=== PATIENT | male | born 1970 | race Caucasian/White ===

== ENCOUNTER 2023-02-17 09:53 | Outpatient (RCR) | payer MEDICAID, SELFPAY | END 2023-04-07 16:34 | disposition home or self-care (01) | LOC: OT 09:53 | DX: R29.898 Other symptoms and signs involving the musculoskeletal system (principal) | CPT/HCPCS: 97014; 97140; 97530; 97535; G0283 ==

== ENCOUNTER 2023-02-22 14:02 | Outpatient (RCR) | payer MEDICAID, SELFPAY | END 2023-09-18 08:00 | disposition home or self-care (01) | LOC: PT 14:02 | DX: G81.94 Hemiplegia, unspecified affecting left nondominant side (principal); M25.512 Pain in left shoulder | CPT/HCPCS: 97110; 97112; 97113; 97116; 97140; 97162; 97530 ==

== ENCOUNTER 2023-03-29 21:40 | Outpatient (REF) | payer MEDICAID, SELFPAY | END 2023-03-29 21:41 | disposition home or self-care (01) | LOC: LAB 21:40 | PROVIDERS: Visit Provider Physician Assistant | DX: R82.90 Unspecified abnormal findings in urine (principal) | CPT/HCPCS: 87086 ==

== ENCOUNTER 2023-04-18 15:19 | Emergency (ER) | payer MEDICAID, SELFPAY ==
[2023-04-18 15:28] VITALS: BP 117/88; PULSE 72; RESP 20; TEMP 36.6; O2SAT 98; BMI 24.9
--- NOTE | 2023-04-18 15:40 | ECG_ITS ---
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
--- NOTE | 2023-04-18 15:41 | ED_ITS ---
Documented by User: SVETLANA Marsh 04/18/23 17:44 HPI - Seizure General Chief Complaint: Seizure Stated Complaint: SEIZURE Time Seen by Provider: 04/18/23 15:40 Source: patient Mode of arrival: ambulance Limitations: physical limitation History of Present Illness HPI Narrative: patient is a 52-year-old male with a history of stroke, seizure disorder who presents to the Emergency Room by ambulance after having a seizure at home. He states he stays awake for his seizures and was cognizant of the event. He reports shaking on his left side which is typical of his previous seizures. He had no falls or injuries. He reports a mild headache and nausea at this time. He takes Lamicctal, he was previously on Keppra but was switched to Lamictal. He has not had a level checked in over a month. He has had no other recent illness. Seizure History: Yes Place: outdoors Related Data Home Medications Medication Instructions Recorded Confirmed aspirin 81 mg tablet,delayed 81 mg PO DAILY 04/18/23 04/18/23 release atorvastatin 40 mg tablet 40 mg PO DAILY 04/18/23 04/18/23 baclofen 20 mg tablet 20 mg PO Q12H 04/18/23 04/18/23 duloxetine 60 mg capsule,delayed 60 mg PO DAILY 04/18/23 04/18/23 release ergocalciferol (vitamin D2) 1,250 50,000 unit PO DAILY 04/18/23 04/18/23 mcg (50,000 unit) capsule (Vitamin D2) gabapentin 400 mg capsule 400 mg PO TID 04/18/23 04/18/23 lamotrigine 100 mg tablet 100 mg PO Q12H 04/18/23 04/18/23 melatonin 5 mg tablet,immediate 5 mg PO BEDTIME 04/18/23 04/18/23 and extended release omeprazole 20 mg capsule,delayed 20 mg PO DAILY 04/18/23 04/18/23 release trazodone 150 mg tablet 150 mg PO DAILY 04/18/23 04/18/23 Allergies Allergy/AdvReac Type Severity Reaction Status Date / Time cortisone AdvReac Severe Nausea Verified 04/18/23 15:23 Review of Systems ROS Constitutional Denies: fever or chills Ears, nose, mouth, and throat Denies: throat pain Cardiovascular Denies: chest pain Respiratory Denies: shortness of breath Gastrointestinal Reports: nausea; Denies: vomiting Musculoskeletal Denies: back pain Integumentary/Breast Denies: rash Neurological Reports: headache [facility] Medical History (Updated 04/18/23 @ 17:43 by SVETLANA Marsh) Exam Narrative Exam Narrative: Gen.: Awake, alert, in no distress Head: Normocephalic, atraumatic ENT: Moist mucous membranes, no evidence of injury to the mouth or laceration of the tongue Respiratory: No respiratory distress, lungs clear bilaterally Cardio: Regular rate and rhythm Extremities: left-sided weakness from previous CVA, at baseline Psych: Normal mood and affect Neuro: No focal neuro deficit Skin: Warm, dry, intact Constitutional Vital Signs, click to edit/add: Last Vital Signs Temp 98 F 04/18/23 15:28 Pulse 72 04/18/23 15:28 Resp 20 04/18/23 15:28 BP 117/88 04/18/23 15:28 Pulse Ox 98 04/18/23 15:28 O2 Del Method Room Air 04/18/23 15:28 Course Vital Signs Vital signs: Vital Signs Temperature 98 F 04/18/23 15:28 Pulse Rate 72 04/18/23 15:28 Respiratory Rate 20 04/18/23 15:28 Blood Pressure 117/88 04/18/23 15:28 Pulse Oximetry 98 04/18/23 15:28 Oxygen Delivery Method Room Air 04/18/23 15:28 Temperature 98 F 04/18/23 15:28 Pulse Rate 72 04/18/23 15:28 Respiratory Rate 20 04/18/23 15:28 Blood Pressure 117/88 04/18/23 15:28 Pulse Oximetry 98 04/18/23 15:28 Oxygen Delivery Method Room Air 04/18/23 15:28 MDM - Seizure MDM Narrative Medical decision making narrative: EKG interpretation. Normal sinus rhythm at 72 beats a minute. Normal axis deviation. Artifact noted. No acute ST elevation, no acute ectopy. QTC of 396. lab studies within normal limits, patient with no persistent postictal period or seizure activity in the Emergency Room. Electrolytes within normal limits. Limit the level was ordered but is a send out lab for this patient, we will contact with abnormalities. Follow-up with advanced neurology and return to the Emergency Room if symptoms change or worsen. Patient was given Toradol and Zofran for headache. Stable at time of discharge, at mental baseline. Medical Records Attestation: I reviewed the patient's medical records. Lab Data Attestation: I reviewed the patient's lab results. Labs: Lab Results 04/18/23 Range/Units 15:50 WBC 7.3 (4.0-11.0) 10^3/uL RBC 4.91 (4.70-6.10) 10^6/uL Hgb 13.4 L (14.0-18.0) g/dL Hct 41.4 L (42.0-54.0) % MCV 84.3 (80.0-94.0) fL MCH 27.3 (25.9-34.0) pg MCHC 32.4 (29.9-35.2) g/dL RDW 14.3 (11.0-15.0) % Plt Count 267 (150-450) 10^3/uL MPV 10.3 (9.5-13.5) fL Neut % (Auto) 71.8 (43.0-75.0) % Lymph % (Auto) 18.9 L (20.5-60.0) % [place] % (Auto) 7.2 (1.7-12.0) % Eos % (Auto) 1.1 (0.9-7.0) % Baso % (Auto) 0.7 (0.2-2.0) % Neut # (Auto) 5.2 (1.4-6.5) 10^3/uL Lymph # (Auto) 1.4 (1.2-3.8) 10^3/uL [place] # (Auto) 0.5 (0.3-0.8) 10^3/uL Eos # (Auto) 0.1 (0.0-0.7) 10^3/uL Baso # (Auto) 0.1 (0.0-0.1) 10^3/uL Abs Immat Gran (auto) 0.02 (0.00-0.03) 10^3/uL Imm/Tot Granulo (auto) 0.3 (0.0-0.5) % Sodium 137 (136-145) mmol/L Potassium 3.9 (3.5-5.1) mmol/L Chloride 103 (98-107) mmol/L Carbon Dioxide 29.7 (21.0-32.0) mmol/L Anion Gap 8.2 BUN 13.0 (7.0-18.0) mg/dL Creatinine 1.15 (0.70-1.30) mg/dL Est GFR ( Amer) >60 (>=60) Est GFR (Non-Af Amer) >60 (>=60) BUN/Creatinine Ratio 11.3 Glucose 118 H (74-106) mg/dL Calcium 9.3 (8.5-10.1) mg/dL Total Bilirubin 0.6 (0.2-1.0) mg/dL AST 18 (15-37) U/L ALT 28 (16-63) U/L Alkaline Phosphatase 81 (46-116) U/L Total Protein 7.9 (6.4-8.2) g/dL Albumin 3.8 (3.4-5.0) g/dL Globulin 4.1 g/dL Albumin/Globulin Ratio 0.9 ECG Data Attestation: ?I have reviewed the pertinent ECG results. Discharge Plan Discharge Chief Complaint: Seizure Clinical Impression: Focal seizure Patient Disposition: Home, Self-Care Time of Disposition Decision: 17:42 Condition: Good Prescriptions / Home Meds: No Action aspirin 81 mg tablet,delayed release (DR/EC) 81 mg PO DAILY atorvastatin 40 mg tablet 40 mg PO DAILY baclofen 20 mg tablet 20 mg PO Q12H duloxetine 60 mg capsule,delayed release(DR/EC) 60 mg PO DAILY ergocalciferol (vitamin D2) [Vitamin D2] 1,250 mcg (50,000 unit) capsule 50,000 unit PO DAILY gabapentin 400 mg capsule 400 mg PO TID lamotrigine 100 mg tablet 100 mg PO Q12H omeprazole 20 mg capsule,delayed release(DR/EC) 20 mg PO DAILY trazodone 150 mg tablet 150 mg PO DAILY melatonin 5 mg tablet, IR and ER, biphasic 5 mg PO BEDTIME Instructions: Recurrent Seizures in Adults (ED) Additional Instructions: Lamictal level will take a few days to result. Follow up with your neurologist and continue your medications as prescribed. Stand Alone Forms: Portal Instructions Referrals: Physician,Non-Staff, MD [Primary Care Provider] - 1 week Discharge Date/Time: 04/18/23 17:54 Documented by User: Carlton Bass MD 04/18/23 21:09 HPI - Seizure General Chief Complaint: Seizure Stated Complaint: SEIZURE Time Seen by Provider: 04/18/23 15:40 Related Data Home Medications Medication Instructions Recorded Confirmed aspirin 81 mg tablet,delayed 81 mg PO DAILY 04/18/23 04/18/23 release atorvastatin 40 mg tablet 40 mg PO DAILY 04/18/23 04/18/23 baclofen 20 mg tablet 20 mg PO Q12H 04/18/23 04/18/23 duloxetine 60 mg capsule,delayed 60 mg PO DAILY 04/18/23 04/18/23 release ergocalciferol (vitamin D2) 1,250 50,000 unit PO DAILY 04/18/23 04/18/23 mcg (50,000 unit) capsule (Vitamin D2) gabapentin 400 mg capsule 400 mg PO TID 04/18/23 04/18/23 lamotrigine 100 mg tablet 100 mg PO Q12H 04/18/23 04/18/23 melatonin 5 mg tablet,immediate 5 mg PO BEDTIME 04/18/23 04/18/23 and extended release omeprazole 20 mg capsule,delayed 20 mg PO DAILY 04/18/23 04/18/23 release trazodone 150 mg tablet 150 mg PO DAILY 04/18/23 04/18/23 Allergies Allergy/AdvReac Type Severity Reaction Status Date / Time cortisone AdvReac Severe Nausea Verified 04/18/23 15:23 [facility] Medical History (Updated 04/18/23 @ 17:43 by SVETLANA Marsh) Exam Constitutional Vital Signs, click to edit/add: Last Vital Signs Temp 98 F 04/18/23 15:28 Pulse 72 04/18/23 15:28 Resp 20 04/18/23 15:28 BP 117/88 04/18/23 15:28 Pulse Ox 98 04/18/23 15:28 O2 Del Method Room Air 04/18/23 15:28 Course Vital Signs Vital signs: Vital Signs Temperature 98 F 04/18/23 15:28 Pulse Rate 72 04/18/23 15:28 Respiratory Rate 20 04/18/23 15:28 Blood Pressure 117/88 04/18/23 15:28 Pulse Oximetry 98 04/18/23 15:28 Oxygen Delivery Method Room Air 04/18/23 15:28 Temperature 98 F 04/18/23 15:28 Pulse Rate 72 04/18/23 15:28 Respiratory Rate 20 04/18/23 15:28 Blood Pressure 117/88 04/18/23 15:28 Pulse Oximetry 98 04/18/23 15:28 Oxygen Delivery Method Room Air 04/18/23 15:28 MDM - Seizure MDM Narrative Medical decision making narrative: EKG interpretation. Normal sinus rhythm at 72 beats a minute. Normal axis deviation. Artifact noted. No acute ST elevation, no acute ectopy. QTC of 396. lab studies within normal limits, patient with no persistent postictal period or seizure activity in the Emergency Room. Electrolytes within normal limits. Limit the level was ordered but is a send out lab for this patient, we will contact with abnormalities. Follow-up with advanced neurology and return to the Emergency Room if symptoms change or worsen. Patient was given Toradol and Zofran for headache. Stable at time of discharge, at mental baseline. I, Dr Bass, have reviewed the above progress note and course of action in the ER; agree with the above. I have personally seen and evaluated this patient, gone over history and physical, and discussed disposition and treatment plan with the patient. Lab Data Labs: Lab Results 04/18/23 Range/Units 15:50 WBC 7.3 (4.0-11.0) 10^3/uL RBC 4.91 (4.70-6.10) 10^6/uL Hgb 13.4 L (14.0-18.0) g/dL Hct 41.4 L (42.0-54.0) % MCV 84.3 (80.0-94.0) fL MCH 27.3 (25.9-34.0) pg MCHC 32.4 (29.9-35.2) g/dL RDW 14.3 (11.0-15.0) % Plt Count 267 (150-450) 10^3/uL MPV 10.3 (9.5-13.5) fL Neut % (Auto) 71.8 (43.0-75.0) % Lymph % (Auto) 18.9 L (20.5-60.0) % [place] % (Auto) 7.2 (1.7-12.0) % Eos % (Auto) 1.1 (0.9-7.0) % Baso % (Auto) 0.7 (0.2-2.0) % Neut # (Auto) 5.2 (1.4-6.5) 10^3/uL Lymph # (Auto) 1.4 (1.2-3.8) 10^3/uL [place] # (Auto) 0.5 (0.3-0.8) 10^3/uL Eos # (Auto) 0.1 (0.0-0.7) 10^3/uL Baso # (Auto) 0.1 (0.0-0.1) 10^3/uL Abs Immat Gran (auto) 0.02 (0.00-0.03) 10^3/uL Imm/Tot Granulo (auto) 0.3 (0.0-0.5) % Sodium 137 (136-145) mmol/L Potassium 3.9 (3.5-5.1) mmol/L Chloride 103 (98-107) mmol/L Carbon Dioxide 29.7 (21.0-32.0) mmol/L Anion Gap 8.2 BUN 13.0 (7.0-18.0) mg/dL Creatinine 1.15 (0.70-1.30) mg/dL Est GFR ( Amer) >60 (>=60) Est GFR (Non-Af Amer) >60 (>=60) BUN/Creatinine Ratio 11.3 Glucose 118 H (74-106) mg/dL Calcium 9.3 (8.5-10.1) mg/dL Total Bilirubin 0.6 (0.2-1.0) mg/dL AST 18 (15-37) U/L ALT 28 (16-63) U/L Alkaline Phosphatase 81 (46-116) U/L Total Protein 7.9 (6.4-8.2) g/dL Albumin 3.8 (3.4-5.0) g/dL Globulin 4.1 g/dL Albumin/Globulin Ratio 0.9 Discharge Plan Discharge Chief Complaint: Seizure Clinical Impression: Focal seizure Patient Disposition: Home, Self-Care Time of Disposition Decision: 17:42 Condition: Good Prescriptions / Home Meds: No Action aspirin 81 mg tablet,delayed release (DR/EC) 81 mg PO DAILY atorvastatin 40 mg tablet 40 mg PO DAILY baclofen 20 mg tablet 20 mg PO Q12H duloxetine 60 mg capsule,delayed release(DR/EC) 60 mg PO DAILY ergocalciferol (vitamin D2) [Vitamin D2] 1,250 mcg (50,000 unit) capsule 50,000 unit PO DAILY gabapentin 400 mg capsule 400 mg PO TID lamotrigine 100 mg tablet 100 mg PO Q12H omeprazole 20 mg capsule,delayed release(DR/EC) 20 mg PO DAILY trazodone 150 mg tablet 150 mg PO DAILY melatonin 5 mg tablet, IR and ER, biphasic 5 mg PO BEDTIME Instructions: Recurrent Seizures in Adults (ED) Additional Instructions: Lamictal level will take a few days to result. Follow up with your neurologist and continue your medications as prescribed. Stand Alone Forms: Portal Instructions Referrals: Physician,Non-Staff, MD [Primary Care Provider] - 1 week Discharge Date/Time: 04/18/23 17:54
[2023-04-18] MEDS: 0.9 % SODIUM CHLORIDE 1,000 ML 1000 ML IV (16:06)
[2023-04-18] MEDS: ONDANSETRON PF 4 MG/2 ML VIAL IV (16:06)
[2023-04-18 16:07] LABS: Basophils Absolute Auto 0.1 10^3/uL (0.0-0.1); Basophils Percent Auto 0.7 % (0.2-2.0); Eosinophils Absolute Auto 0.1 10^3/uL (0.0-0.7); Eosinophils Percent Auto 1.1 % (0.9-7.0); Hematocrit 41.4 % (42.0-54.0); Hemoglobin 13.4 g/dL (14.0-18.0); Immature Granulocytes Abs Auto 0.02 10^3/uL (0.00-0.03); Immature Granulocytes Pct Auto 0.3 % (0.0-0.5); Lymphocytes Absolute Auto 1.4 10^3/uL (1.2-3.8); Lymphocytes Percent Auto 18.9 % (20.5-60.0); Mean Corpuscular HGB Conc 32.4 g/dL (29.9-35.2); Mean Corpuscular Hemoglobin 27.3 pg (25.9-34.0); Mean Corpuscular Volume 84.3 fL (80.0-94.0); Mean Platelet Volume 10.3 fL (9.5-13.5); Monocytes Absolute Auto 0.5 10^3/uL (0.3-0.8); Monocytes Percent Auto 7.2 % (1.7-12.0); Neutrophils Absolute Auto 5.2 10^3/uL (1.4-6.5); Neutrophils Percent Auto 71.8 % (43.0-75.0); Platelet Count 267 10^3/uL (150-450); Red Blood Count 4.91 10^6/uL (4.70-6.10); Red Cell Distribution Width 14.3 % (11.0-15.0); White Blood Count 7.3 10^3/uL (4.0-11.0)
[2023-04-18] MEDS: KETOROLAC TROMETHAMINE 30 MG/ML VIAL IVP (16:07)
[2023-04-18 16:18] LABS: Alanine Aminotransferase 28 U/L (16-63); Albumin Globulin Ratio 0.9; Albumin Level 3.8 g/dL (3.4-5.0); Alkaline Phosphatase 81 U/L (46-116); Anion Gap 8.2; Aspartate Amino Transferase 18 U/L (15-37); BUN Creatinine Ratio 11.3; Bilirubin Total 0.6 mg/dL (0.2-1.0); Calcium 9.3 mg/dL (8.5-10.1); Carbon Dioxide 29.7 mmol/L (21.0-32.0); Chloride 103 mmol/L (98-107); Estimated GFR (African America >60 (>=60); Estimated GFR (Non-African Ame >60 (>=60); Globulin 4.1 g/dL; Glucose 118 mg/dL (74-106); Potassium 3.9 mmol/L (3.5-5.1); Sodium 137 mmol/L (136-145); Total Protein 7.9 g/dL (6.4-8.2)
[2023-04-20 14:11] LABS: Lamotrigine (Lamictal), Serum 5.7 ug/mL (2.0-20.0)
== END 2023-04-18 17:54 | disposition home or self-care (01) ==
PROVIDERS: Physician Assistant; Emergency Provider Emergency Medicine
DX: G40.909 Epilepsy, unspecified, not intractable, without status epilepticus (principal); Z79.899 Other long term (current) drug therapy; Z79.82 Long term (current) use of aspirin
CPT/HCPCS: 36415; 80053; 80175; 85025; 93005; 96374; 96375; 99285

== ENCOUNTER 2023-05-03 13:55 | Emergency (ER) | payer MEDICAID, SELFPAY ==
[2023-05-03] VITALS (12 sets, daily range): BP systolic 95–116; BP diastolic 72–75; PULSE 55–76; RESP 18–27; TEMP 36.6; O2SAT 95; BMI 26.3
--- NOTE | 2023-05-03 14:15 | ECG_ITS ---
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
--- NOTE | 2023-05-03 14:15 | XR_ITS ---
The [address] [address] Patient Name: JONI GRIFFIN MRN: [id number] date: 1970 Sex: M Assigned Patient Location: ER Current Patient Location: ED.MAIN Accession/Order Number: [id number] Exam Date: 05/03/2023 14:25 Report Date: 05/03/2023 14:43 At the request of: DANISH KHAN Procedure: XR chest 1V PROCEDURE: XR chest 1V DATE: 05/03/2023 1:25 PM CDT COMPARISONS: 09/29/2019 CLINICAL INDICATION: 52 years Male chest pain FINDINGS: The cardiomediastinal silhouette and pulmonary vasculature are within normal limits. The lungs are clear. There is no evidence of pleural effusion or pneumothorax. XR/XR chest 1V IMPRESSION: Chest radiograph is within normal limits. Electronically authenticated by: DELFINO HAMM Date: 05/03/2023 14:43
--- NOTE | 2023-05-03 14:31 | ED.CHESTPAI1 ---
HPI - Chest Pain General Chief Complaint: Chest Pain Stated Complaint: CHEST PAIN Time Seen by Provider: 05/03/23 14:02 Source: patient Mode of arrival: ambulance History of Present Illness HPI narrative: 52-year-old male to the emergency department with chief complaint chest pain. Patient has been on since this morning. He reports it is a pain near his xiphoid process that radiates up into his neck. He reports he has had pain like this in past. He is otherwise at his baseline health. Denies any palpitations, shortness of breath, numbness, weakness, tingling that is new. Denies any cardiac history. He denies any diabetes, hypertension, smoking. Related Data Home Medications Medication Instructions Recorded Confirmed aspirin 81 mg tablet,delayed 81 mg PO DAILY 04/18/23 05/03/23 release atorvastatin 40 mg tablet 40 mg PO DAILY 04/18/23 05/03/23 baclofen 20 mg tablet 20 mg PO Q12H 04/18/23 05/03/23 duloxetine 60 mg capsule,delayed 60 mg PO DAILY 04/18/23 05/03/23 release ergocalciferol (vitamin D2) 1,250 50,000 unit PO DAILY 04/18/23 05/03/23 mcg (50,000 unit) capsule (Vitamin D2) gabapentin 400 mg capsule 400 mg PO TID 04/18/23 05/03/23 lamotrigine 100 mg tablet 100 mg PO Q12H 04/18/23 05/03/23 melatonin 5 mg tablet,immediate 5 mg PO BEDTIME 04/18/23 05/03/23 and extended release omeprazole 20 mg capsule,delayed 20 mg PO DAILY 04/18/23 05/03/23 release trazodone 150 mg tablet 150 mg PO DAILY 04/18/23 05/03/23 Allergies Allergy/AdvReac Type Severity Reaction Status Date / Time cortisone AdvReac Severe Nausea Verified 05/03/23 14:04 Review of Systems ROS Status of ROS 10 or more systems reviewed and unremarkable except as noted in history and below [facility] Medical History (Updated 05/03/23 @ 15:18 by Benja Lama MD) Exam Narrative Exam Narrative: VITALS: I have reviewed the triage vital signs. GENERAL: Well developed, well appearing adult in no acute distress. Wearing sunglasses. NEURO: Alert and oriented. Moves all extremities. Face is symmetric and expressive. EYES: PERRL. No scleral icterus or conjunctival injection. No discharge. HENT: Normocephalic, atraumatic. Hearing is grossly intact. Nares grossly patent and without discharge. Mucous membranes moist. NECK: No JVD. Patient moves neck without restriction. CARDIO: Rhythm regular. Normal rate. No murmur, rub, or gallop. Pulses equal bilaterally in the upper and lower extremity. No lower extremity edema. PULM: Lungs clear to auscultation in all dumont. No wheezes, rales, or rhonchi. No conversational dyspnea. No splinting, stridor, or accessory muscle use. GI/: Abdomen is soft and non-tender. Normoactive bowel sounds. EXTREMITIES: Symmetric muscle bulk. No joint swelling. No clubbing, cyanosis, or deformity. SKIN: Warm and dry. Normal turgor. No rash or lesions appreciated. PSYCH: Strange affect Constitutional Vital Signs, click to edit/add: Last Vital Signs Temp 98 F 05/03/23 14:02 Pulse 63 05/03/23 15:00 Resp 19 05/03/23 15:00 BP 108/73 05/03/23 15:00 Pulse Ox 95 05/03/23 14:02 O2 Del Method Room Air 05/03/23 14:02 Course Vital Signs Vital signs: Vital Signs Blood Pressure 116/73 05/03/23 13:57 Temperature 98 F 05/03/23 14:02 Pulse Rate 63 05/03/23 15:00 Respiratory Rate 19 05/03/23 15:00 Blood Pressure 108/73 05/03/23 15:00 Pulse Oximetry 95 05/03/23 14:02 Oxygen Delivery Method Room Air 05/03/23 14:02 MDM - Chest Pain MDM Narrative Medical decision making narrative: 52-year-old male to the emergency department with chief complaint of chest pain. Vital stable, the patient is afebrile. Cardiac workup is initiated. Toradol, Zofran for symptoms. Patient agrees with this plan. Laboratory reviewed and noted. No major abnormalities in CBC or chemistry. Lipase is within normal limits. His troponin is very low. EKG is without evidence of ischemia. Chest x-ray is without acute findings. HEART Score: 2; [id number] Patient low risk by HEART Score. Symptom onset greater than three hours ago with negative troponin, he is appropriate for discharge home at this time. Patient agrees with this plan. He feels much improved. Discussed cardiology follow-up, referral is given. Return Precautions discussed. Questions were answered. The patient was discharged home. Medical Records Data Attestation: I reviewed the patient's medical records. Lab Data Attestation: I reviewed the patient's lab results. Labs: Lab Results 05/03/23 Range/Units 14:25 WBC 6.3 (4.0-11.0) 10^3/uL RBC 4.61 L (4.70-6.10) 10^6/uL Hgb 12.6 L (14.0-18.0) g/dL Hct 39.2 L (42.0-54.0) % MCV 85.0 (80.0-94.0) fL MCH 27.3 (25.9-34.0) pg MCHC 32.1 (29.9-35.2) g/dL RDW 14.4 (11.0-15.0) % Plt Count 219 (150-450) 10^3/uL MPV 10.4 (9.5-13.5) fL Neut % (Auto) 60.6 (43.0-75.0) % Lymph % (Auto) 27.3 (20.5-60.0) % [place] % (Auto) 9.4 (1.7-12.0) % Eos % (Auto) 1.6 (0.9-7.0) % Baso % (Auto) 0.8 (0.2-2.0) % Neut # (Auto) 3.8 (1.4-6.5) 10^3/uL Lymph # (Auto) 1.7 (1.2-3.8) 10^3/uL [place] # (Auto) 0.6 (0.3-0.8) 10^3/uL Eos # (Auto) 0.1 (0.0-0.7) 10^3/uL Baso # (Auto) 0.1 (0.0-0.1) 10^3/uL Abs Immat Gran (auto) 0.02 (0.00-0.03) 10^3/uL Imm/Tot Granulo (auto) 0.3 (0.0-0.5) % PT 10.0 (9.0-11.6) sec INR 0.94 APTT 27.7 (22.3-36.2) sec Sodium 139 (136-145) mmol/L Potassium 4.4 (3.5-5.1) mmol/L Chloride 104 (98-107) mmol/L Carbon Dioxide 26.1 (21.0-32.0) mmol/L Anion Gap 13.3 BUN 15.0 (7.0-18.0) mg/dL Creatinine 0.99 (0.70-1.30) mg/dL Est GFR ( Amer) >60 (>=60) Est GFR (Non-Af Amer) >60 (>=60) BUN/Creatinine Ratio 15.2 Glucose 110 H (74-106) mg/dL Calcium 9.6 (8.5-10.1) mg/dL Total Bilirubin 0.6 (0.2-1.0) mg/dL AST 19 (15-37) U/L ALT 25 (16-63) U/L Alkaline Phosphatase 84 (46-116) U/L Troponin I High Sens 5.4 (4.0-76.1) pg/mL Total Protein 7.6 (6.4-8.2) g/dL Albumin 3.7 (3.4-5.0) g/dL Globulin 3.9 g/dL Albumin/Globulin Ratio 0.9 Lipase 92.0 (73.0-393.0) U/L ECG Data Attestation: I personally reviewed and interpreted this ECG as follows: (Normal sinus rhythm with rate of 66. No STEMI. normal QTc.) Heart Score History: Slightly/Non-Suspicious ECG: Normal Age: >45-<65 years Risk Factors: 1 or 2 Risk Factors Troponin: <Normal Limit Total Heart Score Recommendations & Risks:: 2 Discharge Plan Discharge Chief Complaint: Chest Pain Clinical Impression: Atypical chest pain Patient Disposition: Home, Self-Care Time of Disposition Decision: 15:17 Condition: Good Mode of Transportation: Private Vehicle Prescriptions / Home Meds: No Action aspirin 81 mg tablet,delayed release (DR/EC) 81 mg PO DAILY atorvastatin 40 mg tablet 40 mg PO DAILY baclofen 20 mg tablet 20 mg PO Q12H duloxetine 60 mg capsule,delayed release(DR/EC) 60 mg PO DAILY ergocalciferol (vitamin D2) [Vitamin D2] 1,250 mcg (50,000 unit) capsule 50,000 unit PO DAILY gabapentin 400 mg capsule 400 mg PO TID lamotrigine 100 mg tablet 100 mg PO Q12H omeprazole 20 mg capsule,delayed release(DR/EC) 20 mg PO DAILY trazodone 150 mg tablet 150 mg PO DAILY melatonin 5 mg tablet, IR and ER, biphasic 5 mg PO BEDTIME Print Language: Sami Instructions: Chest Pain (ED) Stand Alone Forms: Portal Instructions Referrals: Hemalatha Branham MD [Physician] - 1 week (Establish with cardiology for stress testing. Return to the ED with new or worsening symptoms. ) Physician,Non-Staff, [Primary Care Provider] - 1 week
[2023-05-03] MEDS: FAMOTIDINE/PF 20 MG/2 ML VIAL IV (14:35)
[2023-05-03] MEDS: KETOROLAC TROMETHAMINE 30 MG/ML VIAL 15 MG IVP (14:35)
[2023-05-03] MEDS: ONDANSETRON PF 4 MG/2 ML VIAL IV (14:35)
[2023-05-03 14:37] LABS: Basophils Absolute Auto 0.1 10^3/uL (0.0-0.1); Basophils Percent Auto 0.8 % (0.2-2.0); Eosinophils Absolute Auto 0.1 10^3/uL (0.0-0.7); Eosinophils Percent Auto 1.6 % (0.9-7.0); Hematocrit 39.2 % (42.0-54.0); Hemoglobin 12.6 g/dL (14.0-18.0); Immature Granulocytes Abs Auto 0.02 10^3/uL (0.00-0.03); Immature Granulocytes Pct Auto 0.3 % (0.0-0.5); Lymphocytes Absolute Auto 1.7 10^3/uL (1.2-3.8); Lymphocytes Percent Auto 27.3 % (20.5-60.0); Mean Corpuscular HGB Conc 32.1 g/dL (29.9-35.2); Mean Corpuscular Hemoglobin 27.3 pg (25.9-34.0); Mean Platelet Volume 10.4 fL (9.5-13.5); Monocytes Absolute Auto 0.6 10^3/uL (0.3-0.8); Monocytes Percent Auto 9.4 % (1.7-12.0); Neutrophils Absolute Auto 3.8 10^3/uL (1.4-6.5); Neutrophils Percent Auto 60.6 % (43.0-75.0); Platelet Count 219 10^3/uL (150-450); Red Blood Count 4.61 10^6/uL (4.70-6.10); Red Cell Distribution Width 14.4 % (11.0-15.0); White Blood Count 6.3 10^3/uL (4.0-11.0)
[2023-05-03] MEDS: 0.9 % SODIUM CHLORIDE 1,000 ML 1000 ML IV (14:54)
[2023-05-03 14:57] LABS: INR 0.94; Partial Thromboplastin Time 27.7 sec (22.3-36.2)
[2023-05-03 15:00] LABS: Alanine Aminotransferase 25 U/L (16-63); Albumin Globulin Ratio 0.9; Albumin Level 3.7 g/dL (3.4-5.0); Alkaline Phosphatase 84 U/L (46-116); Anion Gap 13.3; Aspartate Amino Transferase 19 U/L (15-37); BUN Creatinine Ratio 15.2; Bilirubin Total 0.6 mg/dL (0.2-1.0); Calcium 9.6 mg/dL (8.5-10.1); Carbon Dioxide 26.1 mmol/L (21.0-32.0); Chloride 104 mmol/L (98-107); Estimated GFR (African America >60 (>=60); Estimated GFR (Non-African Ame >60 (>=60); Globulin 3.9 g/dL; Glucose 110 mg/dL (74-106); Potassium 4.4 mmol/L (3.5-5.1); Sodium 139 mmol/L (136-145); Total Protein 7.6 g/dL (6.4-8.2); Troponin I High Sensitivity 5.4 pg/mL (4.0-76.1)
== END 2023-05-03 15:43 | disposition home or self-care (01) ==
PROVIDERS: Emergency Provider Student in an Organized Health Care Education/Training Program
DX: R07.89 Other chest pain (principal); Z79.82 Long term (current) use of aspirin; Z79.899 Other long term (current) drug therapy
CPT/HCPCS: 36415; 71045; 80053; 83690; 84484; 85025; 85610; 85730; 93005; 96374; 96375; 99285

== ENCOUNTER 2023-06-27 20:21 | Outpatient (OUT) | payer MEDICAID, SELFPAY | END 2023-06-27 20:22 | disposition home or self-care (01) | LOC: SLEEP 20:21 | DX: G47.33 Obstructive sleep apnea (adult) (pediatric) (principal) | CPT/HCPCS: 95811 ==

== ENCOUNTER 2023-08-01 15:02 | Outpatient (RCR) | payer MEDICAID, SELFPAY | END 2023-09-18 08:12 | disposition home or self-care (01) | LOC: OT 15:02 | PROVIDERS: Visit Provider Physician Assistant | DX: R53.1 Weakness (principal) | CPT/HCPCS: 97110; 97112; 97140; 97165 ==

== ENCOUNTER 2023-09-12 14:12 | Emergency (ER) | payer MEDICAID, SELFPAY ==
[2023-09-12] VITALS (14 sets, daily range): BP systolic 134–142; BP diastolic 67–92; PULSE 74–88; RESP 11–26; TEMP 36.8; O2SAT 94–97; BMI 24.4
--- NOTE | 2023-09-12 14:25 | XR_ITS ---
The [address] [address] Patient Name: JONI GRIFFIN MRN: [id number] date: 1970 Sex: M Assigned Patient Location: ER Current Patient Location: ER Accession/Order Number: [id number] Exam Date: 09/12/2023 14:30 Report Date: 09/12/2023 15:47 At the request of: MORTEZA MORAN Procedure: XR chest 1V EXAM: XR chest 1V TECHNIQUE: Single AP view chest HISTORY: CP COMPARISON: 05/03/2023 FINDINGS: The heart and mediastinum are unremarkable. The lung dumont are clear of any acute infiltrate, effusion or mass. No acute bony abnormality. XR/XR chest 1V IMPRESSION: No acute pulmonary disease. Electronically authenticated by: FRANCISCO JAVIER MEDRANO Date: 09/12/2023 15:47
--- NOTE | 2023-09-12 14:25 | ECG_ITS ---
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
--- NOTE | 2023-09-12 14:26 | ED.CHESTPAI1 ---
HPI - Chest Pain General Chief Complaint: Chest Pain Stated Complaint: body pains-hx stroke Time Seen by Provider: 09/12/23 14:16 Source: patient Mode of arrival: Wheelchair Limitations: physical limitation History of Present Illness HPI narrative: 53-year-old male presents for chest pain. It started about thirty minutes ago while he was sitting. Shortly before this he had eaten some sloppy Chon's. He pointed to the epigastric area and then the sternal notch area to indicate where was and is. It seems to have subsided a great deal and is almost gone now. No trauma fever or shortness of breath. No weakness or headache. Related Data Home Medications Medication Instructions Recorded Confirmed aspirin 81 mg tablet,delayed 81 mg PO DAILY 04/18/23 05/03/23 release atorvastatin 40 mg tablet 40 mg PO DAILY 04/18/23 05/03/23 baclofen 20 mg tablet 20 mg PO Q12H 04/18/23 05/03/23 duloxetine 60 mg capsule,delayed 60 mg PO DAILY 04/18/23 05/03/23 release ergocalciferol (vitamin D2) 1,250 50,000 unit PO DAILY 04/18/23 05/03/23 mcg (50,000 unit) capsule (Vitamin D2) gabapentin 400 mg capsule 400 mg PO TID 04/18/23 05/03/23 lamotrigine 100 mg tablet 100 mg PO Q12H 04/18/23 05/03/23 melatonin 5 mg tablet,immediate 5 mg PO BEDTIME 04/18/23 05/03/23 and extended release omeprazole 20 mg capsule,delayed 20 mg PO DAILY 04/18/23 05/03/23 release trazodone 150 mg tablet 150 mg PO DAILY 04/18/23 05/03/23 Allergies Allergy/AdvReac Type Severity Reaction Status Date / Time cortisone AdvReac Severe Nausea Verified 05/03/23 14:04 Review of Systems ROS Narrative A ten point review of systems is negative except as noted above. [facility] Medical History (Updated 09/12/23 @ 16:02 by Sj Johnson MD) History of seizure ?Z87.898 - Personal history of other specified conditions (ICD-10) Hx of completed stroke ?Z86.73 - Personal history of transient ischemic attack (TIA), and cerebral infarction without residual deficits (ICD-10) Social History Smoking status: Former smoker Exam Narrative Exam Narrative: Nurses note and vital signs reviewed and patient is not hypoxic. General: The patient appears well and in no apparent distress. Patient is resting comfortably on cart. Skin: Warm, dry, no pallor noted. There is no rash noted. Head: Normocephalic, atraumatic Eye: Normal conjunctiva, no drainage Ears, Nose, Mouth, and Throat: oral mucosa is moist. Nares patent. Cardiovascular: Regular Rate and Rhythm Respiratory: Patient is in no distress, no accessory muscle use, lungs are clear to auscultation, no wheezing, rales or rhonchi Back: non-tender GI: no tenderness to palpation, no masses appreciated. No rebound, guarding, or rigidity noted. Musculoskeletal: The patient has no evidence of calf tenderness, no pitting edema, symmetrical pulses noted bilaterally Neurological: A&O x4, normal speech, chronic weakness and left arm Psychiatric: Cooperative Constitutional Vital Signs, click to edit/add: Last Vital Signs Temp 98.3 F 09/12/23 14:15 Pulse 86 09/12/23 14:15 Resp 20 09/12/23 14:15 BP 134/92 H 09/12/23 14:15 Pulse Ox 97 09/12/23 14:15 O2 Del Method Room Air 09/12/23 14:15 Course Vital Signs Vital signs: Vital Signs Temperature 98.3 F 09/12/23 14:15 Pulse Rate 86 09/12/23 14:15 Respiratory Rate 20 09/12/23 14:15 Blood Pressure 134/92 H 09/12/23 14:15 Pulse Oximetry 97 09/12/23 14:15 Oxygen Delivery Method Room Air 09/12/23 14:15 Temperature 98.3 F 09/12/23 14:15 Pulse Rate 86 09/12/23 14:15 Respiratory Rate 20 09/12/23 14:15 Blood Pressure 134/92 H 09/12/23 14:15 Pulse Oximetry 97 09/12/23 14:15 Oxygen Delivery Method Room Air 09/12/23 14:15 MDM - Chest Pain MDM Narrative Medical decision making narrative: his workup including two troponins is negative and he is able to be discharged home. He was given gastrointestinal cocktail and feels much better. Treatment diagnosis and follow-up were discussed with the patient. Differential Diagnosis Differential diagnosis: Likely pneumothorax, unstable angina pectoris, atypical chest pain, st elevation myocardial infarction, costochondritis and chest pain Lab Data Attestation: I reviewed the patient's lab results. Labs: Lab Results 09/12/23 09/12/23 Range/Units 14:30 15:30 WBC 8.4 (4.0-11.0) 10^3/uL RBC 5.11 (4.70-6.10) 10^6/uL Hgb 14.1 (14.0-18.0) g/dL Hct 43.2 (42.0-54.0) % MCV 84.5 (80.0-94.0) fL MCH 27.6 (25.9-34.0) pg MCHC 32.6 (29.9-35.2) g/dL RDW 14.4 (11.0-15.0) % Plt Count 249 (150-450) 10^3/uL MPV 10.1 (9.5-13.5) fL Neut % (Auto) 61.5 (43.0-75.0) % Lymph % (Auto) 26.1 (20.5-60.0) % Rogers % (Auto) 9.3 (1.7-12.0) % Eos % (Auto) 2.0 (0.9-7.0) % Baso % (Auto) 0.7 (0.2-2.0) % Neut # (Auto) 5.2 (1.4-6.5) 10^3/uL Lymph # (Auto) 2.2 (1.2-3.8) 10^3/uL Rogers # (Auto) 0.8 (0.3-0.8) 10^3/uL Eos # (Auto) 0.2 (0.0-0.7) 10^3/uL Baso # (Auto) 0.1 (0.0-0.1) 10^3/uL Abs Immat Gran (auto) 0.03 (0.00-0.03) 10^3/uL Imm/Tot Granulo (auto) 0.4 (0.0-0.5) % Sodium 139 (136-145) mmol/L Potassium 4.1 (3.5-5.1) mmol/L Chloride 103 (98-107) mmol/L Carbon Dioxide 24.9 (21.0-32.0) mmol/L Anion Gap 15.2 BUN 17.0 (7.0-18.0) mg/dL Creatinine 1.07 (0.70-1.30) mg/dL Est GFR ( Amer) >60 (>=60) Est GFR (Non-Af Amer) >60 (>=60) BUN/Creatinine Ratio 15.9 Glucose 99 (74-106) mg/dL Calcium 9.5 (8.5-10.1) mg/dL Troponin I High Sens 4.8 5.8 (4.0-76.1) pg/mL Imaging Data Chest x-ray: Radiologist's impression: Procedure: XR chest 1V EXAM: XR chest 1V TECHNIQUE: Single AP view chest HISTORY: CP COMPARISON: 05/03/2023 FINDINGS: The heart and mediastinum are unremarkable. The lung dumont are clear of any acute infiltrate, effusion or mass. No acute bony abnormality. IMPRESSION: No acute pulmonary disease. Electronically authenticated by: FRANCISCO JAVIER MEDRANO Date: 09/12/2023 15:47 ECG Data Attestation: I personally reviewed and interpreted this ECG as follows: (EKG on my interpretation shows normal sinus rhythm with a rate of 83 and in no acute changes.) Heart Score History: Slightly/Non-Suspicious ECG: Normal Age: >45-<65 years Risk Factors: 1 or 2 Risk Factors Troponin: <Normal Limit Total Heart Score Recommendations & Risks:: 2 Discharge Plan Discharge Chief Complaint: Chest Pain Clinical Impression: Chest pain Patient Disposition: Home, Self-Care Time of Disposition Decision: 16:02 Condition: Good Mode of Transportation: Private Vehicle Prescriptions / Home Meds: No Action aspirin 81 mg tablet,delayed release (DR/EC) 81 mg PO DAILY atorvastatin 40 mg tablet 40 mg PO DAILY baclofen 20 mg tablet 20 mg PO Q12H duloxetine 60 mg capsule,delayed release(DR/EC) 60 mg PO DAILY ergocalciferol (vitamin D2) [Vitamin D2] 1,250 mcg (50,000 unit) capsule 50,000 unit PO DAILY gabapentin 400 mg capsule 400 mg PO TID lamotrigine 100 mg tablet 100 mg PO Q12H omeprazole 20 mg capsule,delayed release(DR/EC) 20 mg PO DAILY trazodone 150 mg tablet 150 mg PO DAILY melatonin 5 mg tablet, IR and ER, biphasic 5 mg PO BEDTIME Instructions: Chest Pain (ED) Stand Alone Forms: Portal Instructions Referrals: Kade Murphy [Primary Care Provider] - 1 week
[2023-09-12 14:47] LABS: Basophils Absolute Auto 0.1 10^3/uL (0.0-0.1); Basophils Percent Auto 0.7 % (0.2-2.0); Eosinophils Absolute Auto 0.2 10^3/uL (0.0-0.7); Hematocrit 43.2 % (42.0-54.0); Hemoglobin 14.1 g/dL (14.0-18.0); Immature Granulocytes Abs Auto 0.03 10^3/uL (0.00-0.03); Immature Granulocytes Pct Auto 0.4 % (0.0-0.5); Lymphocytes Absolute Auto 2.2 10^3/uL (1.2-3.8); Lymphocytes Percent Auto 26.1 % (20.5-60.0); Mean Corpuscular HGB Conc 32.6 g/dL (29.9-35.2); Mean Corpuscular Hemoglobin 27.6 pg (25.9-34.0); Mean Corpuscular Volume 84.5 fL (80.0-94.0); Mean Platelet Volume 10.1 fL (9.5-13.5); Monocytes Absolute Auto 0.8 10^3/uL (0.3-0.8); Monocytes Percent Auto 9.3 % (1.7-12.0); Neutrophils Absolute Auto 5.2 10^3/uL (1.4-6.5); Neutrophils Percent Auto 61.5 % (43.0-75.0); Platelet Count 249 10^3/uL (150-450); Red Blood Count 5.11 10^6/uL (4.70-6.10); Red Cell Distribution Width 14.4 % (11.0-15.0); White Blood Count 8.4 10^3/uL (4.0-11.0)
[2023-09-12 14:54] LABS: Anion Gap 15.2; BUN Creatinine Ratio 15.9; Calcium 9.5 mg/dL (8.5-10.1); Carbon Dioxide 24.9 mmol/L (21.0-32.0); Chloride 103 mmol/L (98-107); Estimated GFR (African America >60 (>=60); Estimated GFR (Non-African Ame >60 (>=60); Glucose 99 mg/dL (74-106); Potassium 4.1 mmol/L (3.5-5.1); Sodium 139 mmol/L (136-145)
[2023-09-12 15:09] LABS: Troponin I High Sensitivity 4.8 pg/mL (4.0-76.1)
[2023-09-12 15:57] LABS: Troponin I High Sensitivity 5.8 pg/mL (4.0-76.1)
[2023-09-12] MEDS: ONDANSETRON 4 MG RAPDIS TABLET SL (16:03)
== END 2023-09-12 16:13 | disposition home or self-care (01) ==
PROVIDERS: Emergency Provider Emergency Medicine; PCP Physician Assistant
DX: R07.9 Chest pain, unspecified (principal); Z79.82 Long term (current) use of aspirin; Z79.899 Other long term (current) drug therapy; Z86.73 Personal history of transient ischemic attack (TIA), and cerebral infarction without residual deficits; Z87.891 Personal history of nicotine dependence
CPT/HCPCS: 36415; 71045; 80048; 84484; 85025; 93005; 99285

== ENCOUNTER 2023-09-19 09:31 | Outpatient (RCR) | payer MEDICAID, SELFPAY | END 2024-01-07 12:34 | disposition home or self-care (01) | LOC: OT 09:31 | PROVIDERS: PCP Physician Assistant; Visit Provider Physician Assistant | DX: R53.1 Weakness (principal) | CPT/HCPCS: 97112; 97140; 97530 ==

== ENCOUNTER 2023-09-19 09:32 | Outpatient (RCR) | payer MEDICAID, SELFPAY | END 2024-09-18 14:52 | disposition home or self-care (01) | LOC: PT 09:32 | PROVIDERS: PCP Nurse Practitioner; Visit Provider Nurse Practitioner | DX: G81.94 Hemiplegia, unspecified affecting left nondominant side (principal); M25.512 Pain in left shoulder; I63.511 Cerebral infarction due to unspecified occlusion or stenosis of right middle cerebral artery; R41.89 Other symptoms and signs involving cognitive functions and awareness | CPT/HCPCS: 92507; 92523; 97110; 97112; 97116; 97140 ==

== ENCOUNTER 2023-10-21 15:16 | Outpatient (OUT) | payer MEDICAID, SELFPAY ==
--- OUTSIDE RECORDS SUMMARY | 2023-10-21 15:33 | XMS_ITS | CCD ---
Author Name Unknown Address [address] [place] [id number] Organization [facility] Care Team Providers Care Oil Dispenser Name Role Phone AMRIK CUEVA Attending Unavailable Asaad, Imad Unavailable TAVOMALIHA FLAHERTY Admitting Unavailable MALIHA VO Attending Unavailable KAT, DR MATHEW Primary Care Unavailable [facility] Consulting Unavailable DEVANTE BAUM Admitting Unavailable DEVANTE BAUM Attending Unavailable KAT, DR MATHEW Primary Care Unavailable PROVIDER, UNKNOWN Admitting Unavailable PROVIDER, UNKNOWN Attending Unavailable Jodi Garcia Unavailable CASPER DEY Attending Unavailable ROBINSON BETANCOURT Attending Unavailable Allergies Allergy Classification Reported Allergen(s) Allergy Type Date of Onset Reaction(s) Facility (3 sources) Cortisone; Translations: [CORTISONE] Drug Allergy 0 stomach upset [facility] Repository (2 sources) Triamcinolone Drug Allergy Unknown [facility] Other (1 source) lamoTRIgine; Translations: [LAMOTRIGINE] Drug Allergy 1 [facility] Repository Medications Current Medications Medication Drug Class(es) Dates Sig (Normalized) Sig (Original) atorvastatin 40 mg oral tablet (2 sources) HMG-CoA Reductase Inhibitor take 1 tablet by mouth every twenty-four hours Atorvastatin Calcium 40 MG 1 tablet Orally Once a day Active baclofen 20 mg oral tablet (6 sources) gamma-Aminobutyric Acid-ergic Agonist take 1 tablet by mouth twice daily at mealtime as needed Baclofen 20 MG 1 tablet Administer without regards to meals as needed Orally Twice a day Active take 5 mL by mouth e very eight hours at mealtime Baclofen 5 MG/5ML 5 ml with food or milk Orally every 8 hrs Not-Taking Baclofen 10 MG/2 0ML as directed Intrathecal Not-Taking cephalexin 500 mg oral capsule (1 source) Cephalosporin Antibacterial Start: 05-30-2023 take 1 capsule by mouth every eight hours Cephalexin 500 MG 1 capsule Orally tid for 7 days May, Active DULoxetine 60 mg delayed release oral capsule (2 sources) Serotonin and Norepinephrine Reuptake Inhibitor take 1 capsule by mouth once daily DULoxetine HCl 60 MG take 1 capsule by mouth once daily Oral for 30 Active lamoTRIgine 100 mg oral tablet (2 sources) Mood Stabilizer, Anti-epileptic Agent LaMICtal 100 MG 1 tablet Orally Once a day, ONE AT NIGHT Active melatonin 5 mg oral tablet (2 sources) take 1 tablet by mouth once daily in the evening Melatonin 5 MG 1 tablet in the evening Orally Once a day Active Multivitamin preparation (2 sources) Multivitamin - a s directed Orally Active omeprazole 40 mg delayed release oral capsule (2 sources) Proton Pump Inhibitor Start: 10-28-2022 take 1 capsule by mouth once daily Omeprazole 40 MG 1 capsule 30 minutes before morning meal Orally Once a day for 90 days Oct, Active traMADol hydrochloride 50 mg oral tablet (2 sources) Opioid Agonist take 1 tablet by mouth every twenty-four hours traMADol HCl 50 MG 1 tablet as needed Orally Once a day Active traZODone hydrochloride 50 mg oral tablet (2 sources) Serotonin Reuptake Inhibitor take 1 tablet by mouth every twenty-four hours traZODone HCl 50 MG 1 tablet at bedtime as needed Orally Once a day Active Tylenol PM Extra Strength (2 sources) Tylenol PM Extra Strength Active Vitamin D (2 sources) Vitamin D Active Completed/Discontinued Medications Medication Drug Class(es) Dates Sig (Normalized) Sig (Original) aspirin 81 mg chewable tablet (2 sources) Platelet Aggregation Inhibitor, Nonsteroidal Anti-inflammatory Drug Aspirin 81 MG as directed Orally Not-Taking buPROPion hydrochloride 75 mg oral tablet (2 sources) Aminoketone take 1 tablet by mouth once daily in the morning buPROPion HCl 75 MG take 1 tablet by mouth every morning Oral for 30 Not-Taking fluticasone propionate 0.05 mg/actuat metered dose nasal spray (2 sources) Corticosteroid take 2 spray(s) nasal route once daily Fluticasone Propionate 50 MCG/ACT instill 2 sprays into each nostril once daily Nasal for 30 Not-Taking gabapentin 400 mg oral capsule (2 sources) Anti-epileptic Agent Gabapentin 400 MG 1 capsule Orally ONE IN AM 2 IN PM Not-Taking ibuprofen 400 mg oral tablet (4 sources) Nonsteroidal Anti-inflammatory Drug Start: 10-28-2022 take 1 tablet by mouth twice daily at mealtime as needed Ibuprofen 400 MG 1 tablet with food or milk as needed Orally twice a day as needed for 7 days Oct, Not-Taking take 1 tablet by tyshawn th three times daily at mealtime as needed Ibuprofen 600 MG 1 tablet with food or milk as needed Orally Three times a day Active levETIRAcetam 1000 mg oral tablet (2 sources) take 0.5 tablet by mouth once daily in the morning levETIRAcetam 1000 MG 1/2 TAB Orally QAM Not-Taking Triamcinolone (2 sources) Corticosteroid Start: 0 Kenalog -40 mg Oct, 40 mg Problems Problem Classification Problem Date Documented Da te Episodic/Chronic Abdominal pain (2 sources) Left upper quadrant pain; Translations: [Left upper quadrant pain] Episodic Acute cerebrovascular disease (2 sources) Cerebral infarction due to unspecified occlusion or stenosis of right middle cerebral artery; Translations: [Cerebral infarction due to unspecified occlusion or stenosis of right middle cerebral artery] Onset: 03-24-2023 Chronic Late effects of cerebrovascular disease (4 sources) Hemiplegia and hemiparesis following cerebral infarction affecting left non-dominant side; Translations: [Other sequelae of cerebral infarction] Onset: 03-24-2023 Chronic Malaise and fatigue (4 sources) Weakness; Translations: [WEAKNESS] Onset: 12-30-2022 Episodic Other connective tissue disease (2 sources) Cramp and spasm; Translations: [Cramp and spasm] Onset: 03-24-2023 Episodic Other nervous system disorders (2 sources) Chronic pain; Translations: [Other chronic pain] Chronic Residual codes; unclassified (4 sources) Obstructive sleep apnea (adult) (pediatric); Translations: [OBSTRUCTIVE SLEEP APNEA] Onset: 11-23-2022 Chronic Residual codes; unclassified (1 source) Primary central sleep apnea; Translations: [PRIMARY CENTRAL SLEEP APNEA] Onset: 11-25-2022 Chronic Skin and subcutaneous tissue infections (1 source) Cellulitis of right finger Episodic Spondylosis; intervertebral disc disorders; other back problems (4 sources) Prolapsed cervical intervertebral disc; Translations: [Other cervical disc displacement, unspecified cervical region] Chronic Results Test Name Value Interpretation Reference Range Facility Clinical Supporton Clinical Support [id number] Addison Najera 1970 M Date Provider Department Center 05/30/2023 CASPER SERNA MP OT [facility] No family history on file Normal [facility] Office Visiton 05-30-2023 Follow-up visit [id number] Addison Najera 1970 M Date Provider Department Center 05/30/2023 ROBINSON HUMMEL MP PHYS MED [facility] No family history on file Level of Service:06711 MO OFFICE/OUTPATIENT NEW MODERATE MDM 45-59 MINUTES (GC) Reason for Visit and Comments: SEATING CLINIC [Other] Normal [facility] ED Clinical Summaryon 2018 ED Clinical Summary [address] [id number] ED Clinical Summary Person Information Name: Addison Najera Xochitl/[facility] Age: 49 Years : 1970 Sex: Male PCP: Marital Status: Unknown Race: White Ethnicity: Not or Language: Macedonian Visit Reason: Potential stroke; Bradycardia; Seizure - Recurrent; Stroke Acuity: 2 Enc Type: Emergency Med Service: Emergency Medicine Arrival: 08/20/2019 15:59:03 Discharge: 08/21/2019 00:26:00 LOS: 000 08:27 Checkin: 08/20/2019 15:59:03 Checkout: 08/21/2019 00:26:00 Dispo Type: Transfer to [facility] Address: [address] [address] Provider Notes: History of Present Illness ? patient was handed over to me at the end of the shift awaiting transfer to [facility]. patient had been seen , treated and made ready for transfer and I was asked to discharge patient on the board. patient has remained clinically stable here in the ER . Transfer was all done by my colleague.?? I spoke to the receiving physcian who is aware of the patients condition and agreed on the transfer . For details of history and physical and treatments please see my colleagues notes. Review of Systems GENERAL:?Negative for fevers, chills, and sweats. Negative for generalized weakness EYES:?Negative for pain, redness, discharge ENT:?Negative sore throat, nasal congestion, ear pain NECK:?Negative for pain and swelling CARDIOVASCULAR:?Negat karl for chest pain, palpitations RESPIRATORY:?Negative for shortness of breath, cough, wheezing, and pleuritic chest pain ABDOMEN/GI:?Negative for pain, nausea, vomiting BACK:?Negative for pain and injury :?Negative for dysuria and hematuria? MUSCULOSKELETAL:?Nega tive for muscle and joint pain SKIN:?Negative for rash and discoloration NEURO:?Negative for focal weakness, numbness, and tingling ? ? Physical Exam CONSTITUTIONAL:?no apparent respiratory distress, nontoxic appearing SKIN:?warm, dry, no rash EYES:?pupils are equally round and reactive to light, extraocular movements intact, conjunctiva noninjected HENT:?normocephalic, atraumatic, moist mucus membranes, trachea midline NECK:?Nontender, supple, full range of motion CARDIOVASCULAR:?regul ar rate, rhythm, normal S1 and S2. No appreciated murmurs. Strong radial pulses with intact distal perfusion PULMONARY:?clear to auscultation without wheezes, rhonchi, or rales GASTROINTESTINAL:?sof t, non-tender, non-distended, no palpable masses, no rebound or guarding GENITOURINARY:?No costovertebral angle tenderness to palpation MUSCULOSKELETAL:?Extr emities are nontender to palpation and have no gross deformity, no edema, redness, or swelling BACK:?No midline tenderness. No muscle spasm NEUROLOGIC:?awake, alert, and oriented x 2, decreased mentation,?normal?spe ech. Ataxic?left upper extremity.?Moves all extremities. No obvious motor or sensory deficit. Left nasolabial fold?droop ? ? Diagnosis: 1:Recurrent seizures; 2:Headache; 3:Altered mental status; 4:Acute CVA (cerebrovascular accident) Problems No Problems Documented Smoking Status: Smoking Status 10 or more cigarettes (1/2 pack or more)/day in last 30 days Functional Status: Sensory Deficits: History of Falls: Mobility Assistance Prior to Admission: ADLs: Current Level of Assistance for Self-Care/Mobility: Cognitive Status: Allergies No Known Allergies Laboratory or Other Results This Visit (last charted value for your 08/20/2019 visit) Blood Gases 08/20/2019 7:26 PM HCO3 Art: 24 mEq/L -- Normal range between ( 21 and 27 ) pCO2 Art: 45 mmHg -- Normal range between ( 35 and 45 ) pH Art: 7.34 -- Normal range between ( 7.35 and 7.45 ) pO2 Art: 361 mmHg -- Normal range between ( 80 and 100 ) Base Excess Art: -1.9 mEq/L HbO2 Art: 98 % total -- Normal range between ( 94 and 100 ) Carboxyhemoglobin Arterial: 1.0 % total -- Normal range between ( 0.0 and 2.0 ) Hb Totl Arterial: 13.7 g% -- Normal range between ( 12.0 and 18.0 ) Met Hb Arterial: 0.8 % total -- Normal range between ( 0.0 and 2.0 ) Hematology 08/20/2019 4:32 PM WBC: 14.3 x10 RBC: 4.50 x10 Neutro Auto: 80.4 % -- Normal range between ( 47.2 and 70.8 ) Lymph Auto: 11.8 % -- Normal range between ( 27.2 and 40.8 ) [place] Auto: 6.5 % -- Normal range between ( 4.7 and 13.9 ) Eos Auto: 0.7 % -- Normal range between ( 0.0 and 6.1 ) Basophil Auto: 0.6 % -- Normal range between ( 0.0 and 1.2 ) Baso Absolute: 0.1 x10 MCV: 89.8 fL -- Normal range between ( 80.0 and 100.0 ) MCHC: 32.9 % -- Normal range between ( 31.0 and 37.0 ) Lymph Absolute: 1.7 x10 Hct: 40.5 % -- Normal range between ( 41.0 and 53.0 ) [place] Absolute: 0.9 x10 MCH: 29.5 pg -- Normal range between ( 27.0 and 35.0 ) Neutro Absolute: 11.5 x10 Hgb: 13.3 g/dL -- Normal range between ( 13.5 and 17.5 ) Mean Platelet Volume: 8.8 fL -- Normal range between ( 6.7 and 10.6 ) Platelet: 287 x10 Eos Absolute: 0.1 x10 RDW: 15.0 % -- Normal range between ( 11.6 and 14.8 ) Urinalysis 08/20/2019 7:34 PM UA Color: Yellow UA Urobilinogen: 0.2 mg/dL UA Bili: Negative UA Ketones: 20 mg/dL UA Leukocyte Esterase: Negative UA Nitrite: Negative UA Glucose: Negative mg/dL UA Protein: Negative mg/dL UA Blood: Moderate UA Spec Grav: >1.060 -- Normal range between ( 1.003 and 1.035 ) UA pH: 5.0 UA Clarity: Clear UA Source: Clean Catch UA WBC Qual: Absent /HPF UA RBC Qual: 1-4 /HPF Chemistry 08/20/2019 7:34 PM Ur Creatinine Tox Scrn: 151.8 mg/dL 08/20/2019 5:38 PM Lactic Acid Lvl: 1.2 mmol/L -- Normal range between ( 0.5 and 2.0 ) 08/20/2019 4:32 PM Creatinine Lvl: 1.02 mg/dL -- Normal range between ( 0.61 and 1.24 ) BUN: 21 mg/dL -- Normal range between ( 8 and 26 ) Glucose Lvl: 120 mg/dL -- Normal range between ( 74 and 118 ) Potassium Lvl: 3.8 mmol/L -- Normal range between ( 3.4 and 4.8 ) AST: 28 IU/L -- Normal range between ( 15 and 41 ) ALT: 19 IU/L -- Normal range between ( 17 and 63 ) Troponin-I: <0.03 ng/mL -- Normal range between ( 0.00 and 0.03 ) Sodium Lvl: 136 mmol/L -- Normal range between ( 133 and 142 ) Bili Indirect: 0.9 mg/dL -- Normal range between ( 0.0 and 1.0 ) Calcium Lvl: 8.9 mg/dL -- Normal range between ( 8.5 and 10.3 ) Albumin Lvl: 3.9 g/dL -- Normal range between ( 3.2 and 4.9 ) Total Protein: 6.8 g/dL -- Normal range between ( 6.5 and 8.1 ) Magnesium Lvl: 1.9 mg/dL -- Normal range between ( 1.7 and 2.4 ) Bili Total: 1.2 mg/dL -- Normal range between ( 0.3 and 1.2 ) Alk Phos: 43 IU/L -- Normal range between ( 32 and 91 ) Bili Direct: 0.3 mg/dL -- Normal range between ( 0.1 and 0.5 ) Chloride: 106 mmol/L -- Normal range between ( 98 and 110 ) CO2: 24 mmol/L -- Normal range between ( 22 and 32 ) Anion Gap: 10 -- Normal range between ( 7 and 17 ) eGFR Non-AA: >60 mL/min/1.73m? eGFR AA: >60 mL/min/1.73m? BUN Crea Ratio: 20.6 -- Normal range between ( 10.0 and 20.0 ) Toxicology 08/20/2019 7:34 PM Ur PCP Scrn: Negative ng/mL Ur Opiate Scrn: Negative ng/mL Ur Methadone Scn: Negative ng/mL Ur Cannab Scrn: Positive ng/mL Ur Amph Scrn: Negative ng/mL Ur Benzodia Scrn: Negative ng/mL Ur Mary Scrn: Negative ng/mL Ur Cocaine Scrn: Negative ng/mL Ur Oxy Screen: Negative ng/mL 08/20/2019 5:38 PM Ethanol, Plasma: <10 mg/dL Blood Gases Information and Vent Setting 08/20/2019 7:26 PM FiO2 Art: 65 BG Roger Test: Satisfactory BG Collection Site: Lt Rad BG Mode: Assist Control PEEP: 5.0 cmH20 Set Resp Rate: 16 minutes Set Tidal Vol: 550 mL Tot Resp Rate: 16 minutes O2 Meth: O2 Computed Tomography 08/20/2019 8:[address] Angio Head Neck w/ Contrast: CT Angio Head Neck w/ Contrast 08/20/2019 4:[address] Brain w/o Contrast: CT Brain w/o Contrast Diagnostic Radiology 08/20/2019 8:17 PM XR Chest 1 View: XR Chest 1 View Measurements: Height: Weight: 86.25 kg Blood Pressure: /66 mmHg BMI: Procedures No Procedures Documented Immunizations No Immunizations Documented This Visit Final Med List: No Medications Documented Care Team Members: Attending Physician: Amrik Cueva MD Consulting Physician: Referring Physician: Provider Role Assigned Unassigned Amrik Cueva MD ED Provider 08/20/2019 16:04:14 Jennifer Brooke ED Nurse 08/20/2019 16:18:25 Jared Joyce ED Nurse 08/20/2019 20:09:09 Follow up: Discharge Orders: Discharge Patient 08/21/19 0:00:00 EST, Transfer, Higher Level of Care, Recurrent seizures Patient Education Information: [facility] Poison Help line: . [facility] Hotline: [place] Tobacco Quit Line: [place], [place]) [address]: [phone] [place], [place]) [address]: [phone] [facility] [address] [place], [place]: [phone] [facility] ED Note-Nursingon 08-21-2019 ED Note-Nursing Disposition [facility] unable to be completed due to pt being intubated and sedated Electronically signed by Jared Joyce 08/21/19 00:01 EST [facility] ED Note-Nursing PT to be transported by [facility] ems ETA 1 hour Electronically signed by Jared Joyce 08/20/19 22:41 EST [facility] ED Note-Nursing 08.20.2019 21:40Writer spoke with Aster Mcwilliams to discuss transfer options for patient. At this time [facility] and [facility] not able to send an EMS to come get the patient due to not having an EMS available. [facility] not flying due to weather. 2149:Tank Car Repairer called [facility] and spoke with Mauri and asked if the patient could go by [facility] if a nurse was able to go along and titrate the propofol drip. Mauri reports that they would be able to do that with a nurse from the ED and their crew. 2209: Tank Car Repairer spoke with She [facility] and she reports she has enough staffing to send Jared CARRILLO who has agreed to ride along. 2214: Tank Car Repairer spoke with Professional Architect Elaine about calling admin newsperson to confirm that this is able to happen sending ED RN with EMS. 2231: Elaine informed internal communications writer that Admin newsperson said to send ED RN with [facility] crew because it is whats best for the patient. 2234- Tank Car Repairer informed Mauri from [facility] that [facility] ED RN Jared will ride along with patient to [facility]. Mauri reports that a squad can be at the hospital around 2335. Tank Car Repairer informed Aster Sec this and she is calling [facility] to inform them of this. Electronically signed by Sara Hawkins 08/20/19 22:43 EST Normal [facility] ED Note-Nursing At this time still arranging for transfer of pt to [facility] Electronically signed by Isiah Jared 08/20/19 22:01 EST Normal [facility] ED Note-Physicianon 08-21-20 ED Note-Physician Chief Complaint pt called for weakness to home for ongong seizure. Pt hx of epilepsy with seizure starting at 1230 pm. Pt reports weakness to left side. Pt also noted with heart rate of 32. Atropin 0.5 IVP x 2 doses administered per [facility]. Pt not moving left side History of Present Illness patient was handed over to me at the end of the shift awaiting transfer to [facility]. patient had been seen , treated and made ready for transfer and I was asked to discharge patient on the board. patient has remained clinically stable here in the ER . Transfer was all done by my colleague. I spoke to the receiving physcian who is aware of the patients condition and agreed on the transfer . For details of history and physical and treatments please see my colleagues notes. Vitals & Measurements T: 36.8 ?C (Oral) HR: 66 (Monitored) RR: 17 BP: 109/66 SpO2: 100% DOSE WT: 86.25 kg Additional Vitals Peripheral Pulse Rate: 63 bpm Procedure No qualifying data available. ASA Documentation Assessment/Plan 1. Recurrent seizures Ordered: Discharge Patient 2. Headache Ordered: Discharge Patient 3. Altered mental status Ordered: Discharge Patient 4. Acute CVA (cerebrovascular accident) Ordered: Discharge Patient Orders: midazolam 50 mg [1 mg/hr] + Dextrose 5% in Water intravenous solution 40 mL, 40 mL, IV, 1 mL/hr, Start Date: 08/20/19 22:56:00 EST, Titration range: 1 - 20 mg/hr, Titration instructions: 1 mg/hr every 15 minutes, Maintain SAS Score Of 4, Dispense From Location: [facility] Problem List/Past Medical History Ongoing No qualifying data Historical No qualifying data Medications Home No active home medications Inpatient midazolam IV additive 50 mg [1 mg/hr] + Dextrose 5% in Water* 40 mL propofol IV additive 1,000 mg [5 mcg/kg/min] + Premix Diluent 100 mL Prescriptions No active Prescriptions Allergies No Known Allergies Social History Alcohol Current Substance Abuse Current, Marijuana Tobacco 10 or more cigarettes (1/2 pack or more)/day in last 30 days Use:. Lab Results Blood Gases LATEST RESULTS pH Art 08/20/19 19:26 7.34 Low pCO2 Art 08/20/19 19:26 45 pO2 Art 08/20/19 19:26 361 High HCO3 Art 08/20/19 19:26 24 Base Excess Art 08/20/19 19:26 -1.9 Hb Totl Arterial 08/20/19 19:26 13.7 HbO2 Art 08/20/19 19:26 98 Carboxyhemoglobin Arterial 08/20/19 19:26 1.0 Met Hb Arterial 08/20/19 19:26 0.8 Blood Gases Vent Settings LATEST RESULTS BG Collection Site 08/20/19 19:26 Lt Rad BG Roger Test 08/20/19 19:26 Satisfactory O2 Meth 08/20/19 19:26 O2 FiO2 Art 08/20/19 19:26 65 BG Mode 08/20/19 19:26 Assist Control Set Tidal Vol 08/20/19 19:26 550 Set Resp Rate 08/20/19 19:26 16 Tot Resp Rate 08/20/19 19:26 16 PEEP 08/20/19 19:26 5.0 Automated Hematology LATEST RESULTS WBC 08/20/19 16:32 14.3 High RBC 08/20/19 16:32 4.50 Hgb 08/20/19 16:32 13.3 Low Hct 08/20/19 16:32 40.5 Low MCV 08/20/19 16:32 89.8 MCH 08/20/19 16:32 29.5 MCHC 08/20/19 16:32 32.9 RDW 08/20/19 16:32 15.0 High Platelet 08/20/19 16:32 287 Mean Platelet Volume 08/20/19 16:32 8.8 Neutro Auto 08/20/19 16:32 80.4 High Lymph Auto 08/20/19 16:32 11.8 Low [place] Auto 08/20/19 16:32 6.5 Eos Auto 08/20/19 16:32 0.7 Basophil Auto 08/20/19 16:32 0.6 Neutro Absolute 08/20/19 16:32 11.5 High Lymph Absolute 08/20/19 16:32 1.7 [place] Absolute 08/20/19 16:32 0.9 Eos Absolute 08/20/19 16:32 0.1 Baso Absolute 08/20/19 16:32 0.1 Routine Chemistry LATEST RESULTS Sodium Lvl 08/20/19 16:32 136 Potassium Lvl 08/20/19 16:32 3.8 Chloride 08/20/19 16:32 106 CO2 08/20/19 16:32 24 Anion Gap 08/20/19 16:32 10 Glucose Lvl 08/20/19 16:32 120 High BUN 08/20/19 16:32 21 Creatinine Lvl 08/20/19 16:32 1.02 eGFR AA 08/20/19 16:32 >60 eGFR Non-AA 08/20/19 16:32 >60 BUN Crea Ratio 08/20/19 16:32 20.6 High Bili Total 08/20/19 16:32 1.2 Bili Direct 08/20/19 16:32 0.3 Bili Indirect 08/20/19 16:32 0.9 Alk Phos 08/20/19 16:32 43 AST 08/20/19 16:32 28 ALT 08/20/19 16:32 19 Total Protein 08/20/19 16:32 6.8 Albumin Lvl 08/20/19 16:32 3.9 Calcium Lvl 08/20/19 16:32 8.9 Magnesium Lvl 08/20/19 16:32 1.9 Lactic Acid Lvl 08/20/19 17:38 1.2 Cardiac Isoenzymes LATEST RESULTS Troponin-I 08/20/19 16:32 <0.03 Random Urine Chemistry LATEST RESULTS Ur Creatinine Tox Scrn 08/20/19 19:34 151.8 Serum Toxicology LATEST RESULTS Ethanol, Plasma 08/20/19 17:38 <10 Urine Toxicology LATEST RESULTS Ur Amph Scrn 08/20/19 19:34 Negative Ur Mary Scrn 08/20/19 19:34 Negative Ur Benzodia Scrn 08/20/19 19:34 Negative Ur Cannab Scrn 08/20/19 19:34 Positive Abnormal Ur Cocaine Scrn 08/20/19 19:34 Negative Ur Methadone Scn 08/20/19 19:34 Negative Ur Oxy Screen 08/20/19 19:34 Negative Ur Opiate Scrn 08/20/19 19:34 Negative Ur PCP Scrn 08/20/19 19:34 Negative UA Macroscopic LATEST RESULTS UA Source 08/20/19 19:34 Clean Catch UA Color 08/20/19 19:34 Yellow UA Clarity 08/20/19 19:34 Clear UA Spec Grav 08/20/19 19:34 >1.060 High UA pH 08/20/19 19:34 5.0 UA Protein 08/20/19 19:34 Negative UA Glucose 08/20/19 19:34 Negative UA Bili 08/20/19 19:34 Negative UA Urobilinogen 08/20/19 19:34 0.2 UA Leukocyte Esterase 08/20/19 19:34 Negative UA Nitrite 08/20/19 19:34 Negative UA Ketones 08/20/19 19:34 20 Abnormal UA Blood 08/20/19 19:34 Moderate Abnormal UA Microscopic LATEST RESULTS UA RBC Qual 08/20/19 19:34 1-4 UA WBC Qual 08/20/19 19:34 Absent Diagnostic Results XRay XR Chest 1 View 08/20/19 20:38:44 IMPRESSION: 1. No orogastric tube with side port in the distal esophagus. Advancement of at least 8 cm is recommended. 2. Similar adequate position of the ET tube. 3. No active cardiopulmonary disease. Signed By: Alfred POP, Terence Smith XR Chest 1 View 08/20/19 19:20:20 IMPRESSION: Adequate position of the ET tube. No active cardiopulmonary disease. Signed By: Terence Simon MD XR Chest 1 View 08/20/19 16:51:01 Impression: Questionable mild airspace disease or atelectasis in the right lung base. Suboptimal evaluation due to motion artifacts. Signed By: Mark Flores MD Computerized Tomagraphy CT Brain w/o Contrast 08/20/19 16:27:51 IMPRESSION: Mild chronic microvascular ischemia with no acute infarction Addendum: the report was phoned to Dr. Amrik Cueva of the ED Signed By: Thony Almaraz MD CT Angio Head Neck w/ Contrast 08/20/19 20:32:06 IMPRESSION: Large vessel occlusion beginning within the paraclinoid/supraclin oid right ICA with extension into the carotid terminus and essentially complete occlusion of the right MCA as well as proximal portion of the right A1 segment. Associated with diminished opacification of the right cervical ICA and remaining intracranial ICA segments. This finding was discussed with ER provider at approximately 5:50 PM PST. Signed By: Thony Pedraza MD Ultrasound No qualifying data available (Ultrasound) Magnetic Resonance Imaging No qualifying data available (MRI) Electronically signed by Mauri Mata MD Re 08/21/19 00:04 EST Normal [facility] .[facility] Tue08-20-2019 RBC (U) [#/Vol] 1-4 Normal 0 - 5 [facility] Comment on above: Performed By: #### C [id number] ####[address] [address] UA WBC Qual Absent Normal 0 - 5 [facility] Comment on above: Performed By: #### C [id number] ####[address] [address] .eGFRon 08-20-2019 eGFR Non-AA >60 Normal >=60 [facility] Comment on above: Result Comment: Resu lt = 0-14.9 mL/min/1.73 m2 Kidney failure or Dialysis Result = 15-29 mL/min/1.73 m2 Severe decrease in GFR Result = 30-59 mL/min/1.73 m2 Moderate decrease in GFR Result >= 60 mL/min/1.73 m2 Normal or increased GFR Chronic kidney disease is defined as either kidney damage or GFR < 60 mL/min/1.73 m2 for >= 3 months. Kidney damage is defined as pathologic abnormalities or markers of damage including abnormalities in blood or urine tests or imaging studies. This GFR is NOT used for medication dosing. Performed By: #### E GFR ####[address] [address] eGFR AA >60 Normal >=60 [facility] Comment on above: Result Comment: Resu lt = 0-14.9 mL/min/1.73 m2 Kidney failure or Dialysis Result = 15-29 mL/min/1.73 m2 Severe decrease in GFR Result = 30-59 mL/min/1.73 m2 Moderate decrease in GFR Result >= 60 mL/min/1.73 m2 Normal or increased GFR Performed By: #### E GFR ####[address] [address] Basic Metabolic Profileon Anion gap [Moles/Vol] 10 mmol/L Normal 7-17 [facility] Comment on above: Performed By: #### C [id number] ####[address] [address] Calcium [Mass/Vol] 8.9 mg/dL Normal 8.5-10.3 [facility] Comment on above: Performed By: #### C [id number] ####[address] [address] Chloride [Moles/Vol] 106 mmol/L Normal 98-110 [facility] Comment on above: Performed By: #### C [id number] ####[address] [address] CO2 [Moles/Vol] 24 mmol/L Normal 22-32 [facility] Comment on above: Performed By: #### C [id number] ####[address] [address] Creatinine [Mass/Vol] 1.02 mg/dL Normal 0.61-1.24 [facility] Comment on above: Performed By: #### C [id number] ####[address] [address] Glucose [Mass/Vol] 120 mg/dL High 74-118 [facility] Comment on above: Performed By: #### C [id number] ####[address] [address] Potassium [Moles/Vol] 3.8 mmol/L Normal 3.4-4.8 [facility] Comment on above: Performed By: #### C [id number] ####[address] [address] Sodium [Moles/Vol] 136 mmol/L Normal 133-142 [facility] Comment on above: Performed By: #### C [id number] ####[address] [address] Urea nitrogen [Mass/Vol] 21 mg/dL Normal 8-26 [facility] Comment on above: Performed By: #### C [id number] ####[address] [address] Urea nitrogen/Creatinine [Mass ratio] 20.6 mg/mg High 10.0-20.0 [facility] Comment on above: Performed By: #### C [id number] ####[address] [address] Blood Gas Arterialon 019 Base Excess Art -1.9 mEq/L Normal -2.0-2.0 [facility] Comment on above: Performed By: #### A BG ####[address] [address] BG Roger Test Satisfactory Normal [facility] Comment on above: Performed By: #### A BG ####[place] [id number] BG Collection Site Lt Rad Normal [facility] Comment on above: Performed By: #### A BG ####[address] [address] BG Mode Assist Control Normal [facility] Comment on above: Performed By: #### A BG ####[place] [id number] Carboxyhemoglobin Arterial 1.0 % total Normal 0.0-2.0 [facility] Comment on above: Performed By: #### A BG ####[address] [address] FiO2 Art 65 Normal [facility] Comment on above: Performed By: #### A BG ####[address] [address] Hb Totl Arterial 13.7 g% Normal 12.0-18.0 [facility] Comment on above: Performed By: #### A BG ####[place] [id number] HbO2 Art 98 % total Normal 94-100 [facility] Comment on above: Performed By: #### A BG ####[address] [address] HCO3 Art 24 mEq/L Normal 21-27 [facility] Comment on above: Performed By: #### A BG ####[address] [address] Met Hb Arterial 0.8 % total Normal 0.0-2.0 [facility] Comment on above: Performed By: #### A BG ####[address] [address] O2 Meth O2 Normal [facility] Comment on above: Performed By: #### A BG ####[address] [address] pCO2 Art 45 mmHg Normal 35-45 [facility] Comment on above: Performed By: #### A BG ####[address] [address] PEEP 5.0 cmH20 [facility] Comment on above: Performed By: #### A BG ####[address] [address] pH Art 7.34 Low 7.35-7.45 [facility] Comment on above: Performed By: #### A BG ####[address] [address] pO2 Art 361 mmHg High 80-100 [facility] Comment on above: Performed By: #### A BG ####[address] [address] Set Resp Rate 16 minutes Normal [facility] Comment on above: Performed By: #### A BG ####[address] [address] Set Tidal Vol 550 mL Normal [facility] Comment on above: Performed By: #### A BG ####[address] [address] Tot Resp Rate 16 minutes Normal [facility] Comment on above: Performed By: #### A BG ####[address] [address] CBC w/ Diffon 08-20-2019 Erythrocyte distribution width (RBC) [Ratio] 15.0 % High 11.6-14.8 [facility] Comment on above: Performed By: #### C BC #### [address] [address] Hematocrit (Bld) [Volume fraction] 40.5 % Low 41.0-53.0 [facility] Comment on above: Performed By: #### C BC #### [address] [address] Hemoglobin (Bld) [Mass/Vol] 13.3 g/dL Low 13.5-17.5 [facility] Comment on above: Performed By: #### C BC #### [address] [address] MCH (RBC) [Entitic mass] 29.5 pg Normal 27.0-35.0 [facility] Comment on above: Performed By: #### C BC #### [address] [address] MCHC (RBC) [Mass/Vol] 32.9 % Normal 31.0-37.0 [facility] Comment on above: Performed By: #### C BC #### [address] [address] MCV (RBC) [Entitic vol] 89.8 fL Normal 80.0-100.0 [facility] Comment on above: Performed By: #### C BC #### [address] [address] Platelet mean volume (Bld) [Entitic vol] 8.8 fL Normal 6.7-10.6 [facility] Comment on above: Performed By: #### C BC #### [address] [address] Platelets (Bld) [#/Vol] 287 x10*3/mcL Normal 150-350 [facility] Comment on above: Performed By: #### C BC #### [address] [address] RBC (Bld) [#/Vol] 4.50 x10*6/mcL Normal 4.30-5.80 [facility] Comment on above: Performed By: #### C BC #### [facility] [address] [place] [address] WBC (Bld) [#/Vol] 14.3 x10*3/mcL High 4.5-11.0 [facility] Comment on above: Performed By: #### C #### [facility] [address] [place] [address] CT Angio Head Neck w/ Contra ston 08-20-2019 CT Angio Head Neck w/ Contrast CTA HEAD AND NECK TECHNIQUE: Contiguous axial CT images of the head and neck were obtained after the administration of 100 mL Omni 350 intravenous contrast. Coronal and sagittal reformatted images are provided. Multiplanar reformatted images were constructed, including 3D reformatted images created on a separate workstation. Dose reduction techniques were achieved by using automated exposure control and/or adjustment of mA and/or kV according to patient size and/or use of iterative reconstruction technique. HISTORY: Concern for stroke. COMPARISON: None available. FINDINGS: HEAD CTA: ARTERIES: Diminished opacification of the right intracranial ICA with large vessel occlusion beginning within the paraclinoid/supraclin oid right ICA with essentially complete occlusion of the right MCA as well as proximal portion of the right A1 segment. Remaining intracranial vessels without evidence of sizable aneurysm, AVM, stenosis or occlusion. VARIANTS: [place] of [place] is normally developed. No other vascular anatomic variants. VEINS: Dural sinuses and deep venous structures are normal. NECK CTA: AORTIC ARCH: Aortic arch and great vessel origins are normal. CAROTIDS: Common carotid vessels are normal. Internal carotid artery origins show no stenosis. Diminished opacification of the right cervical ICA. The left cervical ICA is unremarkable. VERTEBRALS: Vertebral artery origins are normal. Cervical vertebral segments are normal. IMPRESSION: Large vessel occlusion beginning within the paraclinoid/supraclin oid right ICA with extension into the carotid terminus and essentially complete occlusion of the right MCA as well as proximal portion of the right A1 segment. Associated with diminished opacification of the right cervical ICA and remaining intracranial ICA segments. This finding was discussed with ER provider at approximately 5:50 PM [facility]. Radiation Dose Estimate: CTDI(mGy):0.470078 / / / kVp:120.490351 / mAs:0.911931 / / / DLP(mGy-cm):12.698186 Body Part: Head CTDI(mGy):0.817383 / / / kVp:120.554246 / mAs:0.479133 / / / DLP(mGy-cm):13.781715 Body Part: Head CTDI(mGy):5.197451 / / / kVp:120.830012 / mAs:39.178585 / / / DLP(mGy-cm):5.265219A sung Part: Head CTDI(mGy):75.737965 / / / kVp:120.685544 / mAs:39.120980 / / / DLP(mGy-cm):75.667533 Body Part: Head CTDI(mGy):45.483459 / / / kVp:140.223192 / mAs:262.503532 / / / DLP(mGy-cm):1751.7800 29Body Part: Head CTDI(mGy):0.396769 / / / kVp:120.925887 / mAs:0.693296 / / / DLP(mGy-cm):3.897389T sung Part: Head Final Dictated by: Thony Pedraza MD Dictated DT/TM: 08.20.2019 8:32 pm Signed by: Thony Pedraza MD Signed (Electronic Signature): 08.20.2019 8:51 pm (If Report Is Signed, Electronically Signed in Other Vendor System) Normal [facility] CT Brain w/o Contraston 12-0 CT Brain w/o Contrast Clinical history: Stroke alert/altered mental status TECHNIQUE: 5 mm slice thickness noncontrasted axial CT of brain with no previous FINDINGS: The calvarium is unremarkable. Paranasal and mastoid sinuses are clear. The internal auditory canals appear normal. There is no acute localized brain abnormality, intracranial hemorrhage or mass effect. There are no extra-axial fluid collections. There is no cortical atrophy. There is mild diminished attenuation in the periventricular white matter compatible with chronic microvascular ischemia. There are no findings of acute cerebral infarction. IMPRESSION: Mild chronic microvascular ischemia with no acute infarction Addendum: the report was phoned to Dr. Amrik Cueva of the ED Radiation Dose Estimate: CTDI(mGy):0.942752 / / / kVp:120.775385 / mAs:0.676907 / / / DLP(mGy-cm):7.125674V sung Part: Head CTDI(mGy):47.589813 / / / kVp:120.496763 / mAs:190.006140 / / / DLP(mGy-cm):865.81429 7Body Part: Head Final Dictated by: Thony Almaraz MD Dictated DT/TM: 08.20.2019 4:27 pm Signed by: Thony Almaraz MD Signed (Electronic Signature): 08.20.2019 4:39 pm (If Report Is Signed, Electronically Signed in Other Vendor System) Normal [facility] Diff Autoon 08-20-2019 Baso Absolute 0.1 x10*3/mcL Normal 0.0-0.2 [facility] Comment on above: Performed By: #### . Automated Diff #### [address] [address] Basophils/100 WBC (Bld) 0.6 % Normal 0.0-1.2 [facility] Comment on above: Performed By: #### . Automated Diff #### [address] [address] Eos Absolute 0.1 x10*3/mcL Normal 0.0-0.4 [facility] Comment on above: Performed By: #### . Automated Diff #### [address] [address] Eosinophils/100 WBC (Bld) 0.7 % Normal 0.0-6.1 [facility] Comment on above: Performed By: #### . Automated Diff #### [address] [address] Lymphocytes (Bld) [#/Vol] 1.7 x10*3/mcL Normal 1.0-4.8 [facility] Comment on above: Performed By: #### . Automated Diff #### [address] [address] Lymphocytes/100 WBC (Bld) 11.8 % Low 27.2-40.8 [facility] Comment on above: Performed By: #### . Automated Diff #### [address] [address] [place] Absolute 0.9 x10*3/mcL Normal 0.3-1.1 [facility] Comment on above: Performed By: #### . Automated Diff #### [address] [address] Monocytes/100 WBC (Bld) 6.5 % Normal 4.7-13.9 [facility] Comment on above: Performed By: #### . Automated Diff #### [address] [address] Neutro Absolute 11.5 x10*3/mcL High 1.8-7.7 [facility] Comment on above: Performed By: #### . Automated Diff #### [address] [address] Neutro Auto 80.4 % High 47.2-70.8 [facility] Comment on above: Performed By: #### . Automated Diff #### [address] [address] ED Note-Nursingon 08-20-2019 ED Note-Nursing At this time, waitin g to transfer pt to [facility]. Electronically signed by Jared Joyce 08/20/19 21:07 EST Normal [facility] ED Note-Nursing OG tube advanced to 66cm at lip Electronically signed by Jared Joyce 08/20/19 20:45 EST Normal [facility] ED Note-Nursing pt sedated and prepared for CTA Electronically signed by Edwardo [place] R 08/20/19 20:05 EST [facility] ED Note-Nursing 5 mg versed ordered due to patient movement and thrashing in bed. 100 mcg Rocuronium ordered IVP per Dr. Cueva. Electronically [facility] 08/20/19 20:05 EST [facility] ED Note-Nursing 5 mg versed ordered per IVP per Dr. Cueva due to patient movement and not remaining sedated after intubation Electronically signed by [facility] R 08/20/19 20:04 EST [facility] ED Note-Nursing Pt intubated successfully. Pt is not sedated at this time after RSI medications administered. 4 point wrist restraints and propofol started at 40 mcg per Axle Rose Electronically signed by [facility] 08/20/19 19:59 EST [facility] ED Note-Nursing pts behavior increasing with thrashing and moving with head and right side. Pt making incomprehensible sounds. No affect of sedation after ativan administration and haldol. Dr. Cueva in room. Prepare for intubation per verbal order Dr. Jimenez Electronically signed by [facility] Jennifer R 08/20/19 19:58 EST [facility] ED Note-Nursing Ativan 2 mg and haldol given in CT per pt not cooperating moving head. Upon arrival pt diaphoretic and moving head side to side. Pt able to answer some questions but body movements and tremors seem to be more frequent. Pt still not moving left arm at this time. Slight movements to left leg noted. PT brought back to ER due to continuous movement even after medication administered. Dr. Cueva notified Electronically signed [facility] 08/20/19 18:35 EST [facility] ED Note-Nursing no further orders r Dr. Cueva Electronically signed by stefanieibrahimadepartment of veterans [facility] Jennifer R 08/20/19 17:26 EST [facility] ED Note-Nursing Primary nurse concerned for stroke due to NIH assesment. note for possible CTA or MRI orders requested. Sara CARRILLO notified Electronically signed by [facility], [place] R 08/20/19 17:24 EST [facility] ED Note-Nursing Tank Car Repairer called into room per primary RN Agata for concerns of stroke and NIHSS of 17 with no CTA order. Tank Car Repairer noted significant facial droop, slurred speech partial gaze to the left, left arm flaccid with minimal movement of left leg. Tank Car Repairer tested sensation with the tip of an 18 gauge needle and patient was not aware of what leg was touched. When internal communications writer would poke left leg patient states my right leg, Tank Car Repairer than goes back out into the nurses station to inform Dr. Cueva of this consistent finding.since arrival via [place]. Tank Car Repairer requested that Dr. Cueva go back to the room to assess the patient again. Tank Car Repairer suggested a CTA at this time for the stroke like symptoms. Dr. Cueva agrees to this and enters patient room. Electronically signed by Sara Hawkins 08/20/19 21:35 EST Normal [facility] ED Note-Nursing pt noted to be becoming more pale and diaphoretic. Dr. Cueva in room to assess pt. Repeat EKG Electronically signed by MicheletjaronShamir sonsa Gonzalez 08/20/19 17:15 EST Normal [facility] ED Note-Nursing Delay in patient getting to CT due to possible ST elevation on transport via [place] to [facility]. EKG obtained prior to CT per Dr. Cueva. Tank Car Repairer verbalized to Dr. Cueva the stroke like symptoms. Tank Car Repairer asked him if we should call [facility] for consult and Dr. Cueva shook his head no when consulting Dr. Light in regards to the EKG. Electronically signed by Sara Hawkins 08/20/19 21:42 EST Normal [facility] ED Note-Physicianon 08-20-20 ED Note-Physician Chief Complaint pt called for weakness to home for ongong seizure. Pt hx of epilepsy with seizure starting at 1230 pm. Pt reports weakness to left side. Pt also noted with heart rate of 32. Atropin 0.5 IVP x 2 doses administered per [facility] Ems. Pt not moving left side History of Present Illness 49-year-old male presents to the emergency department with complaints of weakness after having a seizure at home. The patient does state he has a history of epilepsy for which she used to take Dilantin. He states that he was taken off of Dilantin as it was not working for him. He was not put on any subsequent medication. He denies any chest pain or shortness of breath. He denies any abdominal pain as well as any nausea or vomiting. Review of Systems GENERAL: Negative for fevers, chills, and sweats. Negative for generalized weakness EYES: Negative for pain, redness, discharge ENT: Negative sore throat, nasal congestion, ear pain NECK: Negative for pain and swelling CARDIOVASCULAR: Negative for chest pain, palpitations RESPIRATORY: Negative for shortness of breath, cough, wheezing, and pleuritic chest pain ABDOMEN/GI: Negative for pain, nausea, vomiting BACK: Negative for pain and injury : Negative for dysuria and hematuria MUSCULOSKELETAL: Negative for muscle and joint pain SKIN: Negative for rash and discoloration NEURO: Negative for focal weakness, numbness, and tingling Physical Exam CONSTITUTIONAL: no apparent respiratory distress, nontoxic appearing SKIN: warm, dry, no rash EYES: pupils are equally round and reactive to light, extraocular movements intact, conjunctiva noninjected HENT: normocephalic, atraumatic, moist mucus membranes, trachea midline NECK: Nontender, supple, full range of motion CARDIOVASCULAR: regular rate, rhythm, normal S1 and S2. No appreciated murmurs. Strong radial pulses with intact distal perfusion PULMONARY: clear to auscultation without wheezes, rhonchi, or rales GASTROINTESTINAL: soft, non-tender, non-distended, no palpable masses, no rebound or guarding GENITOURINARY: No costovertebral angle tenderness to palpation MUSCULOSKELETAL: Extremities are nontender to palpation and have no gross deformity, no edema, redness, or swelling BACK: No midline tenderness. No muscle spasm NEUROLOGIC: awake, alert, and oriented x 2, decreased mentation, normal speech. Ataxic left upper extremity. Moves all extremities. No obvious motor or sensory deficit. Left nasolabial fold droop Vitals & Measurements T: 36.8 ?C (Oral) RR: 16 BP: 140/85 SpO2: 99% DOSE WT: 86.25 kg Additional Vitals Peripheral Pulse Rate: 63 bpm Medical Decision Making 49-year-old male presents to the emergency department with complaints of having a seizure at home. His examination did not reveal any focal neurologic deficits. A 12-lead EKG, chest x-ray, head CT, and laboratory analyses were all obtained for further evaluation A 12-lead EKG was obtained and interpreted by myself as sinus rhythm with a ventricular rate of 64. No evidence of acute STEMI was noted. The MO interval was found to be 169, QRS duration 93, and QTc interval 422. No acute T-wave abnormalities were appreciated. Normal axis. No evidence of new arrhythmias appreciated. No significant changes since previous EKG were appreciated. The patient's CT scan was unremarkable revealing no acute abnormality. A CTA was ordered to rule out any other acute abnormality The patient was then unable to lie flat for the CTA which time he was intubated. The patient was then sent to CTA and found to have a large vessel occlusion of the right internal carotid artery. [facility] was contacted and recommended transfer to their stroke unit. He'll be transferred via ambulance at this time Reexamination/Reevalu ation Guarded Assessment/Plan 1. Recurrent seizures Ordered: 2. Headache Ordered: 3. Altered mental status 4. Acute CVA (cerebrovascular accident) Secondary to right internal carotid artery occlusion Problem List/Past Medical History Ongoing No qualifying data Historical No qualifying data Medications Home No active home medications Inpatient NS Bolus, 1000 mL, IV Bolus, Once Toradol, 30 mg, 1 mL, IV Push, Once Prescriptions No active Prescriptions Allergies No Known Allergies Social History Alcohol Current Substance Abuse Current, Marijuana Tobacco 10 or more cigarettes (1/2 pack or more)/day in last 30 days Use:. Family History Reviewed and noncontributory Lab Results Blood Gases LATEST RESULTS pH Art 08/20/19 19: 7.34 Low pCO2 Art 08/20/19 19:26 45 pO2 Art 08/20/19 19: 361 High HCO3 Art 08/20/19 19: 24 Base Excess Art 08/20/19 19:26 -1.9 Hb Totl Arterial 08/20/19 19:26 13.7 HbO2 Art 08/20/19 19:26 98 Carboxyhemoglobin Arterial 08/20/19 19: 1.0 Met Hb Arterial 08/20/19 19:26 0.8 Blood Gases Vent Settings LATEST RESULTS BG Collection Site 08/20/19 19:26 Lt Rad BG Roger Test 08/20/19 19:26 Satisfactory O2 Meth 08/20/19 19:26 O2 FiO2 Art 08/20/19 19:26 65 BG Mode 08/20/19 19:26 Assist Control Set Tidal Vol 08/20/19 19:26 550 Set Resp Rate 08/20/19 19:26 16 Tot Resp Rate 08/20/19 19:26 16 PEEP 08/20/19 19:26 5.0 Automated Hematology LATEST RESULTS WBC 08/20/19 16:32 14.3 High RBC 08/20/19 16:32 4.50 Hgb 08/20/19 16:32 13.3 Low Hct 08/20/19 16:32 40.5 Low MCV 08/20/19 16:32 89.8 MCH 08/20/19 16:32 29.5 MCHC 08/20/19 16:32 32.9 RDW 08/20/19 16:32 15.0 High Platelet 08/20/19 16:32 287 Mean Platelet Volume 08/20/19 16:32 8.8 Neutro Auto 08/20/19 16:32 80.4 High Lymph Auto 08/20/19 16:32 11.8 Low [place] Auto 08/20/19 16:32 6.5 Eos Auto 08/20/19 16:32 0.7 Basophil Auto 08/20/19 16:32 0.6 Neutro Absolute 08/20/19 16:32 11.5 High Lymph Absolute 08/20/19 16:32 1.7 [place] Absolute 08/20/19 16:32 0.9 Eos Absolute 08/20/19 16:32 0.1 Baso Absolute 08/20/19 16:32 0.1 Routine Chemistry LATEST RESULTS Sodium Lvl 08/20/19 16:32 136 Potassium Lvl 08/20/19 16:32 3.8 Chloride 08/20/19 16:32 106 CO2 08/20/19 16:32 24 Anion Gap 08/20/19 16:32 10 Glucose Lvl 08/20/19 16:32 120 High BUN 08/20/19 16:32 21 Creatinine Lvl 08/20/19 16:32 1.02 eGFR AA 08/20/19 16:32 >60 eGFR Non-AA 08/20/19 16:32 >60 BUN Crea Ratio 08/20/19 16:32 20.6 High Bili Total 08/20/19 16:32 1.2 Bili Direct 08/20/19 16:32 0.3 Bili Indirect 08/20/19 16:32 0.9 Alk Phos 08/20/19 16:32 43 AST 08/20/19 16:32 28 ALT 08/20/19 16:32 19 Total Protein 08/20/19 16:32 6.8 Albumin Lvl 08/20/19 16:32 3.9 Calcium Lvl 08/20/19 16:32 8.9 Magnesium Lvl 08/20/19 16:32 1.9 Lactic Acid Lvl 08/20/19 17:38 1.2 Cardiac Isoenzymes LATEST RESULTS Troponin-I 08/20/19 16:32 <0.03 Random Urine Chemistry LATEST RESULTS Ur Creatinine Tox Scrn 08/20/19 19:34 151.8 Serum Toxicology LATEST RESULTS Ethanol, Plasma 08/20/19 17:38 <10 Urine Toxicology LATEST RESULTS Ur Amph Scrn 08/20/19 19:34 Negative Ur Mary Scrn 08/20/19 19:34 Negative Ur Benzodia Scrn 08/20/19 19:34 Negative Ur Cannab Scrn 08/20/19 19:34 Positive Abnormal Ur Cocaine Scrn 08/20/19 19:34 Negative Ur Methadone Scn 08/20/19 19:34 Negative Ur Oxy Screen 08/20/19 19:34 Negative Ur Opiate Scrn 08/20/19 19:34 Negative Ur PCP Scrn 08/20/19 19:34 Negative UA Macroscopic LATEST RESULTS UA Source 08/20/19 19:34 Clean Catch UA Color 08/20/19 19:34 Yellow UA Clarity 08/20/19 19:34 Clear UA Spec Grav 08/20/19 19:34 >1.060 High UA pH 08/20/19 19:34 5.0 UA Protein 08/20/19 19:34 Negative UA Glucose 08/20/19 19:34 Negative UA Bili 08/20/19 19:34 Negative UA Urobilinogen 08/20/19 19:34 0.2 UA Leukocyte Esterase 08/20/19 19:34 Negative UA Nitrite 08/20/19 19:34 Negative UA Ketones 08/20/19 19:34 20 Abnormal UA Blood 08/20/19 19:34 Moderate Abnormal UA Microscopic LATEST RESULTS UA RBC Qual 08/20/19 19:34 1-4 UA WBC Qual 08/20/19 19:34 Absent Diagnostic Results XRay XR Chest 1 View 08/20/19 20:38:44 IMPRESSION: 1. No orogastric tube with side port in the distal esophagus. Advancement of at least 8 cm is recommended. 2. Similar adequate position of the ET tube. 3. No active cardiopulmonary disease. Signed By: Terence Simon MD XR Chest 1 View 08/20/19 19:20:20 IMPRESSION: Adequate position of the ET tube. No active cardiopulmonary disease. Signed By: Terence Simon MD XR Chest 1 View 08/20/19 16:51:01 Impression: Questionable mild airspace disease or atelectasis in the right lung base. Suboptimal evaluation due to motion artifacts. Signed By: Mark Flores MD Computerized Tomagraphy CT Brain w/o Contrast 08/20/19 16:27:51 IMPRESSION: Mild chronic microvascular ischemia with no acute infarction Addendum: the report was phoned to Dr. Amrik Cueva of the ED Signed By: Thony Almaraz MD CT Angio Head Neck w/ Contrast 08/20/19 20:32:06 IMPRESSION: Large vessel occlusion beginning within the paraclinoid/supraclin oid right ICA with extension into the carotid terminus and essentially complete occlusion of the right MCA as well as proximal portion of the right A1 segment. Associated with diminished opacification of the right cervical ICA and remaining intracranial ICA segments. This finding was discussed with ER provider at approximately 5:50 PM PST. Signed By: Thony Pedraza MD Ultrasound No qualifying data available (Ultrasound) Magnetic Resonance Imaging No qualifying data available (MRI) Electronically signed by Amrik Cueva MD 08/20/19 21:08 EST Documented NIH stroke scale from patient assessment @ 16:04 on 08/20/2019 RESULT SUMMARY: 5 points NIH Stroke Scale INPUTS: 1A: Level of consciousness ?> 0 = Alert; keenly responsive 1B: Ask month and age ?> 0 = Both questions right 1C: 'Blink eyes' & 'squeeze hands' ?> 0 = Performs both tasks 2: Horizontal extraocular movements ?> 0 = Normal 3: Visual dumont ?> 0 = No visual loss 4: Facial palsy ?> 1 = Minor paralysis (flat nasolabial fold, smile asymmetry) 5A: Left arm motor drift ?> 2 = Drift, hits bed 5B: Right arm motor drift ?> 0 = No drift for 10 seconds 6A: Left leg motor drift ?> 0 = No drift for 5 seconds 6B: Right leg motor drift ?> 0 = No drift for 5 seconds 7: Limb Ataxia ?> 0 = No ataxia 8: Sensation ?> 2 = Complete loss: cannot sense being touched at all 9: Language/aphasia ?> 0 = Normal; no aphasia 10: Dysarthria ?> 0 = Normal 11: Extinction/inattentio n ?> 0 = No abnormality Electronically signed by Amrik Cueva MD 08/22/19 07:39 EST Normal [facility] Ethanolon 08-20-2019 Ethanol [Mass/Vol] mg/dL Normal <=9 [facility] Comment on above: Result Comment: To c onvert mg/dL to g/dL, divide result by 1,000. Legal limit of intoxication is 80 mg/dL (0.08 g/dL). Performed By: #### A ####[address] [place] [address] Hep Func Panelon 08-20-2019 Albumin [Mass/Vol] 3.9 g/dL Normal 3.2-4.9 [facility] Comment on above: Result Comment: [facility] Laboratory updated the methodology used for albumin testing on 04/26/18. Albumin measurement was performed using a bromcresol purple dye-binding assay. Performed By: #### L IVER #### [address] [address] Alk Phos 43 IU/L Normal 32-91 [facility] Comment on above: Performed By: #### L IVER #### [address] [address] ALT [Catalytic activity/Vol] 19 U/L Normal 17-63 [facility] Comment on above: Performed By: #### L IVER #### [address] [address] AST [Catalytic activity/Vol] 28 U/L Normal 15-41 [facility] Comment on above: Performed By: #### L IVER #### [address] [address] Bili Direct 0.3 mg/dL Normal 0.1-0.5 [facility] Comment on above: Performed By: #### L IVER #### [address] [address] Bili Indirect 0.9 mg/dL Normal 0.0-1.0 [facility] Comment on above: Performed By: #### L IVER #### [address] [address] Bili Total 1.2 mg/dL Normal 0.3-1.2 [facility] Comment on above: Performed By: #### L IVER #### [address] [address] Protein [Mass/Vol] 6.8 g/dL Normal 6.5-8.1 [facility] Comment on above: Performed By: #### L IVER #### [address] [address] Lactic Acid, Randomon 2018 Lactic Acid Lvl 1.2 mmol/L Normal 0.5-2.0 [facility] Comment on above: Performed By: #### L A ####[address] [address] Magnesiumon 08-20-2019 Magnesium [Mass/Vol] 1.9 mg/dL Normal 1.7-2.4 [facility] Comment on above: Performed By: #### M G #### [address] [address] POC Glucose Randomon 019 Glucose [Mass/Vol] 128 mg/dL High 78-110 [facility] Comment on above: Performed By: #### C [id number] ####[address] [address] Troponin-Ion 08-20-2019 Troponin I.cardiac [Mass/Vol] ng/mL Normal 0.00-0.03 [facility] Comment on above: Result Comment: An i ncreased Troponin-I value, in the absence of myocardial ischemia, may indicate other etiologies of cardiac damage. Performed By: #### T ROP ####[address] [address] UA w Culture if Indon 2018 Color (U) Yellow Normal [facility] Comment on above: Performed By: #### U CI ####[address] [address] Glucose (U) [Mass/Vol] Negative Normal Negative [facility] Comment on above: Performed By: #### U CI ####[address] [address] Ketones Ql (U) 20 mg/dL Abnormal Negative [facility] Comment on above: Performed By: #### U CI ####[address] [address] UA Blood Moderate Abnormal Negative [facility] Comment on above: Performed By: #### U CI ####[address] [place] [address] UA Clarity Clear Normal [facility] Comment on above: Performed By: #### U CI ####[address] [place] [address] UA Leukocyte Esterase Negative Normal Negative [facility] Comment on above: Performed By: #### U CI ####[address] [address] UA Nitrite Negative Normal Negative [facility] Comment on above: Performed By: #### U CI ####[address] [address] UA pH 5.0 Normal 4.5 - 7.8 [facility] Comment on above: Performed By: #### U CI ####[address] [address] UA Protein Negative Normal Negative [facility] Comment on above: Performed By: #### U CI ####[address] [address] UA Source Clean Catch Normal [facility] Comment on above: Performed By: #### U CI ####[address] [address] UA Spec Grav >1.060 High 1.003-1.035 [facility] Comment on above: Performed By: #### U CI ####[address] [address] UA Urobilinogen 0.2 mg/dL Normal 0.2 - 1.0 [facility] Comment on above: Performed By: #### U CI ####[address] [address] Urobilinogen Qn (U) Negative Normal Negative [facility] Comment on above: Performed By: #### U CI ####[address] [address] UDS Compon 08-20-2019 Creatinine [Mass/Vol] 151.8 mg/dL Normal [facility] Comment on above: Performed By: #### C [id number] ####[address] [address] Ur Amph Scrn Negative Normal NEG = <1000 [facility] Comment on above: Performed By: #### C [id number] ####[address] [address] Ur Mary Scrn Negative Normal NEG = <200 [facility] Comment on above: Performed By: #### C [id number] ####[address] [address] Ur Benzodia Scrn Negative Normal NEG = <200 [facility] Comment on above: Performed By: #### C [id number] ####[address] [address] Ur Cannab Scrn Positive Abnormal NEG = <50 [facility] Comment on above: Result Comment: This unconfirmed positive screening result is to be used for medical treatment purposes only. Unconfirmed screening results must not be used for non-medical purposes. (e.g. employment testing, legal testing). Performed By: #### C [id number] ####[address] [address] Ur Cocaine Scrn Negative Normal NEG = <300 [facility] Comment on above: Performed By: #### C [id number] ####[address] [address] Ur Methadone Scn Negative Normal NEG = <300 [facility] Comment on above: Performed By: #### C [id number] ####[address] [address] Ur Opiate Scrn Negative Normal NEG = <300 [facility] Comment on above: Performed By: #### C [id number] ####[address] [address] Ur Oxy Screen Negative Normal NEG = <100 [facility] Comment on above: Performed By: #### C [id number] ####[address] [address] Ur Oxy Scrn Qnt 4 ng/mL Normal <=99 [facility] Comment on above: Performed By: #### C [id number] ####[address] [address] Ur PCP Scrn Negative Normal NEG = <25 [facility] Comment on above: Performed By: #### C [id number] ####[address] [address] UA pH 5.0 Normal 4.5 - 7.8 [facility] Comment on above: Performed By: #### C [id number] ####[address] [address] UA Spec Grav >1.060 High 1.003-1.035 [facility] Comment on above: Performed By: #### C [id number] ####[address] [address] XR Chest 1 Viewon 08-20-2019 XR Chest 1 View Procedure: Portable AP view of the chest on 08/20/2019 at 20:15. Clinical information: 49-year-old male with OG line placement. Comparison: 08/20/2019 at 19:11 and 16:42. Findings: Lines/tubes: New orogastric tube with the side port 7.8 cm proximal to the gastroesophageal (GE) junction. Similar adequate position of the endotracheal (ET) tube. Lungs/pleura: Grossly clear lungs. No pneumothorax or frontal view evidence for pleural effusion. Heart/mediastinum: Unremarkable silhouette. Bones/soft tissues: No gross acute or aggressive abnormality. IMPRESSION: 1. No orogastric tube with side port in the distal esophagus. Advancement of at least 8 cm is recommended. 2. Similar adequate position of the ET tube. 3. No active cardiopulmonary disease. Final Dictated by: Terence Simon MD Dictated DT/TM: 08/20/2019 8:38 pm Signed by: Terence Simon MD Signed (Electronic Signature): 08/20/2019 8:40 pm (If Report Is Signed, Electronically Signed in Other Vendor System) Normal [facility] XR Chest 1 View Procedure: Portable AP view of the chest on 08/20/2018 at 19:11. Clinical information: 49-year-old male with intubation. Comparison: 08/20/2019 at 16:42. Findings: Lines/tubes: New endotracheal (ET) tube in adequate position terminating distal to the thoracic inlet and 7.1 cm proximal to the kathleen. Lungs/pleura: Grossly clear lungs. No pneumothorax or frontal view evidence for pleural effusion. Heart/mediastinum: Unremarkable silhouette. Bones/soft tissues: No gross acute or aggressive abnormality. IMPRESSION: Adequate position of the ET tube. No active cardiopulmonary disease. Final Dictated by: Terence Simon MD Dictated DT/TM: 08/20/2019 7:20 pm Signed by: Terence Simon MD Signed (Electronic Signature): 08/20/2019 7:22 pm (If Report Is Signed, Electronically Signed in Other Vendor System) Normal [facility] XR Chest 1 View Chest radiograph on 08/20/2019 Clinical History: Left-sided weakness Comparison: None Findings: Single view of the chest was obtained. The cardiomediastinal silhouette is within normal limits, given the AP technique. Questionable airspace opacity in the right lung base. Limited evaluation due to motion artifacts. No pneumothorax or large pleural effusion. No acute bony abnormality. Impression: Questionable mild airspace disease or atelectasis in the right lung base. Suboptimal evaluation due to motion artifacts. Final Dictated by: Mark Flores MD Dictated DT/TM: 08/20/2019 4:51 pm Signed by: Mark Flores MD Signed (Electronic Signature): 08/20/2019 4:53 pm (If Report Is Signed, Electronically Signed in Other Vendor System) Normal [facility] Vital Signs Date Time Vital Sign Value Performing Clinician Facility 05-30-2023 17:20-0400 Body height 187.96 cm Jodi Garcia Other [facility] Other 05-30-2023 17:20-0400 Body mass index (BMI) [Ratio] 25.68 kg/m2 Jodi Garcia Other [facility] Other 05-30-2023 17:20-0400 Body temperature 96.8 [degF] Jodi Garcia Other [facility] Other 05-30-2023 17:20-0400 Body weight 90.72 kg Jodi Garcia Other [facility] Other 05-30-2023 17:20-0400 Diastolic blood pressure 97 mm[Hg] Jodi Garcia Other [facility] Other 05-30-2023 17:20-0400 Respiratory rate 18 /min Jodi Garcia Other [facility] Other 05-30-2023 17:20-0400 SaO2% (BldA) [Mass fraction] 95 % Jodi Garcia Other [facility] Other 05-30-2023 17:20-0400 Systolic blood pressure 125 mm[Hg] Jodi Garcia Other [facility] Other 10-28-2022 11:30-0500 Body height 187.96 cm Imad Asaad Other [facility] Other 10-28-2022 11:30-0500 Body mass index (BMI) [Ratio] 24.39 kg/m2 Imad Asaad Other [facility] Other 10-28-2022 11:30-0500 Body weight 86.18 kg Imad Asaad Other [facility] Other 10-28-2022 11:30-0500 Diastolic blood pressure 91 mm[Hg] Imad Asaad Other [facility] Other 10-28-2022 11:30-0500 Systolic blood pressure 132 mm[Hg] Imad Asaad Other [facility] Other Encounters Encounter Date Encounter Type Care Provider Facility Start: 05-30-2023 End: 05-30-2023 ambulatory [facility] [employer] Other Start: 05-30-2023 Office outpatient vi sit 15 minutes Jodi Garcia [facility] Start: 04-26-2023 End: 05-25-2023 ambulatory UNKNOWN PROVIDER Facility:[facility] Start: 12-30-2022 ambulatory [facility] Facility:[facility] Start: 11-23-2022 End: 11-24-2022 ambulatory [facility] Facility:[facility] Start: 10-28-2022 End: 10-28-2022 ambulatory Imad Asaad Other [facility] Other Start: 10-28-2022 Office consultation new/estab patient 60 min Imad Asaad [facility] Start: 08-20-2019 End: 08-21-2019 Emergency department patient visit AMRIK CUEVA Facility:[facility] Payers Date Payer Category Payer Unknown 1970 Unknown [id number] 1970 Unknown [id number] 1970 Unknown [id number] 1970 Unknown [id number] 1960 Medicaid [id number] 2. [id number] Social History Date Type Detail Facility Sex Assigned At [employer] [facility] [employer] Other Progress note 05-30-2023 Note Date & Type Note Facility 05-30-2023 Note Occupational Therapy This patient was evaluated in a multidisciplinary wheelchair seating clinic. Please see attached letter of medical necessity for further supporting documentation. [facility] Progress note 05-30-2023 Note Date & Type Note Facility 05-30-2023 Note [facility] Department of Physical Medicine and Rehabilitation Seating Clinic Date: 05/30/23 Referring Provider: No referring provider defined for this encounter. Addison Najera is a 52 y.o. year old male with history of right MCA stroke s/p decompressive hemicraniectomy in 2018 and post-stroke seizure disorder, left-hemineglect presenting to seating clinic for mobility needs. They require a mobility device because left sided paralysis. He complaints of a pain of 8/10 on the left side today The last time he has a seizure was in 2021. He was previously able to ambulate with cane or walker and then had meniscus surgery which sent him back. -Patient needs a group 2 power wheelchair Equipment and living history: Patient is communicate effectively The patient is currently living in Apartment . He does have an aid that provides assistance with cooking, bathing, getting dressed including shoes and dressing. Within the home they are using standard wheelchair, within the community patient is using standard wheelchair. He is not working or driving. Current mobility device is several years old and in poor condition Transfers in and out of wheelchair via pivot transfers independently Mobility: Level of ambulation vs assisted mobility- utilizes independent transfers and is able to use feet to move wheelchair around. Falls: 0 falls in the last years ADLs: Bathing/Dressing/Feeding requires assistance Transport: Patient transportation includes (consider car, taxi, family, services): Car New equipment will be transported (home, work, school, leisure, recreation) via vehicle with hitch Utility: The new equipment will be used in home and community Medical mobility history: Cardio/Pulmonary Status: No issues Orthopedic/Orthotics: Are orthopedic issues present that will influence seating, such as scoliosis, pelvic/hip asymmetry etc. No Contractures/Spasticity: Does the person have abnormal tone or spasticity, and how does this impact positioning? Yes: Left sided upper extremity spasticity at the wrist, elbow, hip, knee, and ankle Neuro/Motor: What is the upper and lower extremity function? Right upper and lower strength normal, Left paralyzed Is sensation normal? Yes; on left sensation is dulled Pressure Injuries: History of complication? No Pressure relief ability? Yes Bowel/Bladder: Issues of bowel and bladder incontinence? No Type of program? No Sitting/Standing/Balance: How good is the client's head and trunk control? Normal how is the client's balance? Acceptable ROS: Denies fevers, chills, nausea General: Pleasant, sitting comfortably in the room in no acute distress HEENT: No obvious deformities CVS: Extremities well perfused, no peripheral cyanosis in exposed areas Lung: Normal effort of breathing, no accessory muscle usage Psyche: Mood and affect appropriate and normal Skin: There is no petechiae, purpura noted. Skin is also warm and dry to touch. Neurologically: Alert, oriented, followed commands, sensation intact to light touch on Right. MAS of left knee 3/5, hip 1/5 Musculoskeletal exam: Moves all extremities spontaneously. Strength: RUE and RLE full strength 5/5, left extremities paralyzed Gait: None, unable to be observed Assessment/Plan Encounter Diagnoses Name Primary? Spasticity as late effect of cerebrovascular accident (CVA) Cerebral infarction due to occlusion of right middle cerebral artery (CMS/HCC) Hemiplegia and hemiparesis following cerebral infarction affecting left non-dominant side (CMS/HCC) Yes Patient has mobility limitation that impairs the ability to perform one or more mobility related ADL's in the home. Patient does not have sufficient upper extremity function to operate manual wheelchair. Patient does have strength or balance to operate a scooter. Patient does have the mental capacity to operate a power wheelchair. A Power wheelchair will significantly improve this patient's ability to perform ADL's and improve quality of life. We are recommending a Power wheelchair for this patient because has left sided paralysis that limits his ability to safely ambulate any distances - Patient needs a group 2 power wheelchair Patient seen and examined with Dr. Morgan today. I concur with above documentation. Robinson Betancourt MD [facility] Evaluation note 05-30-2023 Note Date & Type Note Facility 05-30-2023 Evaluation note Encounter Date Diagnosis Assessment Notes May, Paronychia of finger of right hand (ICD-10 - L03.011) Paronychia material was printed Drink plenty fluids, get plenty of rest. Continue home medications as prescribed. Take the cephalexin as prescribed until gone. Soak your hand in warm soapy water 2-3 times a day. Follow-up with your family physician if no improvement in 2 to 3 days. Stop biting your nails. [facility] Other Evaluation note 10-28-2022 Note Date & Type Note Facility 10-28-2022 Evaluation note Encounter Date Diagnosis Assessment Notes Oct, LUQ abdominal pain (ICD-10 - R10.12) Arrange for abdominal ultrasound and chest xray Use Ibuprofen 400mg up to twice a day for a week for pain Start Omeprazole 40mg daily for 12 weeks Follow up in 12 weeks if pain persists. [facility] Other History general Narrative - Reported 08-19-2019 Note Date & Type Note Facility 08-19-2019 History general N arrative - Reported Type Medical History stroke 08/2019 Medical History alcohol abuse Medical History epilepsy Surgical History removed piece of sku ll to reduce brain swelling Surgical History appendectomy Surgical History KNEE SURGERY Surgical History KIDNEY STONE Hospitalization History stroke Hospitalization History NONE 2021 [facility] Other Summary Purpose Family History No Family History Records FoundNo Family History Records FoundNo Family History Records FoundNo Family History Records Found Advance Directives No Advanced Directives Records FoundNo Advanced Directives Records FoundNo Advanced Directives Records FoundNo Advanced Directives Records Found Additional Source Comments (unrecognized sect ion and content) No Status Records FoundNo Status Records FoundNo Status Records FoundNo Status Records Found INFORMATION SOURCE (unrecogn ized section and content) DATE CREATED AUTHOR 09/06/2019 [facility] DATE CREATED AUTHOR AUTHOR'S ORGANIZ ATION 01/05/2023 [facility] DATE CREATED AUTHOR AUTHOR'S ORGANIZ ATION 05/27/2023 [employer] DATE CREATED AUTHOR AUTHOR'S ORGANIZ ATION 06/04/2023 [facility] REASON FOR VISIT (unrecogniz ed section and content) REF BY DR. BAUM FOR EPIGAST XI ABDOMINAL PAININFECTED MIDDLE FINGER ON RIGHT HAND FOR RECORDS PERTAINING TO PATIENTS WHO ARE OR HAVE BEEN ENROLLED IN A CHEMICAL DEPENDENCY/SUBSTANCEABUSE PROGRAM, SOME INFORMATION MAY BE OMITTED. This clinical summary was aggregated from multiple sources. Caution should be exercised in using it in the provision of clinical care. This summary normalizes information from multiple sources, and as a consequence, information in this document may materially change the coding, format and clinical context of patient data. In addition, data may be omitted in some cases. CLINICAL DECISIONS SHOULD BE BASED ON THE PRIMARY CLINICAL RECORDS. [employer] [facility]. provides no warranty or guarantee of the accuracy or completeness of information in this document.
[2023-10-21 16:07] LABS: Basophils Absolute Auto 0.1 10^3/uL (0.0-0.1); Basophils Percent Auto 0.9 % (0.2-2.0); Eosinophils Absolute Auto 0.2 10^3/uL (0.0-0.7); Eosinophils Percent Auto 2.1 % (0.9-7.0); Hemoglobin 13.6 g/dL (14.0-18.0); Immature Granulocytes Abs Auto 0.03 10^3/uL (0.00-0.03); Immature Granulocytes Pct Auto 0.4 % (0.0-0.5); Lymphocytes Absolute Auto 2.3 10^3/uL (1.2-3.8); Lymphocytes Percent Auto 30.8 % (20.5-60.0); Mean Corpuscular HGB Conc 32.4 g/dL (29.9-35.2); Mean Corpuscular Hemoglobin 27.5 pg (25.9-34.0); Mean Corpuscular Volume 84.8 fL (80.0-94.0); Mean Platelet Volume 10.3 fL (9.5-13.5); Monocytes Absolute Auto 0.6 10^3/uL (0.3-0.8); Monocytes Percent Auto 8.3 % (1.7-12.0); Neutrophils Absolute Auto 4.3 10^3/uL (1.4-6.5); Neutrophils Percent Auto 57.5 % (43.0-75.0); Platelet Count 272 10^3/uL (150-450); Red Blood Count 4.95 10^6/uL (4.70-6.10); Red Cell Distribution Width 14.1 % (11.0-15.0); White Blood Count 7.6 10^3/uL (4.0-11.0)
[2023-10-21 16:41] LABS: Alanine Aminotransferase 44 U/L (16-63); Albumin Globulin Ratio 0.8; Albumin Level 3.7 g/dL (3.4-5.0); Alkaline Phosphatase 99 U/L (46-116); Anion Gap 12.9; Aspartate Amino Transferase 20 U/L (15-37); BUN Creatinine Ratio 12.6; Bilirubin Total 0.8 mg/dL (0.2-1.0); Calcium 9.5 mg/dL (8.5-10.1); Carbon Dioxide 26.2 mmol/L (21.0-32.0); Chloride 106 mmol/L (98-107); Cholesterol 128 mg/dL (<=200); Estimated GFR (African America >60 (>=60); Estimated GFR (Non-African Ame >60 (>=60); Globulin 4.4 g/dL; Glucose 81 mg/dL (74-106); HDL Cholesterol 43 mg/dL (40-60); Magnesium 1.8 mg/dL (1.8-2.4); Potassium 4.1 mmol/L (3.5-5.1); Sodium 141 mmol/L (136-145); TSH W/ REFLEX FT4 3.228 uIU/mL (0.358-3.740); Total Protein 8.1 g/dL (6.4-8.2); Triglycerides 135 mg/dL (<=150)
[2023-10-21 16:49] LABS: Erythrocyte Sedimentation Rate 79 mm/hr (<=20)
[2023-11-02 04:07] LABS: Testosterone 473 ng/dL (264-916)
== END 2023-10-21 15:17 | disposition home or self-care (01) ==
LOC: LAB 15:17
PROVIDERS: PCP Physician Assistant; Visit Provider Physician Assistant
DX: R53.83 Other fatigue (principal); E78.5 Hyperlipidemia, unspecified
CPT/HCPCS: 36415; 80053; 80061; 82607; 82746; 83735; 84402; 84403; 84443; 85025; 85652

== ENCOUNTER 2023-11-22 19:49 | Outpatient (REF) | payer MEDICAID, SELFPAY ==
--- OUTSIDE RECORDS SUMMARY | 2023-11-22 20:01 | XMS_ITS | CCD ---
Author Name Unknown Address [address] [place] [id number] Organization [facility] Care Team Providers Care Manager Hardware Name Role Phone AMRIK CUEVA Attending Unavailable Asaad, Imad Unavailable TAVOMALIHA FLAHERTY Admitting Unavailable MALIHA VO Attending Unavailable KAT, DR MATHEW Primary Care Unavailable [facility] Consulting Unavailable DEVANTE BAUM Admitting Unavailable DEVANTE BAUM Attending Unavailable KAT, DR MATHEW Primary Care Unavailable PROVIDER, UNKNOWN Admitting Unavailable PROVIDER, UNKNOWN Attending Unavailable Jodi Garcia Unavailable CASPER DEY Attending Unavailable ROBINSON BETANCOURT Attending Unavailable Allergies Allergy Classification Reported Allergen(s) Allergy Type Date of Onset Reaction(s) Facility (3 sources) Cortisone; Translations: [CORTISONE] Drug Allergy 0 stomach upset [facility] Repository (2 sources) Triamcinolone Drug Allergy Unknown Locationary Other (1 source) lamoTRIgine; Translations: [LAMOTRIGINE] Drug Allergy 1 [facility] Repository Medications Current Medications Medication Drug Class(es) [...] Reference Range Facility Clinical Supporton Clinical Support [id number] Addison Najera 1970 M Date Provider Department Center 05/30/2023 CASPER SERNA MP OT Medical Pavi No family history on file Normal [facility] Office Visiton 05-30-2023 Follow-up visit [id number] Addison Najera 1970 M Date Provider Department Center 05/30/2023 ROBINSON HUMMEL MP PHYS MED Medical Pavi No family history on file Level of Service:11103 [place] OFFICE/OUTPATIENT NEW MODERATE MDM 45-59 MINUTES (GC) Reason for Visit and Comments: SEATING [facility]IC [Other] Normal [facility] ED Clinical Summaryon 2018 ED Clinical Summary [address] [id number] ED Clinical Summary Person Information Name: Addison Najera Xochitl/[facility] Age: 49 Years : 1970 Sex: Male PCP: Marital Status: Unknown Race: White Ethnicity: Not or Language: Yoruba Visit Reason: Potential stroke; Bradycardia; Seizure - Recurrent; Stroke Acuity: 2 Enc Type: Emergency Med Service: Emergency Medicine Arrival: 08/20/2019 15:59:03 Discharge: 08/21/2019 00:26:00 LOS: 000 08:27 Checkin: 08/20/2019 15:59:03 Checkout: 08/21/2019 00:26:00 Dispo Type: Transfer to [facility] Address: [address] [facility] [address] Provider Notes: History of Present Illness ? [...] range between ( 27.2 and 40.8 ) [place] Auto: 6.5 % -- Normal range between [...] range between ( 41.0 and 53.0 ) [place] Absolute: 0.9 x10 MCH: 29.5 pg -- [...] of Care, Recurrent seizures Patient Education Information: [facility] Poison Help line: . [facility] Hotline: [place] Tobacco Quit Line: [place], [place]) [address]: [phone] [place], [place]) [address]: [phone] [facility] [address], [place]: [phone] [facility] ED Note-Nursingon 08-21-2019 ED Note-Nursing Disposition [facility] unable to be completed due to pt being intubated and sedated Electronically signed by Jared Joyce 08/21/19 00:01 EST [facility] ED Note-Nursing PT to be transported by [facility] ETA 1 hour Electronically signed by Jared Joyce 08/20/19 22:41 EST [facility] ED Note-Nursing 08.20.2019 21:40Writer spoke with Aster Mcwilliams to discuss transfer options for patient. At this time [facility] and [facility] not able to send an EMS to come get the patient due to not having an EMS available. [facility] not flying due to weather. 2149:Environmental Engineering Manager called [facility] and spoke with Mauri and asked if the patient could go by [facility] if a nurse was able to go along and titrate the propofol drip. Mauri reports that they would be able to do that with a nurse from the ED and their crew. 2209: Environmental Engineering Manager spoke with She [facility]O [facility] and she reports she has enough staffing to send Jared CARRILLO who has agreed to ride along. 2214: Environmental Engineering Manager spoke with Wool Hat Flanger Elaine about calling admin air pollution control engineer to confirm that this is able to happen sending ED RN with EMS. 2231: Elaine informed telegraphic typewriter operator that Admin air pollution control engineer said to send ED RN with [facility] crew because it is whats best for the patient. 2234- Environmental Engineering Manager informed Mauri from [facility] [place] that [facility] ED RN Jared will ride along with patient to [facility]. Mauri reports that a squad can be at the hospital around 2335. Environmental Engineering Manager informed Aster Sec this and she is calling [facility] to inform them of this. Electronically signed by Sara Hawkins 08/20/19 22:43 EST Normal [facility] ED Note-Nursing At this time still arranging for transfer of pt to [facility] Electronically signed by Isiah Jared 08/20/19 22:01 EST Normal [facility] ED Note-Physicianon 08-21-20 ED Note-Physician Chief Complaint pt called for weakness to home for ongong seizure. Pt hx of epilepsy with seizure starting at 1230 pm. Pt reports weakness to left side. Pt also noted with heart rate of 32. Atropin 0.5 IVP x 2 doses administered per [facility]. Pt not moving left side History [...] SAS Score Of 4, Dispense From Location: [place]-Pharmacy Problem List/Past Medical History Ongoing No qualifying [...] High Lymph Auto 08/20/19 16:32 11.8 Low [place] Auto 08/20/19 16:32 6.5 Eos Auto 08/20/19 16:32 0.7 Basophil Auto 08/20/19 16:32 0.6 Neutro Absolute 08/20/19 16:32 11.5 High Lymph Absolute 08/20/19 16:32 1.7 [place] Absolute 08/20/19 16:32 0.9 Eos Absolute 08/20/19 [...] Mata MD Re 08/21/19 00:04 EST Normal [facility] .[facility] Tue08-20-2019 RBC (U) [#/Vol] 1-4 Normal 0 - 5 [facility] Comment on above: Performed By: #### C [id number] ####[address] [address] UA WBC Qual Absent Normal 0 - 5 [facility] Comment on above: Performed By: #### C [id number] ####[address] [address] .eGFRon 08-20-2019 eGFR Non-AA >60 Normal >=60 [facility] Comment on above: Result Comment: Resu lt [...] medication dosing. Performed By: #### E GFR ####[address] [address] eGFR AA >60 Normal >=60 [facility] Comment on above: Result Comment: Resu lt = 0-14.9 mL/min/1.73 m2 Kidney failure or Dialysis Result = 15-29 mL/min/1.73 m2 Severe decrease in GFR Result = 30-59 mL/min/1.73 m2 Moderate decrease in GFR Result >= 60 mL/min/1.73 m2 Normal or increased GFR Performed By: #### E GFR ####[address] [address] Basic Metabolic Profileon Anion gap [Moles/Vol] 10 mmol/L Normal 7-17 [facility] Comment on above: Performed By: #### C [id number] ####[address] [address] Calcium [Mass/Vol] 8.9 mg/dL Normal 8.5-10.3 [facility] Comment on above: Performed By: #### C [id number] ####[address] [address] Chloride [Moles/Vol] 106 mmol/L Normal 98-110 [facility] Comment on above: Performed By: #### C [id number] ####[address] [address] CO2 [Moles/Vol] 24 mmol/L Normal 22-32 [facility] Comment on above: Performed By: #### C [id number] ####[address] [address] Creatinine [Mass/Vol] 1.02 mg/dL Normal 0.61-1.24 [facility] Comment on above: Performed By: #### C [id number] ####[address] [address] Glucose [Mass/Vol] 120 mg/dL High 74-118 [facility] Comment on above: Performed By: #### C [id number] ####[address] [address] Potassium [Moles/Vol] 3.8 mmol/L Normal 3.4-4.8 [facility] Comment on above: Performed By: #### C [id number] ####[address] [address] Sodium [Moles/Vol] 136 mmol/L Normal 133-142 [facility] Comment on above: Performed By: #### C [id number] ####[address] [address] Urea nitrogen [Mass/Vol] 21 mg/dL Normal 8-26 [facility] Comment on above: Performed By: #### C [id number] ####[address] [address] Urea nitrogen/Creatinine [Mass ratio] 20.6 mg/mg High 10.0-20.0 [facility] Comment on above: Performed By: #### C [id number] ####[address] [address] Blood Gas Arterialon 019 Base Excess Art -1.9 mEq/L Normal -2.0-2.0 [facility] Comment on above: Performed By: #### A BG ####[address] [address] BG Roger Test Satisfactory Normal [facility] Comment on above: Performed By: #### A BG ####[place] [id number] BG Collection Site Lt Rad Normal [facility] Comment on above: Performed By: #### A BG ####[address] [address] BG Mode Assist Control Normal [facility] Comment on above: Performed By: #### A BG ####[place] [id number] Carboxyhemoglobin Arterial 1.0 % total Normal 0.0-2.0 [facility] Comment on above: Performed By: #### A BG ####[address] [address] FiO2 Art 65 Normal [facility] Comment on above: Performed By: #### A BG ####[address] [address] Hb Totl Arterial 13.7 g% Normal 12.0-18.0 [facility] Comment on above: Performed By: #### A BG ####[place] [id number] HbO2 Art 98 % total Normal 94-100 [facility] Comment on above: Performed By: #### A BG ####[address] [address] HCO3 Art 24 mEq/L Normal 21-27 [facility] Comment on above: Performed By: #### A BG ####[address] [address] Met Hb Arterial 0.8 % total Normal 0.0-2.0 [facility] Comment on above: Performed By: #### A BG ####[address] [address] O2 Meth O2 Normal [facility] Comment on above: Performed By: #### A BG ####[address] [address] pCO2 Art 45 mmHg Normal 35-45 [facility] Comment on above: Performed By: #### A BG ####[address] [address] PEEP 5.0 cmH20 [facility] Comment on above: Performed By: #### A BG ####[address] [address] pH Art 7.34 Low 7.35-7.45 [facility] Comment on above: Performed By: #### A BG ####[address] [address] pO2 Art 361 mmHg High 80-100 [facility] Comment on above: Performed By: #### A BG ####[address] [address] Set Resp Rate 16 minutes Normal [facility] Comment on above: Performed By: #### A BG ####[address] [address] Set Tidal Vol 550 mL Normal [facility] Comment on above: Performed By: #### A BG ####[address] [address] Tot Resp Rate 16 minutes Normal [facility] Comment on above: Performed By: #### A BG ####[address] [address] CBC w/ Diffon 08-20-2019 Erythrocyte distribution width (RBC) [Ratio] 15.0 % High 11.6-14.8 [facility] Comment on above: Performed By: #### C BC #### [address] [address] Hematocrit (Bld) [Volume fraction] 40.5 % Low 41.0-53.0 [facility] Comment on above: Performed By: #### C BC #### [address] [address] Hemoglobin (Bld) [Mass/Vol] 13.3 g/dL Low 13.5-17.5 [facility] Comment on above: Performed By: #### C BC #### [address] [address] MCH (RBC) [Entitic mass] 29.5 pg Normal 27.0-35.0 [facility] Comment on above: Performed By: #### C BC #### [address] [address] MCHC (RBC) [Mass/Vol] 32.9 % Normal 31.0-37.0 [facility] Comment on above: Performed By: #### C BC #### [address] [address] MCV (RBC) [Entitic vol] 89.8 fL Normal 80.0-100.0 [facility] Comment on above: Performed By: #### C BC #### [address] [address] Platelet mean volume (Bld) [Entitic vol] 8.8 fL Normal 6.7-10.6 [facility] Comment on above: Performed By: #### C BC #### [address] [address] Platelets (Bld) [#/Vol] 287 x10*3/mcL Normal 150-350 [facility] Comment on above: Performed By: #### C BC #### [address] [address] RBC (Bld) [#/Vol] 4.50 x10*6/mcL Normal 4.30-5.80 [facility] Comment on above: Performed By: #### C BC #### [facility] [address] [place] [address] WBC (Bld) [#/Vol] 14.3 x10*3/mcL High 4.5-11.0 [facility] Comment on above: Performed By: #### C #### [facility] [address] [place] [address] CT Angio Head Neck w/ Contra ston [...] sizable aneurysm, AVM, stenosis or occlusion. VARIANTS: [place] is normally developed. No other [...] with ER provider at approximately 5:50 PM [facility]. Radiation Dose Estimate: CTDI(mGy):0.587811 / / / kVp:120.135328 / mAs:0.231881 / / / DLP(mGy-cm):12.878467 Body Part: Head CTDI(mGy):0.266613 / / / kVp:120.421990 / mAs:0.394610 / / / DLP(mGy-cm):13.941631 Body Part: Head CTDI(mGy):5.838598 / / / kVp:120.290045 / mAs:39.693893 / / / DLP(mGy-cm):5.780376B sung Part: Head CTDI(mGy):75.408361 / / / kVp:120.362933 / mAs:39.031806 / / / DLP(mGy-cm):75.906314 Body Part: Head CTDI(mGy):45.428836 / / / kVp:140.090781 / mAs:262.237958 / / / DLP(mGy-cm):1751.7800 29Body Part: Head CTDI(mGy):0.272951 / / / kVp:120.061926 / mAs:0.940523 / / / DLP(mGy-cm):3.010218H sung Part: Head Final Dictated by: Thony Pedraza MD Dictated DT/TM: 08.20.2019 8:32 pm Signed by: Thony Pedraza MD Signed (Electronic Signature): 08.20.2019 8:51 pm (If Report Is Signed, Electronically Signed in Other Vendor System) Normal [facility] CT Brain w/o Contraston 12-0 CT Brain [...] Cueva of the ED Radiation Dose Estimate: CTDI(mGy):0.031907 / / / kVp:120.929555 / mAs:0.993095 / / / DLP(mGy-cm):7.168365F sung Part: Head CTDI(mGy):47.111043 / / / kVp:120.737276 / mAs:190.961084 / / / DLP(mGy-cm):865.94637 7Body Part: Head Final Dictated by: Thony Almaraz MD Dictated DT/TM: 08.20.2019 4:27 pm Signed by: Thony Almaraz MD Signed (Electronic Signature): 08.20.2019 4:39 pm (If Report Is Signed, Electronically Signed in Other Vendor System) Normal [facility] Diff Autoon 08-20-2019 Baso Absolute 0.1 x10*3/mcL Normal 0.0-0.2 [facility] Comment on above: Performed By: #### . Automated Diff #### [address] [address] Basophils/100 WBC (Bld) 0.6 % Normal 0.0-1.2 [facility] Comment on above: Performed By: #### . Automated Diff #### [address] [address] Eos Absolute 0.1 x10*3/mcL Normal 0.0-0.4 [facility] Comment on above: Performed By: #### . Automated Diff #### [address] [address] Eosinophils/100 WBC (Bld) 0.7 % Normal 0.0-6.1 [facility] Comment on above: Performed By: #### . Automated Diff #### [address] [address] Lymphocytes (Bld) [#/Vol] 1.7 x10*3/mcL Normal 1.0-4.8 [facility] Comment on above: Performed By: #### . Automated Diff #### [address] [address] Lymphocytes/100 WBC (Bld) 11.8 % Low 27.2-40.8 [facility] Comment on above: Performed By: #### . Automated Diff #### [address] [address] [place] Absolute 0.9 x10*3/mcL Normal 0.3-1.1 [facility] Comment on above: Performed By: #### . Automated Diff #### [address] [address] Monocytes/100 WBC (Bld) 6.5 % Normal 4.7-13.9 [facility] Comment on above: Performed By: #### . Automated Diff #### [address] [address] Neutro Absolute 11.5 x10*3/mcL High 1.8-7.7 [facility] Comment on above: Performed By: #### . Automated Diff #### [address] [address] Neutro Auto 80.4 % High 47.2-70.8 [facility] Comment on above: Performed By: #### . Automated Diff #### [address] [address] ED Note-Nursingon 08-20-2019 ED Note-Nursing At this time, waitin g to transfer pt to [facility]. Electronically signed by Jared Joyce 08/20/19 21:07 EST Normal [facility] ED Note-Nursing OG tube advanced to 66cm at lip Electronically signed by Jared Joyce 08/20/19 20:45 EST Normal [facility] ED Note-Nursing pt sedated and prepared for CTA Electronically signed by Edwardo Gladstone R 08/20/19 20:05 EST [facility] ED Note-Nursing 5 mg versed ordered due to patient movement and thrashing in bed. 100 mcg Rocuronium ordered IVP per Dr. Cueva. [facility] 08/20/19 20:05 EST [facility] ED Note-Nursing 5 mg versed ordered per IVP per Dr. Cueva due to patient movement and not remaining sedated after intubation Electronically signed [facility] R 08/20/19 20:04 EST [facility] ED Note-Nursing Pt intubated successfully. Pt is not sedated at this time after RSI medications administered. 4 point wrist restraints and propofol started at 40 mcg per [facility] Electronically signed by [facility] R 08/20/19 19:59 EST [facility] ED Note-Nursing pts behavior increasing with thrashing and moving with head and right side. Pt making incomprehensible sounds. No affect of sedation after ativan administration and haldol. Dr. Cueva in room. Prepare for intubation per verbal order Dr. Jimenez Electronically signed by [facility]ivine [facility] Jennifer R 08/20/19 19:58 EST [facility] ED Note-Nursing Ativan 2 mg and haldol [...] administered. Dr. Cueva notified Electronically signed [facility] R 08/20/19 18:35 EST [facility] ED Note-Nursing no further orders r Dr. Cueva Electronically signed by stefanieibrahimadivine [facility] Jennifer R 08/20/19 17:26 EST [facility] ED Note-Nursing Primary nurse concerned for stroke due to NIH assesment. note for possible CTA or MRI orders requested. Sara CARRILLO notified Electronically signed by [facility], Gladstone R 08/20/19 17:24 EST [facility] ED Note-Nursing Environmental Engineering Manager called into room per primary RN Agata for concerns of stroke and NIHSS of 17 with no CTA order. Environmental Engineering Manager noted significant facial droop, slurred speech partial gaze to the left, left arm flaccid with minimal movement of left leg. Environmental Engineering Manager tested sensation with the tip of an 18 gauge needle and patient was not aware of what leg was touched. When telegraphic typewriter operator would poke left leg patient states my right leg, Environmental Engineering Manager than goes back out into the nurses station to inform Dr. Cueva of this consistent finding.since arrival via [employer]. Environmental Engineering Manager requested that Dr. Cueva go back to the room to assess the patient again. Environmental Engineering Manager suggested a CTA at this time for the stroke like symptoms. Dr. Cueva agrees to this and enters patient room. Electronically signed by Sara Hawkins 08/20/19 21:35 EST Normal [facility] ED Note-Nursing pt noted to be becoming more pale and diaphoretic. Dr. Cueva in room to assess pt. Repeat EKG Electronically signed by MicheletjaronShamir sonsa Gonzalez 08/20/19 17:15 EST Normal [facility] ED Note-Nursing Delay in patient getting to CT due to possible ST elevation on transport via [facility] to [facility]. EKG obtained prior to CT per Dr. Cueva. Environmental Engineering Manager verbalized to Dr. Cueva the stroke like symptoms. Environmental Engineering Manager asked him if we should call [facility] for consult and Dr. Cueva shook his head no when consulting Dr. Light in regards to the EKG. Electronically signed by Sara Hawkins 08/20/19 21:42 EST Normal [facility] ED Note-Physicianon 08-20-20 ED Note-Physician Chief Complaint pt called for weakness to home for ongong seizure. Pt hx of epilepsy with seizure starting at 1230 pm. Pt reports weakness to left side. Pt also noted with heart rate of 32. Atropin 0.5 IVP x 2 doses administered per [facility]. Pt not moving left side History [...] evidence of acute STEMI was noted. The [place] interval was found to be 169, QRS [...] occlusion of the right internal carotid artery. [facility] was contacted and recommended transfer to their [...] High Lymph Auto 08/20/19 16:32 11.8 Low [place] Auto 08/20/19 16:32 6.5 Eos Auto 08/20/19 16:32 0.7 Basophil Auto 08/20/19 16:32 0.6 Neutro Absolute 08/20/19 16:32 11.5 High Lymph Absolute 08/20/19 16:32 1.7 [place] Absolute 08/20/19 16:32 0.9 Eos Absolute 08/20/19 [...] Amrik Cueva MD 08/22/19 07:39 EST Normal [facility] Ethanolon 08-20-2019 Ethanol [Mass/Vol] mg/dL Normal <=9 [facility] Comment on above: Result Comment: To c onvert mg/dL to g/dL, divide result by 1,000. Legal limit of intoxication is 80 mg/dL (0.08 g/dL). Performed By: #### A ####[address] [place] [address] Hep Func Panelon 08-20-2019 Albumin [Mass/Vol] 3.9 g/dL Normal 3.2-4.9 [facility] Comment on above: Result Comment: [facility] Laboratory updated the methodology used for albumin testing on 04/26/18. Albumin measurement was performed using a bromcresol purple dye-binding assay. Performed By: #### L IVER #### [address] [address] Alk Phos 43 IU/L Normal 32-91 [facility] Comment on above: Performed By: #### L IVER #### [address] [address] ALT [Catalytic activity/Vol] 19 U/L Normal 17-63 [facility] Comment on above: Performed By: #### L IVER #### [address] [address] AST [Catalytic activity/Vol] 28 U/L Normal 15-41 [facility] Comment on above: Performed By: #### L IVER #### [address] [address] Bili Direct 0.3 mg/dL Normal 0.1-0.5 [facility] Comment on above: Performed By: #### L IVER #### [address] [address] Bili Indirect 0.9 mg/dL Normal 0.0-1.0 [facility] Comment on above: Performed By: #### L IVER #### [address] [address] Bili Total 1.2 mg/dL Normal 0.3-1.2 [facility] Comment on above: Performed By: #### L IVER #### [address] [address] Protein [Mass/Vol] 6.8 g/dL Normal 6.5-8.1 [facility] Comment on above: Performed By: #### L IVER #### [address] [address] Lactic Acid, Randomon 2018 Lactic Acid Lvl 1.2 mmol/L Normal 0.5-2.0 [facility] Comment on above: Performed By: #### L A ####[address] [address] Magnesiumon 08-20-2019 Magnesium [Mass/Vol] 1.9 mg/dL Normal 1.7-2.4 [facility] Comment on above: Performed By: #### M G #### [address] [address] POC Glucose Randomon 019 Glucose [Mass/Vol] 128 mg/dL High 78-110 [facility] Comment on above: Performed By: #### C D:[id number] ####[address] [address] Troponin-Ion 08-20-2019 Troponin I.cardiac [Mass/Vol] ng/mL Normal 0.00-0.03 [facility] Comment on above: Result Comment: An i ncreased Troponin-I value, in the absence of myocardial ischemia, may indicate other etiologies of cardiac damage. Performed By: #### T ROP ####[address] [address] UA w Culture if Indon 2018 Color (U) Yellow Normal [facility] Comment on above: Performed By: #### U CI ####[address] [address] Glucose (U) [Mass/Vol] Negative Normal Negative [facility] Comment on above: Performed By: #### U CI ####[address] [address] Ketones Ql (U) 20 mg/dL Abnormal Negative [facility] Comment on above: Performed By: #### U CI ####[address] [address] UA Blood Moderate Abnormal Negative [facility] Comment on above: Performed By: #### U CI ####[address] [place] [address] UA Clarity Clear Normal [facility] Comment on above: Performed By: #### U CI ####[address] [place] [address] UA Leukocyte Esterase Negative Normal Negative [facility] Comment on above: Performed By: #### U CI ####[address] [address] UA Nitrite Negative Normal Negative [facility] Comment on above: Performed By: #### U CI ####[address] [address] UA pH 5.0 Normal 4.5 - 7.8 [facility] Comment on above: Performed By: #### U CI ####[address] [address] UA Protein Negative Normal Negative [facility] Comment on above: Performed By: #### U CI ####[address] [address] UA Source Clean Catch Normal [facility] Comment on above: Performed By: #### U CI ####[address] [address] UA Spec Grav >1.060 High 1.003-1.035 [facility] Comment on above: Performed By: #### U CI ####[address] [address] UA Urobilinogen 0.2 mg/dL Normal 0.2 - 1.0 [facility] Comment on above: Performed By: #### U CI ####[address] [address] Urobilinogen Qn (U) Negative Normal Negative [facility] Comment on above: Performed By: #### U CI ####[address] [address] UDS Compon 08-20-2019 Creatinine [Mass/Vol] 151.8 mg/dL Normal [facility] Comment on above: Performed By: #### C D:[id number] ####[address] [address] Ur Amph Scrn Negative Normal NEG = <1000 [facility] Comment on above: Performed By: #### C [id number] ####[address] [address] Ur Mary Scrn Negative Normal NEG = <200 [facility] Comment on above: Performed By: #### C [id number] ####[address] [address] Ur Benzodia Scrn Negative Normal NEG = <200 [facility] Comment on above: Performed By: #### C D:[id number] ####[address] [address] Ur Cannab Scrn Positive Abnormal NEG = <50 [facility] Comment on above: Result Comment: This unconfirmed positive screening result is to be used for medical treatment purposes only. Unconfirmed screening results must not be used for non-medical purposes. (e.g. employment testing, legal testing). Performed By: #### C D:[id number] ####[address] [address] Ur Cocaine Scrn Negative Normal NEG = <300 [facility] Comment on above: Performed By: #### C D:[id number] ####[address] [address] Ur Methadone Scn Negative Normal NEG = <300 [facility] Comment on above: Performed By: #### C D:[id number] ####[address] [address] Ur Opiate Scrn Negative Normal NEG = <300 [facility] Comment on above: Performed By: #### C D:[id number] ####[address] [address] Ur Oxy Screen Negative Normal NEG = <100 [facility] Comment on above: Performed By: #### C D:[id number] ####[address] [address] Ur Oxy Scrn Qnt 4 ng/mL Normal <=99 [facility] Comment on above: Performed By: #### C D:[id number] ####[address] [address] Ur PCP Scrn Negative Normal NEG = <25 [facility] Comment on above: Performed By: #### C D:[id number] ####[address] [address] UA pH 5.0 Normal 4.5 - 7.8 [facility] Comment on above: Performed By: #### C D:[id number] ####[address] [address] UA Spec Grav >1.060 High 1.003-1.035 [facility] Comment on above: Performed By: #### C D:[id number] ####[address] [address] XR Chest 1 Viewon 08-20-2019 XR Chest [...] Electronically Signed in Other Vendor System) Normal [facility] XR Chest 1 View Procedure: Portable AP [...] Electronically Signed in Other Vendor System) Normal [facility] XR Chest 1 View Chest radiograph on [...] Electronically Signed in Other Vendor System) Normal [facility] Vital Signs Date Time Vital Sign Value Performing Clinician Facility 05-30-2023 17:20-0400 Body height 187.96 cm Jodi Garcia [facility] Other 05-30-2023 17:20-0400 Body mass index (BMI) [Ratio] 25.68 kg/m2 Jodi Garcia [facility] Other 05-30-2023 17:20-0400 Body temperature 96.8 [degF] Jodi Garcia [facility] Other 05-30-2023 17:20-0400 Body weight 90.72 kg Jodi Garcia Other [facility] Other 05-30-2023 17:20-0400 Diastolic blood pressure 97 mm[Hg] Jodi Garcia [facility] Other 05-30-2023 17:20-0400 Respiratory rate 18 /min Jodi Garcia [facility] Other 05-30-2023 17:20-0400 SaO2% (BldA) [Mass fraction] 95 % Jodi Garcia [facility] Other 05-30-2023 17:20-0400 Systolic blood pressure 125 mm[Hg] Jodi Garcia [facility] Other 10-28-2022 11:30-0500 Body height 187.96 cm Imad Asaad Other [facility] Other 10-28-2022 11:30-0500 Body mass index (BMI) [Ratio] 24.39 kg/m2 Imad Asaad [facility] Other 10-28-2022 11:30-0500 Body weight 86.18 kg Imad Asaad Other [facility] Other 10-28-2022 11:30-0500 Diastolic blood pressure 91 mm[Hg] Imad Asaad Other [facility] Other 10-28-2022 11:30-0500 Systolic blood pressure 132 mm[Hg] Imad Asaad [facility] Other Encounters Encounter Date Encounter Type Care Provider Facility Start: 05-30-2023 End: 05-30-2023 ambulatory [facility] [employer] Other Start: 05-30-2023 Office outpatient vi sit 15 minutes Jodi Garcia [facility] Start: 04-26-2023 End: 05-25-2023 ambulatory UNKNOWN PROVIDER Facility:[facility] Start: 12-30-2022 ambulatory [facility] Facility:[facility] Start: 11-23-2022 End: 11-24-2022 ambulatory [facility] Facility:[facility] Start: 10-28-2022 End: 10-28-2022 ambulatory Imad Asaad [facility] Other Start: 10-28-2022 Office consultation new/estab patient 60 min Imad Asaad [facility] Start: 08-20-2019 End: 08-21-2019 Emergency department patient visit AMRIK CUEVA Facility:[facility] Payers Date Payer Category Payer Unknown 1970 Unknown [id number] 1970 Unknown [id number] 1970 Unknown [id number] 1970 Unknown [id number] 1960 Medicaid [id number] Social History Date Type Detail Facility Sex Assigned At [employer] [facility] Other Progress note 05-30-2023 Note Date & Type Note Facility 05-30-2023 Note Occupational Therapy This patient was evaluated in a multidisciplinary wheelchair seating clinic. Please see attached letter of medical necessity for further supporting documentation. [facility] Progress note 05-30-2023 Note Date & Type Note Facility 05-30-2023 Note [facility] Department of Physical Medicine and Rehabilitation Seating [...] concur with above documentation. Robinson Betancourt MD [facility] Evaluation note 05-30-2023 Note Date & Type [...] to 3 days. Stop biting your nails. [facility] Other Evaluation note 10-28-2022 Note Date & Type Note Facility 10-28-2022 Evaluation note Encounter Date Diagnosis Assessment Notes Oct, LUQ abdominal pain (ICD-10 - R10.12) Arrange for abdominal ultrasound and chest xray Use Ibuprofen 400mg up to twice a day for a week for pain Start Omeprazole 40mg daily for 12 weeks Follow up in 12 weeks if pain persists. [facility] Other History general Narrative - Reported 08-19-2019 Note Date & Type Note Facility 08-19-2019 History general N arrative - Reported Type Medical History stroke 08/2019 Medical History alcohol abuse Medical History epilepsy Surgical History removed piece of sku ll to reduce brain swelling Surgical History appendectomy Surgical History KNEE SURGERY Surgical History KIDNEY STONE Hospitalization History stroke Hospitalization History NONE 2021 [facility] Other Summary Purpose Family History No Family [...] section and content) DATE CREATED AUTHOR 09/06/2019 [facility] DATE CREATED AUTHOR AUTHOR'S ORGANIZ ATION 01/05/2023 [facility] DATE CREATED AUTHOR AUTHOR'S ORGANIZ ATION 05/27/2023 [facility] DATE CREATED AUTHOR AUTHOR'S ORGANIZ ATION 06/04/2023 [facility] REASON FOR VISIT (unrecogniz ed section and [...] BE BASED ON THE PRIMARY CLINICAL RECORDS. [facility] [facility]. provides no warranty or guarantee of the accuracy or completeness of information in this document.
[2023-11-25 07:17] LABS: Neisseria gonorrhoeae, NAA Negative (Negative); Trich vag by NAA Negative (Negative)
== END 2023-11-22 19:50 | disposition home or self-care (01) ==
LOC: LAB 19:49
PROVIDERS: PCP Physician Assistant; Visit Provider Physician Assistant
DX: Z72.51 High risk heterosexual behavior (principal)
CPT/HCPCS: 87491; 87591; 87660

== ENCOUNTER 2023-11-27 23:36 | Emergency (ER) | payer MEDICAID, SELFPAY ==
[2023-11-27 23:35] VITALS: BP 124/84; PULSE 75; RESP 20; TEMP 37.2; O2SAT 96; BMI 25.7
--- NOTE | 2023-11-28 00:05 | ECG_ITS ---
[facility] Test Date: 2023-11-28 Pat Name: JONI GRIFFIN Department: Room: - Gender: Male Quantitative Researcher: : 1970 Requested By: [id number] Order Number: [id number] Reading MD: HALI HOWELL Measurements Intervals [place] Rate: 72 P: 64 MT: QRS: -10 QRSD: 102 T: 40 QT: 392 QTc: 416 Interpretive Statements 1100 Sinus rhythm Artifact present 9150 abnormal ECG Electronically Signed On 11-28-2023 6:47:47 EDT by HALI HOWELL
--- NOTE | 2023-11-28 00:05 | XR_ITS ---
The [address] [address] Patient Name: JONI GRIFFIN MRN: [id number] date: 1970 Sex: M Assigned Patient Location: ER Current Patient Location: ED.MAIN Accession/Order Number: [id number] Exam Date: 11/28/2023 00:15 Report Date: 11/28/2023 03:40 At the request of: DANISH KHAN Procedure: XR chest 1V EXAM: XR chest 1V HISTORY: back pain COMPARISON: Chest x-ray, 09/12/2023. TECHNIQUE: AP upright portable chest x-ray. FINDINGS: The heart, mediastinum and pulmonary vascularity are within normal limits. There is mild streaky right basilar atelectasis with asymmetric elevation of the right diaphragm. There is a nonspecific 1 cm nodules suggested above the right diaphragm at the right lung base. The lungs and pleural spaces are otherwise clear. The bony thorax is intact. XR/XR chest 1V IMPRESSION: 1. Mild streaky right basilar atelectasis with mildly increased asymmetric elevation of the right diaphragm. 2. Suggested nonspecific 1 cm nodular opacity at the right lung base, new since prior exam. This could be artifact. Chest CT scan could exclude new underlying pulmonary lesion. Electronically authenticated by: JONATHAN ROSADO Date: 11/28/2023 03:40
[2023-11-28 00:21] LABS: Basophils Absolute Auto 0.1 10^3/uL (0.0-0.1); Basophils Percent Auto 0.9 % (0.2-2.0); Eosinophils Absolute Auto 0.2 10^3/uL (0.0-0.7); Eosinophils Percent Auto 3.3 % (0.9-7.0); Hematocrit 38.9 % (42.0-54.0); Hemoglobin 12.6 g/dL (14.0-18.0); Immature Granulocytes Abs Auto 0.02 10^3/uL (0.00-0.03); Immature Granulocytes Pct Auto 0.3 % (0.0-0.5); Lymphocytes Absolute Auto 2.1 10^3/uL (1.2-3.8); Lymphocytes Percent Auto 29.9 % (20.5-60.0); Mean Corpuscular HGB Conc 32.4 g/dL (29.9-35.2); Mean Corpuscular Hemoglobin 27.9 pg (25.9-34.0); Mean Corpuscular Volume 86.3 fL (80.0-94.0); Mean Platelet Volume 9.9 fL (9.5-13.5); Monocytes Absolute Auto 0.7 10^3/uL (0.3-0.8); Monocytes Percent Auto 10.1 % (1.7-12.0); Neutrophils Absolute Auto 3.9 10^3/uL (1.4-6.5); Neutrophils Percent Auto 55.5 % (43.0-75.0); Platelet Count 233 10^3/uL (150-450); Red Blood Count 4.51 10^6/uL (4.70-6.10); Red Cell Distribution Width 13.6 % (11.0-15.0); White Blood Count 6.9 10^3/uL (4.0-11.0)
--- NOTE | 2023-11-28 00:37 | ED.GENADUL1 ---
HPI - General Adult General Chief complaint: Back Pain/Injury Stated complaint: back pain Time Seen by Provider: 11/28/23 00:01 Source: patient Mode of arrival: ambulance Limitations: no limitations History of Present Illness HPI narrative: 53-year-old male to the emergency department with chief complaint of upper back pain. Patient reports he was laying in bed getting ready to go to sleep when he experienced some mild discomfort in his upper back. He is unable to characterize it. It lasted a few moments and concerned him. He denies any chest pain or shortness of breath. Denies any abdominal pain, nausea, vomiting. He was otherwise at his baseline health. Symptoms resolved prior to arrival. Patient says he has had this discomfort before. Related Data Home Medications Medication Instructions Recorded Confirmed aspirin 81 mg tablet,delayed 81 mg PO DAILY 04/18/23 11/27/23 release atorvastatin 40 mg tablet 40 mg PO DAILY 04/18/23 11/27/23 baclofen 20 mg tablet 10 mg PO BID 04/18/23 11/27/23 duloxetine 60 mg capsule,delayed 60 mg PO DAILY 04/18/23 11/27/23 release lamotrigine 100 mg tablet 100 mg PO Q12H 04/18/23 11/27/23 melatonin 5 mg tablet,immediate 5 mg PO BEDTIME 04/18/23 11/27/23 and extended release amitriptyline 50 mg tablet 50 mg PO DAILY 11/27/23 11/27/23 hydroxyzine pamoate 25 mg capsule 25 mg PO BID PRN nausea and 11/27/23 11/27/23 vomiting Allergies Allergy/AdvReac Type Severity Reaction Status Date / Time cortisone AdvReac Severe Nausea Verified 05/03/23 14:04 Review of Systems ROS Status of ROS 10 or more systems reviewed and unremarkable except as noted in history and below [facility] Medical History (Updated 11/28/23 @ 03:46 by Benja Lama MD) History of seizure ?Z87.898 - Personal history of other specified conditions (ICD-10) Hx of completed stroke ?Z86.73 - Personal history of transient ischemic attack (TIA), and cerebral infarction without residual deficits (ICD-10) Social History Smoking status: Former smoker Exam Narrative Exam Narrative: VITALS: I have reviewed the triage vital signs. GENERAL: Well developed, well appearing adult in no acute distress. NEURO: Alert and oriented. Chronic left-sided weakness. Normal range of motion of the right side.Face is symmetric and expressive. EYES: PERRL. No scleral icterus or conjunctival injection. No discharge. HENT: Normocephalic, atraumatic. Hearing is grossly intact. Nares grossly patent and without discharge. Mucous membranes moist. NECK: No JVD. Patient moves neck without restriction. CARDIO: Rhythm regular. Normal rate. No murmur, rub, or gallop. Pulses equal bilaterally in the upper and lower extremity. No lower extremity edema. PULM: Lungs clear to auscultation in all dumont. No wheezes, rales, or rhonchi. No conversational dyspnea. No splinting, stridor, or accessory muscle use. GI/: Abdomen is soft and non-tender. Normoactive bowel sounds. EXTREMITIES: Symmetric muscle bulk. No joint swelling. No clubbing, cyanosis, or deformity. No midline thoracic or lumbar tenderness. No rash or lesions or back. SKIN: Warm and dry. Normal turgor. No rash or lesions appreciated. PSYCH: Mood, affect, and interaction is appropriate to the setting. Constitutional Vital Signs, click to edit/add: Last Vital Signs Temp 98.9 F 11/27/23 23:35 Pulse 75 11/27/23 23:35 Resp 20 11/27/23 23:35 BP 124/84 11/27/23 23:35 Pulse Ox 96 11/27/23 23:35 O2 Del Method Room Air 11/27/23 23:35 Course Vital Signs Vital signs: Vital Signs Temperature 98.9 F 11/27/23 23:35 Pulse Rate 75 11/27/23 23:35 Respiratory Rate 20 11/27/23 23:35 Blood Pressure 124/84 11/27/23 23:35 Pulse Oximetry 96 11/27/23 23:35 Oxygen Delivery Method Room Air 11/27/23 23:35 Temperature 98.9 F 11/27/23 23:35 Pulse Rate 75 11/27/23 23:35 Respiratory Rate 20 11/27/23 23:35 Blood Pressure 124/84 11/27/23 23:35 Pulse Oximetry 96 11/27/23 23:35 Oxygen Delivery Method Room Air 11/27/23 23:35 Medical Decision Making MDM Narrative Medical decision making narrative: Well-appearing 53-year-old male to the emergency department with chief complaint of several minutes of upper back pain that resolved prior to arrival. Vital stable, the patient is afebrile. Thorough examination without acute findings. We'll order some basic labs, troponin, EKG, chest x-ray is medical screening exam. Patient agrees with this plan. CBC and chemistry are not acute findings. His troponin is negative. EKG without evidence of ischemia. Chest x-ray was without acute findings. There is an incidental pulmonary nodule. He is given referral to PCP and notified of this. Patient feels improved. He developed a mild headache during his Emergency Department stay. A shot of Toradol was given. Return precautions were discussed. All questions were answered. The patient was discharged home. Medical Records Medical records reviewed: Yes I reviewed the patient's medical records Lab Data Lab results reviewed: Yes I reviewed the patient's lab results Labs: Lab Results 11/28/23 Range/Units 00:14 WBC 6.9 (4.0-11.0) 10^3/uL RBC 4.51 L (4.70-6.10) 10^6/uL Hgb 12.6 L (14.0-18.0) g/dL Hct 38.9 L (42.0-54.0) % MCV 86.3 (80.0-94.0) fL MCH 27.9 (25.9-34.0) pg MCHC 32.4 (29.9-35.2) g/dL RDW 13.6 (11.0-15.0) % Plt Count 233 (150-450) 10^3/uL MPV 9.9 (9.5-13.5) fL Neut % (Auto) 55.5 (43.0-75.0) % Lymph % (Auto) 29.9 (20.5-60.0) % [place] % (Auto) 10.1 (1.7-12.0) % Eos % (Auto) 3.3 (0.9-7.0) % Baso % (Auto) 0.9 (0.2-2.0) % Neut # (Auto) 3.9 (1.4-6.5) 10^3/uL Lymph # (Auto) 2.1 (1.2-3.8) 10^3/uL [place] # (Auto) 0.7 (0.3-0.8) 10^3/uL Eos # (Auto) 0.2 (0.0-0.7) 10^3/uL Baso # (Auto) 0.1 (0.0-0.1) 10^3/uL Abs Immat Gran (auto) 0.02 (0.00-0.03) 10^3/uL Imm/Tot Granulo (auto) 0.3 (0.0-0.5) % Sodium 140 (136-145) mmol/L Potassium 4.0 (3.5-5.1) mmol/L Chloride 106 (98-107) mmol/L Carbon Dioxide 27.3 (21.0-32.0) mmol/L Anion Gap 10.7 BUN 15.0 (7.0-18.0) mg/dL Creatinine 1.06 (0.70-1.30) mg/dL Est GFR ( Amer) >60 (>=60) Est GFR (Non-Af Amer) >60 (>=60) BUN/Creatinine Ratio 14.2 Glucose 122 H (74-106) mg/dL Calcium 8.7 (8.5-10.1) mg/dL Total Bilirubin 0.6 (0.2-1.0) mg/dL AST 18 (15-37) U/L ALT 32 (16-63) U/L Alkaline Phosphatase 84 (46-116) U/L Troponin I High Sens 4.7 (4.0-76.1) pg/mL Total Protein 7.0 (6.4-8.2) g/dL Albumin 3.2 L (3.4-5.0) g/dL Globulin 3.8 g/dL Albumin/Globulin Ratio 0.8 Imaging Data Chest x-ray: Attestation: I have reviewed the pertinent imaging results. Radiologist's impression: ITS Impressions Chest X-Ray 11/28/23 00:05 IMPRESSION: 1. Mild streaky right basilar atelectasis with mildly increased asymmetric elevation of the right diaphragm. 2. Suggested nonspecific 1 cm nodular opacity at the right lung base, new since prior exam. This could be artifact. Chest CT scan could exclude new underlying pulmonary lesion. Electronically authenticated by: JONATHAN ROSADO Date: 11/28/2023 03:40 ECG Data Attestation: I personally reviewed and interpreted this ECG as follows: (Normal sinus rhythm at a rate of seventy-two. No STEMI. Normal QTC.) Discharge Plan Discharge Stand Alone Forms: Portal Instructions Chief Complaint: Back Pain/Injury Clinical Impression: Thoracic back pain, Incidental lung nodule Patient Disposition: Home, Self-Care Time of Disposition Decision: 03:44 Condition: Good Mode of Transportation: Private Vehicle Prescriptions / Home Meds: No Action aspirin 81 mg tablet,delayed release (DR/EC) 81 mg PO DAILY atorvastatin 40 mg tablet 40 mg PO DAILY baclofen 20 mg tablet 10 mg PO BID duloxetine 60 mg capsule,delayed release(DR/EC) 60 mg PO DAILY lamotrigine 100 mg tablet 100 mg PO Q12H melatonin 5 mg tablet, IR and ER, biphasic 5 mg PO BEDTIME amitriptyline 50 mg tablet 50 mg PO DAILY hydroxyzine pamoate 25 mg capsule 25 mg PO BID PRN (Reason: nausea and vomiting) Print Language: Sinhala Instructions: Thoracic Pain (ED), Pulmonary Nodules (ED) Referrals: Kade Murphy [Primary Care Provider] - 1 week (Follow-up with PCP. Lung nodule needs follow-up imaging with PCP. )
[2023-11-28 00:38] LABS: Alanine Aminotransferase 32 U/L (16-63); Albumin Globulin Ratio 0.8; Albumin Level 3.2 g/dL (3.4-5.0); Alkaline Phosphatase 84 U/L (46-116); Anion Gap 10.7; Aspartate Amino Transferase 18 U/L (15-37); BUN Creatinine Ratio 14.2; Bilirubin Total 0.6 mg/dL (0.2-1.0); Calcium 8.7 mg/dL (8.5-10.1); Carbon Dioxide 27.3 mmol/L (21.0-32.0); Chloride 106 mmol/L (98-107); Estimated GFR (African America >60 (>=60); Estimated GFR (Non-African Ame >60 (>=60); Globulin 3.8 g/dL; Glucose 122 mg/dL (74-106); Sodium 140 mmol/L (136-145); Troponin I High Sensitivity 4.7 pg/mL (4.0-76.1)
--- OUTSIDE RECORDS SUMMARY | 2023-11-28 00:55 | XMS_ITS | CCD ---
Author Name Unknown Address [address] [place] [id number] Organization [facility] Care Team Providers Care It Program Engagement Director Name Role Phone AMRIK CUEVA Attending Unavailable Asaad, Imad Unavailable TAVOMALIHA FLAHERTY Admitting Unavailable MALIHA VO Attending Unavailable KAT, DR MATHEW Primary Care Unavailable [facility] [place] [facility] Consulting Unavailable DEVANTE BAUM Admitting Unavailable DEVANTE BAUM Attending Unavailable KAT, DR MATHEW Primary Care Unavailable PROVIDER, UNKNOWN Admitting Unavailable PROVIDER, UNKNOWN Attending Unavailable Jodi Garcia Unavailable CASPER DEY Attending Unavailable ROBINSON BETANCOURT Attending Unavailable Allergies Allergy Classification Reported Allergen(s) Allergy Type Date of Onset Reaction(s) Facility (3 sources) Cortisone; Translations: [CORTISONE] Drug Allergy 0 stomach upset [facility] Repository (2 sources) Triamcinolone Drug Allergy Unknown [employer] Other (1 source) lamoTRIgine; Translations: [LAMOTRIGINE] Drug Allergy 1 [facility] Repository Medications Current Medications Medication [...] Reference Range Facility Clinical Supporton Clinical Support [id number] Addison Najera 1970 M Date Provider Department Center 05/30/2023 CASPER SERNA MP OT Medical Pavi No family history on file Normal [facility] Office Visiton 05-30-2023 Follow-up visit [id number] Addison Najera 1970 M Date Provider Department Center 05/30/2023 ROBINSON HUMMEL MP PHYS MED Medical Pavi No family history on file Level of Service:13606 NE OFFICE/OUTPATIENT NEW MODERATE MDM 45-59 MINUTES (GC) Reason for Visit and Comments: SEATING CLINIC [Other] Normal [facility] ED Clinical Summaryon 2018 ED Clinical Summary [address] [id number] ED Clinical Summary Person Information Name: Addison Najera Xochitl/[facility] Age: 49 Years : 1970 Sex: Male PCP: Marital Status: Unknown Race: White Ethnicity: Not or Language: Tajik Visit Reason: Potential stroke; Bradycardia; Seizure - Recurrent; Stroke Acuity: 2 Enc Type: Emergency Med Service: Emergency Medicine Arrival: 08/20/2019 15:59:03 Discharge: 08/21/2019 00:26:00 LOS: 000 08:27 Checkin: 08/20/2019 15:59:03 Checkout: 08/21/2019 00:26:00 Dispo Type: Transfer to [facility] Address: [address] [facility] [address] Provider Notes: History of Present Illness ? [...] range between ( 27.2 and 40.8 ) Mccreary Auto: 6.5 % -- Normal range between [...] range between ( 41.0 and 53.0 ) Mccreary Absolute: 0.9 x10 MCH: 29.5 pg -- [...] of Care, Recurrent seizures Patient Education Information: [facility] Poison Help line: . [facility] Hotline: [place] [employer] Quit Line: [place], [place]) [address]: [phone] [place], [place]) [address]: [phone] [facility] [address], [place]: [phone] [facility] ED Note-Nursingon 08-21-2019 ED Note-Nursing Disposition [facility] unable to be completed due to pt being intubated and sedated Electronically signed by Jared Joyce 08/21/19 00:01 EST [facility] ED Note-Nursing PT to be transported by [facility] ems ETA 1 hour Electronically signed by Jared Joyce 08/20/19 22:41 EST [facility] ED Note-Nursing 08.20.2019 21:40Writer spoke with Aster Mcwilliams to discuss transfer options for patient. At this time [facility] not able to send an EMS to come get the patient due to not having an EMS available. [facility] not flying due to weather. 2149:Electrical And Instrument Engineer called [facility] and spoke with Mauri and asked if the patient could go by [facility] if a nurse was able to go along and titrate the propofol drip. Mauri reports that they would be able to do that with a nurse from the ED and their crew. 2209: Electrical And Instrument Engineer spoke with She CARRILLO [facility] and she reports she has enough staffing to send Jared CARRILLO who has agreed to ride along. 2214: Electrical And Instrument Engineer spoke with Funeral Location Manager Elaine about calling admin cert occupational therapy asst to confirm that this is able to happen sending ED RN with EMS. 2231: Elaine informed financial writer that Admin cert occupational therapy asst said to send ED RN with [facility] crew because it is whats best for the patient. 2234- Electrical And Instrument Engineer informed Mauri from [facility] that [facility] ED RN Jared will ride along with patient to [facility]. Mauri reports that a squad can be at the hospital around 2335. Electrical And Instrument Engineer informed Aster Sec this and she is calling [facility] to inform them of this. Electronically signed by Sara Hawkins 08/20/19 22:43 EST Normal [facility] ED Note-Nursing At this time still arranging for transfer of pt to [facility] Electronically signed by Isiah Jared 08/20/19 22:01 EST Normal [facility] ED Note-Physicianon 08-21-20 ED Note-Physician Chief Complaint pt called for weakness to home for ongong seizure. Pt hx of epilepsy with seizure starting at 1230 pm. Pt reports weakness to left side. Pt also noted with heart rate of 32. Atropin 0.5 IVP x 2 doses administered per [employer] [facility]. Pt not moving left side History [...] SAS Score Of 4, Dispense From Location: [place]-Pharmacy Problem List/Past Medical History Ongoing No qualifying [...] High Lymph Auto 08/20/19 16:32 11.8 Low Mccreary Auto 08/20/19 16:32 6.5 Eos Auto 08/20/19 16:32 0.7 Basophil Auto 08/20/19 16:32 0.6 Neutro Absolute 08/20/19 16:32 11.5 High Lymph Absolute 08/20/19 16:32 1.7 Mccreary Absolute 08/20/19 16:32 0.9 Eos Absolute 08/20/19 [...] Mata MD Re 08/21/19 00:04 EST Normal [facility] .[facility] Tue08-20-2019 RBC (U) [#/Vol] 1-4 Normal 0 - 5 [facility] Comment on above: Performed By: #### C [id number] ####[address] [address] UA WBC Qual Absent Normal 0 - 5 [facility] Comment on above: Performed By: #### C [id number] ####[address] [address] .eGFRon 08-20-2019 eGFR Non-AA >60 Normal >=60 [facility] Comment on above: Result Comment: Resu [...] medication dosing. Performed By: #### E GFR ####[address] [address] eGFR AA >60 Normal >=60 [facility] Comment on above: Result Comment: Resu lt = 0-14.9 mL/min/1.73 m2 Kidney failure or Dialysis Result = 15-29 mL/min/1.73 m2 Severe decrease in GFR Result = 30-59 mL/min/1.73 m2 Moderate decrease in GFR Result >= 60 mL/min/1.73 m2 Normal or increased GFR Performed By: #### E GFR ####[address] [address] Basic Metabolic Profileon Anion gap [Moles/Vol] 10 mmol/L Normal 7-[address] [facility] Comment on above: Performed By: #### C [id number] ####[address] [address] Calcium [Mass/Vol] 8.9 mg/dL Normal 8.5-10.3 [facility] Comment on above: Performed By: #### C [id number] ####[address] [address] Chloride [Moles/Vol] 106 mmol/L Normal 98-110 [facility] Comment on above: Performed By: #### C [id number] ####[address] [address] CO2 [Moles/Vol] 24 mmol/L Normal 22-32 [facility] Comment on above: Performed By: #### C [id number] ####[address] [address] Creatinine [Mass/Vol] 1.02 mg/dL Normal 0.61-1.[address] [facility] Comment on above: Performed By: #### C [id number] ####[address] [address] Glucose [Mass/Vol] 120 mg/dL High 74-118 [facility] Comment on above: Performed By: #### C [id number] ####[address] [address] Potassium [Moles/Vol] 3.8 mmol/L Normal 3.4-4.[address] [facility] Comment on above: Performed By: #### C [id number] ####[address] [address] Sodium [Moles/Vol] 136 mmol/L Normal 133-142 [facility] Comment on above: Performed By: #### C [id number] ####[address] [address] Urea nitrogen [Mass/Vol] 21 mg/dL Normal 8-26 [facility] Comment on above: Performed By: #### C [id number] ####[address] [address] Urea nitrogen/Creatinine [Mass ratio] 20.6 mg/mg High 10.0-20.0 [facility] Comment on above: Performed By: #### C [id number] ####[address] [address] Blood Gas Arterialon 019 Base Excess Art -1.9 mEq/L Normal -2.0-2.0 [facility] Comment on above: Performed By: #### A BG ####[address] [address] BG Roger Test Satisfactory Normal [facility] Comment on above: Performed By: #### A BG ####[place] [id number] BG Collection Site Lt Rad Normal [facility] Comment on above: Performed By: #### A BG ####[address] [address] BG Mode Assist Control Normal [facility] Comment on above: Performed By: #### A BG ####[place] [id number] Carboxyhemoglobin Arterial 1.0 % total Normal 0.0-2.0 [facility] Comment on above: Performed By: #### A BG ####[address] [address] FiO2 Art 65 Normal [facility] Comment on above: Performed By: #### A BG ####[address] [address] Hb Totl Arterial 13.7 g% Normal 12.0-18.0 [facility] Comment on above: Performed By: #### A BG ####[place] [id number] HbO2 Art 98 % total Normal 94-100 [facility] Comment on above: Performed By: #### A BG ####[address] [address] HCO3 Art 24 mEq/L Normal 21-27 [facility] Comment on above: Performed By: #### A BG ####[address] [address] Met Hb Arterial 0.8 % total Normal 0.0-2.0 [facility] Comment on above: Performed By: #### A BG ####[address] [address] O2 Meth O2 Normal [facility] Comment on above: Performed By: #### A BG ####[address] [address] pCO2 Art 45 mmHg Normal 35-45 [facility] Comment on above: Performed By: #### A BG ####[address] [address] PEEP 5.0 cmH20 [facility] Comment on above: Performed By: #### A BG ####[address] [address] pH Art 7.34 Low 7.35-7.45 [facility] Comment on above: Performed By: #### A BG ####[address] [address] pO2 Art 361 mmHg High 80-100 [facility] Comment on above: Performed By: #### A BG ####[address] [address] Set Resp Rate 16 minutes Normal [facility] Comment on above: Performed By: #### A BG ####[address] [address] Set Tidal Vol 550 mL Normal [facility] Comment on above: Performed By: #### A BG ####[address] [address] Tot Resp Rate 16 minutes Normal [facility] Comment on above: Performed By: #### A BG ####[address] [address] CBC w/ Diffon 08-20-2019 Erythrocyte distribution width (RBC) [Ratio] 15.0 % High 11.6-14.8 [facility] Comment on above: Performed By: #### C BC #### [address] [address] Hematocrit (Bld) [Volume fraction] 40.5 % Low 41.0-53.0 [facility] Comment on above: Performed By: #### C BC #### [address] [address] Hemoglobin (Bld) [Mass/Vol] 13.3 g/dL Low 13.5-17.5 [facility] Comment on above: Performed By: #### C BC #### [address] [address] MCH (RBC) [Entitic mass] 29.5 pg Normal 27.0-35.0 [facility] Comment on above: Performed By: #### C BC #### [address] [address] MCHC (RBC) [Mass/Vol] 32.9 % Normal 31.0-37.[address] [facility] Comment on above: Performed By: #### C BC #### [address] [address] MCV (RBC) [Entitic vol] 89.8 fL Normal 80.0-100.0 [facility] Comment on above: Performed By: #### C BC #### [address] [address] Platelet mean volume (Bld) [Entitic vol] 8.8 fL Normal 6.7-10.6 [facility] Comment on above: Performed By: #### C BC #### [address] [address] Platelets (Bld) [#/Vol] 287 x10*3/mcL Normal 150-350 [facility] Comment on above: Performed By: #### C BC #### [address] [address] RBC (Bld) [#/Vol] 4.50 x10*6/mcL Normal 4.30-5.[address] [facility] Comment on above: Performed By: #### C BC #### [facility] [address] [place] [address] WBC (Bld) [#/Vol] 14.3 x10*3/mcL High 4.5-11.[address] [facility] Comment on above: Performed By: #### C #### [facility] [address] [place] [address] CT Angio Head Neck w/ Contra ston [...] sizable aneurysm, AVM, stenosis or occlusion. VARIANTS: Dike of Bertrand is normally developed. No other [...] with ER provider at approximately 5:50 PM [facility]. Radiation Dose Estimate: CTDI(mGy):0.326861 / / / kVp:120.169727 / mAs:0.408219 / / / DLP(mGy-cm):12.601602 Body Part: Head CTDI(mGy):0.007146 / / / kVp:120.315695 / mAs:0.396294 / / / DLP(mGy-cm):13.553297 Body Part: Head CTDI(mGy):5.933283 / / / kVp:120.631590 / mAs:39.193145 / / / DLP(mGy-cm):5.477361X sung Part: Head CTDI(mGy):75.800302 / / / kVp:120.464598 / mAs:39.338940 / / / DLP(mGy-cm):75.705166 Body Part: Head CTDI(mGy):45.583778 / / / kVp:140.732215 / mAs:262.164719 / / / DLP(mGy-cm):1751.7800 29Body Part: Head CTDI(mGy):0.077668 / / / kVp:120.793573 / mAs:0.091532 / / / DLP(mGy-cm):3.315056V sung Part: Head Final Dictated by: Thony Pedraza MD Dictated DT/TM: 08.20.2019 8:32 pm Signed by: Thony Pedraza MD Signed (Electronic Signature): 08.20.2019 8:51 pm (If Report Is Signed, Electronically Signed in Other Vendor System) Normal [facility] CT Brain w/o Contraston 12-0 CT [...] Cueva of the ED Radiation Dose Estimate: CTDI(mGy):0.833625 / / / kVp:120.691759 / mAs:0.472919 / / / DLP(mGy-cm):7.858371N sung Part: Head CTDI(mGy):47.420099 / / / kVp:120.444166 / mAs:190.669049 / / / DLP(mGy-cm):865.96744 7Body Part: Head Final Dictated by: Thony Almaraz MD Dictated DT/TM: 08.20.2019 4:27 pm Signed by: Thony Almaraz MD Signed (Electronic Signature): 08.20.2019 4:39 pm (If Report Is Signed, Electronically Signed in Other Vendor System) Normal [facility] Diff Autoon 08-20-2019 Baso Absolute 0.1 x10*3/mcL Normal 0.0-0.2 [facility] Comment on above: Performed By: #### . Automated Diff #### [address] [address] Basophils/100 WBC (Bld) 0.6 % Normal 0.0-1.2 [facility] Comment on above: Performed By: #### . Automated Diff #### [address] [address] Eos Absolute 0.1 x10*3/mcL Normal 0.0-0.4 [facility] Comment on above: Performed By: #### . Automated Diff #### [address] [address] Eosinophils/100 WBC (Bld) 0.7 % Normal 0.0-6.1 [facility] Comment on above: Performed By: #### . Automated Diff #### [address] [address] Lymphocytes (Bld) [#/Vol] 1.7 x10*3/mcL Normal 1.0-4.8 [facility] Comment on above: Performed By: #### . Automated Diff #### [address] [address] Lymphocytes/100 WBC (Bld) 11.8 % Low 27.2-40.8 [facility] Comment on above: Performed By: #### . Automated Diff #### [address] [address] Mccreary Absolute 0.9 x10*3/mcL Normal 0.3-1.1 [facility] Comment on above: Performed By: #### . Automated Diff #### [address] [address] Monocytes/100 WBC (Bld) 6.5 % Normal 4.7-13.9 [facility] Comment on above: Performed By: #### . Automated Diff #### [address] [address] Neutro Absolute 11.5 x10*3/mcL High 1.8-7.7 [facility] Comment on above: Performed By: #### . Automated Diff #### [address] [address] Neutro Auto 80.4 % High 47.2-70.8 [facility] Comment on above: Performed By: #### . Automated Diff #### [address] [address] ED Note-Nursingon 08-20-2019 ED Note-Nursing At this time, waitin g to transfer pt to [facility]. Electronically signed by Jared Joyce 08/20/19 21:07 EST Normal [facility] ED Note-Nursing OG tube advanced to 66cm at lip Electronically signed by Jared Joyce 08/20/19 20:45 EST Normal [facility] ED Note-Nursing pt sedated and prepared for CTA Electronically signed by Edwardo [place] R 08/20/19 20:05 EST [facility] ED Note-Nursing 5 mg versed ordered due to patient movement and thrashing in bed. 100 mcg Rocuronium ordered IVP per Dr. Cueva. [facility] 08/20/19 20:05 EST [facility] ED Note-Nursing 5 mg versed ordered per IVP per Dr. Cueva due to patient movement and not remaining sedated after intubation Electronically signed [facility] 08/20/19 20:04 EST [facility] ED Note-Nursing Pt intubated successfully. Pt is not sedated at this time after RSI medications administered. 4 point wrist restraints and propofol started at 40 mcg per [facility] Electronically signed [facility] 08/20/19 19:59 EST [facility] ED Note-Nursing pts behavior increasing with thrashing and moving with head and right side. Pt making incomprehensible sounds. No affect of sedation after ativan administration and haldol. Dr. Cueva in room. Prepare for intubation per verbal order Dr. Jimenez Electronically signed by jaronformerly named [facility] Jennifer R 08/20/19 19:58 EST [facility] ED Note-Nursing Ativan 2 mg and [...] administered. Dr. Cueva notified Electronically [facility] 08/20/19 18:35 EST [facility] ED Note-Nursing no further orders r Dr. Cueva Electronically signed by stefanieibrahimaformerly named [facility] Jennifer R 08/20/19 17:26 EST [facility] ED Note-Nursing Primary nurse concerned for stroke due to NIH assesment. note for possible CTA or MRI orders requested. Sara CARRILLO notified Electronically signed by stefaniemary [facility], [place] R 08/20/19 17:24 EST [facility] ED Note-Nursing Electrical And Instrument Engineer called into room per primary RN Agata for concerns of stroke and NIHSS of 17 with no CTA order. Electrical And Instrument Engineer noted significant facial droop, slurred speech partial gaze to the left, left arm flaccid with minimal movement of left leg. Electrical And Instrument Engineer tested sensation with the tip of an 18 gauge needle and patient was not aware of what leg was touched. When financial writer would poke left leg patient states my right leg, Electrical And Instrument Engineer than goes back out into the nurses station to inform Dr. Cueva of this consistent finding.since arrival via [facility] [employer]. Electrical And Instrument Engineer requested that Dr. Cueva go back to the room to assess the patient again. Electrical And Instrument Engineer suggested a CTA at this time for the stroke like symptoms. Dr. Cueva agrees to this and enters patient room. Electronically signed by Sara Hawkins 08/20/19 21:35 EST Normal [facility] ED Note-Nursing pt noted to be becoming more pale and diaphoretic. Dr. Cueva in room to assess pt. Repeat EKG Electronically signed by MicheletjaronShamir sonsa Gonzalez 08/20/19 17:15 EST Normal [facility] ED Note-Nursing Delay in patient getting to CT due to possible ST elevation on transport via [facility] [employer] to [facility]. EKG obtained prior to CT per Dr. Cueva. Electrical And Instrument Engineer verbalized to Dr. Cueva the stroke like symptoms. Electrical And Instrument Engineer asked him if we should call [facility] for consult and Dr. Cueva shook his head no when consulting Dr. Light in regards to the EKG. Electronically signed by Sara Hawkins 08/20/19 21:42 EST Normal [facility] ED Note-Physicianon 08-20-20 ED Note-Physician Chief Complaint pt called for weakness to home for ongong seizure. Pt hx of epilepsy with seizure starting at 1230 pm. Pt reports weakness to left side. Pt also noted with heart rate of 32. Atropin 0.5 IVP x 2 doses administered per [facility] Ems. Pt not moving left side History [...] evidence of acute STEMI was noted. The NE interval was found to be 169, QRS [...] occlusion of the right internal carotid artery. [facility] was contacted and recommended transfer to their [...] High Lymph Auto 08/20/19 16:32 11.8 Low Mccreary Auto 08/20/19 16:32 6.5 Eos Auto 08/20/19 16:32 0.7 Basophil Auto 08/20/19 16:32 0.6 Neutro Absolute 08/20/19 16:32 11.5 High Lymph Absolute 08/20/19 16:32 1.7 Mccreary Absolute 08/20/19 16:32 0.9 Eos Absolute 08/20/19 [...] Amrik Cueva MD 08/22/19 07:39 EST Normal [facility] Ethanolon 08-20-2019 Ethanol [Mass/Vol] mg/dL Normal <=9 [facility] Comment on above: Result Comment: To c onvert mg/dL to g/dL, divide result by 1,000. Legal limit of intoxication is 80 mg/dL (0.08 g/dL). Performed By: #### A ####[address] [place] [address] Hep Func Panelon 08-20-2019 Albumin [Mass/Vol] 3.9 g/dL Normal 3.2-4.9 [facility] Comment on above: Result Comment: [facility] Laboratory updated the methodology used for albumin testing on 04/26/18. Albumin measurement was performed using a bromcresol purple dye-binding assay. Performed By: #### L IVER #### [address] [address] Alk Phos 43 IU/L Normal 32-91 [facility] Comment on above: Performed By: #### L IVER #### [address] [address] ALT [Catalytic activity/Vol] 19 U/L Normal 17-63 [facility] Comment on above: Performed By: #### L IVER #### [address] [address] AST [Catalytic activity/Vol] 28 U/L Normal 15-41 [facility] Comment on above: Performed By: #### L IVER #### [address] [address] Bili Direct 0.3 mg/dL Normal 0.1-0.5 [facility] Comment on above: Performed By: #### L IVER #### [address] [address] Bili Indirect 0.9 mg/dL Normal 0.0-1.0 [facility] Comment on above: Performed By: #### L IVER #### [address] [address] Bili Total 1.2 mg/dL Normal 0.3-1.2 [facility] Comment on above: Performed By: #### L IVER #### [address] [address] Protein [Mass/Vol] 6.8 g/dL Normal 6.5-8.1 [facility] Comment on above: Performed By: #### L IVER #### [address] [address] Lactic Acid, Randomon 2018 Lactic Acid Lvl 1.2 mmol/L Normal 0.5-2.0 [facility] Comment on above: Performed By: #### L A ####[address] [address] Magnesiumon 08-20-2019 Magnesium [Mass/Vol] 1.9 mg/dL Normal 1.7-2.4 [facility] Comment on above: Performed By: #### M G #### [address] [address] POC Glucose Randomon 019 Glucose [Mass/Vol] 128 mg/dL High 78-110 [facility] Comment on above: Performed By: #### C [id number] ####[address] [address] Troponin-Ion 08-20-2019 Troponin I.cardiac [Mass/Vol] ng/mL Normal 0.00-0.03 [facility] Comment on above: Result Comment: An i ncreased Troponin-I value, in the absence of myocardial ischemia, may indicate other etiologies of cardiac damage. Performed By: #### T ROP ####[address] [address] UA w Culture if Indon 2018 Color (U) Yellow Normal [facility] Comment on above: Performed By: #### U CI ####[address] [address] Glucose (U) [Mass/Vol] Negative Normal Negative [facility] Comment on above: Performed By: #### U CI ####[address] [address] Ketones Ql (U) 20 mg/dL Abnormal Negative [facility] Comment on above: Performed By: #### U CI ####[address] [address] UA Blood Moderate Abnormal Negative [facility] Comment on above: Performed By: #### U CI ####[address] [place] [address] UA Clarity Clear Normal [facility] Comment on above: Performed By: #### U CI ####[address] [place] [address] UA Leukocyte Esterase Negative Normal Negative [facility] Comment on above: Performed By: #### U CI ####[address] [address] UA Nitrite Negative Normal Negative [facility] Comment on above: Performed By: #### U CI ####[address] [address] UA pH 5.0 Normal 4.5 - 7.8 [facility] Comment on above: Performed By: #### U CI ####[address] [address] UA Protein Negative Normal Negative [facility] Comment on above: Performed By: #### U CI ####[address] [address] UA Source Clean Catch Normal [facility] Comment on above: Performed By: #### U CI ####[address] [address] UA Spec Grav >1.060 High 1.003-1.035 [facility] Comment on above: Performed By: #### U CI ####[address] [address] UA Urobilinogen 0.2 mg/dL Normal 0.2 - 1.0 [facility] Comment on above: Performed By: #### U CI ####[address] [address] Urobilinogen Qn (U) Negative Normal Negative [facility] Comment on above: Performed By: #### U CI ####[address] [address] UDS Compon 08-20-2019 Creatinine [Mass/Vol] 151.8 mg/dL Normal [facility] Comment on above: Performed By: #### C [id number] ####[address] [address] Ur Amph Scrn Negative Normal NEG = <1000 [facility] Comment on above: Performed By: #### C [id number] ####[address] [address] Ur Mary Scrn Negative Normal NEG = <200 [facility] Comment on above: Performed By: #### C [id number] ####[address] [address] Ur Benzodia Scrn Negative Normal NEG = <200 [facility] Comment on above: Performed By: #### C [id number] ####[address] [address] Ur Cannab Scrn Positive Abnormal NEG = <50 [facility] Comment on above: Result Comment: This unconfirmed positive screening result is to be used for medical treatment purposes only. Unconfirmed screening results must not be used for non-medical purposes. (e.g. employment testing, legal testing). Performed By: #### C [id number] ####[address] [address] Ur Cocaine Scrn Negative Normal NEG = <300 [facility] Comment on above: Performed By: #### C [id number] ####[address] [address] Ur Methadone Scn Negative Normal NEG = <300 [facility] Comment on above: Performed By: #### C [id number] ####[address] [address] Ur Opiate Scrn Negative Normal NEG = <300 [facility] Comment on above: Performed By: #### C [id number] ####[address] [address] Ur Oxy Screen Negative Normal NEG = <100 [facility] Comment on above: Performed By: #### C [id number] ####[address] [address] Ur Oxy Scrn Qnt 4 ng/mL Normal <=99 [facility] Comment on above: Performed By: #### C [id number] ####[address] [address] Ur PCP Scrn Negative Normal NEG = <25 [facility] Comment on above: Performed By: #### C [id number] ####[address] [address] UA pH 5.0 Normal 4.5 - 7.8 [facility] Comment on above: Performed By: #### C [id number] ####[address] [address] UA Spec Grav >1.060 High 1.003-1.035 [facility] Comment on above: Performed By: #### C [id number] ####[address] [address] XR Chest 1 Viewon 08-20-2019 XR Chest [...] Electronically Signed in Other Vendor System) Normal [facility] XR Chest 1 View Procedure: Portable [...] Electronically Signed in Other Vendor System) Normal [facility] XR Chest 1 View Chest radiograph [...] Electronically Signed in Other Vendor System) Normal [facility] Vital Signs Date Time Vital Sign Value Performing Clinician Facility 05-30-2023 17:20-0400 Body height 187.96 cm Jodi Garcia Other [facility] [facility] Other 05-30-2023 17:20-0400 Body mass index (BMI) [Ratio] 25.68 kg/m2 Jodi Garcia Other [facility] Other 05-30-2023 17:20-0400 Body temperature 96.8 [degF] Jodi Garcia Other [facility] Other 05-30-2023 17:20-0400 Body weight 90.72 kg Jodi Garcia Other [facility] Other 05-30-2023 17:20-0400 Diastolic blood pressure 97 mm[Hg] Jodi Garcia Other [facility] Other 05-30-2023 17:20-0400 Respiratory rate 18 /min Jodi Garcia Other [facility] Other 05-30-2023 17:20-0400 SaO2% (BldA) [Mass fraction] 95 % Jodi Garcia Other [facility] Other 05-30-2023 17:20-0400 Systolic blood pressure 125 mm[Hg] Jodi Garcia Other [facility] Other 10-28-2022 11:30-0500 Body height 187.96 cm Imad Asaad Other [facility] Other 10-28-2022 11:30-0500 Body mass index (BMI) [Ratio] 24.39 kg/m2 Imad Asaad Other [facility] Other 10-28-2022 11:30-0500 Body weight 86.18 kg Imad Asaad Other [facility] Other 10-28-2022 11:30-0500 Diastolic blood pressure 91 mm[Hg] Imad Asaad Other [facility] Other 10-28-2022 11:30-0500 Systolic blood pressure 132 mm[Hg] Imad Asaad Other [facility] Other Encounters Encounter Date Encounter Type Care Provider Facility Start: 05-30-2023 End: 05-30-2023 ambulatory [facility] Other Start: 05-30-2023 Office outpatient vi sit 15 minutes Jodi Garcia [facility] Start: 04-26-2023 End: 05-25-2023 ambulatory UNKNOWN PROVIDER Facility:[facility] Start: 12-30-2022 ambulatory [facility] Facility:[facility] Start: 11-23-2022 End: 11-24-2022 ambulatory [facility] Facility:[facility] Start: 10-28-2022 End: 10-28-2022 ambulatory Imad Asaad Other [facility] Other Start: 10-28-2022 Office consultation new/estab patient 60 min Imad Asaad [facility] Start: 08-20-2019 End: 08-21-2019 Emergency department patient visit AMRIK CUEVA Facility:[facility] Payers Date Payer Category Payer Unknown 1970 Unknown [id number] 1970 Unknown [id number] 1970 Unknown [id number] 1970 Unknown [id number] 1960 Medicaid [id number]. [id number] Social History Date Type Detail Facility Sex Assigned At [employer] [facility] [employer] Other Progress note 05-30-2023 Note Date & Type Note Facility 05-30-2023 Note Occupational Therapy This patient was evaluated in a multidisciplinary wheelchair seating clinic. Please see attached letter of medical necessity for further supporting documentation. [facility] Progress note 05-30-2023 Note Date & Type Note Facility 05-30-2023 Note [facility] Department of Physical Medicine and [...] concur with above documentation. Robinson Betancourt MD [facility] Evaluation note 05-30-2023 Note Date [...] to 3 days. Stop biting your nails. [employer] Other Evaluation note 10-28-2022 Note Date & Type Note Facility 10-28-2022 Evaluation note Encounter Date Diagnosis Assessment Notes Oct, LUQ abdominal pain (ICD-10 - R10.12) Arrange for abdominal ultrasound and chest xray Use Ibuprofen 400mg up to twice a day for a week for pain Start Omeprazole 40mg daily for 12 weeks Follow up in 12 weeks if pain persists. [facility] Other History general Narrative - Reported 08-19-2019 Note Date & Type Note Facility 08-19-2019 History general N arrative - Reported Type Medical History stroke 08/2019 Medical History alcohol abuse Medical History epilepsy Surgical History removed piece of sku ll to reduce brain swelling Surgical History appendectomy Surgical History KNEE SURGERY Surgical History KIDNEY STONE Hospitalization History stroke Hospitalization History NONE 2021 [facility] Other Summary Purpose Family History No Family [...] section and content) DATE CREATED AUTHOR 09/06/2019 [facility] DATE CREATED AUTHOR AUTHOR'S ORGANIZ ATION 01/05/2023 [facility] DATE CREATED AUTHOR AUTHOR'S ORGANIZ ATION 05/27/2023 [facility] DATE CREATED AUTHOR AUTHOR'S ORGANIZ ATION 06/04/2023 [facility] REASON FOR VISIT (unrecogniz ed section [...] BE BASED ON THE PRIMARY CLINICAL RECORDS. [employer] [facility]. provides no warranty or guarantee of the accuracy or completeness of information in this document.
[2023-11-28] MEDS: KETOROLAC TROMETHAMINE 30 MG/ML VIAL 15 MG IM (04:15)
== END 2023-11-28 04:20 | disposition home or self-care (01) ==
PROVIDERS: Emergency Provider Student in an Organized Health Care Education/Training Program; PCP Physician Assistant
DX: M54.6 Pain in thoracic spine (principal); R91.1 Solitary pulmonary nodule; R51.9 Headache, unspecified; Z79.82 Long term (current) use of aspirin; Z79.899 Other long term (current) drug therapy; Z86.73 Personal history of transient ischemic attack (TIA), and cerebral infarction without residual deficits; Z87.891 Personal history of nicotine dependence
CPT/HCPCS: 36415; 71045; 80053; 84484; 85025; 93005; 96372; 99285

== ENCOUNTER 2023-12-20 12:17 | Outpatient (OUT) | payer MEDICAID, SELFPAY ==
--- OUTSIDE RECORDS SUMMARY | 2023-12-20 12:42 | XMS_ITS | CCD ---
Author Organization [facility] Care Team Providers Care Merchandise Planner Name Role Phone AMRIK CUEVA Attending Unavailable Asaad, Imad Unavailable TAVOMALIHA FLAHERTY Admitting Unavailable MALIHA VO Attending Unavailable KAT, DR MATHEW Primary Care Unavailable [facility], DOCTOR Consulting Unavailable DEVANTE BAUM Admitting Unavailable DEVANTE BAUM Attending Unavailable KAT, DR MATHEW Primary Care Unavailable PROVIDER, UNKNOWN Admitting Unavailable PROVIDER, UNKNOWN Attending Unavailable Jodi Garcia Unavailable CASPER DEY Attending Unavailable ROBINSON BETANCOURT Attending Unavailable Allergies Allergy Classification Reported Allergen(s) Allergy Type Date of Onset Reaction(s) Facility (3 sources) Cortisone; Translations: [CORTISONE] Drug Allergy 0 stomach upset [facility] Repository (2 sources) Triamcinolone Drug Allergy Unknown Desigual Other (1 source) lamoTRIgine; Translations: [LAMOTRIGINE] Drug Allergy 1 [facility] Repository Medications Current Medications Medication Drug [...] Name Value Interpretation Reference Range Facility Clinical Support 3 Clinical Support [id number] Addison Najera 1970 M Date Provider Department Center 05/30/2023 8819CASPER ISLAS MP OT Medical Pavi No family history on file Normal [facility] Office Visiton 05-30-2023 Follow-up visit [id number] Addison Najera 1970 M Date Provider Department Center 05/30/2023 ROBINSON HUMMEL MP PHYS MED Medical Pavi No family history on file Level of Service:47487 [place] OFFICE/OUTPATIENT NEW MODERATE MDM 45-59 MINUTES (GC) Reason for Visit and Comments: [facility] [Other] Normal [facility] ED Clinical Summaryon 2018 ED Clinical Summary [address] [address] ED Clinical Summary Person Information Name: Addison Najera Xochitl/[facility] Age: 49 Years : 1970 Sex: Male PCP: Marital Status: Unknown Race: White Ethnicity: Not or Language: Prydeinig Visit Reason: Potential stroke; Bradycardia; Seizure - Recurrent; Stroke Acuity: 2 Enc Type: Emergency Med Service: Emergency Medicine Arrival: 08/20/2019 15:59:03 Discharge: 08/21/2019 00:26:00 LOS: 000 08:27 Checkin: 08/20/2019 15:59:03 Checkout: 08/21/2019 00:26:00 Dispo Type: Transfer to Acute [facility] Address: [address] [place] [address] Provider Notes: History of Present Illness ? [...] range between ( 27.2 and 40.8 ) [place] Auto: 6.5 % -- Normal range between [...] range between ( 41.0 and 53.0 ) [place] Absolute: 0.9 x10 MCH: 29.5 pg -- [...] of Care, Recurrent seizures Patient Education Information: [facility] Poison Help line: . [facility] Hotline: [place] Tobacco Quit Line: [place], [place]) [address]: [phone] [place], [place]) [address]: [phone] [facility] [address] [place], [place]: [phone] [facility] ED Note-Nursingon 08-21-2019 ED Note-Nursing Disposition [facility] unable to be completed due to pt being intubated and sedated Electronically signed by Jared Joyce 08/21/19 00:01 EST [facility] ED Note-Nursing PT to be transported by [facility] ems ETA 1 hour Electronically signed by Jared Joyce 08/20/19 22:41 EST [facility] ED Note-Nursing 08.20.2019 21:40Writer spoke with Aster Mcwilliams to discuss transfer options for patient. At this time [facility] and [facility] not able to send an EMS to come get the patient due to not having an EMS available. [facility] not flying due to weather. 2149:Crystal Growing Technician called [facility] and spoke with Mauri and asked if the patient could go by [facility] if a nurse was able to go along and titrate the propofol drip. Mauri reports that they would be able to do that with a nurse from the ED and their crew. 2209: Crystal Growing Technician spoke with She CARRILLO [facility] and she reports she has enough staffing to send Jared CARRILLO who has agreed to ride along. 2214: Crystal Growing Technician spoke with Bakery Machine Mechanic Elaine about calling admin hall monitor to confirm that this is able to happen sending ED RN with EMS. 2231: Elaine informed parts data writer that Admin hall monitor said to send ED RN with [facility] crew because it is whats best for the patient. 2234- Crystal Growing Technician informed Mauri from [facility] that [facility] ED RN Jared will ride along with patient to [facility]. Mauri reports that a squad can be at the hospital around 2335. Crystal Growing Technician informed Aster Sec this and she is calling [facility] to inform them of this. Electronically signed by Sara Hawkins 08/20/19 22:43 EST Normal [facility] ED Note-Nursing At this time still arranging for transfer of pt to [facility] Electronically signed by Jared Joyce 08/20/19 22:01 EST Normal [facility] ED Note-Physicianon 08-21-20 ED Note-Physician Chief Complaint pt called for weakness to home for ongong seizure. Pt hx of epilepsy with seizure starting at 1230 pm. Pt reports weakness to left side. Pt also noted with heart rate of 32. Atropin 0.5 IVP x 2 doses administered per [facility] Ems. Pt not moving left side History [...] SAS Score Of 4, Dispense From Location: [employer]-Pharmacy Problem List/Past Medical History Ongoing No qualifying [...] High Lymph Auto 08/20/19 16:32 11.8 Low [place] Auto 08/20/19 16:32 6.5 Eos Auto 08/20/19 16:32 0.7 Basophil Auto 08/20/19 16:32 0.6 Neutro Absolute 08/20/19 16:32 11.5 High Lymph Absolute 08/20/19 16:32 1.7 [place] Absolute 08/20/19 16:32 0.9 Eos Absolute 08/20/19 [...] evaluation due to motion artifacts. Signed By: Sandra POP, Mark Computerized Tomagraphy CT Brain w/o Contrast 08/20/19 [...] (MRI) Electronically signed by Mauri Mata MD 08/21/19 00:04 EST Normal [facility] .UA Micros 08-20-2019 RBC (U) [#/Vol] 1-4 Normal 0 - 5 [facility] Comment on above: Performed By: #### C [id number] ####[address] [address] UA WBC Qual Absent Normal 0 - 5 [facility] Comment on above: Performed By: #### C [id number] ####[address] [address] .eGFRon 08-20-2019 eGFR Non-AA >60 Normal >=60 [facility] Comment on above: Result Comment: [...] medication dosing. Performed By: #### E GFR ####[place] [id number] eGFR AA >60 Normal >=60 [facility] Comment on above: Result Comment: Resu lt = 0-14.9 mL/min/1.73 m2 Kidney failure or Dialysis Result = 15-29 mL/min/1.73 m2 Severe decrease in GFR Result = 30-59 mL/min/1.73 m2 Moderate decrease in GFR Result >= 60 mL/min/1.73 m2 Normal or increased GFR Performed By: #### E GFR ####[address] [address] Basic Metabolic Profileon Anion gap [Moles/Vol] 10 mmol/L Normal 7-17 [facility] Comment on above: Performed By: #### C [id number] ####[address] [address] Calcium [Mass/Vol] 8.9 mg/dL Normal 8.5-10.3 [facility] Comment on above: Performed By: #### C [id number] ####[address] [address] Chloride [Moles/Vol] 106 mmol/L Normal 98-110 [facility] Comment on above: Performed By: #### C [id number] ####[address] [address] CO2 [Moles/Vol] 24 mmol/L Normal 22-32 [facility] Comment on above: Performed By: #### C [id number] ####[address] [address] Creatinine [Mass/Vol] 1.02 mg/dL Normal 0.61-1.24 [facility] Comment on above: Performed By: #### C [id number] ####[address] [address] Glucose [Mass/Vol] 120 mg/dL High 74-118 [facility] Comment on above: Performed By: #### C [id number] ####[address] [address] Potassium [Moles/Vol] 3.8 mmol/L Normal 3.4-4.8 [facility] Comment on above: Performed By: #### C [id number] ####[address] [address] Sodium [Moles/Vol] 136 mmol/L Normal 133-142 [facility] Comment on above: Performed By: #### C [id number] ####[address] [address] Urea nitrogen [Mass/Vol] 21 mg/dL Normal 8-26 [facility] Comment on above: Performed By: #### C [id number] ####[address] [address] Urea nitrogen/Creatinine [Mass ratio] 20.6 mg/mg High 10.0-20.0 [facility] Comment on above: Performed By: #### C D:[id number] ####[address] [address] Blood Gas Arterialon 019 Base Excess Art -1.9 mEq/L Normal -2.0-2.0 [facility] Comment on above: Performed By: #### A BG ####[address] [address] BG Roger Test Satisfactory Normal [facility] Comment on above: Performed By: #### A BG ####[address] [address] BG Collection Site Lt Rad Normal [facility] Comment on above: Performed By: #### A BG ####[address] [address] BG Mode Assist Control Normal [facility] Comment on above: Performed By: #### A BG ####[address] [address] Carboxyhemoglobin Arterial 1.0 % total Normal 0.0-2.0 [facility] Comment on above: Performed By: #### A BG ####[address] [address] FiO2 Art 65 Normal [facility] Comment on above: Performed By: #### A BG ####[address] [address] Hb Totl Arterial 13.7 g% Normal 12.0-18.0 [facility] Comment on above: Performed By: #### A BG ####[address] [address] HbO2 Art 98 % total Normal 94-100 [facility] Comment on above: Performed By: #### A BG ####[address] [address] HCO3 Art 24 mEq/L Normal 21-27 [facility] Comment on above: Performed By: #### A BG ####[address] [address] Met Hb Arterial 0.8 % total Normal 0.0-2.0 [facility] Comment on above: Performed By: #### A BG ####[place] [id number] O2 Meth O2 Normal [facility] Comment on above: Performed By: #### A BG ####[place] [id number] pCO2 Art 45 mmHg Normal 35-45 [facility] Comment on above: Performed By: #### A BG ####[place] [address] PEEP 5.0 cmH20 Normal [facility] Comment on above: Performed By: #### A BG ####[place] [address] pH Art 7.34 Low 7.35-7.45 [facility] Comment on above: Performed By: #### A BG ####[place] [address] pO2 Art 361 mmHg High 80-100 [facility] Comment on above: Performed By: #### A BG ####[place] [address] Set Resp Rate 16 minutes Normal [facility] Comment on above: Performed By: #### A BG ####[place] [address] Set Tidal Vol 550 mL Normal [facility] Comment on above: Performed By: #### A BG ####[place] [id number] Tot Resp Rate 16 minutes Normal [facility] Comment on above: Performed By: #### A BG ####[place] [address] CBC w/ Diffon 08-20-2019 Erythrocyte distribution width (RBC) [Ratio] 15.0 % High 11.6-14.8 [facility] Comment on above: Performed By: #### C BC #### [address] [place] [address] Hematocrit (Bld) [Volume fraction] 40.5 % Low 41.0-53.0 [facility] Comment on above: Performed By: #### C BC #### [address] [address] Hemoglobin (Bld) [Mass/Vol] 13.3 g/dL Low 13.5-17.5 [facility] Comment on above: Performed By: #### C BC #### [address] [address] MCH (RBC) [Entitic mass] 29.5 pg Normal 27.0-35.0 [facility] Comment on above: Performed By: #### C BC #### [address] [address] MCHC (RBC) [Mass/Vol] 32.9 % Normal 31.0-37.0 [facility] Comment on above: Performed By: #### C BC #### [address] [address] MCV (RBC) [Entitic vol] 89.8 fL Normal 80.0-100.0 [facility] Comment on above: Performed By: #### C BC #### [address] [address] Platelet mean volume (Bld) [Entitic vol] 8.8 fL Normal 6.7-10.6 [facility] Comment on above: Performed By: #### C BC #### [address] [address] Platelets (Bld) [#/Vol] 287 x10*3/mcL Normal 150-350 [facility] Comment on above: Performed By: #### C BC #### [address] [address] RBC (Bld) [#/Vol] 4.50 x10*6/mcL Normal 4.30-5.80 [facility] Comment on above: Performed By: #### C BC #### [address] [place] [address] WBC (Bld) [#/Vol] 14.3 x10*3/mcL High 4.5-11.0 [facility] Comment on above: Performed By: #### C #### [address] [address] [address] Angio Head Neck w/ Contra ston [...] sizable aneurysm, AVM, stenosis or occlusion. VARIANTS: [place] of [place] is normally developed. No other [...] ER provider at approximately 5:50 PM PST. Radiation Dose Estimate: CTDI(mGy):0.768879 / / / kVp:120.266113 / mAs:0.253845 / / / DLP(mGy-cm):12.786711 Body Part: Head CTDI(mGy):0.153238 / / / kVp:120.507590 / mAs:0.791962 / / / DLP(mGy-cm):13.657806 Body Part: Head CTDI(mGy):5.583758 / / / kVp:120.942561 / mAs:39.515451 / / / DLP(mGy-cm):5.756610O sung Part: Head CTDI(mGy):75.536357 / / / kVp:120.718617 / mAs:39.348949 / / / DLP(mGy-cm):75.017962 Body Part: Head CTDI(mGy):45.506561 / / / kVp:140.940288 / mAs:262.951308 / / / DLP(mGy-cm):1751.7800 29Body Part: Head CTDI(mGy):0.328778 / / / kVp:120.776376 / mAs:0.441521 / / / DLP(mGy-cm):3.895655I sung Part: Head Final Dictated by: Thony Pedraza MD Dictated DT/TM: 08.20.2019 8:32 pm Signed by: hTony Pedraza MD Signed (Electronic Signature): 08.20.2019 8:51 pm (If Report Is Signed, Electronically Signed in Other Vendor System) Normal [facility] CT Brain w/o Contraston 12-0 [...] Cueva of the ED Radiation Dose Estimate: CTDI(mGy):0.024466 / / / kVp:120.843649 / mAs:0.787782 / / / DLP(mGy-cm):7.437997C sung Part: Head CTDI(mGy):47.556862 / / / kVp:120.873300 / mAs:190.582090 / / / DLP(mGy-cm):865.94121 7Body Part: Head Final Dictated by: Thony Almaraz MD Dictated DT/TM: 08.20.2019 4:27 pm Signed by: Thony Almaraz MD Signed (Electronic Signature): 08.20.2019 4:39 pm (If Report Is Signed, Electronically Signed in Other Vendor System) Normal [facility] Diff Autoon 08-20-2019 Baso Absolute 0.1 x10*3/mcL Normal 0.0-0.2 [facility] Comment on above: Performed By: #### . Automated Diff #### [address] [address] Basophils/100 WBC (Bld) 0.6 % Normal 0.0-1.2 [facility] Comment on above: Performed By: #### . Automated Diff #### [address] [address] Eos Absolute 0.1 x10*3/mcL Normal 0.0-0.4 [facility] Comment on above: Performed By: #### . Automated Diff #### [address] [address] Eosinophils/100 WBC (Bld) 0.7 % Normal 0.0-6.1 [facility] Comment on above: Performed By: #### . Automated Diff #### [address] [address] Lymphocytes (Bld) [#/Vol] 1.7 x10*3/mcL Normal 1.0-4.8 [facility] Comment on above: Performed By: #### . Automated Diff #### [address] [address] Lymphocytes/100 WBC (Bld) 11.8 % Low 27.2-40.8 [facility] Comment on above: Performed By: #### . Automated Diff #### [address] [address] [place] Absolute 0.9 x10*3/mcL Normal 0.3-1.1 [facility] Comment on above: Performed By: #### . Automated Diff #### [address] [address] Monocytes/100 WBC (Bld) 6.5 % Normal 4.7-13.9 [facility] Comment on above: Performed By: #### . Automated Diff #### [address] [address] Neutro Absolute 11.5 x10*3/mcL High 1.8-7.7 [facility] Comment on above: Performed By: #### . Automated Diff #### [address] [address] Neutro Auto 80.4 % High 47.2-70.8 [facility] Comment on above: Performed By: #### . Automated Diff #### [address] [address] ED Note-Nursingon 08-20-2019 ED Note-Nursing At this time, waitin g to transfer pt to [facility]. Electronically signed by Jared Joyce 08/20/19 21:07 EST Normal [facility] ED Note-Nursing OG tube advanced to 66cm at lip Electronically signed by Jared Joyce 08/20/19 20:45 EST Normal [facility] ED Note-Nursing pt sedated and prepared for CTA Electronically signed [facility] 08/20/19 20:05 EST [facility] ED Note-Nursing 5 mg versed ordered due to patient movement and thrashing in bed. 100 mcg Rocuronium ordered IVP per Dr. Cueva. Electronically signed by [facility]ne[facility] 08/20/19 20:05 EST [facility] ED Note-Nursing 5 mg versed ordered per IVP per Dr. Cueva due to patient movement and not remaining sedated after intubation Electronically signed by [facility] 08/20/19 20:04 EST [facility] ED Note-Nursing Pt intubated successfully. Pt is not sedated at this time after RSI medications administered. 4 point wrist restraints and propofol started at 40 mcg per [place] [place] Electronically signed by [facility]ario[facility] 08/20/19 19:59 EST [facility] ED Note-Nursing pts behavior increasing with thrashing and moving with head and right side. Pt making incomprehensible sounds. No affect of sedation after ativan administration and haldol. Dr. Cueva in room. Prepare for intubation per verbal order Dr. Jimenez Electronically signed [facility] 08/20/19 19:58 EST Normal [facility] ED Note-Nursing Ativan 2 mg [...] administered. Dr. Cueva notified Electronically signed by Micheletleeanne Jennifer R 08/20/19 18:35 EST Normal [facility] ED Note-Nursing no further orders pe r Dr. Cueva Electronically signed by leeanne Jennifer R 08/20/19 17:26 EST Normal [facility] ED Note-Nursing Primary nurse concerned for stroke due to NIH assesment. note for possible CTA or MRI orders requested. Sara CARRILLO notified Electronically signed by leeanne Jennifer R 08/20/19 17:24 EST Normal [facility] ED Note-Nursing Crystal Growing Technician called into room per primary RN Agata for concerns of stroke and NIHSS of 17 with no CTA order. Crystal Growing Technician noted significant facial droop, slurred speech partial gaze to the left, left arm flaccid with minimal movement of left leg. Crystal Growing Technician tested sensation with the tip of an 18 gauge needle and patient was not aware of what leg was touched. When parts data writer would poke left leg patient states my right leg, Crystal Growing Technician than goes back out into the nurses station to inform Dr. Cueva of this consistent finding.since arrival via [facility]. Crystal Growing Technician requested that Dr. Cueva go back to the room to assess the patient again. Crystal Growing Technician suggested a CTA at this time for the stroke like symptoms. Dr. Cueva agrees to this and enters patient room. Electronically signed by Sara Hawkins 08/20/19 21:35 EST Normal [facility] ED Note-Nursing pt noted to be becoming more pale and diaphoretic. Dr. Cueva in room to assess pt. Repeat EKG Electronically signed by Jennifer Brooke 08/20/19 17:15 EST Normal [facility] ED Note-Nursing Delay in patient getting to CT due to possible ST elevation on transport via [facility] to [facility]. EKG obtained prior to CT per Dr. Cueva. Crystal Growing Technician verbalized to Dr. Cueva the stroke like symptoms. Crystal Growing Technician asked him if we should call [facility] for consult and Dr. Cueva shook his head no when consulting Dr. Light in regards to the EKG. Electronically signed by Sara Hawkins 08/20/19 21:42 EST Normal [facility] ED Note-Physicianon 08-20-20 ED Note-Physician Chief Complaint pt called for weakness to home for ongong seizure. Pt hx of epilepsy with seizure starting at 1230 pm. Pt reports weakness to left side. Pt also noted with heart rate of 32. Atropin 0.5 IVP x 2 doses administered per [facility] Ems. Pt not moving left side History [...] evidence of acute STEMI was noted. The MN interval was found to be 169, QRS [...] occlusion of the right internal carotid artery. [facility] was contacted and recommended transfer to their [...] 08/20/19 19: 361 High HCO3 Art 08/20/19 19:26 24 Base Excess Art 08/20/19 19: -1.9 Hb Totl Arterial 08/20/19 19:26 13.7 HbO2 Art 08/20/19 19: 98 Carboxyhemoglobin Arterial 08/20/19 19: 1.0 Met Hb Arterial 08/20/19 19: 0.8 Blood Gases Vent Settings LATEST RESULTS BG Collection Site 08/20/19 19:26 Lt Rad BG Roger Test 08/20/19 19: Satisfactory O2 Meth 08/20/19 19:26 O2 FiO2 [...] High Lymph Auto 08/20/19 16:32 11.8 Low [place] Auto 08/20/19 16:32 6.5 Eos Auto 08/20/19 16:32 0.7 Basophil Auto 08/20/19 16:32 0.6 Neutro Absolute 08/20/19 16:32 11.5 High Lymph Absolute 08/20/19 16:32 1.7 [place] Absolute 08/20/19 16:32 0.9 Eos Absolute 08/20/19 [...] evaluation due to motion artifacts. Signed By: Sandra POP, Mark Computerized Tomagraphy CT Brain w/o Contrast 08/20/19 [...] Amrik Cueva MD 08/22/19 07:39 EST Normal [facility] Ethanolon 08-20-2019 Ethanol [Mass/Vol] mg/dL Normal <=9 [facility] Comment on above: Result Comment: To c onvert mg/dL to g/dL, divide result by 1,000. Legal limit of intoxication is 80 mg/dL (0.08 g/dL). Performed By: #### A ####[place] [address] Hep Fun Panelon 08-20-2019 Albumin [Mass/Vol] 3.9 g/dL Normal 3.2-4.9 [facility] Comment on above: Result Comment: [facility] Laboratory updated the methodology used for albumin testing on 04/26/18. Albumin measurement was performed using a bromcresol purple dye-binding assay. Performed By: #### L IVER #### [address] [address] Alk Phos 43 IU/L Normal 32-91 [facility] Comment on above: Performed By: #### L IVER #### [address] [address] ALT [Catalytic activity/Vol] 19 U/L Normal 17-63 [facility] Comment on above: Performed By: #### L IVER #### [address] [address] AST [Catalytic activity/Vol] 28 U/L Normal 15-41 [facility] Comment on above: Performed By: #### L IVER #### [address] [address] Bili Direct 0.3 mg/dL Normal 0.1-0.5 [facility] Comment on above: Performed By: #### L IVER #### [address] [address] Bili Indirect 0.9 mg/dL Normal 0.0-1.0 [facility] Comment on above: Performed By: #### L IVER #### [address] [address] Bili Total 1.2 mg/dL Normal 0.3-1.2 [facility] Comment on above: Performed By: #### L IVER #### [address] [address] Protein [Mass/Vol] 6.8 g/dL Normal 6.5-8.1 [facility] Comment on above: Performed By: #### L IVER #### [address] [address] Lactic Acid, Randomon 12-02- 2019 Lactic Acid Lvl 1.2 mmol/L Normal 0.5-2.0 [facility] Comment on above: Performed By: #### L A ####[address] [address] Magnesiumon 08-20-2019 Magnesium [Mass/Vol] 1.9 mg/dL Normal 1.7-2.4 [facility] Comment on above: Performed By: #### M G #### [address] [address] POC Glucose Randomon 019 Glucose [Mass/Vol] 128 mg/dL High 78-110 [facility] Comment on above: Performed By: #### C D:[id number] ####[address] [address] Troponin-Ion 08-20-2019 Troponin I.cardiac [Mass/Vol] ng/mL Normal 0.00-0.03 [facility] Comment on above: Result Comment: An i ncreased Troponin-I value, in the absence of myocardial ischemia, may indicate other etiologies of cardiac damage. Performed By: #### T ROP ####[address] [address] UA w Culture if Indon 2018 Color (U) Yellow Normal [facility] Comment on above: Performed By: #### U CI ####[address] [address] Glucose (U) [Mass/Vol] Negative Normal Negative [facility] Comment on above: Performed By: #### U CI ####[address] [address] Ketones Ql (U) 20 mg/dL Abnormal Negative [facility] Comment on above: Performed By: #### U CI ####[address] [address] UA Blood Moderate Abnormal Negative [facility] Comment on above: Performed By: #### U CI ####[address] [place] [address] UA Clarity Clear Normal [facility] Comment on above: Performed By: #### U CI ####[address] [place] [address] UA Leukocyte Esterase Negative Normal Negative [facility] Comment on above: Performed By: #### U CI ####[address] [address] UA Nitrite Negative Normal Negative [facility] Comment on above: Performed By: #### U CI ####[address] [address] UA pH 5.0 Normal 4.5 - 7.8 [facility] Comment on above: Performed By: #### U CI ####[address] [address] UA Protein Negative Normal Negative [facility] Comment on above: Performed By: #### U CI ####[address] [address] UA Source Clean Catch Normal [facility] Comment on above: Performed By: #### U CI ####[address] [address] UA Spec Grav >1.060 High 1.003-1.035 [facility] Comment on above: Performed By: #### U CI ####[address] [address] UA Urobilinogen 0.2 mg/dL Normal 0.2 - 1.0 [facility] Comment on above: Performed By: #### U CI ####[address] [address] Urobilinogen Qn (U) Negative Normal Negative [facility] Comment on above: Performed By: #### U CI ####[address] [address] UDS Compon 08-20-2019 Creatinine [Mass/Vol] 151.8 mg/dL Normal [facility] Comment on above: Performed By: #### C [id number] ####[address] [address] Ur Amph Scrn Negative Normal NEG = <1000 [facility] Comment on above: Performed By: #### C [id number] ####[address] [address] Ur Mary Scrn Negative Normal NEG = <200 [facility] Comment on above: Performed By: #### C [id number] ####[address] [address] Ur Benzodia Scrn Negative Normal NEG = <200 [facility] Comment on above: Performed By: #### C [id number] ####[address] [address] Ur Cannab Scrn Positive Abnormal NEG = <50 [facility] Comment on above: Result Comment: This unconfirmed positive screening result is to be used for medical treatment purposes only. Unconfirmed screening results must not be used for non-medical purposes. (e.g. employment testing, legal testing). Performed By: #### C [id number] ####[address] [address] Ur Cocaine Scrn Negative Normal NEG = <300 [facility] Comment on above: Performed By: #### C [id number] ####[address] [address] Ur Methadone Scn Negative Normal NEG = <300 [facility] Comment on above: Performed By: #### C [id number] ####[address] [address] Ur Opiate Scrn Negative Normal NEG = <300 [facility] Comment on above: Performed By: #### C [id number] ####[address] [address] Ur Oxy Screen Negative Normal NEG = <100 [facility] Comment on above: Performed By: #### C [id number] ####[address] [place] [address] Ur Oxy Scrn Qnt 4 ng/mL Normal <=99 [facility] Comment on above: Performed By: #### C [id number] ####[address] [address] Ur PCP Scrn Negative Normal NEG = <25 [facility] Comment on above: Performed By: #### C [id number] ####[place] [id number] UA pH 5.0 Normal 4.5 - 7.8 [facility] Comment on above: Performed By: #### C [id number] ####[place] [id number] UA Spec Grav >1.060 High 1.003-1.035 [facility] Comment on above: Performed By: #### C [id number] ####[place] [id number] XR Chest 1 Viewon 08-20-2019 XR Chest [...] Electronically Signed in Other Vendor System) Normal [facility] XR Chest 1 View Procedure: [...] Electronically Signed in Other Vendor System) Normal [facility] XR Chest 1 View Chest [...] Electronically Signed in Other Vendor System) Normal [facility] Vital Signs Date Time Vital Sign Value Performing Clinician Facility 05-30-2023 17:20-0400 Body height 187.96 cm Jodi Garcia Other [facility] Other 05-30-2023 17:20-0400 Body mass index (BMI) [Ratio] 25.68 kg/m2 Jodi Garcia Other [facility] Other 05-30-2023 17:20-0400 Body temperature 96.8 [degF] Jodi Garcia Other [facility] Other 05-30-2023 17:20-0400 Body weight 90.72 kg Jodi Garcia Other [facility] Other 05-30-2023 17:20-0400 Diastolic blood pressure 97 mm[Hg] Jodi Garcia Other [facility] Other 05-30-2023 17:20-0400 Respiratory rate 18 /min Jodi Garcia Other [facility] Other 05-30-2023 17:20-0400 SaO2% (BldA) [Mass fraction] 95 % Jodi Garcia Other [facility] Other 05-30-2023 17:20-0400 Systolic blood pressure 125 mm[Hg] Jodi Garcia Other [facility] Other 10-28-2022 11:30-0500 Body height 187.96 cm Imad Asaad Other [facility] Other 10-28-2022 11:30-0500 Body mass index (BMI) [Ratio] 24.39 kg/m2 Imad Asaad Other [facility] Other 10-28-2022 11:30-0500 Body weight 86.18 kg Imad Asaad Other [facility] Other 10-28-2022 11:30-0500 Diastolic blood pressure 91 mm[Hg] Imad Asaad Other [facility] Other 10-28-2022 11:30-0500 Systolic blood pressure 132 mm[Hg] Imad Asaad Other [facility] Other Encounters Encounter Date Encounter Type Care Provider Facility Start: 05-30-2023 End: 05-30-2023 ambulatory [facility] Other Start: 05-30-2023 Office outpatient vi sit 15 minutes Jodi Garcia [facility] Start: 04-26-2023 End: 05-25-2023 ambulatory UNKNOWN PROVIDER [facility] Start: 12-30-2022 ambulatory [facility] Facility:[facility] 1 Start: 11-23-2022 End: 11-24-2022 ambulatory [facility] Facility: Start: 10-28-2022 End: 10-28-2022 ambulatory Imad Asaad Other [facility] Other Start: 10-28-2022 Office consultation new/estab patient 60 min Imad Asaad [facility] Start: 08-20-2019 End: 08-21-2019 Emergency department patient visit AMRIK CUEVA Facility:[facility] Payers Date Payer Category Payer Unknown 1970 Unknown [id number] .[id number] [id number] 1970 Unknown [id number] 1970 Unknown [id number] 1970 Unknown [id number] .. [id number] 1960 Medicaid [id number] Social History Date Type Detail Facility Sex Assigned [facility] Other Progress note 05-30-2023 Note Date & Type Note Facility 05-30-2023 Note Occupational Therapy This patient was evaluated in a multidisciplinary wheelchair seating clinic. Please see attached letter of medical necessity for further supporting documentation. [facility] Progress note 05-30-2023 Note Date & Type Note Facility 05-30-2023 Note [facility] Department of Physical Medicine and Rehabilitation Seating Clinic Date: 05/30/23 Referring Provider: No referring provider defined for this encounter. Addison Najera is a 52 y.o. year old male with history of right MCA stroke s/p decompressive hemicraniectomy in 2019 and post-stroke seizure disorder, left-hemineglect presenting to [...] concur with above documentation. Robinson Betancourt MD [facility] Evaluation note 05-30-2023 Note Date & [...] to 3 days. Stop biting your nails. [facility] Other Evaluation note 10-28-2022 Note Date & Type Note Facility 10-28-2022 Evaluation note Encounter Date Diagnosis Assessment Notes Oct, LUQ abdominal pain (ICD-10 - R10.12) Arrange for abdominal ultrasound and chest xray Use Ibuprofen 400mg up to twice a day for a week for pain Start Omeprazole 40mg daily for 12 weeks Follow up in 12 weeks if pain persists. [facility] Other History general Narrative - Reported 08-19-2019 Note Date & Type Note Facility 08-19-2019 History general N arrative - Reported Type Medical History stroke 08/2019 Medical History alcohol abuse Medical History epilepsy Surgical History removed piece of sku ll to reduce brain swelling Surgical History appendectomy Surgical History KNEE SURGERY Surgical History KIDNEY STONE Hospitalization History stroke Hospitalization History NONE 2021 [facility] Other Summary Purpose Family History No Family [...] section and content) DATE CREATED AUTHOR 09/06/2019 [facility] DATE CREATED AUTHOR AUTHOR'S ORGANIZ ATION 01/05/2023 [facility] DATE CREATED AUTHOR AUTHOR'S ORGANIZ ATION [facility]/2023 [facility] DATE CREATED AUTHOR AUTHOR'S ORGANIZ ATION 06/04/2023 [facility] REASON FOR VISIT (unrecogniz ed section and [...] BE BASED ON THE PRIMARY CLINICAL RECORDS. [facility]. provides no warranty or guarantee of the accuracy or completeness of information in this document.
[2023-12-21 04:07] LABS: Rheumatoid Factor (RF) <10.0 IU/mL (<14.0)
[2023-12-21 06:08] LABS: HBsAg Screen Negative (Negative); HCV Ab Non Reactive (Non Reactive); HIV Ab/p24 Ag Screen Non Reactive (Non Reactive); HSV 1 IgG, Type Spec <0.91 index (0.00-0.90); Hep A Ab, IgM Negative (Negative); Hep B Core Ab, IgM Negative (Negative)
[2023-12-21 11:09] LABS: Rapid Plasma Reagin, Quant Non Reactive titer (NonRea<1:1)
[2023-12-22 06:08] LABS: Trich vag by NAA Negative (Negative)
[2023-12-23 08:11] LABS: Antinuclear Antibodies, IFA Positive (.)
== END 2023-12-20 12:18 | disposition home or self-care (01) ==
LOC: LAB 12:19
PROVIDERS: PCP Physician Assistant; Visit Provider Physician Assistant
DX: D64.9 Anemia, unspecified (principal); R70.0 Elevated erythrocyte sedimentation rate; Z72.51 High risk heterosexual behavior
CPT/HCPCS: 36415; 80074; 82607; 83540; 83550; 85027; 86038; 86431; 86592; 86695; 86696; 87389; 87491; 87591; 87661

== ENCOUNTER 2023-12-20 12:22 | Outpatient (OUT) | payer MEDICAID, SELFPAY ==
--- OUTSIDE RECORDS SUMMARY | 2023-12-20 12:46 | XMS_ITS | CCD ---
Author Organization [facility] Care Team Providers Care Hardware Engineer Name Role Phone AMRIK CUEVA Attending Unavailable Asaad, Imad Unavailable TAVOMALIHA FLAHERTY Admitting Unavailable MALIHA VO Attending Unavailable KAT, DR MATHEW Primary Care Unavailable [facility], DOCTOR Consulting Unavailable DEVANTE BAUM Admitting Unavailable DEVANTE BAUM Attending Unavailable KAT, DR MATHEW Primary Care Unavailable PROVIDER, UNKNOWN Admitting Unavailable PROVIDER, UNKNOWN Attending Unavailable Jodi Garcia Unavailable CASPER DEY Attending Unavailable ROBINSON BETANCOURT Attending Unavailable Allergies Allergy Classification Reported Allergen(s) Allergy Type Date of Onset Reaction(s) Facility (3 sources) Cortisone; Translations: [CORTISONE] Drug Allergy 0 stomach upset [facility] Repository (2 sources) Triamcinolone Drug Allergy Unknown General Specific Other (1 source) lamoTRIgine; Translations: [LAMOTRIGINE] Drug Allergy 1 [facility] Repository Medications Current Medications Medication [...] Range Facility Clinical Support 3 Clinical Support [id number] Addison Najera 1970 M Date Provider Department Center 05/30/2023 8819CASPER ISLAS MP OT Medical Pavi No family history on file Normal [facility] Office Visiton 05-30-2023 Follow-up visit [id number] Addison Najera 1970 M Date Provider Department Center 05/30/2023 ROBINSON HUMMEL MP PHYS MED Medical Pavi No family history on file Level of Service:19424 [facility] OFFICE/OUTPATIENT NEW MODERATE MDM 45-59 MINUTES (GC) Reason for Visit and Comments: SEATING CL[facility]IC [Other] Normal [facility] ED Clinical Summaryon 2018 ED Clinical Summary [address] [address] ED Clinical Summary Person Information Name: Addison Najera [facility] Age: 49 Years : 1970 Sex: Male PCP: Marital Status: Unknown Race: White Ethnicity: Not or Language: Polish Visit Reason: Potential stroke; Bradycardia; Seizure - Recurrent; Stroke Acuity: 2 Enc Type: Emergency Med Service: Emergency Medicine Arrival: 08/20/2019 15:59:03 Discharge: 08/21/2019 00:26:00 LOS: 000 08:27 Checkin: 08/20/2019 15:59:03 Checkout: 08/21/2019 00:26:00 Dispo Type: Transfer to Acute [facility] Hospital Address: [address] [place] [address] Provider Notes: History of Present Illness ? [...] range between ( 27.2 and 40.8 ) Iron Auto: 6.5 % -- Normal range between [...] range between ( 41.0 and 53.0 ) Iron Absolute: 0.9 x10 MCH: 29.5 pg -- [...] of Care, Recurrent seizures Patient Education Information: [facility] Poison Help line: . [facility] Hotline: [place] Tobacco Quit Line: [place], [place]) [address]: [phone] [place], [place]) [address]: [phone] [facility] [address] [place], [place]: [phone] [facility] ED Note-Nursingon 08-21-2019 ED Note-Nursing Disposition [facility] unable to be completed due to pt being intubated and sedated Electronically signed by Jared Joyce 08/21/19 00:01 EST [facility] ED Note-Nursing PT to be transported by [facility] ems ETA 1 hour Electronically signed by Jared Joyce 08/20/19 22:41 EST [facility] ED Note-Nursing 08.20.2019 21:40Writer spoke with Aster Mcwilliams to discuss transfer options for patient. At this time [facility] and [facility] not able to send an EMS to come get the patient due to not having an EMS available. [facility] not flying due to weather. 2149:Migratory Worker called [facility] and spoke with Mauri and asked if the patient could go by [facility] if a nurse was able to go along and titrate the propofol drip. Mauri reports that they would be able to do that with a nurse from the ED and their crew. 2209: Migratory Worker spoke with She CARRILLO [facility] and she reports she has enough staffing to send Jared CARRILLO who has agreed to ride along. 2214: Migratory Worker spoke with Telephone Lineman Elaine about calling admin manager flight operations to confirm that this is able to happen sending ED RN with EMS. 2231: Elaine informed keno writer/runner that Admin manager flight operations said to send ED RN with [facility] crew because it is whats best for the patient. 2234- Migratory Worker informed Mauri from [facility] that [facility] ED RN Jared will ride along with patient to [facility]. Mauri reports that a squad can be at the hospital around 2335. Migratory Worker informed Aster Sec this and she is calling [facility] to inform them of this. Electronically signed by Sara Hawkins 08/20/19 22:43 EST Normal [facility] ED Note-Nursing At this time still arranging for transfer of pt to [facility] Electronically signed by Jared Joyce 08/20/19 22:01 EST Normal [facility] ED Note-Physicianon 08-21-20 ED Note-Physician Chief Complaint pt called for weakness to home for ongong seizure. Pt hx of epilepsy with seizure starting at 1230 pm. Pt reports weakness to left side. Pt also noted with heart rate of 32. Atropin 0.5 IVP x 2 doses administered per [facility]. Pt not moving left side History [...] SAS Score Of 4, Dispense From Location: [facility] Problem List/Past Medical History Ongoing No qualifying [...] High Lymph Auto 08/20/19 16:32 11.8 Low Iron Auto 08/20/19 16:32 6.5 Eos Auto 08/20/19 16:32 0.7 Basophil Auto 08/20/19 16:32 0.6 Neutro Absolute 08/20/19 16:32 11.5 High Lymph Absolute 08/20/19 16:32 1.7 Iron Absolute 08/20/19 16:32 0.9 Eos Absolute 08/20/19 [...] Mauri Mata MD 08/21/19 00:04 EST Normal [facility] .UA Micros 08-20-2019 RBC (U) [#/Vol] 1-4 Normal 0 - 5 [facility] Comment on above: Performed By: #### C [id number] ####[address] [address] UA WBC Qual Absent Normal 0 - 5 [facility] Comment on above: Performed By: #### C [id number] ####[address] [address] .eGFRon 08-20-2019 eGFR Non-AA >60 Normal >=60 [facility] Comment on above: Result Comment: Resu [...] medication dosing. Performed By: #### E GFR ####[place] [id number] eGFR AA >60 Normal >=60 [facility] Comment on above: Result Comment: Resu lt = 0-14.9 mL/min/1.73 m2 Kidney failure or Dialysis Result = 15-29 mL/min/1.73 m2 Severe decrease in GFR Result = 30-59 mL/min/1.73 m2 Moderate decrease in GFR Result >= 60 mL/min/1.73 m2 Normal or increased GFR Performed By: #### E GFR ####[address] [address] Basic Metabolic Profileon Anion gap [Moles/Vol] 10 mmol/L Normal 7-17 [facility] Comment on above: Performed By: #### C [id number] ####[address] [address] Calcium [Mass/Vol] 8.9 mg/dL Normal 8.5-10.3 [facility] Comment on above: Performed By: #### C [id number] ####[address] [address] Chloride [Moles/Vol] 106 mmol/L Normal 98-110 [facility] Comment on above: Performed By: #### C [id number] ####[address] [address] CO2 [Moles/Vol] 24 mmol/L Normal 22-32 [facility] Comment on above: Performed By: #### C [id number] ####[address] [address] Creatinine [Mass/Vol] 1.02 mg/dL Normal 0.61-1.24 [facility] Comment on above: Performed By: #### C [id number] ####[address] [address] Glucose [Mass/Vol] 120 mg/dL High 74-118 [facility] Comment on above: Performed By: #### C [id number] ####[address] [address] Potassium [Moles/Vol] 3.8 mmol/L Normal 3.4-4.8 [facility] Comment on above: Performed By: #### C [id number] ####[address] [address] Sodium [Moles/Vol] 136 mmol/L Normal 133-142 [facility] Comment on above: Performed By: #### C [id number] ####[address] [address] Urea nitrogen [Mass/Vol] 21 mg/dL Normal 8-26 [facility] Comment on above: Performed By: #### C [id number] ####[address] [address] Urea nitrogen/Creatinine [Mass ratio] 20.6 mg/mg High 10.0-20.0 [facility] Comment on above: Performed By: #### C [id number] ####[address] [address] Blood Gas Arterialon 019 Base Excess Art -1.9 mEq/L Normal -2.0-2.0 [facility] Comment on above: Performed By: #### A BG ####[address] [address] BG Roger Test Satisfactory Normal [facility] Comment on above: Performed By: #### A BG ####[address] [address] BG Collection Site Lt Rad Normal [facility] Comment on above: Performed By: #### A BG ####[address] [address] BG Mode Assist Control Normal [facility] Comment on above: Performed By: #### A BG ####[address] [address] Carboxyhemoglobin Arterial 1.0 % total Normal 0.0-2.0 [facility] Comment on above: Performed By: #### A BG ####[address] [address] FiO2 Art 65 Normal [facility] Comment on above: Performed By: #### A BG ####[address] [address] Hb Totl Arterial 13.7 g% Normal 12.0-18.0 [facility] Comment on above: Performed By: #### A BG ####[address] [address] HbO2 Art 98 % total Normal 94-100 [facility] Comment on above: Performed By: #### A BG ####[address] [address] HCO3 Art 24 mEq/L Normal 21-27 [facility] Comment on above: Performed By: #### A BG ####[address] [address] Met Hb Arterial 0.8 % total Normal 0.0-2.0 [facility] Comment on above: Performed By: #### A BG ####[place] [id number] O2 Meth O2 Normal [facility] Comment on above: Performed By: #### A BG ####[place] [address]140 pCO2 Art 45 mmHg Normal 35-45 [facility] Comment on above: Performed By: #### A BG ####[place] [address] PEEP 5.0 cmH20 Normal [facility] Comment on above: Performed By: #### A BG ####[place] [address] pH Art 7.34 Low 7.35-7.45 [facility] Comment on above: Performed By: #### A BG ####[place] [address] pO2 Art 361 mmHg High 80-100 [facility] Comment on above: Performed By: #### A BG ####[place] [address] Set Resp Rate 16 minutes Normal [facility] Comment on above: Performed By: #### A BG ####[place] [address] Set Tidal Vol 550 mL Normal [facility] Comment on above: Performed By: #### A BG ####[place] [id number] Tot Resp Rate 16 minutes Normal [facility] Comment on above: Performed By: #### A BG ####[place] [address] CBC w/ Diffon 08-20-2019 Erythrocyte distribution width (RBC) [Ratio] 15.0 % High 11.6-14.8 [facility] Comment on above: Performed By: #### C BC #### [address] [place] [address] Hematocrit (Bld) [Volume fraction] 40.5 % Low 41.0-53.0 [facility] Comment on above: Performed By: #### C BC #### [address] [address] Hemoglobin (Bld) [Mass/Vol] 13.3 g/dL Low 13.5-17.5 [facility] Comment on above: Performed By: #### C BC #### [address] [address] MCH (RBC) [Entitic mass] 29.5 pg Normal 27.0-35.0 [facility] Comment on above: Performed By: #### C BC #### [address] [address] MCHC (RBC) [Mass/Vol] 32.9 % Normal 31.0-37.0 [facility] Comment on above: Performed By: #### C BC #### [address] [address] MCV (RBC) [Entitic vol] 89.8 fL Normal 80.0-100.0 [facility] Comment on above: Performed By: #### C BC #### [address] [address] Platelet mean volume (Bld) [Entitic vol] 8.8 fL Normal 6.7-10.6 [facility] Comment on above: Performed By: #### C BC #### [address] [address] Platelets (Bld) [#/Vol] 287 x10*3/mcL Normal 150-350 [facility] Comment on above: Performed By: #### C BC #### [address] [address] RBC (Bld) [#/Vol] 4.50 x10*6/mcL Normal 4.30-5.80 [facility] Comment on above: Performed By: #### C BC #### [address] [place] [address] WBC (Bld) [#/Vol] 14.3 x10*3/mcL High 4.5-11.0 [facility] Comment on above: Performed By: #### C #### [address] [address] [address] Angio Head Neck w/ Contra ston [...] sizable aneurysm, AVM, stenosis or occlusion. VARIANTS: [place] is normally developed. No other [...] approximately 5:50 PM PST. Radiation Dose Estimate: CTDI(mGy):0.228327 / / / kVp:120.585378 / mAs:0.689032 / / / DLP(mGy-cm):12.194049 Body Part: Head CTDI(mGy):0.808431 / / / kVp:120.348448 / mAs:0.357148 / / / DLP(mGy-cm):13.708071 Body Part: Head CTDI(mGy):5.301165 / / / kVp:120.742445 / mAs:39.931325 / / / DLP(mGy-cm):5.463932Y sung Part: Head CTDI(mGy):75.228804 / / / kVp:120.181063 / mAs:39.363486 / / / DLP(mGy-cm):75.041384 Body Part: Head CTDI(mGy):45.684009 / / / kVp:140.419150 / mAs:262.658454 / / / DLP(mGy-cm):1751.7800 29Body Part: Head CTDI(mGy):0.662778 / / / kVp:120.653953 / mAs:0.685049 / / / DLP(mGy-cm):3.743267L sung Part: Head Final Dictated by: Thony Pedraza MD Dictated DT/TM: 08.20.2019 8:32 pm Signed by: Thony Pedraza MD Signed (Electronic Signature): 08.20.2019 8:51 pm (If Report Is Signed, Electronically Signed in Other Vendor System) Normal [facility] CT Brain w/o Contraston 12-0 CT [...] Cueva of the ED Radiation Dose Estimate: CTDI(mGy):0.368278 / / / kVp:120.770558 / mAs:0.850923 / / / DLP(mGy-cm):7.197062A sung Part: Head CTDI(mGy):47.409777 / / / kVp:120.034677 / mAs:190.405783 / / / DLP(mGy-cm):865.95625 7Body Part: Head Final Dictated by: Thony Almaraz MD Dictated DT/TM: 08.20.2019 4:27 pm Signed by: Thony Almaraz MD Signed (Electronic Signature): 08.20.2019 4:39 pm (If Report Is Signed, Electronically Signed in Other Vendor System) Normal [facility] Diff Autoon 08-20-2019 Baso Absolute 0.1 x10*3/mcL Normal 0.0-0.2 [facility] Comment on above: Performed By: #### . Automated Diff #### [address] [address] Basophils/100 WBC (Bld) 0.6 % Normal 0.0-1.2 [facility] Comment on above: Performed By: #### . Automated Diff #### [address] [address] Eos Absolute 0.1 x10*3/mcL Normal 0.0-0.4 [facility] Comment on above: Performed By: #### . Automated Diff #### [address] [address] Eosinophils/100 WBC (Bld) 0.7 % Normal 0.0-6.1 [facility] Comment on above: Performed By: #### . Automated Diff #### [address] [address] Lymphocytes (Bld) [#/Vol] 1.7 x10*3/mcL Normal 1.0-4.8 [facility] Comment on above: Performed By: #### . Automated Diff #### [address] [address] Lymphocytes/100 WBC (Bld) 11.8 % Low 27.2-40.8 [facility] Comment on above: Performed By: #### . Automated Diff #### [address] [address] Iron Absolute 0.9 x10*3/mcL Normal 0.3-1.1 [facility] Comment on above: Performed By: #### . Automated Diff #### [address] [address] Monocytes/100 WBC (Bld) 6.5 % Normal 4.7-13.9 [facility] Comment on above: Performed By: #### . Automated Diff #### [address] [address] Neutro Absolute 11.5 x10*3/mcL High 1.8-7.7 [facility] Comment on above: Performed By: #### . Automated Diff #### [address] [address] Neutro Auto 80.4 % High 47.2-70.8 [facility] Comment on above: Performed By: #### . Automated Diff #### [address] [address] ED Note-Nursingon 08-20-2019 ED Note-Nursing At this time, waitin g to transfer pt to [facility]. Electronically signed by Jared Joyce 08/20/19 21:07 EST Normal [facility] ED Note-Nursing OG tube advanced to 66cm at lip Electronically signed by Jared Joyce 08/20/19 20:45 EST Normal [facility] ED Note-Nursing pt sedated and prepared for CTA [facility] 08/20/19 20:05 EST [facility] ED Note-Nursing 5 mg versed ordered due to patient movement and thrashing in bed. 100 mcg Rocuronium ordered IVP per Dr. Cueva. Electronically signed [facility] 08/20/19 20:05 EST [facility] ED Note-Nursing 5 mg versed ordered per IVP per Dr. Cueva due to patient movement and not remaining sedated after intubation Electronically [facility] 08/20/19 20:04 EST [facility] ED Note-Nursing Pt intubated successfully. Pt is not sedated at this time after RSI medications administered. 4 point wrist restraints and propofol started at 40 mcg per [facility] Electronically signed [facility] 08/20/19 19:59 EST [facility] ED Note-Nursing pts behavior increasing with thrashing and moving with head and right side. Pt making incomprehensible sounds. No affect of sedation after ativan administration and haldol. Dr. Cueva in room. Prepare for intubation per verbal order Dr. Jimenez Electron[facility] 08/20/19 19:58 EST Normal [facility] ED Note-Nursing Ativan 2 mg and [...] Micheletleeanne Jennifer R 08/20/19 18:35 EST Normal [facility] ED Note-Nursing no further orders pe r Dr. Cueva Electronically signed by leeanne Jennifer R 08/20/19 17:26 EST Normal [facility] ED Note-Nursing Primary nurse concerned for stroke due to NIH assesment. note for possible CTA or MRI orders requested. Sara CARRILLO notified Electronically signed by leeanne Jennifer R 08/20/19 17:24 EST Normal [facility] ED Note-Nursing Migratory Worker called into room per primary RN Agata for concerns of stroke and NIHSS of 17 with no CTA order. Migratory Worker noted significant facial droop, slurred speech partial gaze to the left, left arm flaccid with minimal movement of left leg. Migratory Worker tested sensation with the tip of an 18 gauge needle and patient was not aware of what leg was touched. When keno writer/runner would poke left leg patient states my right leg, Migratory Worker than goes back out into the nurses station to inform Dr. Cueva of this consistent finding.since arrival via [facility]. Migratory Worker requested that Dr. Cueva go back to the room to assess the patient again. Migratory Worker suggested a CTA at this time for the stroke like symptoms. Dr. Cueva agrees to this and enters patient room. Electronically signed by Sara Hawkins 08/20/19 21:35 EST Normal [facility] ED Note-Nursing pt noted to be becoming more pale and diaphoretic. Dr. Cueva in room to assess pt. Repeat EKG Electronically signed by Jennifer Brooke 08/20/19 17:15 EST Normal [facility] ED Note-Nursing Delay in patient getting to CT due to possible ST elevation on transport via [facility] to [facility]. EKG obtained prior to CT per Dr. Cueva. Migratory Worker verbalized to Dr. Cueva the stroke like symptoms. Migratory Worker asked him if we should call [facility] for consult and Dr. Cueva shook his head no when consulting Dr. Light in regards to the EKG. Electronically signed by Sara Hawkins 08/20/19 21:42 EST Normal [facility] ED Note-Physicianon 08-20-20 ED Note-Physician Chief Complaint pt called for weakness to home for ongong seizure. Pt hx of epilepsy with seizure starting at 1230 pm. Pt reports weakness to left side. Pt also noted with heart rate of 32. Atropin 0.5 IVP x 2 doses administered per [facility] Ems. Pt not moving left side [...] evidence of acute STEMI was noted. The VA interval was found to be 169, QRS [...] occlusion of the right internal carotid artery. [facility] was contacted and recommended transfer to [...] High Lymph Auto 08/20/19 16:32 11.8 Low Iron Auto 08/20/19 16:32 6.5 Eos Auto 08/20/19 16:32 0.7 Basophil Auto 08/20/19 16:32 0.6 Neutro Absolute 08/20/19 16:32 11.5 High Lymph Absolute 08/20/19 16:32 1.7 Iron Absolute 08/20/19 16:32 0.9 Eos Absolute 08/20/19 [...] Amrik Cueva MD 08/22/19 07:39 EST Normal [facility] Ethanolon 08-20-2019 Ethanol [Mass/Vol] mg/dL Normal <=9 [facility] Comment on above: Result Comment: To c onvert mg/dL to g/dL, divide result by 1,000. Legal limit of intoxication is 80 mg/dL (0.08 g/dL). Performed By: #### A ####[place] [address] Hep Fun Panelon 08-20-2019 Albumin [Mass/Vol] 3.9 g/dL Normal 3.2-4.9 [facility] Comment on above: Result Comment: [facility] Laboratory updated the methodology used for albumin testing on 04/26/18. Albumin measurement was performed using a bromcresol purple dye-binding assay. Performed By: #### L IVER #### [address] [address] Alk Phos 43 IU/L Normal 32-91 [facility] Comment on above: Performed By: #### L IVER #### [address] [address] ALT [Catalytic activity/Vol] 19 U/L Normal 17-63 [facility] Comment on above: Performed By: #### L IVER #### [address] [address] AST [Catalytic activity/Vol] 28 U/L Normal 15-41 [facility] Comment on above: Performed By: #### L IVER #### [address] [address] Bili Direct 0.3 mg/dL Normal 0.1-0.5 [facility] Comment on above: Performed By: #### L IVER #### [address] [address] Bili Indirect 0.9 mg/dL Normal 0.0-1.0 [facility] Comment on above: Performed By: #### L IVER #### [address] [address] Bili Total 1.2 mg/dL Normal 0.3-1.2 [facility] Comment on above: Performed By: #### L IVER #### [address] [address] Protein [Mass/Vol] 6.8 g/dL Normal 6.5-8.1 [facility] Comment on above: Performed By: #### L IVER #### [address] [address] Lactic Acid, Randomon 12-02- 2019 Lactic Acid Lvl 1.2 mmol/L Normal 0.5-2.0 [facility] Comment on above: Performed By: #### L A ####[address] [address] Magnesiumon 08-20-2019 Magnesium [Mass/Vol] 1.9 mg/dL Normal 1.7-2.4 [facility] Comment on above: Performed By: #### M G #### [address] [address] POC Glucose Randomon 019 Glucose [Mass/Vol] 128 mg/dL High 78-110 [facility] Comment on above: Performed By: #### C D:[id number] ####[address] [address] Troponin-Ion 08-20-2019 Troponin I.cardiac [Mass/Vol] ng/mL Normal 0.00-0.03 [facility] Comment on above: Result Comment: An i ncreased Troponin-I value, in the absence of myocardial ischemia, may indicate other etiologies of cardiac damage. Performed By: #### T ROP ####[address] [address] UA w Culture if Indon 2018 Color (U) Yellow Normal [facility] Comment on above: Performed By: #### U CI ####[address] [address] Glucose (U) [Mass/Vol] Negative Normal Negative [facility] Comment on above: Performed By: #### U CI ####[address] [address] Ketones Ql (U) 20 mg/dL Abnormal Negative [facility] Comment on above: Performed By: #### U CI ####[address] [address] UA Blood Moderate Abnormal Negative [facility] Comment on above: Performed By: #### U CI ####[address] [place] [address] UA Clarity Clear Normal [facility] Comment on above: Performed By: #### U CI ####[address] [place] [address] UA Leukocyte Esterase Negative Normal Negative [facility] Comment on above: Performed By: #### U CI ####[address] [address] UA Nitrite Negative Normal Negative [facility] Comment on above: Performed By: #### U CI ####[address] [address] UA pH 5.0 Normal 4.5 - 7.8 [facility] Comment on above: Performed By: #### U CI ####[address] [address] UA Protein Negative Normal Negative [facility] Comment on above: Performed By: #### U CI ####[address] [address] UA Source Clean Catch Normal [facility] Comment on above: Performed By: #### U CI ####[address] [address] UA Spec Grav >1.060 High 1.003-1.035 [facility] Comment on above: Performed By: #### U CI ####[address] [address] UA Urobilinogen 0.2 mg/dL Normal 0.2 - 1.0 [facility] Comment on above: Performed By: #### U CI ####[address] [address] Urobilinogen Qn (U) Negative Normal Negative [facility] Comment on above: Performed By: #### U CI ####[address] [address] UDS Compon 08-20-2019 Creatinine [Mass/Vol] 151.8 mg/dL Normal [facility] Comment on above: Performed By: #### C [id number] ####[address] [address] Ur Amph Scrn Negative Normal NEG = <1000 [facility] Comment on above: Performed By: #### C [id number] ####[address] [address] Ur Mary Scrn Negative Normal NEG = <200 [facility] Comment on above: Performed By: #### C [id number] ####[address] [address] Ur Benzodia Scrn Negative Normal NEG = <200 [facility] Comment on above: Performed By: #### C D:[id number] ####[address] [address] Ur Cannab Scrn Positive Abnormal NEG = <50 [facility] Comment on above: Result Comment: This unconfirmed positive screening result is to be used for medical treatment purposes only. Unconfirmed screening results must not be used for non-medical purposes. (e.g. employment testing, legal testing). Performed By: #### C D:[id number] ####[address] [address] Ur Cocaine Scrn Negative Normal NEG = <300 [facility] Comment on above: Performed By: #### C [id number] ####[address] [address] Ur Methadone Scn Negative Normal NEG = <300 [facility] Comment on above: Performed By: #### C [id number] ####[address] [address] Ur Opiate Scrn Negative Normal NEG = <300 [facility] Comment on above: Performed By: #### C [id number] ####[address] [address] Ur Oxy Screen Negative Normal NEG = <100 [facility] Comment on above: Performed By: #### C D:[id number] ####[address] [place] [address] Ur Oxy Scrn Qnt 4 ng/mL Normal <=99 [facility] Comment on above: Performed By: #### C [id number] ####[address] [address] Ur PCP Scrn Negative Normal NEG = <25 [facility] Comment on above: Performed By: #### C [id number] ####[place] [id number] UA pH 5.0 Normal 4.5 - 7.8 [facility] Comment on above: Performed By: #### C D:[id number] ####[place] [id number] UA Spec Grav >1.060 High 1.003-1.035 [facility] Comment on above: Performed By: #### C D:[id number] ####[place] [id number] XR Chest 1 Viewon 08-20-2019 XR Chest [...] Electronically Signed in Other Vendor System) Normal [facility] XR Chest 1 View Procedure: Portable [...] Electronically Signed in Other Vendor System) Normal [facility] XR Chest 1 View Chest radiograph [...] Electronically Signed in Other Vendor System) Normal [facility] Vital Signs Date Time Vital Sign Value Performing Clinician Facility 05-30-2023 17:20-0400 Body height 187.96 cm Jodi Garcia Other [facility] Other 05-30-2023 17:20-0400 Body mass index (BMI) [Ratio] 25.68 kg/m2 Jodi Garcia Other [facility] Other 05-30-2023 17:20-0400 Body temperature 96.8 [degF] Jodi Garcia Other [facility] Other 05-30-2023 17:20-0400 Body weight 90.72 kg Jodi Garcia Other [facility] Other 05-30-2023 17:20-0400 Diastolic blood pressure 97 mm[Hg] Jodi Garcia Other [facility] Other 05-30-2023 17:20-0400 Respiratory rate 18 /min Jodi Garcia Other [facility] Other 05-30-2023 17:20-0400 SaO2% (BldA) [Mass fraction] 95 % Jodi Garcia Other [facility] Other 05-30-2023 17:20-0400 Systolic blood pressure 125 mm[Hg] Jodi Garcia Other [facility] Other 10-28-2022 11:30-0500 Body height 187.96 cm Imad Asaad Other [facility] Other 10-28-2022 11:30-0500 Body mass index (BMI) [Ratio] 24.39 kg/m2 Imad Asaad Other [facility] Other 10-28-2022 11:30-0500 Body weight 86.18 kg Imad Asaad Other [facility] Other 10-28-2022 11:30-0500 Diastolic blood pressure 91 mm[Hg] Imad Asaad Other [facility] Other 10-28-2022 11:30-0500 Systolic blood pressure 132 mm[Hg] Imad Asaad Other [facility] Other Encounters Encounter Date Encounter Type Care Provider Facility Start: 05-30-2023 End: 05-30-2023 ambulatory [facility] [employer] Other Start: 05-30-2023 Office outpatient vi sit 15 minutes Jodi Garcia [facility] Start: 04-26-2023 End: 05-25-2023 ambulatory UNKNOWN PROVIDER Facility:[facility] Start: 12-30-2022 ambulatory [facility] Facility:[facility] Start: 11-23-2022 End: 11-24-2022 ambulatory [facility] Facility: Start: 10-28-2022 End: 10-28-2022 ambulatory Imad Asaad Other [facility] Other Start: 10-28-2022 Office consultation new/estab patient 60 min Imad Asaad [facility] Start: 08-20-2019 End: 08-21-2019 Emergency department patient visit AMRIK CUEVA Facility:[facility] Payers Date Payer Category Payer Unknown 1970 Unknown [id number] 1970 Unknown [id number] 1970 Unknown [id number] 1970 Unknown [id number] .. [id number] 1960 Medicaid [id number] Social History Date Type Detail Facility Sex Assigned [facility] [place] Other Progress note 05-30-2023 Note Date & Type Note Facility 05-30-2023 Note Occupational Therapy This patient was evaluated in a multidisciplinary wheelchair seating clinic. Please see attached letter of medical necessity for further supporting documentation. [facility] Progress note 05-30-2023 Note Date & Type Note Facility 05-30-2023 Note [facility] Department of Physical Medicine and [...] concur with above documentation. Robinson Betancourt MD [facility] Evaluation note 05-30-2023 Note Date [...] to 3 days. Stop biting your nails. [facility] Other Evaluation note 10-28-2022 Note Date & Type Note Facility 10-28-2022 Evaluation note Encounter Date Diagnosis Assessment Notes Oct, LUQ abdominal pain (ICD-10 - R10.12) Arrange for abdominal ultrasound and chest xray Use Ibuprofen 400mg up to twice a day for a week for pain Start Omeprazole 40mg daily for 12 weeks Follow up in 12 weeks if pain persists. [facility] Other History general Narrative - Reported 08-19-2019 Note Date & Type Note Facility 08-19-2019 History general N arrative - Reported Type Medical History stroke 08/2019 Medical History alcohol abuse Medical History epilepsy Surgical History removed piece of sku ll to reduce brain swelling Surgical History appendectomy Surgical History KNEE SURGERY Surgical History KIDNEY STONE Hospitalization History stroke Hospitalization History NONE 2021 [facility] Other Summary Purpose Family History No Family [...] section and content) DATE CREATED AUTHOR 09/06/2019 [facility] DATE CREATED AUTHOR AUTHOR'S ORGANIZ ATION 01/05/2023 [facility] DATE CREATED AUTHOR AUTHOR'S ORGANIZ ATION 05/27/2023 [facility] [place] DATE CREATED AUTHOR AUTHOR'S ORGANIZ ATION 06/04/2023 [facility] [place] REASON FOR VISIT (unrecogniz ed section and [...] BE BASED ON THE PRIMARY CLINICAL RECORDS. [employer] [facility]. provides no warranty or guarantee of the accuracy or completeness of information in this document.
[2023-12-20 13:12] LABS: Hematocrit 43.4 % (42.0-54.0); Mean Corpuscular HGB Conc 32.3 g/dL (29.9-35.2); Mean Corpuscular Hemoglobin 27.6 pg (25.9-34.0); Mean Corpuscular Volume 85.4 fL (80.0-94.0); Mean Platelet Volume 10.3 fL (9.5-13.5); Platelet Count 251 10^3/uL (150-450); Red Blood Count 5.08 10^6/uL (4.70-6.10); Red Cell Distribution Width 13.6 % (11.0-15.0); White Blood Count 7.3 10^3/uL (4.0-11.0)
[2023-12-20 14:05] LABS: Percent Iron Saturation 14.6 %
== END 2023-12-20 12:23 | disposition home or self-care (01) ==
LOC: LAB 12:24
PROVIDERS: PCP Physician Assistant; Visit Provider Nurse Practitioner
DX: D64.9 Anemia, unspecified (principal)
CPT/HCPCS: 36415; 82607; 83540; 83550; 85027

== ENCOUNTER 2023-12-21 09:55 | Emergency (ER) | payer MEDICAID, SELFPAY ==
[2023-12-21] VITALS (16 sets, daily range): BP systolic 114–131; BP diastolic 83–87; PULSE 71–92; TEMP 36.9; O2SAT 93–97; BMI 25.7
--- OUTSIDE RECORDS SUMMARY | 2023-12-21 10:20 | XMS_ITS | CCD ---
Author Organization [facility] Care Team Providers Care Manager Of Internal Name Role Phone AMRIK CUEVA Attending Unavailable Asaad, Imad Unavailable TAVOMALIHA FLAHERTY Admitting Unavailable MALIHA VO Attending Unavailable KAT, DR MATHEW Primary Care Unavailable [facility] [place] Consulting Unavailable DEVANTE BAUM Admitting Unavailable DEVANTE BAUM Attending Unavailable KAT, DR MATHEW Primary Care Unavailable PROVIDER, UNKNOWN Admitting Unavailable PROVIDER, UNKNOWN Attending Unavailable Jodi Garcia Unavailable CASPER DEY Attending Unavailable ROBINSON BETANCOURT Attending Unavailable Allergies Allergy Classification Reported Allergen(s) Allergy Type Date of Onset Reaction(s) Facility (3 sources) Cortisone; Translations: [CORTISONE] Drug Allergy 0 stomach upset [facility] Repository (2 sources) Triamcinolone Drug Allergy Unknown [facility] Other (1 source) lamoTRIgine; Translations: [LAMOTRIGINE] Drug Allergy 1 [facility] Repository Medications Current Medications Medication Drug [...] Range Facility Clinical Support 3 Clinical Support [id number] Addison Najera 1970 M Date Provider Department Center 05/30/2023 8819CASPER ISLAS MP OT Medical Pavi No family history on file Normal [facility] Office Visiton 05-30-2023 Follow-up visit [id number] Addison Najera 1970 M Date Provider Department Center 05/30/2023 ROBINSON HUMMEL MP PHYS MED Medical Pavi No family history on file Level of Service:37633 NC OFFICE/OUTPATIENT NEW MODERATE MDM 45-59 MINUTES (GC) Reason for Visit and Comments: [facility] [Other] Normal [facility] ED Clinical Summaryon 2018 ED Clinical Summary [address] [address] ED Clinical Summary Person Information Name: Addison Najera Xochitl/[facility] Age: 49 Years : 1970 Sex: Male PCP: Marital Status: Unknown Race: White Ethnicity: Not or Language: Danish Visit Reason: Potential stroke; Bradycardia; Seizure - Recurrent; Stroke Acuity: 2 Enc Type: Emergency Med Service: Emergency Medicine Arrival: 08/20/2019 15:59:03 Discharge: 08/21/2019 00:26:00 LOS: 000 08:27 Checkin: 08/20/2019 15:59:03 Checkout: 08/21/2019 00:26:00 Dispo Type: Transfer to Acute [facility] Hospital Address: [address] [place] [address] Provider Notes: History of Present Illness ? [...] range between ( 27.2 and 40.8 ) Kerr Auto: 6.5 % -- Normal range between [...] range between ( 41.0 and 53.0 ) Kerr Absolute: 0.9 x10 MCH: 29.5 pg -- [...] of Care, Recurrent seizures Patient Education Information: [facility] Poison Help line: . [facility] Hotline: [place] Tobacco Quit Line: [place], [place]) [address]: [phone] [place], [place]) [address]: [phone] [facility] [address] [place], [place]: [phone] [facility] ED Note-Nursingon 08-21-2019 ED Note-Nursing Disposition [facility] unable to be completed due to pt being intubated and sedated Electronically signed by Jared Joyce 08/21/19 00:01 EST [facility] ED Note-Nursing PT to be transported by [facility] ems ETA 1 hour Electronically signed by Jared Joyce 08/20/19 22:41 EST [facility] ED Note-Nursing 08.20.2019 21:40Writer spoke with Aster Mcwilliams to discuss transfer options for patient. At this time [facility] and [facility] not able to send an EMS to come get the patient due to not having an EMS available. [facility] not flying due to weather. 2149:Forensic Chemist called [facility] and spoke with Mauri and asked if the patient could go by [facility] if a nurse was able to go along and titrate the propofol drip. Mauri reports that they would be able to do that with a nurse from the ED and their crew. 2209: Forensic Chemist spoke with She CARRILLO [facility] and she reports she has enough staffing to send Jared CARRILLO who has agreed to ride along. 2214: Forensic Chemist spoke with [employer] Tender Elaine about calling admin crew person to confirm that this is able to happen sending ED RN with EMS. 2231: Elaine informed music writer that Admin crew person said to send ED RN with [facility] crew because it is whats best for the patient. 2234- Forensic Chemist informed Mauri from [facility] that [facility] ED RN Jared will ride along with patient to [facility]. Mauri reports that a squad can be at the hospital around 2335. Forensic Chemist informed Aster Sec this and she is calling [facility] to inform them of this. Electronically signed by Sara Hawkins 08/20/19 22:43 EST Normal [facility] ED Note-Nursing At this time still arranging for transfer of pt to [facility] Electronically signed by Jared Joyce 08/20/19 22:01 EST Normal [facility] ED Note-Physicianon 08-21-20 ED Note-Physician Chief Complaint pt called for weakness to home for ongong seizure. Pt hx of epilepsy with seizure starting at 1230 pm. Pt reports weakness to left side. Pt also noted with heart rate of 32. Atropin 0.5 IVP x 2 doses administered per [facility] Ems. Pt not moving left side History [...] SAS Score Of 4, Dispense From Location: [email or web address]-Pharmacy Problem List/Past Medical History Ongoing No qualifying [...] High Lymph Auto 08/20/19 16:32 11.8 Low Kerr Auto 08/20/19 16:32 6.5 Eos Auto 08/20/19 16:32 0.7 Basophil Auto 08/20/19 16:32 0.6 Neutro Absolute 08/20/19 16:32 11.5 High Lymph Absolute 08/20/19 16:32 1.7 Kerr Absolute 08/20/19 16:32 0.9 Eos Absolute 08/20/19 [...] Mauri Mata MD 08/21/19 00:04 EST Normal [facility] .UA Micros 08-20-2019 RBC (U) [#/Vol] 1-4 Normal 0 - 5 [facility] Comment on above: Performed By: #### C [id number] ####[address] [address] UA WBC Qual Absent Normal 0 - 5 [facility] Comment on above: Performed By: #### C [id number] ####[address] [address] .eGFRon 08-20-2019 eGFR Non-AA >60 Normal >=60 [facility] Comment on above: Result Comment: [...] medication dosing. Performed By: #### E GFR ####[place] [id number] eGFR AA >60 Normal >=60 [facility] Comment on above: Result Comment: Resu lt = 0-14.9 mL/min/1.73 m2 Kidney failure or Dialysis Result = 15-29 mL/min/1.73 m2 Severe decrease in GFR Result = 30-59 mL/min/1.73 m2 Moderate decrease in GFR Result >= 60 mL/min/1.73 m2 Normal or increased GFR Performed By: #### E GFR ####[address] [address] Basic Metabolic Profileon Anion gap [Moles/Vol] 10 mmol/L Normal 7-17 [place] Comment on above: Performed By: #### C [id number] ####[address] [address] Calcium [Mass/Vol] 8.9 mg/dL Normal 8.5-10.3 [facility] Comment on above: Performed By: #### C [id number] ####[address] [address] Chloride [Moles/Vol] 106 mmol/L Normal 98-110 [facility] Comment on above: Performed By: #### C [id number] ####[address] [address] CO2 [Moles/Vol] 24 mmol/L Normal 22-32 [facility] Comment on above: Performed By: #### C [id number] ####[address] [address] Creatinine [Mass/Vol] 1.02 mg/dL Normal 0.61-1.24 [place] Comment on above: Performed By: #### C [id number] ####[address] [address] Glucose [Mass/Vol] 120 mg/dL High 74-118 [facility] Comment on above: Performed By: #### C [id number] ####[address] [address] Potassium [Moles/Vol] 3.8 mmol/L Normal 3.4-4.8 [place] Comment on above: Performed By: #### C [id number] ####[address] [address] Sodium [Moles/Vol] 136 mmol/L Normal 133-142 [facility] Comment on above: Performed By: #### C [id number] ####[address] [address] Urea nitrogen [Mass/Vol] 21 mg/dL Normal 8-26 [facility] Comment on above: Performed By: #### C [id number] ####[address] [address] Urea nitrogen/Creatinine [Mass ratio] 20.6 mg/mg High 10.0-20.0 [facility] Comment on above: Performed By: #### C [id number] ####[address] [address] Blood Gas Arterialon 019 Base Excess Art -1.9 mEq/L Normal -2.0-2.0 [facility] Comment on above: Performed By: #### A BG ####[address] [address] BG Roger Test Satisfactory Normal [facility] Comment on above: Performed By: #### A BG ####[address] [address] BG Collection Site Lt Rad Normal [facility] Comment on above: Performed By: #### A BG ####[address] [address] BG Mode Assist Control Normal [facility] Comment on above: Performed By: #### A BG ####[address] [address] Carboxyhemoglobin Arterial 1.0 % total Normal 0.0-2.0 [facility] Comment on above: Performed By: #### A BG ####[address] [address] FiO2 Art 65 Normal [facility] Comment on above: Performed By: #### A BG ####[address] [address] Hb Totl Arterial 13.7 g% Normal 12.0-18.0 [facility] Comment on above: Performed By: #### A BG ####[address] [address] HbO2 Art 98 % total Normal 94-100 [facility] Comment on above: Performed By: #### A BG ####[address] [address] HCO3 Art 24 mEq/L Normal 21-27 [facility] Comment on above: Performed By: #### A BG ####[address] [address] Met Hb Arterial 0.8 % total Normal 0.0-2.0 [facility] Comment on above: Performed By: #### A BG ####[place] [id number] O2 Meth O2 Normal [facility] Comment on above: Performed By: #### A BG ####[place] [id number] pCO2 Art 45 mmHg Normal 35-45 [facility] Comment on above: Performed By: #### A BG ####[place] [address] PEEP 5.0 cmH20 Normal [facility] Comment on above: Performed By: #### A BG ####[place] [address] pH Art 7.34 Low 7.35-7.45 [facility] Comment on above: Performed By: #### A BG ####[place] [address] pO2 Art 361 mmHg High 80-100 [facility] Comment on above: Performed By: #### A BG ####[place] [address] Set Resp Rate 16 minutes Normal [facility] Comment on above: Performed By: #### A BG ####[place] [address] Set Tidal Vol 550 mL Normal [facility] Comment on above: Performed By: #### A BG ####[place] [id number] Tot Resp Rate 16 minutes Normal [facility] Comment on above: Performed By: #### A BG ####[place] [address] CBC w/ Diffon 08-20-2019 Erythrocyte distribution width (RBC) [Ratio] 15.0 % High 11.6-14.8 [facility] Comment on above: Performed By: #### C BC #### [address] [place] [address] Hematocrit (Bld) [Volume fraction] 40.5 % Low 41.0-53.0 [facility] Comment on above: Performed By: #### C BC #### [address] [address] Hemoglobin (Bld) [Mass/Vol] 13.3 g/dL Low 13.5-17.5 [facility] Comment on above: Performed By: #### C BC #### [address] [address] MCH (RBC) [Entitic mass] 29.5 pg Normal 27.0-35.0 [facility] Comment on above: Performed By: #### C BC #### [address] [address] MCHC (RBC) [Mass/Vol] 32.9 % Normal 31.0-37.0 [place] Comment on above: Performed By: #### C BC #### [address] [address] MCV (RBC) [Entitic vol] 89.8 fL Normal 80.0-100.0 [facility] Comment on above: Performed By: #### C BC #### [address] [address] Platelet mean volume (Bld) [Entitic vol] 8.8 fL Normal 6.7-10.6 [facility] Comment on above: Performed By: #### C BC #### [address] [address] Platelets (Bld) [#/Vol] 287 x10*3/mcL Normal 150-350 [facility] Comment on above: Performed By: #### C BC #### [address] [address] RBC (Bld) [#/Vol] 4.50 x10*6/mcL Normal 4.30-5.80 [place] Comment on above: Performed By: #### C BC #### [address] [place] [address] WBC (Bld) [#/Vol] 14.3 x10*3/mcL High 4.5-11.0 [place] Comment on above: Performed By: #### C #### [address] [address] [address] Angio Head Neck w/ Contra ston [...] sizable aneurysm, AVM, stenosis or occlusion. VARIANTS: [place] of [place] is normally developed. No other [...] approximately 5:50 PM PST. Radiation Dose Estimate: CTDI(mGy):0.193671 / / / kVp:120.476105 / mAs:0.472353 / / / DLP(mGy-cm):12.536955 Body Part: Head CTDI(mGy):0.420847 / / / kVp:120.981890 / mAs:0.042974 / / / DLP(mGy-cm):13.008979 Body Part: Head CTDI(mGy):5.554760 / / / kVp:120.363542 / mAs:39.136743 / / / DLP(mGy-cm):5.774298J sung Part: Head CTDI(mGy):75.045828 / / / kVp:120.171256 / mAs:39.011722 / / / DLP(mGy-cm):75.654716 Body Part: Head CTDI(mGy):45.472750 / / / kVp:140.761372 / mAs:262.614617 / / / DLP(mGy-cm):1751.7800 29Body Part: Head CTDI(mGy):0.839555 / / / kVp:120.486527 / mAs:0.316150 / / / DLP(mGy-cm):3.384655C sung Part: Head Final Dictated by: Thony Pedraza MD Dictated DT/TM: 08.20.2019 8:32 pm Signed by: Thony Pedraza MD Signed (Electronic Signature): 08.20.2019 8:51 pm (If Report Is Signed, Electronically Signed in Other Vendor System) Normal [facility] CT Brain w/o Contraston 12-0 [...] Cueva of the ED Radiation Dose Estimate: CTDI(mGy):0.689869 / / / kVp:120.225248 / mAs:0.680086 / / / DLP(mGy-cm):7.049028E sung Part: Head CTDI(mGy):47.125214 / / / kVp:120.512839 / mAs:190.178720 / / / DLP(mGy-cm):865.95459 7Body Part: Head Final Dictated by: Thony Almaraz MD Dictated DT/TM: 08.20.2019 4:27 pm Signed by: Thony Almaraz MD Signed (Electronic Signature): 08.20.2019 4:39 pm (If Report Is Signed, Electronically Signed in Other Vendor System) Normal [facility] Diff Autoon 08-20-2019 Baso Absolute 0.1 x10*3/mcL Normal 0.0-0.2 [facility] Comment on above: Performed By: #### . Automated Diff #### [address] [address] Basophils/100 WBC (Bld) 0.6 % Normal 0.0-1.2 [facility] Comment on above: Performed By: #### . Automated Diff #### [address] [address] Eos Absolute 0.1 x10*3/mcL Normal 0.0-0.4 [facility] Comment on above: Performed By: #### . Automated Diff #### [address] [address] Eosinophils/100 WBC (Bld) 0.7 % Normal 0.0-6.1 [facility] Comment on above: Performed By: #### . Automated Diff #### [address] [address] Lymphocytes (Bld) [#/Vol] 1.7 x10*3/mcL Normal 1.0-4.8 [facility] Comment on above: Performed By: #### . Automated Diff #### [address] [address] Lymphocytes/100 WBC (Bld) 11.8 % Low 27.2-40.8 [facility] Comment on above: Performed By: #### . Automated Diff #### [address] [address] Kerr Absolute 0.9 x10*3/mcL Normal 0.3-1.1 [facility] Comment on above: Performed By: #### . Automated Diff #### [address] [address] Monocytes/100 WBC (Bld) 6.5 % Normal 4.7-13.9 [facility] Comment on above: Performed By: #### . Automated Diff #### [address] [address] Neutro Absolute 11.5 x10*3/mcL High 1.8-7.7 [facility] Comment on above: Performed By: #### . Automated Diff #### [address] [address] Neutro Auto 80.4 % High 47.2-70.8 [facility] Comment on above: Performed By: #### . Automated Diff #### [address] [address] ED Note-Nursingon 08-20-2019 ED Note-Nursing At this time, waitin g to transfer pt to [facility]. Electronically signed by Jared Joyce 08/20/19 21:07 EST Normal [facility] ED Note-Nursing OG tube advanced to 66cm at lip Electronically signed by Jared Joyce 08/20/19 20:45 EST Normal [facility] ED Note-Nursing pt sedated and prepared for CTA Electronically [facility] 08/20/19 20:05 EST [facility] ED Note-Nursing 5 mg versed ordered due to patient movement and thrashing in bed. 100 mcg Rocuronium ordered IVP per Dr. Cueva. Electronically signed by [facility] 08/20/19 20:05 EST [facility] ED Note-Nursing 5 mg versed ordered per IVP per Dr. Cueva due to patient movement and not remaining sedated after intubation Electronically signed by [facility] 08/20/19 20:04 EST [facility] ED Note-Nursing Pt intubated successfully. Pt is not sedated at this time after RSI medications administered. 4 point wrist restraints and propofol started at 40 mcg per [place] Electronically signed by [facility] 08/20/19 19:59 EST [facility] ED Note-Nursing pts behavior increasing with thrashing and moving with head and right side. Pt making incomprehensible sounds. No affect of sedation after ativan administration and haldol. Dr. Cueva in room. Prepare for intubation per verbal order Dr. Jimenez Electronically signed [facility] 08/20/19 19:58 EST Normal [facility] ED Note-Nursing Ativan 2 mg [...] Micheletleeanne Jennifer R 08/20/19 18:35 EST Normal [facility] ED Note-Nursing no further orders pe r Dr. Cueva Electronically signed by leeanne Jennifer R 08/20/19 17:26 EST Normal [facility] ED Note-Nursing Primary nurse concerned for stroke due to NIH assesment. note for possible CTA or MRI orders requested. Sara CARRILLO notified Electronically signed by leeanne Jennifer R 08/20/19 17:24 EST Normal [facility] ED Note-Nursing Forensic Chemist called into room per primary RN Agata for concerns of stroke and NIHSS of 17 with no CTA order. Forensic Chemist noted significant facial droop, slurred speech partial gaze to the left, left arm flaccid with minimal movement of left leg. Forensic Chemist tested sensation with the tip of an 18 gauge needle and patient was not aware of what leg was touched. When music writer would poke left leg patient states my right leg, Forensic Chemist than goes back out into the nurses station to inform Dr. Cueva of this consistent finding.since arrival via [facility]. Forensic Chemist requested that Dr. Cueva go back to the room to assess the patient again. Forensic Chemist suggested a CTA at this time for the stroke like symptoms. Dr. Cueva agrees to this and enters patient room. Electronically signed by Sara Hawkins 08/20/19 21:35 EST Normal [facility] ED Note-Nursing pt noted to be becoming more pale and diaphoretic. Dr. Cueva in room to assess pt. Repeat EKG Electronically signed by Jennifer Brooke 08/20/19 17:15 EST Normal [facility] ED Note-Nursing Delay in patient getting to CT due to possible ST elevation on transport via [facility] to [facility]. EKG obtained prior to CT per Dr. Cueva. Forensic Chemist verbalized to Dr. Cueva the stroke like symptoms. Forensic Chemist asked him if we should call [facility] for consult and Dr. Cueva shook his head no when consulting Dr. Light in regards to the EKG. Electronically signed by Sara Hawkins 08/20/19 21:42 EST Normal [facility] ED Note-Physicianon 08-20-20 ED Note-Physician Chief Complaint pt called for weakness to home for ongong seizure. Pt hx of epilepsy with seizure starting at 1230 pm. Pt reports weakness to left side. Pt also noted with heart rate of 32. Atropin 0.5 IVP x 2 doses administered per [facility] Ems. Pt not moving left side History [...] evidence of acute STEMI was noted. The NC interval was found to be 169, QRS [...] occlusion of the right internal carotid artery. [facility] was contacted and recommended transfer to their [...] High Lymph Auto 08/20/19 16:32 11.8 Low Kerr Auto 08/20/19 16:32 6.5 Eos Auto 08/20/19 16:32 0.7 Basophil Auto 08/20/19 16:32 0.6 Neutro Absolute 08/20/19 16:32 11.5 High Lymph Absolute 08/20/19 16:32 1.7 Kerr Absolute 08/20/19 16:32 0.9 Eos Absolute 08/20/19 [...] Amrik Cueva MD 08/22/19 07:39 EST Normal [facility] Ethanolon 08-20-2019 Ethanol [Mass/Vol] mg/dL Normal <=9 [facility] Comment on above: Result Comment: To c onvert mg/dL to g/dL, divide result by 1,000. Legal limit of intoxication is 80 mg/dL (0.08 g/dL). Performed By: #### A ####[place] [address] Hep Fun Panelon 08-20-2019 Albumin [Mass/Vol] 3.9 g/dL Normal 3.2-4.9 [facility] Comment on above: Result Comment: [facility] Laboratory updated the methodology used for albumin testing on 04/26/18. Albumin measurement was performed using a bromcresol purple dye-binding assay. Performed By: #### L IVER #### [address] [address] Alk Phos 43 IU/L Normal 32-91 [facility] Comment on above: Performed By: #### L IVER #### [address] [address] ALT [Catalytic activity/Vol] 19 U/L Normal 17-63 [facility] Comment on above: Performed By: #### L IVER #### [address] [address] AST [Catalytic activity/Vol] 28 U/L Normal 15-41 [facility] Comment on above: Performed By: #### L IVER #### [address] [address] Bili Direct 0.3 mg/dL Normal 0.1-0.5 [facility] Comment on above: Performed By: #### L IVER #### [address] [address] Bili Indirect 0.9 mg/dL Normal 0.0-1.0 [facility] Comment on above: Performed By: #### L IVER #### [address] [address] Bili Total 1.2 mg/dL Normal 0.3-1.2 [facility] Comment on above: Performed By: #### L IVER #### [address] [address] Protein [Mass/Vol] 6.8 g/dL Normal 6.5-8.1 [facility] Comment on above: Performed By: #### L IVER #### [address] [address] Lactic Acid, Randomon 12-02- 2019 Lactic Acid Lvl 1.2 mmol/L Normal 0.5-2.0 [facility] Comment on above: Performed By: #### L A ####[address] [address] Magnesiumon 08-20-2019 Magnesium [Mass/Vol] 1.9 mg/dL Normal 1.7-2.4 [facility] Comment on above: Performed By: #### M G #### [address] [address] POC Glucose Randomon 019 Glucose [Mass/Vol] 128 mg/dL High 78-110 [facility] Comment on above: Performed By: #### C [id number] ####[address] [address] Troponin-Ion 08-20-2019 Troponin I.cardiac [Mass/Vol] ng/mL Normal 0.00-0.03 [facility] Comment on above: Result Comment: An i ncreased Troponin-I value, in the absence of myocardial ischemia, may indicate other etiologies of cardiac damage. Performed By: #### T ROP ####[address] [address] UA w Culture if Indon 2018 Color (U) Yellow Normal [facility] Comment on above: Performed By: #### U CI ####[address] [address] Glucose (U) [Mass/Vol] Negative Normal Negative [facility] Comment on above: Performed By: #### U CI ####[address] [address] Ketones Ql (U) 20 mg/dL Abnormal Negative [facility] Comment on above: Performed By: #### U CI ####[address] [address] UA Blood Moderate Abnormal Negative [facility] Comment on above: Performed By: #### U CI ####[address] [place] [address] UA Clarity Clear Normal [facility] Comment on above: Performed By: #### U CI ####[address] [place] [address] UA Leukocyte Esterase Negative Normal Negative [place] Comment on above: Performed By: #### U CI ####[address] [address] UA Nitrite Negative Normal Negative [facility] Comment on above: Performed By: #### U CI ####[address] [address] UA pH 5.0 Normal 4.5 - 7.8 [facility] Comment on above: Performed By: #### U CI ####[address] [address] UA Protein Negative Normal Negative [facility] Comment on above: Performed By: #### U CI ####[address] [address] UA Source Clean Catch Normal [facility] Comment on above: Performed By: #### U CI ####[address] [address] UA Spec Grav >1.060 High 1.003-1.035 [facility] Comment on above: Performed By: #### U CI ####[address] [address] UA Urobilinogen 0.2 mg/dL Normal 0.2 - 1.0 [facility] Comment on above: Performed By: #### U CI ####[address] [address] Urobilinogen Qn (U) Negative Normal Negative [facility] Comment on above: Performed By: #### U CI ####[address] [address] UDS Compon 08-20-2019 Creatinine [Mass/Vol] 151.8 mg/dL Normal [facility] Comment on above: Performed By: #### C [id number] ####[address] [address] Ur Amph Scrn Negative Normal NEG = <1000 [facility] Comment on above: Performed By: #### C [id number] ####[address] [address] Ur Mary Scrn Negative Normal NEG = <200 [facility] Comment on above: Performed By: #### C [id number] ####[address] [address] Ur Benzodia Scrn Negative Normal NEG = <200 [facility] Comment on above: Performed By: #### C [id number] ####[address] [address] Ur Cannab Scrn Positive Abnormal NEG = <50 [facility] Comment on above: Result Comment: This unconfirmed positive screening result is to be used for medical treatment purposes only. Unconfirmed screening results must not be used for non-medical purposes. (e.g. employment testing, legal testing). Performed By: #### C [id number] ####[address] [address] Ur Cocaine Scrn Negative Normal NEG = <300 [facility] Comment on above: Performed By: #### C [id number] ####[address] [address] Ur Methadone Scn Negative Normal NEG = <300 [facility] Comment on above: Performed By: #### C [id number] ####[address] [address] Ur Opiate Scrn Negative Normal NEG = <300 [facility] Comment on above: Performed By: #### C [id number] ####[address] [address] Ur Oxy Screen Negative Normal NEG = <100 [facility] Comment on above: Performed By: #### C [id number] ####[address] [place] [address] Ur Oxy Scrn Qnt 4 ng/mL Normal <=99 [facility] Comment on above: Performed By: #### C [id number] ####[address] [address] Ur PCP Scrn Negative Normal NEG = <25 [facility] Comment on above: Performed By: #### C [id number] ####[place] [id number] UA pH 5.0 Normal 4.5 - 7.8 [facility] Comment on above: Performed By: #### C [id number] ####[place] [id number] UA Spec Grav >1.060 High 1.003-1.035 [facility] Comment on above: Performed By: #### C [id number] ####[place] [id number] XR Chest 1 Viewon 08-20-2019 XR Chest [...] Electronically Signed in Other Vendor System) Normal [facility] XR Chest 1 View Procedure: [...] Electronically Signed in Other Vendor System) Normal [facility] XR Chest 1 View Chest [...] Electronically Signed in Other Vendor System) Normal [facility] Vital Signs Date Time Vital Sign Value Performing Clinician Facility 05-30-2023 17:20-0400 Body height 187.96 cm Jodi Garcia Other [facility] Other 05-30-2023 17:20-0400 Body mass index (BMI) [Ratio] 25.68 kg/m2 Jodi Garcia Other [facility] Other 05-30-2023 17:20-0400 Body temperature 96.8 [degF] Jodi Garcia Other [facility] Other 05-30-2023 17:20-0400 Body weight 90.72 kg Jodi Garcia Other [facility] Other 05-30-2023 17:20-0400 Diastolic blood pressure 97 mm[Hg] Jodi Garcia Other [facility] Other 05-30-2023 17:20-0400 Respiratory rate 18 /min Jodi Garcia Other [facility] Other 05-30-2023 17:20-0400 SaO2% (BldA) [Mass fraction] 95 % Jodi Garcia Other [facility] Other 05-30-2023 17:20-0400 Systolic blood pressure 125 mm[Hg] Jodi Garcia Other [facility] Other 10-28-2022 11:30-0500 Body height 187.96 cm Imad Asaad Other [facility] Other 10-28-2022 11:30-0500 Body mass index (BMI) [Ratio] 24.39 kg/m2 Imad Asaad Other [facility] Other 10-28-2022 11:30-0500 Body weight 86.18 kg Imad Asaad Other [facility] Other 10-28-2022 11:30-0500 Diastolic blood pressure 91 mm[Hg] Imad Asaad Other [facility] [facility] Other 10-28-2022 11:30-0500 Systolic blood pressure 132 mm[Hg] Imad Asaad Other [facility] Other Encounters Encounter Date Encounter Type Care Provider Facility Start: 05-30-2023 End: 05-30-2023 ambulatory [facility] [employer] Other Start: 05-30-2023 Office outpatient vi sit 15 minutes Jodi Garcia [facility] Start: 04-26-2023 End: 05-25-2023 ambulatory UNKNOWN PROVIDER [facility] Start: 12-30-2022 ambulatory [facility] Facility:[facility] 1 Start: 11-23-2022 End: 11-24-2022 ambulatory MALIHA COX BRANSON Facility: Start: 10-28-2022 End: 10-28-2022 ambulatory Imad Asaad Other [facility] [facility] Other Start: 10-28-2022 Office consultation new/estab patient 60 min Imad Asaad [facility] Start: 08-20-2019 End: 08-21-2019 Emergency department patient visit AMRIK CUEVA Facility:[facility] Payers Date Payer Category Payer Unknown 1970 Unknown [id number] 1970 Unknown [id number] 1970 Unknown [id number] 1970 Unknown [id number] .. [id number] 1960 Medicaid [id number] Social History Date Type Detail Facility Sex Assigned At [facility] Other Progress note 05-30-2023 Note Date & Type Note Facility 05-30-2023 Note Occupational Therapy This patient was evaluated in a multidisciplinary wheelchair seating clinic. Please see attached letter of medical necessity for further supporting documentation. [facility] Progress note 05-30-2023 Note Date & Type Note Facility 05-30-2023 Note [facility] Department of Physical Medicine and Rehabilitation [...] concur with above documentation. Robinson Betancourt MD [facility] Evaluation note 05-30-2023 Note Date & [...] to 3 days. Stop biting your nails. [facility] Other Evaluation note 10-28-2022 Note Date & Type Note Facility 10-28-2022 Evaluation note Encounter Date Diagnosis Assessment Notes Oct, LUQ abdominal pain (ICD-10 - R10.12) Arrange for abdominal ultrasound and chest xray Use Ibuprofen 400mg up to twice a day for a week for pain Start Omeprazole 40mg daily for 12 weeks Follow up in 12 weeks if pain persists. [facility] Other History general Narrative - Reported 08-19-2019 Note Date & Type Note Facility 08-19-2019 History general N arrative - Reported Type Medical History stroke 08/2019 Medical History alcohol abuse Medical History epilepsy Surgical History removed piece of sku ll to reduce brain swelling Surgical History appendectomy Surgical History KNEE SURGERY Surgical History KIDNEY STONE Hospitalization History stroke Hospitalization History NONE 2021 [facility] Other Summary Purpose Family History No Family [...] section and content) DATE CREATED AUTHOR 09/06/2019 [facility] DATE CREATED AUTHOR AUTHOR'S ORGANIZ ATION 01/05/2023 [facility] DATE CREATED AUTHOR AUTHOR'S ORGANIZ ATION 05/27/2023 [facility] DATE CREATED AUTHOR AUTHOR'S ORGANIZ ATION 06/04/2023 [facility] REASON FOR VISIT (unrecogniz ed section [...] BE BASED ON THE PRIMARY CLINICAL RECORDS. [facility]. provides no warranty or guarantee of the accuracy or completeness of information in this document.
--- NOTE | 2023-12-21 10:24 | ECG_ITS ---
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
--- NOTE | 2023-12-21 10:25 | CT_ITS ---
The [address] [address] Patient Name: JONI GRIFFIN MRN: [id number] date: 1970 Sex: M Assigned Patient Location: ER Current Patient Location: ER Accession/Order Number: [id number] Exam Date: 12/21/2023 10:40 Report Date: 12/21/2023 11:03 At the request of: MORTEZA MORAN Procedure: CT head/brain wo con EXAMINATION: CT head/brain wo con HISTORY: visual disturbance, had aura, previous cva , dizziness COMPARISON: No relevant comparison available. TECHNIQUE: Axial CT images were obtained without IV contrast. Dose reduction techniques were achieved by using automated exposure control and/or adjustment of mA and/or kV according to patient size and/or use of iterative reconstruction technique. FINDINGS: BRAIN: Large area of advanced encephalomalacic changes involving the majority of right frontal and parietal lobes. No hemorrhage, midline shift, or mass. CSF SPACES: No hydrocephalus, subarachnoid hemorrhage, or mass. SKULL: Prior right craniotomy. SINUSES: No significant mucosal thickening or fluid on the limited views. ORBITS: No appreciable abnormality on the limited views. OTHER: Negative CT/CT head/brain wo con IMPRESSION: 1. No intracranial hemorrhage or appreciable acute abnormality. 2. Encephalomalacic changes from remote infarction involving the majority the right frontal and parietal lobes. No prior studies for comparison. Electronically authenticated by: TERRY LEAL Date: 12/21/2023 11:03
--- NOTE | 2023-12-21 10:26 | ED.GENADUL1 ---
HPI HPI - General Adult General Chief complaint: Dizziness Stated complaint: DIZZINESS Time Seen by Provider: 12/21/23 10:18 Source: patient Mode of arrival: walk-in Limitations: physical limitation History of Present Illness HPI narrative: 53-year-old male presents for a visual disturbance which is now resolved. He was at physical therapy and he developed an aura, he saw swelling colors on the side of his vision. He has had this previously which has sometimes resulted in a seizure. He had a stroke in 2019 which caused him to have these issues including the seizures. He is on Lamictal and has not missed any doses. He did not have a seizure today. He does not have a headache. Related Data Home Medications ?Medication ?Instructions ?Recorded ?Confirmed aspirin 81 mg tablet,delayed 81 mg PO DAILY 04/18/23 12/21/23 release atorvastatin 40 mg tablet 40 mg PO DAILY 04/18/23 12/21/23 baclofen 20 mg tablet 10 mg PO BID 04/18/23 12/21/23 lamotrigine 100 mg tablet 100 mg PO Q12H 04/18/23 12/21/23 melatonin 5 mg tablet,immediate 5 mg PO BEDTIME 04/18/23 12/21/23 and extended release amitriptyline 50 mg tablet 50 mg PO DAILY 11/27/23 12/21/23 hydroxyzine pamoate 25 mg capsule 25 mg PO BID PRN nausea and 11/27/23 12/21/23 vomiting duloxetine 30 mg capsule,delayed 30 mg PO DAILY 12/21/23 12/21/23 release Allergies Allergy/AdvReac Type Severity Reaction Status Date / Time cortisone AdvReac Severe Nausea Verified 05/03/23 14:04 Opioid HPI Opioid Management Most Recent Opioid Data: No Data to Display Review of Systems ROS Narrative A ten point review of systems is negative except as noted above. [facility] Medical History (Updated 12/21/23 @ 12:30 by Sj Johnson MD) History of seizure ?Z87.898 - Personal history of other specified conditions (ICD-10) Hx of completed stroke ?Z86.73 - Personal history of transient ischemic attack (TIA), and cerebral infarction without residual deficits (ICD-10) Social History Smoking status: Former smoker Exam Narrative Exam Narrative: Nurses note and vital signs reviewed and patient is not hypoxic. General: The patient appears well and in no apparent distress. Patient is resting comfortably on cart. Skin: Warm, dry, no pallor noted. There is no rash noted. Head: Normocephalic, atraumatic Eye: Normal conjunctiva, no drainage Ears, Nose, Mouth, and Throat: oral mucosa is moist. Nares patent. Cardiovascular: Regular Rate and Rhythm Respiratory: Patient is in no distress, no accessory muscle use, lungs are clear to auscultation, no wheezing, rales or rhonchi Back: non-tender GI: Soft and nontender Musculoskeletal: The patient has no evidence of calf tenderness, no pitting edema, symmetrical pulses noted bilaterally Neurological: A&O, normal speech, chronic left arm and left leg weakness from stroke from 2019 Psychiatric: Cooperative Constitutional Vital Signs, click to edit/add: Last Vital Signs Temp 98.5 F 12/21/23 10:08 Pulse 77 12/21/23 10:08 Resp 18 12/21/23 10:08 BP 114/87 12/21/23 10:08 Pulse Ox 97 12/21/23 10:08 Course Vital Signs Vital signs: Vital Signs Temperature 98.5 F 12/21/23 10:08 Pulse Rate 77 12/21/23 10:08 Respiratory Rate 18 12/21/23 10:08 Blood Pressure 114/87 12/21/23 10:08 Pulse Oximetry 97 12/21/23 10:08 Temperature 98.5 F 12/21/23 10:08 Pulse Rate 77 12/21/23 10:08 Respiratory Rate 18 12/21/23 10:08 Blood Pressure 114/87 12/21/23 10:08 Pulse Oximetry 97 12/21/23 10:08 Medical Decision Making [facility] Narrative Medical decision making narrative: His workup here is negative. He was given IV Ativan and seems to feel much improved. I suspect that much of this symptom is due to anxiety and he will follow-up with his PCP. His symptoms have resolved completely. Treatment diagnosis and follow-up were discussed with the patient and his . Differential Diagnosis Differential Diagnosis: Anxiety, scotomata, visual disturbance Lab Data Lab results reviewed: Yes I reviewed the patient's lab results Labs: Lab Results 12/21/23 12/21/23 Range/Units 10:27 10:35 WBC 7.3 (4.0-11.0) 10^3/uL RBC 4.95 (4.70-6.10) 10^6/uL Hgb 13.7 L (14.0-18.0) g/dL Hct 42.1 (42.0-54.0) % MCV 85.1 (80.0-94.0) fL MCH 27.7 (25.9-34.0) pg MCHC 32.5 (29.9-35.2) g/dL RDW 13.7 (11.0-15.0) % Plt Count 251 (150-450) 10^3/uL MPV 10.6 (9.5-13.5) fL Neut % (Auto) 56.5 (43.0-75.0) % Lymph % (Auto) 31.2 (20.5-60.0) % [place] % (Auto) 9.3 (1.7-12.0) % Eos % (Auto) 2.1 (0.9-7.0) % Baso % (Auto) 0.5 (0.2-2.0) % Neut # (Auto) 4.1 (1.4-6.5) 10^3/uL Lymph # (Auto) 2.3 (1.2-3.8) 10^3/uL [place] # (Auto) 0.7 (0.3-0.8) 10^3/uL Eos # (Auto) 0.2 (0.0-0.7) 10^3/uL Baso # (Auto) 0.0 (0.0-0.1) 10^3/uL Abs Immat Gran (auto) 0.03 (0.00-0.03) 10^3/uL Imm/Tot Granulo (auto) 0.4 (0.0-0.5) % Sodium 139 (136-145) mmol/L Potassium 4.2 (3.5-5.1) mmol/L Chloride 102 (98-107) mmol/L Carbon Dioxide 29.2 (21.0-32.0) mmol/L Anion Gap 12.0 BUN 12.0 (7.0-18.0) mg/dL Creatinine 1.14 (0.70-1.30) mg/dL Est GFR ( Amer) >60 (>=60) Est GFR (Non-Af Amer) >60 (>=60) BUN/Creatinine Ratio 10.5 Glucose 96 (74-106) mg/dL Calcium 9.2 (8.5-10.1) mg/dL POC Glucose 108 H (74-106) mg/dL Imaging Data CT scan - head: Radiologist's impression: ITS Impressions Head CT 12/21/23 10:25 IMPRESSION: 1. No intracranial hemorrhage or appreciable acute abnormality. 2. Encephalomalacic changes from remote infarction involving the majority the right frontal and parietal lobes. No prior studies for comparison. Electronically authenticated by: TERRY LEAL Date: 12/21/2023 11:03 ECG Data Attestation: I personally reviewed and interpreted this ECG as follows: (EKG on my interpretation shows normal sinus rhythm without acute change) Discharge Plan Discharge Stand Alone Forms: Portal Instructions Chief Complaint: Dizziness Clinical Impression: Visual disturbance Patient Disposition: Home, Self-Care Time of Disposition Decision: 12:29 Condition: Good Mode of Transportation: Private Vehicle Prescriptions / Home Meds: No Action aspirin 81 mg tablet,delayed release (DR/EC) 81 mg PO DAILY atorvastatin 40 mg tablet 40 mg PO DAILY baclofen 20 mg tablet 10 mg PO BID lamotrigine 100 mg tablet 100 mg PO Q12H melatonin 5 mg tablet, IR and ER, biphasic 5 mg PO BEDTIME amitriptyline 50 mg tablet 50 mg PO DAILY hydroxyzine pamoate 25 mg capsule 25 mg PO BID PRN (Reason: nausea and vomiting) duloxetine 30 mg capsule,delayed release(DR/EC) 30 mg PO DAILY Print Language: Divehi Instructions: Blurred Vision (ED) Referrals: Kade Murphy [Primary Care Provider] - 1 week
[2023-12-21 10:29] LABS: Glucometer 108 mg/dL (74-106)
--- NOTE | 2023-12-21 10:43 | PC.NURSE ---
all of a sudden complaining of head, neck and chest pain. EKG completed and given to DR. Nunes believes it is a panic attack.
--- NOTE | 2023-12-21 10:46 | ECG_ITS ---
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
[2023-12-21] MEDS: ONDANSETRON PF 4 MG/2 ML VIAL IV (10:54)
[2023-12-21] MEDS: LORAZEPAM 2 MG/ML 1 ML VIAL 0.5 MG IV (10:54)
[2023-12-21 10:57] LABS: Basophils Percent Auto 0.5 % (0.2-2.0); Eosinophils Absolute Auto 0.2 10^3/uL (0.0-0.7); Eosinophils Percent Auto 2.1 % (0.9-7.0); Hematocrit 42.1 % (42.0-54.0); Hemoglobin 13.7 g/dL (14.0-18.0); Immature Granulocytes Abs Auto 0.03 10^3/uL (0.00-0.03); Immature Granulocytes Pct Auto 0.4 % (0.0-0.5); Lymphocytes Absolute Auto 2.3 10^3/uL (1.2-3.8); Lymphocytes Percent Auto 31.2 % (20.5-60.0); Mean Corpuscular HGB Conc 32.5 g/dL (29.9-35.2); Mean Corpuscular Hemoglobin 27.7 pg (25.9-34.0); Mean Corpuscular Volume 85.1 fL (80.0-94.0); Mean Platelet Volume 10.6 fL (9.5-13.5); Monocytes Absolute Auto 0.7 10^3/uL (0.3-0.8); Monocytes Percent Auto 9.3 % (1.7-12.0); Neutrophils Absolute Auto 4.1 10^3/uL (1.4-6.5); Neutrophils Percent Auto 56.5 % (43.0-75.0); Platelet Count 251 10^3/uL (150-450); Red Blood Count 4.95 10^6/uL (4.70-6.10); Red Cell Distribution Width 13.7 % (11.0-15.0); White Blood Count 7.3 10^3/uL (4.0-11.0)
[2023-12-21 11:09] LABS: BUN Creatinine Ratio 10.5; Calcium 9.2 mg/dL (8.5-10.1); Carbon Dioxide 29.2 mmol/L (21.0-32.0); Chloride 102 mmol/L (98-107); Estimated GFR (African America >60 (>=60); Estimated GFR (Non-African Ame >60 (>=60); Glucose 96 mg/dL (74-106); Potassium 4.2 mmol/L (3.5-5.1); Sodium 139 mmol/L (136-145)
--- NOTE | 2023-12-21 11:57 | PC.NURSE ---
meal tray ordered at this time. pt appears a lot more comfortable and relaxed. denying any pain or discomfort in chest anymore. remains at bedside
== END 2023-12-21 12:55 | disposition home or self-care (01) ==
PROVIDERS: Emergency Provider Emergency Medicine; PCP Physician Assistant
DX: H53.9 Unspecified visual disturbance (principal); Z86.73 Personal history of transient ischemic attack (TIA), and cerebral infarction without residual deficits; Z79.82 Long term (current) use of aspirin; Z79.899 Other long term (current) drug therapy; Z87.891 Personal history of nicotine dependence; Z87.898 Personal history of other specified conditions
CPT/HCPCS: 36415; 70450; 80048; 85025; 93005; 96374; 96375; 99285

== ENCOUNTER 2024-01-03 12:58 | Outpatient (RCR) | payer MEDICAID, SELFPAY | END 2024-01-04 12:35 | disposition home or self-care (01) | LOC: ST 12:58 | PROVIDERS: PCP Physician Assistant; Visit Provider Nurse Practitioner | DX: R13.10 Dysphagia, unspecified (principal); Z86.73 Personal history of transient ischemic attack (TIA), and cerebral infarction without residual deficits | CPT/HCPCS: 92610 ==

== ENCOUNTER 2024-03-07 12:53 | Outpatient (OUT) | payer MEDICAID, SELFPAY ==
--- NOTE | 2024-03-07 | CT_ITS ---
The [address] [address] Patient Name: JONI GRIFFIN MRN: [id number] date: 1970 Sex: M Assigned Patient Location: CT Current Patient Location: Accession/Order Number: [id number] Exam Date: 03/07/2024 13:04 Report Date: 03/08/2024 11:44 At the request of: DEVANTE BAUM Procedure: CT chest wo con EXAMINATION: CT chest wo con HISTORY: Lung nodule COMPARISON: XR chest 11/28/2023 TECHNIQUE: Axial, Coronal, and Sagittal images were created without the administration of IV contrast material. Dose reduction techniques were achieved by using automated exposure control and/or adjustment of mA and/or kV according to patient size and/or use of iterative reconstruction technique. FINDINGS: LUNGS: No visible pulmonary disease. Trace amount of scattered discoid atelectasis or scarring. PLEURA: No mass, effusion, or pneumothorax. VASCULATURE: No abnormality. ELISSA: No mass or pathologic adenopathy. MEDIASTINUM: No mass or pathologic adenopathy. CARDIAC: No enlargement, pericardial thickening, or pericardial effusion. Coronary Artery calcifications: AORTA: No aneurysm or dissection. CHEST WALL: No mass or axillary adenopathy BONES: No bone lesion or fracture. LIMITED ABDOMEN: No suspicious findings. Limited images of the upper abdomen. OTHER: Negative. CT/CT chest wo con IMPRESSION: 1. No lung nodules or suspicious findings, with specific attention to the right lung base. Findings on prior chest x-ray likely represented summation artifact. Electronically authenticated by: TERRY LEAL Date: 03/08/2024 11:44
== END 2024-03-07 12:54 | disposition home or self-care (01) ==
LOC: CT 12:53
PROVIDERS: PCP Physician Assistant; Visit Provider Physician Assistant
DX: R91.1 Solitary pulmonary nodule (principal)
CPT/HCPCS: 71250

== ENCOUNTER 2024-05-08 14:13 | Outpatient (RCR) | payer MEDICAID, SELFPAY | END 2024-07-17 11:36 | disposition home or self-care (01) | LOC: ST 14:13 | PROVIDERS: PCP Nurse Practitioner; Visit Provider Nurse Practitioner Family | DX: I63.511 Cerebral infarction due to unspecified occlusion or stenosis of right middle cerebral artery (principal); R41.89 Other symptoms and signs involving cognitive functions and awareness | CPT/HCPCS: 92507; 92523 ==

== ENCOUNTER 2024-05-28 14:26 | Outpatient (OUT) | payer MEDICAID, SELFPAY ==
--- OUTSIDE RECORDS SUMMARY | 2024-05-28 14:47 | XMS_ITS | CCD ---
Author Organization [facility] Care Team Providers Care Dev Manager Name Role Phone AMRIK CUEVA Attending Unavailable Asaad, Imad Unavailable TAVOMALIHA FLAHERTY Admitting Unavailable MALIHA VO Attending Unavailable KAT, DR MATHEW Primary Care Unavailable [facility] [place] [place] Consulting Unavailable DEVANTE BAUM Admitting Unavailable DEVANTE BAUM Attending Unavailable KAT, DR MATHEW Primary Care Unavailable PROVIDER, UNKNOWN Admitting Unavailable PROVIDER, UNKNOWN Attending Unavailable Jodi Garcia Unavailable CASPER DEY Attending Unavailable ROBINSON BETANCOURT Attending Unavailable SERVICES, [facility] Unava ilFELIPE Vera Attending Unavailable FELIPE CASTAÑEDA Attending Unavailable FELIPE CASTAÑEDA Referring Unavailable SERVICES, [facility] Unava ilable KARISSA CARLIN Attending Unavailable MANUELA HODGE Attending Unavailable KARISSA CARLIN Referring Unavailable MANUELA HODGE Attending Unavailable TELLO CURRY Attending Unavailable JOSY YU Attending Unavailable KARISSA CARLIN Attending Unavailable LEONOR OMER Referring Unavailable Allergies Allergy Classification Reported Allergen(s) Allergy Type Date of Onset Reaction(s) Facility (4 sources) Cortisone; Translations: [CORTISONE] Drug Allergy 0 stomach upset [facility] Repository (2 sources) Triamcinolone Drug Allergy Unknown [employer] Other (1 source) lamoTRIgine; Translations: [LAMOTRIGINE] Drug Allergy 1 [facility] Repository Medications Current Medications Medication Drug [...] sources) Weakness; Translations: [WEAKNESS] Onset: 12-30-2022 Episodic Nonspecific chest pain (2 sources) Chest pain, unspecified; Translations: [Chest pain] Onset: 03-01-2024 Episodic Other connective tissue disease (2 sources) Cramp and spasm; Translations: [Cramp and spasm] Onset: 03-24-2023 Episodic Other nervous system disorders (2 sources) Chronic pain; Translations: [Other chronic pain] Chronic Pancreatic disorders (not diabetes) (1 source) Acute pancreatitis without necrosis or infection, unspecified; Translations: [Acute pancreatitis without necrosis or infection, unspecified] Onset: 03-01-2024 Episodic Residual codes; unclassified (4 sources) Obstructive sleep [...] cervical disc displacement, unspecified cervical region] Chronic Unclassified (1 source) Chest Pain; Back Pain Onset: 03-01-2024 Results Test Name Value Interpretation Reference Range Facility CBC AND AUTO DIFFon 03-01-20 24 ABSOLUTE BASOPHIL 0.1 X10E9/L Normal 0.0-0.2 [facility] Comment on above: Performed By: #### C AKANKSHA [facility], 3040-3, 43964-5, 17140-5 #### [facility] ([id number]) [address] [place] [address] 18196 ABSOLUTE NEUTROPHIL 3.7 X10E9/L Normal 1.5-6.6 [facility] Comment on above: Performed By: #### Júnior VALE [facility], 3040-3, 78942-3, 94289-7 #### [facility] ([id number]) [address] [place] [address] 20136 Basophils/100 WBC (Bld) 0.9 % Normal [facility] Comment on above: Performed By: #### C AKANKSHA [facility], 3040-3, 16671-6, 11697-3 #### [facility] ([id number]) [address] [place] [address] 94889 Eosinophils (Bld) [#/Vol] 0.1 10*3/uL Normal 0.0-0.4 [facility] Comment on above: Performed By: #### C AKANKSHA CMP, 3040-3, 09938-3, 98115-5 #### [facility] ([id number]) [address] [place] [address] 10764 Eosinophils/100 WBC (Bld) 2.2 % Normal [facility] Comment on above: Performed By: #### C BCA, CMP, 0-3, , 13734-6 #### [facility] ([id number]) [address] [place] [address] 58778 Erythrocyte distribution width (RBC) [Ratio] 14.9 % Normal 11.5-15.0 [facility] Comment on above: Performed By: #### C AKANKSHA, CMP, 0-3, , 00076-6 #### [facility] ([id number]) [address] [place] [address] 13048 Hematocrit (Bld) [Volume fraction] 37.9 % Low 39-49 [facility] Comment on above: Performed By: #### C BCA, CMP, 0-3, , 00156-4 #### [facility] ([id number]) [address] [place] [address] 87150 Hemoglobin (Bld) [Mass/Vol] 13.0 g/dL Normal 13.0-17.0 [facility] Comment on above: Performed By: #### C BCA, CMP, 3040-3, , 18033-1 #### [facility] ([id number]) [address] [place] [address] 31302 Lymphocytes (Bld) [#/Vol] 2.1 10*3/uL Normal 1.0-3.5 [facility] Comment on above: Performed By: #### C BCA, CMP, 3040-3, 81570-8, 80916-7 #### [facility] ([id number]) [address] [place] [address] 09003 Lymphocytes/100 WBC (Bld) 30.5 % Normal [facility] Comment on above: Performed By: #### C BCA, CMP, 0-3, , 36767-1 #### [facility] ([id number]) [address] [place] [address] 01867 MCH (RBC) [Entitic mass] 27.7 pg Normal 27-34 [facility] Comment on above: Performed By: #### C AKANKSHA, CMP, 0-3, , 79330-5 #### [facility] ([id number]) [address] [place] [address] 93042 MCHC (RBC) [Mass/Vol] 34.2 g/dL Normal 32-36 [facility] Comment on above: Performed By: #### C AKANKSHA, CMP, 3, , 05059-3 #### [facility] ([id number]) [address] [place] [address] 70619 MCV (RBC) [Entitic vol] 81 fL Normal 80-100 [facility] Comment on above: Performed By: #### C AKANKSHA, CMP, 03, , 27978-0 #### [facility] ([id number]) [address] [place] [address] 17853 Monocytes (Bld) [#/Vol] 0.7 10*3/uL Normal 0-0.9 [facility] Comment on above: Performed By: #### C BCA, CMP, 0-3, , 21747-0 #### [facility] ([id number]) [address] [place] [address] 70095 Monocytes/100 WBC (Bld) 11.1 % Normal [facility] Comment on above: Performed By: #### C BCA, CMP, 0-3, , 46796-9 #### [facility] ([id number]) [address] [place] [address] 84214 Neutrophils/100 WBC (Bld) 55.3 % Normal [facility] Comment on above: Performed By: #### C BCA, CMP, 3040-3, 93848-2, 07680-8 #### [facility] ([id number]) [address] [place] [address] 93219 Platelet mean volume (Bld) [Entitic vol] 8.6 fL Normal 7-12 [facility] Comment on above: Performed By: #### C BCA, CMP, 3040-3, , 58215-8 #### [facility] ([id number]) [address] [place] [address] 23470 Platelets (Bld) [#/Vol] 283 10*3/uL Normal 150-450 [facility] Comment on above: Performed By: #### C BCA, CMP, 3040-3, 06498-1, 82363-8 #### [facility] ([id number]) [address] [place] [address] 22755 RBC COUNT 4.67 X10E12/L Normal 4.10-5.70 [facility] Comment on above: Performed By: #### C BCA, CMP, 3040-3, 87027-8, 04604-7 #### [facility] ([id number]) [address] [place] [address] 72073 WBC (Bld) [#/Vol] 6.7 10*3/uL Normal 4.0-11.0 [facility] Comment on above: Performed By: #### C BCA, CMP, 3040-3, 06888-5, 66890-1 #### [facility] ([id number]) [address] [place] [address] 91901 COMPREHENSIVE METABOLIC PANE [facility] 03-01-2024 Albumin [Mass/Vol] 4.0 g/dL Normal 3.2-5.3 [facility] Comment on above: Performed By: #### C BCA, CMP, 3040-3, 54257-1, 84884-1 #### [facility] ([id number]) [address] [place] [address] 20435 ALP [Catalytic activity/Vol] 87 U/L Normal 39-130 [facility] Comment on above: Performed By: #### C BCA, CMP, 3040-3, 89812-4, 00007-2 #### [facility] ([id number]) [address] [place] [address] 16018 ALT [Catalytic activity/Vol] 33 U/L Normal 0-40 [facility] Comment on above: Performed By: #### C BCA, CMP, 3040-3, 71271-0, 62515-1 #### [facility] ([id number]) [address] [place] [address] 20225 Anion gap [Moles/Vol] 6 mmol/L Normal 5-15 [facility] Comment on above: Performed By: #### C BCA, CMP, 3040-3, 76110-2, 33066-9 #### [facility] ([id number]) [address] [place] [address] 19994 AST [Catalytic activity/Vol] 23 U/L Normal 0-41 [facility] Comment on above: Performed By: #### C BCA, CMP, 3040-3, 28760-6, 03693-0 #### [facility] ([id number]) [address] [place] [address] 25623 Bilirubin [Mass/Vol] 0.9 mg/dL Normal 0.3-1.2 [facility] Comment on above: Performed By: #### C BCA, CMP, 3040-3, 98147-5, 09938-0 #### [facility] ([id number]) [address] [place] [address] 05493 Calcium [Mass/Vol] 9.3 mg/dL Normal 8.5-10.5 [facility] Comment on above: Performed By: #### C BCA, CMP, 3040-3, 03606-4, 84081-3 #### [facility] ([id number]) [address] [place] [address] 95886 Chloride [Moles/Vol] 104 mmol/L Normal 98-109 [facility] Comment on above: Performed By: #### C BCA, CMP, 0-3, , 01114-6 #### [facility] ([id number]) [address] [place] [address] 17094 CO2 [Moles/Vol] 27 mmol/L Normal 22-32 [facility] Comment on above: Performed By: #### C BCA, CMP, 3040-3, , 03296-1 #### [facility] ([id number]) [address] [place] [address] 62309 Creatinine [Mass/Vol] 1.08 mg/dL Normal 0.70-1.20 [facility] Comment on above: Result Comment: METH OD TRACEABLE TO IDMS STANDARD Performed By: #### C BCA, CMP, 3040-3, 73617-8, 61647-4 #### [facility] ([id number]) [address] [place] [address] 68661 GFR/1.73 sq M.predicted among non-blacks MDRD (S/P/Bld) [Vol rate/Area] 82 mL/min/{1.73_m2} Normal >59 [facility] Comment on above: Result Comment: Reported eGFR is based on the CKD-EPI 2020 equation that does not use a race coefficient. Performed By: #### C BCA, CMP, 3040-3, 29623-6, 79671-1 #### [facility] ([id number]) [address] [place] [address] 83079 Glucose [Mass/Vol] 99 mg/dL Normal 65-99 [facility] Comment on above: Performed By: #### C BCA, CMP, 3040-3, 74557-2, 93368-3 #### [facility] ([id number]) [address] [place] [address] 49802 Potassium [Moles/Vol] 4.1 mmol/L Normal 3.5-5.0 [facility] Comment on above: Performed By: #### C BCA, CMP, 3040-3, 41610-3, 00059-7 #### [facility] ([id number]) [address] [place] [address] 67916 Protein [Mass/Vol] 7.5 g/dL Normal 6.0-8.0 [facility] Comment on above: Performed By: #### C BCA, CMP, 3040-3, 29694-3, 87231-3 #### [facility] ([id number]) [address] [place] [address] 70464 Sodium [Moles/Vol] 137 mmol/L Normal 134-146 [facility] Comment on above: Performed By: #### C BCA, CMP, 3040-3, 89222-3, 71651-0 #### [facility] ([id number]) [address] [place] [address] 21906 Urea nitrogen [Mass/Vol] 17 mg/dL Normal 5-23 [facility] Comment on above: Performed By: #### C BCA, CMP, 3040-3, 10590-7, 99000-3 #### [facility] ([id number]) [address] [place] [address] CTA ABD AND PELVISon 02-17 CT CTA ABD AND PELVIS CT CTA ABD AND PEL VIS History: Back pain. Exam: CTA abdomen pelvis, multiplanar reformats, thick section MIP volumes. All CT scans at this facility use dose modulation, iterative reconstruction, and/or weight based dosing when appropriate to reduce radiation dose to as low as reasonably achievable. COMPARISON: CT abdomen pelvis without contrast 03/29/2023 CTA abdomen: No abdominal aortic aneurysm, dissection or stenosis. Mild calcified plaque. Celiac artery, superior mesenteric artery, renal arteries, inferior mesenteric artery are patent. No lesions in the liver, spleen, pancreas, adrenal glands or kidneys. No free air or free fluid. No enlarged lymph nodes. Gallbladder within normal limits. Small hiatal hernia. CTA PELVIS: Minimal calcified plaque in the iliac, femoral arteries without stenosis, aneurysm or dissection. No dilated bowel loops or pericolonic fat stranding. No enlarged pelvic or inguinal lymph nodes. No urinary tract obstruction or osseous lesions. IMPRESSION: No acute findings. Finalized by Robinson Saenz MD on 03/01/2024 6:11 PM Normal [facility] CT CTA CHESTon 03-01-[address] CTA CHEST History: Chest pain. EXAM: CTA chest, multiplanar reformats, thick section MIP volumes. All CT scans at this facility use dose modulation, iterative reconstruction, and/or weight based dosing when appropriate to reduce radiation dose to as low as reasonably achievable. COMPARISON: 08/27/2020. CTA abdomen pelvis dictated separately. FINDINGS: No thoracic aortic aneurysm, dissection or stenosis. No acute pulmonary emboli. No enlarged mediastinal artery lymph nodes. No lung nodules, opacities, pleural or pericardial effusions. Minimal bandlike atelectasis lower lobes. No osseous lesions. IMPRESSION: No significant findings. Finalized by Robinson Saenz MD on 03/01/2024 6:08 PM Normal [facility] LIPASEon 03-01-2024 Lipase [Catalytic activity/Vol] 98 U/L High 17-40 [facility] Comment on above: Performed By: #### C BCA, CMP, 3040-3, 28932-5, 94300-9 #### [facility] ([id number]) [address] [place] [address], [place] [address] MAGNESIUMon 03-01-2024 Magnesium [Mass/Vol] 2.1 mg/dL Normal 1.8-2.6 [facility] Comment on above: Performed By: #### C AKANKSHA, CMP, 3040-3, 56251-3, 69877-9 #### [facility] ([id number]) [address] [place] [address] 23105 Troponin I.cardiac High sens itivity method [Mass/Vol]on 03-01-2024 1 HOUR TROP I, HIGH SENSITIVITY 3 ng/L Normal <21 [facility] Comment on above: Performed By: #### 8 9579-7 #### [facility] ([id number]) [address] [place] [address] 22843 TROPONIN I, HIGH SENSITIVITY 3 ng/L Normal <21 [facility] Comment on above: Performed By: #### C AKANKSHA, CMP, 3040-3, 10582-8, 91903-2 #### [facility] ([id number]) [address] [place] [address] 57054 Clinical Supporton 3 Clinical Support [id number] Addison Najera 1970 M [facility] Provider Department Center 05/30/2023 CASPER SERNA MP OT Medical Pavi No family history on file Normal [facility] Office Visiton 05-30-2023 Follow-up visit [id number] Addison Najera 1970 [facility] Provider Department Center 05/30/2023 ROBINSON HUMMEL PHYS MED Medical Pavi No family history on file Level of Service:55682 MO OFFICE/OUTPATIENT NEW MODERATE MDM 45-59 MINUTES (GC) Reason for Visit and Comments: SEATING [facility] [Other] Normal [facility] ED Clinical Summaryon 2018 ED Clinical Summary [address] [address] ED Clinical Summary Person Information Name: Addison Najera Xochitl/[facility] Age: 49 Years : 1970 Sex: Male PCP: Marital Status: Unknown Race: White Ethnicity: Not or Language: Korean Visit Reason: Potential stroke; Bradycardia; Seizure - Recurrent; Stroke Acuity: 2 Enc Type: Emergency Med Service: Emergency Medicine Arrival: 08/20/2019 15:59:03 Discharge: 08/21/2019 00:26:00 LOS: 000 08:27 Checkin: 08/20/2019 15:59:03 Checkout: 08/21/2019 00:26:00 Dispo Type: Transfer to [facility] Address: [address] [id number] Provider Notes: History of Present Illness ? [...] range between ( 27.2 and 40.8 ) [place] Auto: 6.5 % -- Normal range between [...] range between ( 41.0 and 53.0 ) [place] Absolute: 0.9 x10 MCH: 29.5 pg -- [...] of Care, Recurrent seizures Patient Education Information: [facility] Poison Help line: . [facility] Hotline: [place] Tobacco Quit Line: [place], [place]) [address]: [phone] [place], [place]) [address]: [phone] [facility] [address], [place]: [phone] Normal [facility] ED Note-Nursingon 08-21-2019 ED Note-Nursing Disposition [facility] unable to be completed due to pt being intubated and sedated Electronically signed by Jared Joyce 08/21/19 00:01 EST [facility] ED Note-Nursing PT to be transported by [facility] ems ETA 1 hour Electronically signed by JoyceJared 08/20/19 22:41 EST [facility] ED Note-Nursing 08.20.2019 21:40Writer spoke with Aster Mcwilliams to discuss transfer options for patient. At this time [facility] and [facility] not able to send an EMS to come get the patient due to not having an EMS available. [facility] not flying due to weather. 2149:Clinical Sociologist called [facility] and spoke with Mauri and asked if the patient could go by [facility] if a nurse was able to go along and titrate the propofol drip. Mauri reports that they would be able to do that with a nurse from the ED and their crew. 2209: Clinical Sociologist spoke with [facility] and she reports she has enough staffing to send Jared RN who has agreed to ride along. 2214: Clinical Sociologist spoke with Glued Wood Tester Elaine about calling admin honeycomb decapper to confirm that this is able to happen sending ED RN with EMS. 2231: Elaine informed commercial insurance underwriter that Admin honeycomb decapper said to send ED RN with [employer] crew because it is whats best for the patient. 2234- Clinical Sociologist informed Mauri from [facility] that [facility] ED RN Jared will ride along with patient to [facility]. Mauri reports that a squad can be at the hospital around 2335. Clinical Sociologist informed Aster Mcwilliams this and she is calling [facility] to inform them of this. Electronically signed by Sara Hawkins 08/20/19 22:43 EST [facility] ED Note-Nursing At this time still arranging for transfer of pt to [facility] Electronically signed by Jared Joyce 08/20/19 22:01 EST Normal [facility] ED Note-Physicianon 08-21-20 ED Note-Physician Chief Complaint pt called for weakness to home for ongong seizure. Pt hx of epilepsy with seizure starting at 1230 pm. Pt reports weakness to left side. Pt also noted with heart rate of 32. Atropin 0.5 IVP x 2 doses administered per [facility]. Pt not moving left side History [...] High Lymph Auto 08/20/19 16:32 11.8 Low [place] Auto 08/20/19 16:32 6.5 Eos Auto 08/20/19 16:32 0.7 Basophil Auto 08/20/19 16:32 0.6 Neutro Absolute 08/20/19 16:32 11.5 High Lymph Absolute 08/20/19 16:32 1.7 [place] Absolute 08/20/19 16:32 0.9 Eos Absolute 08/20/19 [...] at approximately 5:50 PM PST. Signed By: Keila POP, Thony Duval Ultrasound No qualifying data available (Ultrasound) Magnetic Resonance Imaging No qualifying data available (MRI) Electronically signed by Adolfo POP, Mauri Grimaldo 08/21/19 00:04 EST Normal [facility] .UA Microscp 08-20-2019 RBC (U) [#/Vol] 1-4 Normal 0 - 5 [facility] Comment on above: Performed By: #### C [id number] ####[place] [address] UA WBC Qual Absent Normal 0 - 5 [facility] Comment on above: Performed By: #### C D:[id number] ####[place] [address] .eGFRon 08-20-2019 eGFR Non-AA >60 Normal >=60 [facility] Comment on above: Result Comment: Resu [...] medication dosing. Performed By: #### E GFR ####[address] [address] eGFR AA >60 Normal >=60 [facility] Comment on above: Result Comment: Resu lt = 0-14.9 mL/min/1.73 m2 Kidney failure or Dialysis Result = 15-29 mL/min/1.73 m2 Severe decrease in GFR Result = 30-59 mL/min/1.73 m2 Moderate decrease in GFR Result >= 60 mL/min/1.73 m2 Normal or increased GFR Performed By: #### E GFR ####[address] [address] Basic Metabolic Profileon Anion gap [Moles/Vol] 10 mmol/L Normal 7-17 [facility] Comment on above: Performed By: #### C [id number] ####[address] [address] Calcium [Mass/Vol] 8.9 mg/dL Normal 8.5-10.3 [facility] Comment on above: Performed By: #### C D:[id number] ####[address] [address] Chloride [Moles/Vol] 106 mmol/L Normal 98-110 [facility] Comment on above: Performed By: #### C D:[id number] ####[address] [address] CO2 [Moles/Vol] 24 mmol/L Normal 22-32 [facility] Comment on above: Performed By: #### C D:[id number] ####[address] [address] Creatinine [Mass/Vol] 1.02 mg/dL Normal 0.61-1.24 [facility] Comment on above: Performed By: #### C D:[id number] ####[address] [address] Glucose [Mass/Vol] 120 mg/dL High 74-118 [facility] Comment on above: Performed By: #### C D:[id number] ####[address] [address] Potassium [Moles/Vol] 3.8 mmol/L Normal 3.4-4.8 [facility] Comment on above: Performed By: #### C D:[id number] ####[address] [address] Sodium [Moles/Vol] 136 mmol/L Normal 133-142 [facility] Comment on above: Performed By: #### C D:[id number] ####[address] [address] Urea nitrogen [Mass/Vol] 21 mg/dL Normal 8-26 [facility] Comment on above: Performed By: #### C D:[id number] ####[address] [address] Urea nitrogen/Creatinine [Mass ratio] 20.6 mg/mg High 10.0-20.0 [facility] Comment on above: Performed By: #### C D:[id number] ####[address] [address] Blood Gas Arterialon 019 Base Excess Art -1.9 mEq/L Normal -2.0-2.0 [facility] Comment on above: Performed By: #### A BG ####[address] [address] BG Roger Test Satisfactory [facility] Comment on above: Performed By: #### A BG ####[address] [address] BG Collection Site Lt Rad Normal [facility] Comment on above: Performed By: #### A BG ####[address] [address] BG Mode Assist Control [facility] Comment on above: Performed By: #### A BG ####[address] [address] Carboxyhemoglobin Arterial 1.0 % total Normal 0.0-2.0 [facility] Comment on above: Performed By: #### A BG ####[address] [address] FiO2 Art 65 Normal [facility] Comment on above: Performed By: #### A BG ####[address] [address] Hb Totl Arterial 13.7 g% Normal 12.0-18.0 [facility] Comment on above: Performed By: #### A BG ####[address] [address] HbO2 Art 98 % total Normal 94-100 [facility] Comment on above: Performed By: #### A BG ####[address] [address] HCO3 Art 24 mEq/L Normal 21-27 [facility] Comment on above: Performed By: #### A BG ####[address] [address] Met Hb Arterial 0.8 % total Normal 0.0-2.0 [facility] Comment on above: Performed By: #### A BG ####[address] [address] O2 Meth O2 Normal [facility] Comment on above: Performed By: #### A BG ####[address] [address] pCO2 Art 45 mmHg Normal 35-45 [facility] Comment on above: Performed By: #### A BG ####[address] [address] PEEP 5.0 cmH20 Normal [facility] Comment on above: Performed By: #### A BG ####[address] [address] pH Art 7.34 Low 7.35-7.45 [facility] Comment on above: Performed By: #### A BG ####[address] [place] [address] pO2 Art 361 mmHg High 80-100 [facility] Comment on above: Performed By: #### A BG ####[address] [address] Set Resp Rate 16 minutes Normal [facility] Comment on above: Performed By: #### A BG ####[address] [address] Set Tidal Vol 550 mL Normal [facility] Comment on above: Performed By: #### A BG ####[address] [address] Tot Resp Rate 16 minutes Normal [facility] Comment on above: Performed By: #### A BG ####[address] [address] CBC w/ Diffon 08-20-2019 Erythrocyte distribution width (RBC) [Ratio] 15.0 % High 11.6-14.8 [facility] Comment on above: Performed By: #### C BC #### [address] [address] Hematocrit (Bld) [Volume fraction] 40.5 % Low 41.0-53.0 [facility] Comment on above: Performed By: #### C BC #### [address] [address] Hemoglobin (Bld) [Mass/Vol] 13.3 g/dL Low 13.5-17.5 [facility] Comment on above: Performed By: #### C BC #### [address] [address] MCH (RBC) [Entitic mass] 29.5 pg Normal 27.0-35.0 [facility] Comment on above: Performed By: #### C BC #### [address] [address] MCHC (RBC) [Mass/Vol] 32.9 % Normal 31.0-37.0 [facility] Comment on above: Performed By: #### C BC #### [address] [address] MCV (RBC) [Entitic vol] 89.8 fL Normal 80.0-100.0 [facility] Comment on above: Performed By: #### C BC #### [address] [address] Platelet mean volume (Bld) [Entitic vol] 8.8 fL Normal 6.7-10.6 [facility] Comment on above: Performed By: #### C BC #### [address] [address] Platelets (Bld) [#/Vol] 287 x10*3/mcL Normal 150-350 [facility] Comment on above: Performed By: #### C BC #### [address] [address] RBC (Bld) [#/Vol] 4.50 x10*6/mcL Normal 4.30-5.80 [facility] Comment on above: Performed By: #### C BC #### [address] [address] WBC (Bld) [#/Vol] 14.3 x10*3/mcL High 4.5-11.0 [facility] Comment on above: Performed By: #### C BC #### [address] [address] [address] Angio Head Neck w/ Contra ston [...] sizable aneurysm, AVM, stenosis or occlusion. VARIANTS: [place] of [place] is normally developed. No other [...] approximately 5:50 PM PST. Radiation Dose Estimate: CTDI(mGy):0.192351 / / / kVp:120.582046 / mAs:0.637967 / / / DLP(mGy-cm):12.116402 Body Part: Head CTDI(mGy):0.945505 / / / kVp:120.553579 / mAs:0.941018 / / / DLP(mGy-cm):13.662593 Body Part: Head CTDI(mGy):5.922159 / / / kVp:120.895988 / mAs:39.832263 / / / DLP(mGy-cm):5.043327U sung Part: Head CTDI(mGy):75.294105 / / / kVp:120.579033 / mAs:39.695191 / / / DLP(mGy-cm):75.549265 Body Part: Head CTDI(mGy):45.135709 / / / kVp:140.410549 / mAs:262.283229 / / / DLP(mGy-cm):1751.7800 29Body Part: Head CTDI(mGy):0.050847 / / / kVp:120.679265 / mAs:0.368090 / / / DLP(mGy-cm):3.044746W sung Part: Head Final Dictated by: Thony Pedraza MD Dictated DT/TM: 08.20.2019 8:32 pm Signed by: Thony Pedraza MD Signed (Electronic Signature): 08.20.2019 8:51 pm (If Report Is Signed, Electronically Signed in Other Vendor System) Normal [facility] CT Brain w/o Contraston CT Brain w/o Contrast Clinical history: Stroke [...] Cueva of the ED Radiation Dose Estimate: CTDI(mGy):0.181813 / / / kVp:120.729173 / mAs:0.984766 / / / DLP(mGy-cm):7.170568Q sung Part: Head CTDI(mGy):47.266055 / / / kVp:120.655557 / mAs:190.283080 / / / DLP(mGy-cm):865.60645 7Body Part: Head Final Dictated by: Thony Almaraz MD Dictated DT/TM: 08.20.2019 4:27 pm Signed by: Thony Almaraz MD Signed (Electronic Signature): 08.20.2019 4:39 pm (If Report Is Signed, Electronically Signed in Other Vendor System) Normal [facility] Diff Autoon 08-20-2019 Baso Absolute 0.1 x10*3/mcL Normal 0.0-0.2 [facility] Comment on above: Performed By: #### . Automated Diff #### [address] [address] Basophils/100 WBC (Bld) 0.6 % Normal 0.0-1.2 [facility] Comment on above: Performed By: #### . Automated Diff #### [address] [address] Eos Absolute 0.1 x10*3/mcL Normal 0.0-0.4 [facility] Comment on above: Performed By: #### . Automated Diff #### [address] [address] Eosinophils/100 WBC (Bld) 0.7 % Normal 0.0-6.1 [facility] Comment on above: Performed By: #### . Automated Diff #### [address] [address] Lymphocytes (Bld) [#/Vol] 1.7 x10*3/mcL Normal 1.0-4.8 [facility] Comment on above: Performed By: #### . Automated Diff #### [address] [address] Lymphocytes/100 WBC (Bld) 11.8 % Low 27.2-40.8 [facility] Comment on above: Performed By: #### . Automated Diff #### [address] [address] [place] Absolute 0.9 x10*3/mcL Normal 0.3-1.1 [facility] Comment on above: Performed By: #### . Automated Diff #### [address] [address] Monocytes/100 WBC (Bld) 6.5 % Normal 4.7-13.9 [facility] Comment on above: Performed By: #### . Automated Diff #### [address] [address] Neutro Absolute 11.5 x10*3/mcL High 1.8-7.7 [facility] Comment on above: Performed By: #### . Automated Diff #### [address] [address] Neutro Auto 80.4 % High 47.2-70.8 [facility] Comment on above: Performed By: #### . Automated Diff #### [address] [address] ED Note-Nursingon 08-20-2019 ED Note-Nursing At this time, waitin g to transfer pt to [facility]. Electronically signed by Jared Joyce 08/20/19 21:07 EST [facility] ED Note-Nursing OG tube advanced to 66cm at lip Electronically signed by Jared Joyce 08/20/19 20:45 EST [facility] ED Note-Nursing pt sedated and prepared for CTA Electronically signed by Jennifer Brooke 08/20/19 20:05 EST [facility] ED Note-Nursing 5 mg versed ordered due to patient movement and thrashing in bed. 100 mcg Rocuronium ordered IVP per Dr. Cueva. Electronically signed by Jennifer Brooke 08/20/19 20:05 EST [facility] ED Note-Nursing 5 mg versed ordered per IVP per Dr. Cueva due to patient movement and not remaining sedated after intubation Electronically signed by Jennifer Brooke R 08/20/19 20:04 EST [facility] ED Note-Nursing Pt intubated successfully. Pt is not sedated at this time after RSI medications administered. 4 point wrist restraints and propofol started at 40 mcg per [facility] Electronically signed by Shamir Brookesa R 08/20/19 19:59 EST [facility] ED Note-Nursing pts behavior increasing with thrashing and moving with head and right side. Pt making incomprehensible sounds. No affect of sedation after ativan administration and haldol. Dr. Cueva in room. Prepare for intubation per verbal order Dr. Jimenez Electronically signed by Hungmickie Jennifer R 08/20/19 19:58 EST [facility] ED Note-Nursing Ativan 2 mg and haldol [...] administered. Dr. Cueva notified Electronically signed by JanhuyShamirsa R 08/20/19 18:35 EST [facility] ED Note-Nursing no further orders pe r Dr. Cueva Electronically signed by Jennifer Brooke 08/20/19 17:26 EST [facility] ED Note-Nursing Primary nurse concerned for stroke due to NIH assesment. note for possible CTA or MRI orders requested. Sara RN notified Electronically signed by Edwardo Jennifer R 08/20/19 17:24 EST [facility] ED Note-Nursing Clinical Sociologist called into room per primary RN Agata for concerns of stroke and NIHSS of 17 with no CTA order. Clinical Sociologist noted significant facial droop, slurred speech partial gaze to the left, left arm flaccid with minimal movement of left leg. Clinical Sociologist tested sensation with the tip of an 18 gauge needle and patient was not aware of what leg was touched. When commercial insurance underwriter would poke left leg patient states my right leg, Clinical Sociologist than goes back out into the nurses station to inform Dr. Cueva of this consistent finding.since arrival via [facility]. Clinical Sociologist requested that Dr. Cueva go back to the room to assess the patient again. Clinical Sociologist suggested a CTA at this time for the stroke like symptoms. Dr. Cueva agrees to this and enters patient room. Electronically signed by Sara Hawkins 08/20/19 21:35 EST [facility] ED Note-Nursing pt noted to be becoming more pale and diaphoretic. Dr. Cueva in room to assess pt. Repeat EKG Electronically signed by Jennifer Brooke 08/20/19 17:15 EST Normal [facility] ED Note-Nursing Delay in patient getting to CT due to possible ST elevation on transport via [facility] to [facility]. EKG obtained prior to CT per Dr. Cueva. Clinical Sociologist verbalized to Dr. Cueva the stroke like symptoms. Clinical Sociologist asked him if we should call [facility] for consult and Dr. Cueva shook his head no when consulting Dr. Light in regards to the EKG. Electronically signed by Sara Hawkins 08/20/19 21:42 EST Normal [facility] ED Note-Physicianon 08-20-20 ED Note-Physician Chief Complaint pt called for weakness to home for ongong seizure. Pt hx of epilepsy with seizure starting at 1230 pm. Pt reports weakness to left side. Pt also noted with heart rate of 32. Atropin 0.5 IVP x 2 doses administered per [facility] Ems. Pt not moving left [...] occlusion of the right internal carotid artery. [facility] was contacted and recommended transfer to their [...] High Lymph Auto 08/20/19 16:32 11.8 Low [place] Auto 08/20/19 16:32 6.5 Eos Auto 08/20/19 16:32 0.7 Basophil Auto 08/20/19 16:32 0.6 Neutro Absolute 08/20/19 16:32 11.5 High Lymph Absolute 08/20/19 16:32 1.7 [place] Absolute 08/20/19 16:32 0.9 Eos Absolute 08/20/19 [...] Amrik Cueva MD 08/22/19 07:39 EST Normal [facility] Ethanolon 08-20-2019 Ethanol [Mass/Vol] mg/dL Normal <=9 [facility] Comment on above: Result Comment: To c onvert mg/dL to g/dL, divide result by 1,000. Legal limit of intoxication is 80 mg/dL (0.08 g/dL). Performed By: #### A LC ####[address] [address] Hep Func Panelon 08-20-2019 Albumin [Mass/Vol] 3.9 g/dL Normal 3.2-4.9 [facility] Comment on above: Result Comment: [facility] Laboratory updated the methodology used for albumin testing on 04/26/18. Albumin measurement was performed using a bromcresol purple dye-binding assay. Performed By: #### L IVER #### [address] [address] Alk Phos 43 IU/L Normal 32-91 [facility] Comment on above: Performed By: #### L IVER #### [address] [address] ALT [Catalytic activity/Vol] 19 U/L Normal 17-63 [facility] Comment on above: Performed By: #### L IVER #### [address] [address] AST [Catalytic activity/Vol] 28 U/L Normal 15-41 [facility] Comment on above: Performed By: #### L IVER #### [address] [address] Bili Direct 0.3 mg/dL Normal 0.1-0.5 [facility] Comment on above: Performed By: #### L IVER #### [address] [address] Bili Indirect 0.9 mg/dL Normal 0.0-1.0 [facility] Comment on above: Performed By: #### L IVER #### [address] [address] Bili Total 1.2 mg/dL Normal 0.3-1.2 [facility] Comment on above: Performed By: #### L IVER #### [address] [address] Protein [Mass/Vol] 6.8 g/dL Normal 6.5-8.1 [facility] Comment on above: Performed By: #### L IVER #### [address] [address] Lactic Acid, Randomon 2018 Lactic Acid Lvl 1.2 mmol/L Normal 0.5-2.0 [facility] Comment on above: Performed By: #### L A ####[address] [address] Magnesiumon 08-20-2019 Magnesium [Mass/Vol] 1.9 mg/dL Normal 1.7-2.4 [facility] Comment on above: Performed By: #### M G #### [address] [address] POC Glucose Randomon 019 Glucose [Mass/Vol] 128 mg/dL High 78-110 [facility] Comment on above: Performed By: #### C [id number] ####[address] [address] Troponin-Ion 08-20-2019 Troponin I.cardiac [Mass/Vol] ng/mL Normal 0.00-0.03 [facility] Comment on above: Result Comment: An i ncreased Troponin-I value, in the absence of myocardial ischemia, may indicate other etiologies of cardiac damage. Performed By: #### T ROP ####[address] [address] UA w Culture if Indon 2018 Color (U) Yellow Normal [facility] Comment on above: Performed By: #### U CI ####[place] [id number] Glucose (U) [Mass/Vol] Negative Normal Negative [facility] Comment on above: Performed By: #### U CI ####[address] [address] Ketones Ql (U) 20 mg/dL Abnormal Negative [facility] Comment on above: Performed By: #### U CI ####[address] [address] UA Blood Moderate Abnormal Negative [facility] Comment on above: Performed By: #### U CI ####[address] [address] UA Clarity Clear Normal [facility] Comment on above: Performed By: #### U CI ####[address] [address] UA Leukocyte Esterase Negative Normal Negative [facility] Comment on above: Performed By: #### U CI ####[address] [address] UA Nitrite Negative Normal Negative [facility] Comment on above: Performed By: #### U CI ####[address] [address] UA pH 5.0 Normal 4.5 - 7.8 [facility] Comment on above: Performed By: #### U CI ####[address] [address] UA Protein Negative Normal Negative [facility] Comment on above: Performed By: #### U CI ####[address] [address] UA Source Clean Catch Normal [facility] Comment on above: Performed By: #### U CI ####[place] [address] UA Spec Grav >1.060 High 1.003-1.035 [facility] Comment on above: Performed By: #### U CI ####[place] [address] UA Urobilinogen 0.2 mg/dL Normal 0.2 - 1.0 [facility] Comment on above: Performed By: #### U CI ####[place] [address] Urobilinogen Qn (U) Negative Normal Negative [facility] Comment on above: Performed By: #### U CI ####[place] [address] UDS Compon 08-20-2019 Creatinine [Mass/Vol] 151.8 mg/dL Normal [facility] Comment on above: Performed By: #### C [id number] ####[place] [id number] Ur Amph Scrn Negative Normal NEG = <1000 [facility] Comment on above: Performed By: #### C [id number] ####[address] [address] Ur Mary Scrn Negative Normal NEG = <200 [facility] Comment on above: Performed By: #### C [id number] ####[address] [address] Ur Benzodia Scrn Negative Normal NEG = <200 [facility] Comment on above: Performed By: #### C [id number] ####[address] [address] Ur Cannab Scrn Positive Abnormal NEG = <50 [facility] Comment on above: Result Comment: This unconfirmed positive screening result is to be used for medical treatment purposes only. Unconfirmed screening results must not be used for non-medical purposes. (e.g. employment testing, legal testing). Performed By: #### C [id number] ####[place] [address] Ur Cocaine Scrn Negative Normal NEG = <300 [facility] Comment on above: Performed By: #### C [id number] ####[place] [address] Ur Methadone Scn Negative Normal NEG = <300 [facility] Comment on above: Performed By: #### C [id number] ####[place] [address] Ur Opiate Scrn Negative Normal NEG = <300 [facility] Comment on above: Performed By: #### C [id number] ####[place] [address] Ur Oxy Screen Negative Normal NEG = <100 [facility] Comment on above: Performed By: #### C [id number] ####[place] [address] Ur Oxy Scrn Qnt 4 ng/mL Normal <=99 [facility] Comment on above: Performed By: #### C [id number] ####[place] [address] Ur PCP Scrn Negative Normal NEG = <25 [facility] Comment on above: Performed By: #### C [id number] ####[place] [address] UA pH 5.0 Normal 4.5 - 7.8 [facility] Comment on above: Performed By: #### C [id number] ####[place] [address] UA Spec Grav >1.060 High 1.003-1.035 [facility] Comment on above: Performed By: #### C [id number] ####[facility] [place] [address] XR Chest 1 Viewon 08-20-2019 XR Chest [...] Electronically Signed in Other Vendor System) Normal [facility] XR Chest 1 View Procedure: Portable [...] Electronically Signed in Other Vendor System) Normal [facility] XR Chest 1 View Chest radiograph [...] Electronically Signed in Other Vendor System) Normal [facility] Vital Signs Date Time Vital Sign Value Performing Clinician Facility 05-30-2023 17:20-0400 Body height 187.96 cm Jodi Garcia Other [facility] Other 05-30-2023 17:20-0400 Body mass index (BMI) [Ratio] 25.68 kg/m2 Jodi Herediamond Other [facility] Other 05-30-2023 17:20-0400 Body temperature 96.8 [degF] Jodi Herediamond Other [facility] Other 05-30-2023 17:20-0400 Body weight 90.72 kg Jodi Herediamond Other [facility] Other 05-30-2023 17:20-0400 Diastolic blood pressure 97 mm[Hg] Jodi Herediamond Other [facility] Other 05-30-2023 17:20-0400 Respiratory rate 18 /min Jodi Herediamond Other [facility] Other 05-30-2023 17:20-0400 SaO2% (BldA) [Mass fraction] 95 % Jodi Herediamond Other [facility] Other 05-30-2023 17:20-0400 Systolic blood pressure 125 mm[Hg] Jodi Herediamond Other [facility] Other 10-28-2022 11:30-0500 Body height 187.96 cm Imad Asaad Other [facility] Other 10-28-2022 11:30-0500 Body mass index (BMI) [Ratio] 24.39 kg/m2 Imad Asaad Other [facility] Other 10-28-2022 11:30-0500 Body weight 86.18 kg Imad Asaad Other [facility] Other 10-28-2022 11:30-0500 Diastolic blood pressure 91 mm[Hg] Imad Asaad Other [facility] Other 10-28-2022 11:30-0500 Systolic blood pressure 132 mm[Hg] Imad Asaad Other [facility] Other Encounters Encounter Date Encounter Type Care Provider Facility Start: 05-01-2024 End: 05-01-2024 ambulatory KARISSA CARLIN Not Available Start: 04-10-2024 End: 04-10-2024 ambulatory KARISSA TESFAYE Not Available Start: 03-19-2024 End: 03-19-2024 ambulatory JOSY YU Not Available Start: 03-05-2024 End: 03-05-2024 ambulatory TELLO CURRY Not Available Start: 03-01-2024 End: 03-02-2024 [facility] Start: 03-01-2024 End: 03-01-2024 Emergency department patient visit [facility] Start: 02-02-2024 End: 02-02-2024 ambulatory MANUELA HODGE Not Available Start: 01-30-2024 End: 01-30-2024 ambulatory KARISSA CARLIN Not Available Start: 01-25-2024 End: 01-25-2024 ambulatory MANUELA HODGE Not Available Start: 01-19-2024 End: 01-19-2024 ambulatory KARISSA CARLIN Not Available Start: 05-30-2023 End: 05-30-2023 [facility] [employer] [facility] Start: 05-30-2023 Office outpatient visit 15 minutes Jodi Garcia [facility] Start: 04-26-2023 End: 05-25-2023 ambulatory [facility] Start: 12-30-2022 ambulatory DEVANTE BAUM Facility:[facility] Start: 11-23-2022 End: 11-24-2022 ambulatory [facility] Start: 10-28-2022 End: 10-28-2022 ambulatory Imad Asaad Other [facility] Other Start: 10-28-2022 Office consultation new/estab patient 60 min Imad Asaad [facility] Start: 08-20-2019 End: 08-21-2019 Emergency department patient visit AMRIK CUEVA Facility:[facility] Payers Date Payer Category Payer Unknown 1970 Unknown [id number] 2.16.8 [id number] 1970 Unknown [id number] 2.16.84 [id number] 1970 Unknown [id number] 2.16.84 [id number] 1970 Unknown [id number] 2.16. [id number] 1970 Unknown [id number] 2.16.8 [id number] 1970 Unknown [id number] 2.16.8 40.1.315792.3.579.2.6 1970 Unknown [id number] 2.16.84 0.1.589405.3.579.2.1258 1970 Unknown [id number] 2.16.84 [id number] 1970 Unknown [id number] 2.16.84 0.1.860082.3.579.2.1258 1970 Unknown [id number] 2.16.84 0.1.603038.3.579.2.1258 1970 Unknown [id number] 2.16.84 0.1.479227.3.579.2.1258 1970 Unknown [id number] 2.16.84 0.1.581309.3.579.2.1258 1970 Unknown [id number] 2.16.84 0.1.100059.3.579.2.1258 1970 Unknown [id number] 2.16.84 0.1.284922.3.579.2.1259 1960 Medicaid [id number] 2. [id number] Social History Date Type Detail Facility Sex Assigned At [facility] Other Progress note 05-30-2023 Note Date & Type Note Facility 05-30-2023 Note Occupational Therapy This patient was evaluated in a multidisciplinary wheelchair seating clinic. Please see attached letter of medical necessity for further supporting documentation. [facility] Progress note 05-30-2023 Note Date & Type Note Facility 05-30-2023 Note [facility] Department of Physical Medicine and Rehabilitation [...] concur with above documentation. Robinson Betancourt MD [facility] Evaluation note 05-30-2023 Note Date & [...] to 3 days. Stop biting your nails. [facility] Other Evaluation note 10-28-2022 Note Date & Type Note Facility 10-28-2022 Evaluation note Encounter Date Diagnosis Assessment Notes Oct, LUQ abdominal pain (ICD-10 - R10.12) Arrange for abdominal ultrasound and chest xray Use Ibuprofen 400mg up to twice a day for a week for pain Start Omeprazole 40mg daily for 12 weeks Follow up in 12 weeks if pain persists. [facility] Other History general Narrative - Reported 08-19-2019 Note Date & Type Note Facility 08-19-2019 History general N arrative - Reported Type Medical History stroke 08/2019 Medical History alcohol abuse Medical History epilepsy Surgical History removed piece of sku ll to reduce brain swelling Surgical History appendectomy Surgical History KNEE SURGERY Surgical History KIDNEY STONE Hospitalization History stroke Hospitalization History NONE 2021 [facility] Other Summary Purpose Family History No Family [...] section and content) DATE CREATED AUTHOR 09/06/2019 [facility] DATE CREATED AUTHOR AUTHOR'S ORGANIZ ATION 01/05/2023 [facility] DATE CREATED AUTHOR AUTHOR'S ORGANIZ ATION 05/27/2023 [facility] DATE CREATED AUTHOR AUTHOR'S ORGANIZ ATION 06/04/2023 [facility] DATE CREATED AUTHOR AUTHOR'S ORGANIZ ATION 03/03/2024 [facility] DATE CREATED AUTHOR AUTHOR'S ORGANIZ ATION 05/03/2024 [facility] EPIC REASON FOR VISIT (unrecogniz ed section and [...] BE BASED ON THE PRIMARY CLINICAL RECORDS. [facility] [employer] [facility]. provides no warranty or guarantee of the accuracy or completeness of information in this document.
--- NOTE | 2024-05-28 14:48 | CT_ITS ---
[address] [address] Patient Name: JONI GRIFFIN MRN: [id number] date: 1970 Sex: M Assigned Patient Location: CT Current Patient Location: Accession/Order Number: [id number] Exam Date: 05/28/2024 14:58 Report Date: 05/29/2024 07:01 At the request of: LEONOR OMER Procedure: CT abdomen pelvis wo con EXAMINATION: CT abdomen pelvis wo con HISTORY: Flank Pain, Hematuria COMPARISON: No relevant comparison available. TECHNIQUE: Axial, Coronal, and Sagittal images were obtained without and/or with IV contrast as indicated by examination type. Dose reduction techniques were achieved by using automated exposure control and/or adjustment of mA and/or kV according to patient size and/or use of iterative reconstruction technique. FINDINGS: LUNG BASES: No visible pulmonary or pleural disease. LIVER: No enlargement, atrophy, suspicious density, or significant focal lesion. BILIARY: No dilatation or calcification. PANCREAS: No lesion, fluid collection, or abnormal duct dilatation. SPLEEN: No enlargement or focal lesion. ADRENALS: No mass or enlargement. KIDNEYS: Nonobstructing 3 mm stone within left kidney. BOWEL/MESENTERY: No visible mass, obstruction, or bowel wall thickening. AORTA/VASCULAR: No aneurysm or dissection. RETROPERITONEUM: No mass or adenopathy. LYMPH NODES: No adenopathy. URINARY BLADDER: No visible focal wall thickening, lesion, or calculus. PELVIC ORGANS: No visible mass. Pelvic organs appropriate for patient age. ABDOMINAL WALL: No mass or hernia. BONES: Developmental L5 pars interarticularis defects bilaterally. No significant anterior listhesis. Mild to moderate degenerative disc disease L4-L5 and L5-S1. OTHER: Negative. CT/CT abdomen pelvis wo con IMPRESSION: 1. Nonobstructing left nephrolithiasis. 2. No acute findings to account for patient's symptoms. Electronically authenticated by: TERRY LEAL Date: 05/29/2024 07:01
== END 2024-05-28 14:27 | disposition home or self-care (01) ==
LOC: CT 14:27
PROVIDERS: PCP Nurse Practitioner; Visit Provider Nurse Practitioner
DX: Z51.81 Encounter for therapeutic drug level monitoring (principal); R10.9 Unspecified abdominal pain; R31.9 Hematuria, unspecified; N20.0 Calculus of kidney
CPT/HCPCS: 36415; 74176; 80175

== ENCOUNTER 2024-05-28 14:28 | Outpatient (OUT) | payer MEDICAID, SELFPAY ==
--- OUTSIDE RECORDS SUMMARY | 2024-05-28 14:50 | XMS_ITS | CCD ---
Author Organization [facility] Care Team Providers Care Layer Up Name Role Phone AMRIK CUEVA Attending Unavailable Asaad, Imad Unavailable TAVOMALIHA FLAHERTY Admitting Unavailable MALIHA VO Attending Unavailable KAT, DR MATHEW Primary Care Unavailable [facility] Consulting Unavailable DEVANTE BAUM Admitting Unavailable DEVANTE BAUM Attending Unavailable KAT, DR MATHEW Primary Care Unavailable PROVIDER, UNKNOWN Admitting Unavailable PROVIDER, UNKNOWN Attending Unavailable Jodi Garcia Unavailable CASPER DEY Attending Unavailable ROBINSON BETANCOURT Attending Unavailable SERVICES, [facility] Unava ilFELIPE Vera Attending Unavailable FELIPE CASTAÑEDA Attending Unavailable FELIPE CASTAÑEDA Referring Unavailable SERVICES, [facility] Unava ilable KARISSA CARLIN Attending Unavailable MANUELA HODGE Attending Unavailable KARISSA CARLIN Referring Unavailable MANUELA HODGE Attending Unavailable TELLO CURRY Attending Unavailable JOSY YU Attending Unavailable KARISSA CARLIN Attending Unavailable LEONOR OMER Referring Unavailable Allergies Allergy Classification Reported Allergen(s) Allergy Type Date of Onset Reaction(s) Facility (4 sources) Cortisone; Translations: [CORTISONE] Drug Allergy 0 stomach upset [facility] Repository (2 sources) Triamcinolone Drug Allergy Unknown [facility] Other (1 source) lamoTRIgine; Translations: [LAMOTRIGINE] Drug Allergy 1 [facility] Repository Medications Current Medications [...] 24 ABSOLUTE BASOPHIL 0.1 X10E9/L Normal 0.0-0.2 [facility] Comment on above: Performed By: #### C AKANKSHA [facility], 3040-3, 74090-0, 93926-1 #### [facility] ([id number]) [address] [place] [address] 26709 ABSOLUTE NEUTROPHIL 3.7 X10E9/L Normal 1.5-6.6 [facility] Comment on above: Performed By: #### Júnior VALE [facility], 3040-3, 54275-5, 33603-7 #### [facility] ([id number]) [address] [place] [address] 54872 Basophils/100 WBC (Bld) 0.9 % Normal [facility] Comment on above: Performed By: #### C AKANKSHA [facility], 3040-3, 59818-1, 54784-1 #### [facility] ([id number]) [address] [place] [address] 12722 Eosinophils (Bld) [#/Vol] 0.1 10*3/uL Normal 0.0-0.4 [facility] Comment on above: Performed By: #### C AKANKSHA CMP, 3040-3, 10945-9, 96917-9 #### [facility] ([id number]) [address] [place] [address] 12105 Eosinophils/100 WBC (Bld) 2.2 % Normal [facility] Comment on above: Performed By: #### C BCA, CMP, 0-3, , 73088-4 #### [facility] ([id number]) [address] [place] [address] 79830 Erythrocyte distribution width (RBC) [Ratio] 14.9 % Normal 11.5-15.0 [facility] Comment on above: Performed By: #### C AKANKSHA, CMP, 0-3, , 54534-9 #### [facility] ([id number]) [address] [place] [address] 05083 Hematocrit (Bld) [Volume fraction] 37.9 % Low 39-49 [facility] Comment on above: Performed By: #### C BCA, CMP, 0-3, , 12324-1 #### [facility] ([id number]) [address] [place] [address] 37695 Hemoglobin (Bld) [Mass/Vol] 13.0 g/dL Normal 13.0-17.0 [facility] Comment on above: Performed By: #### C BCA, CMP, 3040-3, , 67214-5 #### [facility] ([id number]) [address] [place] [address] 19660 Lymphocytes (Bld) [#/Vol] 2.1 10*3/uL Normal 1.0-3.5 [facility] Comment on above: Performed By: #### C BCA, CMP, 3040-3, 30656-2, 23720-0 #### [facility] ([id number]) [address] [place] [address] 63915 Lymphocytes/100 WBC (Bld) 30.5 % Normal [facility] Comment on above: Performed By: #### C BCA, CMP, 0-3, , 33838-9 #### [facility] ([id number]) [address] [place] [address] 55226 MCH (RBC) [Entitic mass] 27.7 pg Normal 27-34 [facility] Comment on above: Performed By: #### C AKANKSHA, CMP, 0-3, , 00837-1 #### [facility] ([id number]) [address] [place] [address] 92168 MCHC (RBC) [Mass/Vol] 34.2 g/dL Normal 32-36 [facility] Comment on above: Performed By: #### C AKANKSHA, CMP, 3, , 98432-6 #### [facility] ([id number]) [address] [place] [address] 16146 MCV (RBC) [Entitic vol] 81 fL Normal 80-100 [facility] Comment on above: Performed By: #### C AKANKSHA, CMP, 03, , 04319-9 #### [facility] ([id number]) [address] [place] [address] 92718 Monocytes (Bld) [#/Vol] 0.7 10*3/uL Normal 0-0.9 [facility] Comment on above: Performed By: #### C BCA, CMP, 0-3, , 31623-3 #### [facility] ([id number]) [address] [place] [address] 21552 Monocytes/100 WBC (Bld) 11.1 % Normal [facility] Comment on above: Performed By: #### C BCA, CMP, 0-3, , 93777-5 #### [facility] ([id number]) [address] [place] [address] 54729 Neutrophils/100 WBC (Bld) 55.3 % Normal [facility] Comment on above: Performed By: #### C BCA, CMP, 3040-3, 50306-1, 24261-7 #### [facility] ([id number]) [address] [place] [address] 38975 Platelet mean volume (Bld) [Entitic vol] 8.6 fL Normal 7-12 [facility] Comment on above: Performed By: #### C BCA, CMP, 3040-3, , 70481-0 #### [facility] ([id number]) [address] [place] [address] 96251 Platelets (Bld) [#/Vol] 283 10*3/uL Normal 150-450 [facility] Comment on above: Performed By: #### C BCA, CMP, 3040-3, 67834-8, 20784-4 #### [facility] ([id number]) [address] [place] [address] 82776 RBC COUNT 4.67 X10E12/L Normal 4.10-5.70 [facility] Comment on above: Performed By: #### C BCA, CMP, 3040-3, 44857-4, 37059-2 #### [facility] ([id number]) [address] [place] [address] 32841 WBC (Bld) [#/Vol] 6.7 10*3/uL Normal 4.0-11.0 [facility] Comment on above: Performed By: #### C BCA, CMP, 3040-3, 95431-9, 32427-0 #### [facility] ([id number]) [address] [place] [address] 46240 COMPREHENSIVE METABOLIC PANE [facility] 03-01-2024 Albumin [Mass/Vol] 4.0 g/dL Normal 3.2-5.3 [facility] Comment on above: Performed By: #### C BCA, CMP, 3040-3, 99568-5, 11099-2 #### [facility] ([id number]) [address] [place] [address] 18064 ALP [Catalytic activity/Vol] 87 U/L Normal 39-130 [facility] Comment on above: Performed By: #### C BCA, CMP, 3040-3, 83773-5, 70584-2 #### [facility] ([id number]) [address] [place] [address] 07762 ALT [Catalytic activity/Vol] 33 U/L Normal 0-40 [facility] Comment on above: Performed By: #### C BCA, CMP, 3040-3, 50513-7, 21025-3 #### [facility] ([id number]) [address] [place] [address] 47083 Anion gap [Moles/Vol] 6 mmol/L Normal 5-15 [facility] Comment on above: Performed By: #### C BCA, CMP, 3040-3, 99595-0, 02379-3 #### [facility] ([id number]) [address] [place] [address] 74390 AST [Catalytic activity/Vol] 23 U/L Normal 0-41 [facility] Comment on above: Performed By: #### C BCA, CMP, 3040-3, 74713-7, 59129-9 #### [facility] ([id number]) [address] [place] [address] 33286 Bilirubin [Mass/Vol] 0.9 mg/dL Normal 0.3-1.2 [facility] Comment on above: Performed By: #### C BCA, CMP, 3040-3, 83816-8, 08724-4 #### [facility] ([id number]) [address] [place] [address] 33434 Calcium [Mass/Vol] 9.3 mg/dL Normal 8.5-10.5 [facility] Comment on above: Performed By: #### C BCA, CMP, 3040-3, 08504-5, 78965-5 #### [facility] ([id number]) [address] [place] [address] 38877 Chloride [Moles/Vol] 104 mmol/L Normal 98-109 [facility] Comment on above: Performed By: #### C BCA, CMP, 0-3, , 01424-0 #### [facility] ([id number]) [address] [place] [address] 50879 CO2 [Moles/Vol] 27 mmol/L Normal 22-32 [facility] Comment on above: Performed By: #### C BCA, CMP, 3040-3, , 95024-9 #### [facility] ([id number]) [address] [place] [address] 14774 Creatinine [Mass/Vol] 1.08 mg/dL Normal 0.70-1.20 [facility] Comment on above: Result Comment: METH OD TRACEABLE TO IDMS STANDARD Performed By: #### C BCA, CMP, 3040-3, 74768-8, 41602-2 #### [facility] ([id number]) [address] [place] [address] 47244 GFR/1.73 sq M.predicted among non-blacks MDRD (S/P/Bld) [Vol rate/Area] 82 mL/min/{1.73_m2} Normal >59 [facility] Comment on above: Result Comment: Reported eGFR is based on the CKD-EPI 2020 equation that does not use a race coefficient. Performed By: #### C BCA, CMP, 3040-3, 82083-2, 15750-1 #### [facility] ([id number]) [address] [place] [address] 95540 Glucose [Mass/Vol] 99 mg/dL Normal 65-99 [facility] Comment on above: Performed By: #### C BCA, CMP, 3040-3, 80028-3, 22072-6 #### [facility] ([id number]) [address] [place] [address] 49781 Potassium [Moles/Vol] 4.1 mmol/L Normal 3.5-5.0 [facility] Comment on above: Performed By: #### C BCA, CMP, 3040-3, 33132-2, 43913-9 #### [facility] ([id number]) [address] [place] [address] 70313 Protein [Mass/Vol] 7.5 g/dL Normal 6.0-8.0 [facility] Comment on above: Performed By: #### C BCA, CMP, 3040-3, 70902-1, 87698-8 #### [facility] ([id number]) [address] [place] [address] 67799 Sodium [Moles/Vol] 137 mmol/L Normal 134-146 [facility] Comment on above: Performed By: #### C BCA, CMP, 3040-3, 32153-8, 70535-9 #### [facility] ([id number]) [address] [place] [address] 13952 Urea nitrogen [Mass/Vol] 17 mg/dL Normal 5-23 [facility] Comment on above: Performed By: #### C BCA, CMP, 3040-3, 56849-6, 00302-4 #### [facility] ([id number]) [address] [place] [address] CTA ABD AND PELVISon 02-17 CT [...] Saenz MD on 03/01/2024 6:11 PM Normal [facility] CT CTA CHESTon 03-01-2024 CT CTA [...] Saenz MD on 03/01/2024 6:08 PM Normal [facility] LIPASEon 03-01-2024 Lipase [Catalytic activity/Vol] 98 U/L High 17-40 [facility] Comment on above: Performed By: #### C BCA, CMP, 3040-3, 55609-4, 46003-8 #### [facility] ([id number]) [address] [place] [address], [place] [address] MAGNESIUMon 03-01-2024 Magnesium [Mass/Vol] 2.1 mg/dL Normal 1.8-2.6 [facility] Comment on above: Performed By: #### C AKANKSHA, CMP, 3040-3, 05334-3, 06845-0 #### [facility] ([id number]) [address] [place] [address] 73567 Troponin I.cardiac High sens itivity method [Mass/Vol]on 03-01-2024 1 HOUR TROP I, HIGH SENSITIVITY 3 ng/L Normal <21 [facility] Comment on above: Performed By: #### 8 9579-7 #### [facility] ([id number]) [address] [place] [address] 77455 TROPONIN I, HIGH SENSITIVITY 3 ng/L Normal <21 [facility] Comment on above: Performed By: #### C AKANKSHA, CMP, 3040-3, 34717-3, 27603-0 #### [facility] ([id number]) [address] [place] [address] 76170 Clinical Supporton 3 Clinical Support [id number] Addison Najera 1970 M [facility] Provider Department Center 05/30/2023 CASPER SERNA MP OT Medical Pavi No family history on file Normal [facility] Office Visiton 05-30-2023 Follow-up visit [id number] Addison Najera 1970 [facility] Provider Department Center 05/30/2023 ROBINSON HUMMEL PHYS MED Medical Pavi No family history on file Level of Service:95491 ND OFFICE/OUTPATIENT NEW MODERATE MDM 45-59 MINUTES (GC) Reason for Visit and Comments: [facility] [Other] Normal [facility] ED Clinical Summaryon 2018 ED Clinical Summary [address] [address] ED Clinical Summary Person Information Name: Addison Najera Xochitl/[facility] Age: 49 Years : 1970 Sex: Male PCP: Marital Status: Unknown Race: White Ethnicity: Not or Language: Hungarian Visit Reason: Potential stroke; Bradycardia; Seizure - Recurrent; Stroke Acuity: 2 Enc Type: Emergency Med Service: Emergency Medicine Arrival: 08/20/2019 15:59:03 Discharge: 08/21/2019 00:26:00 LOS: 000 08:27 Checkin: 08/20/2019 15:59:03 Checkout: 08/21/2019 00:26:00 Dispo Type: Transfer to [facility] Address: [address] [id number] Provider Notes: History of Present Illness ? [...] range between ( 27.2 and 40.8 ) Josephine Auto: 6.5 % -- Normal range between [...] range between ( 41.0 and 53.0 ) Josephine Absolute: 0.9 x10 MCH: 29.5 pg -- [...] of Care, Recurrent seizures Patient Education Information: [facility] Poison Help line: . [facility] Hotline: [place] Tobacco Quit Line: [place], [place]) [address]: [phone] [place], [place]) [address]: [phone] [facility] [address], [place]: [phone] Normal [facility] ED Note-Nursingon 08-21-2019 ED Note-Nursing Disposition [facility] unable to be completed due to pt being intubated and sedated Electronically signed by Jared Joyce 08/21/19 00:01 EST [facility] ED Note-Nursing PT to be transported by [facility] ems ETA 1 hour Electronically signed by JoyceJared 08/20/19 22:41 EST [facility] ED Note-Nursing 08.20.2019 21:40Writer spoke with Aster Mcwilliams to discuss transfer options for patient. At this time [facility] and [facility] not able to send an EMS to come get the patient due to not having an EMS available. [facility] not flying due to weather. 2149:Blade Grinder called [facility] and spoke with aMuri and asked if the patient could go by [facility] if a nurse was able to go along and titrate the propofol drip. Mauri reports that they would be able to do that with a nurse from the ED and their crew. 2209: Blade Grinder spoke with [facility] and she reports she has enough staffing to send Jared RN who has agreed to ride along. 2214: Blade Grinder spoke with Tack [employer]er [employer] Elaine about calling admin emotional disabilities teacher to confirm that this is able to happen sending ED RN with EMS. 2231: Elaine informed newswriter that Admin emotional disabilities teacher said to send ED RN with [facility] crew because it is whats best for the patient. 2234- Blade Grinder informed Mauri from [facility] that [facility] ED RN Jared will ride along with patient to [facility]. Mauri reports that a squad can be at the hospital around 2335. Blade Grinder informed Aster Mcwilliams this and she is calling [facility] to inform them of this. Electronically signed by Sara Hawkins 08/20/19 22:43 EST [facility] ED Note-Nursing At this time still arranging for transfer of pt to [facility] Electronically signed by Jared Joyce 08/20/19 22:01 EST Normal [facility] ED Note-Physicianon 08-21-20 ED Note-Physician Chief [...] High Lymph Auto 08/20/19 16:32 11.8 Low Josephine Auto 08/20/19 16:32 6.5 Eos Auto 08/20/19 16:32 0.7 Basophil Auto 08/20/19 16:32 0.6 Neutro Absolute 08/20/19 16:32 11.5 High Lymph Absolute 08/20/19 16:32 1.7 Josephine Absolute 08/20/19 16:32 0.9 Eos Absolute 08/20/19 [...] POP, Mauri Grimaldo 08/21/19 00:04 EST Normal [facility] .UA Microscp 08-20-2019 RBC (U) [#/Vol] 1-4 Normal 0 - 5 [facility] Comment on above: Performed By: #### C D:[id number] ####[place] [address] UA WBC Qual Absent Normal 0 - 5 [facility] Comment on above: Performed By: #### C D:[id number] ####[place] [address] .eGFRon 08-20-2019 eGFR Non-AA >60 Normal >=60 [facility] Comment on above: Result Comment: Resu [...] medication dosing. Performed By: #### E GFR ####[address] [address] eGFR AA >60 Normal >=60 [facility] Comment on above: Result Comment: Resu lt = 0-14.9 mL/min/1.73 m2 Kidney failure or Dialysis Result = 15-29 mL/min/1.73 m2 Severe decrease in GFR Result = 30-59 mL/min/1.73 m2 Moderate decrease in GFR Result >= 60 mL/min/1.73 m2 Normal or increased GFR Performed By: #### E GFR ####[address] [address] Basic Metabolic Profileon Anion gap [Moles/Vol] 10 mmol/L Normal 7-17 [facility] Comment on above: Performed By: #### C D:[id number] ####[address] [address] Calcium [Mass/Vol] 8.9 mg/dL Normal 8.5-10.3 [facility] Comment on above: Performed By: #### C D:[id number] ####[address] [address] Chloride [Moles/Vol] 106 mmol/L Normal 98-110 [facility] Comment on above: Performed By: #### C D:[id number] ####[address] [address] CO2 [Moles/Vol] 24 mmol/L Normal 22-32 [facility] Comment on above: Performed By: #### C D:[id number] ####[address] [address] Creatinine [Mass/Vol] 1.02 mg/dL Normal 0.61-1.24 [facility] Comment on above: Performed By: #### C D:[id number] ####[address] [address] Glucose [Mass/Vol] 120 mg/dL High 74-118 [facility] Comment on above: Performed By: #### C D:[id number] ####[address] [address] Potassium [Moles/Vol] 3.8 mmol/L Normal 3.4-4.8 [facility] Comment on above: Performed By: #### C D:[id number] ####[address] [address] Sodium [Moles/Vol] 136 mmol/L Normal 133-142 [facility] Comment on above: Performed By: #### C D:[id number] ####[address] [address] Urea nitrogen [Mass/Vol] 21 mg/dL Normal 8-26 [facility] Comment on above: Performed By: #### C D:[id number] ####[address] [address] Urea nitrogen/Creatinine [Mass ratio] 20.6 mg/mg High 10.0-20.0 [facility] Comment on above: Performed By: #### C D:[id number] ####[address] [address] Blood Gas Arterialon 019 Base Excess Art -1.9 mEq/L Normal -2.0-2.0 [facility] Comment on above: Performed By: #### A BG ####[address] [address] BG Roger Test Satisfactory [facility] Comment on above: Performed By: #### A BG ####[address] [address] BG Collection Site Lt Rad Normal [facility] Comment on above: Performed By: #### A BG ####[address] [address] BG Mode Assist Control [facility] Comment on above: Performed By: #### A BG ####[address] [address] Carboxyhemoglobin Arterial 1.0 % total Normal 0.0-2.0 [facility] Comment on above: Performed By: #### A BG ####[address] [address] FiO2 Art 65 Normal [facility] Comment on above: Performed By: #### A BG ####[address] [address] Hb Totl Arterial 13.7 g% Normal 12.0-18.0 [facility] Comment on above: Performed By: #### A BG ####[address] [address] HbO2 Art 98 % total Normal 94-100 [facility] Comment on above: Performed By: #### A BG ####[address] [address] HCO3 Art 24 mEq/L Normal 21-27 [facility] Comment on above: Performed By: #### A BG ####[address] [address] Met Hb Arterial 0.8 % total Normal 0.0-2.0 [facility] Comment on above: Performed By: #### A BG ####[address] [address] O2 Meth O2 Normal [facility] Comment on above: Performed By: #### A BG ####[address] [address] pCO2 Art 45 mmHg Normal 35-45 [facility] Comment on above: Performed By: #### A BG ####[address] [address] PEEP 5.0 cmH20 Normal [facility] Comment on above: Performed By: #### A BG ####[address] [address] pH Art 7.34 Low 7.35-7.45 [facility] Comment on above: Performed By: #### A BG ####[address] [place] [address] pO2 Art 361 mmHg High 80-100 [facility] Comment on above: Performed By: #### A BG ####[address] [address] Set Resp Rate 16 minutes Normal [facility] Comment on above: Performed By: #### A BG ####[address] [address] Set Tidal Vol 550 mL Normal [facility] Comment on above: Performed By: #### A BG ####[address] [address] Tot Resp Rate 16 minutes Normal [facility] Comment on above: Performed By: #### A BG ####[address] [address] CBC w/ Diffon 08-20-2019 Erythrocyte distribution width (RBC) [Ratio] 15.0 % High 11.6-14.8 [facility] Comment on above: Performed By: #### C BC #### [address] [address] Hematocrit (Bld) [Volume fraction] 40.5 % Low 41.0-53.0 [facility] Comment on above: Performed By: #### C BC #### [address] [address] Hemoglobin (Bld) [Mass/Vol] 13.3 g/dL Low 13.5-17.5 [facility] Comment on above: Performed By: #### C BC #### [address] [address] MCH (RBC) [Entitic mass] 29.5 pg Normal 27.0-35.0 [facility] Comment on above: Performed By: #### C BC #### [address] [address] MCHC (RBC) [Mass/Vol] 32.9 % Normal 31.0-37.0 [facility] Comment on above: Performed By: #### C BC #### [address] [address] MCV (RBC) [Entitic vol] 89.8 fL Normal 80.0-100.0 [facility] Comment on above: Performed By: #### C BC #### [address] [address] Platelet mean volume (Bld) [Entitic vol] 8.8 fL Normal 6.7-10.6 [facility] Comment on above: Performed By: #### C BC #### [address] [address] Platelets (Bld) [#/Vol] 287 x10*3/mcL Normal 150-350 [facility] Comment on above: Performed By: #### C BC #### [address] [address] RBC (Bld) [#/Vol] 4.50 x10*6/mcL Normal 4.30-5.80 [facility] Comment on above: Performed By: #### C BC #### [address] [address] WBC (Bld) [#/Vol] 14.3 x10*3/mcL High 4.5-11.0 [facility] Comment on above: Performed By: #### C BC #### [address] [address] [address] Angio Head Neck w/ Contra ston [...] sizable aneurysm, AVM, stenosis or occlusion. VARIANTS: [place] is normally developed. No other [...] approximately 5:50 PM PST. Radiation Dose Estimate: CTDI(mGy):0.333217 / / / kVp:120.246281 / mAs:0.804564 / / / DLP(mGy-cm):12.030539 Body Part: Head CTDI(mGy):0.293279 / / / kVp:120.621747 / mAs:0.582961 / / / DLP(mGy-cm):13.291745 Body Part: Head CTDI(mGy):5.757156 / / / kVp:120.088951 / mAs:39.587671 / / / DLP(mGy-cm):5.028520C sung Part: Head CTDI(mGy):75.682622 / / / kVp:120.802281 / mAs:39.274723 / / / DLP(mGy-cm):75.820029 Body Part: Head CTDI(mGy):45.374435 / / / kVp:140.068658 / mAs:262.483494 / / / DLP(mGy-cm):1751.7800 29Body Part: Head CTDI(mGy):0.903962 / / / kVp:120.567951 / mAs:0.959911 / / / DLP(mGy-cm):3.375458C sung Part: Head Final Dictated by: Thony Pedraza MD Dictated DT/TM: 08.20.2019 8:32 pm Signed by: Thony Pedraza MD Signed (Electronic Signature): 08.20.2019 8:51 pm (If Report Is Signed, Electronically Signed in Other Vendor System) Normal [facility] CT Brain w/o Contraston CT Brain [...] [facility] of the ED Radiation Dose Estimate: CTDI(mGy):0.413020 / / / kVp:120.981850 / mAs:0.297456 / / / DLP(mGy-cm):7.280150D sung Part: Head CTDI(mGy):47.557442 / / / kVp:120.670334 / mAs:190.138503 / / / DLP(mGy-cm):865.07537 7Body Part: Head Final Dictated by: Thony Almaraz MD Dictated DT/TM: 08.20.2019 4:27 pm Signed by: Thony Almaraz MD Signed (Electronic Signature): 08.20.2019 4:39 pm (If Report Is Signed, Electronically Signed in Other Vendor System) Normal [facility] Diff Autoon 08-20-2019 Baso Absolute 0.1 x10*3/mcL Normal 0.0-0.2 [facility] Comment on above: Performed By: #### . Automated Diff #### [address] [id number] Basophils/100 WBC (Bld) 0.6 % Normal 0.0-1.2 [facility] Comment on above: Performed By: #### . Automated Diff #### [address] [address] Eos Absolute 0.1 x10*3/mcL Normal 0.0-0.4 [facility] Comment on above: Performed By: #### . Automated Diff #### [address] [address] Eosinophils/100 WBC (Bld) 0.7 % Normal 0.0-6.1 [facility] Comment on above: Performed By: #### . Automated Diff #### [address] [address] Lymphocytes (Bld) [#/Vol] 1.7 x10*3/mcL Normal 1.0-4.8 [facility] Comment on above: Performed By: #### . Automated Diff #### [address] [address] Lymphocytes/100 WBC (Bld) 11.8 % Low 27.2-40.8 [facility] Comment on above: Performed By: #### . Automated Diff #### [address] [address] Josephine Absolute 0.9 x10*3/mcL Normal 0.3-1.1 [facility] Comment on above: Performed By: #### . Automated Diff #### [address] [address] Monocytes/100 WBC (Bld) 6.5 % Normal 4.7-13.9 [facility] Comment on above: Performed By: #### . Automated Diff #### [address] [address] Neutro Absolute 11.5 x10*3/mcL High 1.8-7.7 [facility] Comment on above: Performed By: #### . Automated Diff #### [address] [address] Neutro Auto 80.4 % High 47.2-70.8 [facility] Comment on above: Performed By: #### . Automated Diff #### [address] [address] ED Note-Nursingon 08-20-2019 ED Note-Nursing At this time, waitin g to transfer pt to [facility]. Electronically signed by Jared Joyce 08/20/19 21:07 EST [facility] ED Note-Nursing OG tube advanced to 66cm at lip Electronically signed by Jared Joyce 08/20/19 20:45 EST [facility] ED Note-Nursing pt sedated and prepared for CTA Electronically signed by Jennifer Brooke 08/20/19 20:05 EST [facility] ED Note-Nursing 5 mg versed ordered due to patient movement and thrashing in bed. 100 mcg Rocuronium ordered IVP per Dr. Cueva. Electronically signed by Jennifer Brooke 08/20/19 20:05 EST [facility] ED Note-Nursing 5 mg versed ordered per IVP per Dr. Cueva due to patient movement and not remaining sedated after intubation Electronically signed by Jennifer Brooke R 08/20/19 20:04 EST [facility] ED Note-Nursing Pt intubated successfully. Pt is not sedated at this time after RSI medications administered. 4 point wrist restraints and propofol started at 40 mcg per [facility]le [facility] Electronically signed by Shamir Brookesa R 08/20/19 19:59 EST [facility] ED Note-Nursing pts behavior increasing with thrashing and moving with head and right side. Pt making incomprehensible sounds. No affect of sedation after ativan administration and haldol. Dr. Cueva in room. Prepare for intubation per verbal order Dr. Jimenez Electronically signed by Hungmickie Jennifer R 08/20/19 19:58 EST [facility] ED Note-Nursing Ativan 2 mg and [...] signed by JanhuyShamirsa R 08/20/19 18:35 EST [facility] ED Note-Nursing no further orders pe r Dr. Cueva Electronically signed by Jennifer Brooke 08/20/19 17:26 EST [facility] ED Note-Nursing Primary nurse concerned for stroke due to NIH assesment. note for possible CTA or MRI orders requested. Sara RN notified Electronically signed by Edwardo Jennifer R 08/20/19 17:24 EST [facility] ED Note-Nursing Blade Grinder called into room per primary RN Agata for concerns of stroke and NIHSS of 17 with no CTA order. Blade Grinder noted significant facial droop, slurred speech partial gaze to the left, left arm flaccid with minimal movement of left leg. Blade Grinder tested sensation with the tip of an 18 gauge needle and patient was not aware of what leg was touched. When newswriter would poke left leg patient states my right leg, Blade Grinder than goes back out into the nurses station to inform Dr. Cueva of this consistent finding.since arrival via [facility]. Blade Grinder requested that Dr. Cueva go back to the room to assess the patient again. Blade Grinder suggested a CTA at this time for the stroke like symptoms. Dr. Cueva agrees to this and enters patient room. Electronically signed by Sara Hawkins 08/20/19 21:35 EST [facility] ED Note-Nursing pt noted to be becoming more pale and diaphoretic. Dr. Cueva in room to assess pt. Repeat EKG Electronically signed by Jennifer Brooke 08/20/19 17:15 EST Normal [facility] ED Note-Nursing Delay in patient getting to CT due to possible ST elevation on transport via [facility] to [facility]. EKG obtained prior to CT per Dr. Cueva. Blade Grinder verbalized to Dr. Cueva the stroke like symptoms. Blade Grinder asked him if we should call [facility] for consult and Dr. Cueva shook his head no when consulting Dr. Light in regards to the EKG. Electronically signed by Sara Hawkins 08/20/19 21:42 EST Normal [facility] ED Note-Physicianon 08-20-20 ED Note-Physician Chief [...] evidence of acute STEMI was noted. The ND interval was found to be 169, QRS [...] occlusion of the right internal carotid artery. [facility] was contacted and recommended transfer to [...] High Lymph Auto 08/20/19 16:32 11.8 Low Josephine Auto 08/20/19 16:32 6.5 Eos Auto 08/20/19 16:32 0.7 Basophil Auto 08/20/19 16:32 0.6 Neutro Absolute 08/20/19 16:32 11.5 High Lymph Absolute 08/20/19 16:32 1.7 Josephine Absolute 08/20/19 16:32 0.9 Eos Absolute 08/20/19 [...] data available (MRI) Electronically signed by Amrik Cuvea MD 08/20/19 21:08 EST Documented NIH stroke [...] Amrik Cueva MD 08/22/19 07:39 EST Normal [facility] Ethanolon 08-20-2019 Ethanol [Mass/Vol] mg/dL Normal <=9 [facility] Comment on above: Result Comment: To c onvert mg/dL to g/dL, divide result by 1,000. Legal limit of intoxication is 80 mg/dL (0.08 g/dL). Performed By: #### A LC ####[address] [address] Hep Func Panelon 08-20-2019 Albumin [Mass/Vol] 3.9 g/dL Normal 3.2-4.9 [facility] Comment on above: Result Comment: [facility] Laboratory updated the methodology used for albumin testing on 04/26/18. Albumin measurement was performed using a bromcresol purple dye-binding assay. Performed By: #### L IVER #### [address] [address] Alk Phos 43 IU/L Normal 32-91 [facility] Comment on above: Performed By: #### L IVER #### [address] [address] ALT [Catalytic activity/Vol] 19 U/L Normal 17-63 [facility] Comment on above: Performed By: #### L IVER #### [address] [address] AST [Catalytic activity/Vol] 28 U/L Normal 15-41 [facility] Comment on above: Performed By: #### L IVER #### [address] [address] Bili Direct 0.3 mg/dL Normal 0.1-0.5 [facility] Comment on above: Performed By: #### L IVER #### [address] [address] Bili Indirect 0.9 mg/dL Normal 0.0-1.0 [facility] Comment on above: Performed By: #### L IVER #### [address] [address] Bili Total 1.2 mg/dL Normal 0.3-1.2 [facility] Comment on above: Performed By: #### L IVER #### [address] [address] Protein [Mass/Vol] 6.8 g/dL Normal 6.5-8.1 [facility] Comment on above: Performed By: #### L IVER #### [address] [address] Lactic Acid, Randomon 2018 Lactic Acid Lvl 1.2 mmol/L Normal 0.5-2.0 [facility] Comment on above: Performed By: #### L A ####[address] [address] Magnesiumon 08-20-2019 Magnesium [Mass/Vol] 1.9 mg/dL Normal 1.7-2.4 [facility] Comment on above: Performed By: #### M G #### [address] [address] POC Glucose Randomon 019 Glucose [Mass/Vol] 128 mg/dL High 78-110 [facility] Comment on above: Performed By: #### C [id number] ####[address] [address] Troponin-Ion 08-20-2019 Troponin I.cardiac [Mass/Vol] ng/mL Normal 0.00-0.03 [facility] Comment on above: Result Comment: An i ncreased Troponin-I value, in the absence of myocardial ischemia, may indicate other etiologies of cardiac damage. Performed By: #### T ROP ####[address] [address] UA w Culture if Indon 2018 Color (U) Yellow Normal [facility] Comment on above: Performed By: #### U CI ####[place] [id number] Glucose (U) [Mass/Vol] Negative Normal Negative [facility] Comment on above: Performed By: #### U CI ####[address] [address] Ketones Ql (U) 20 mg/dL Abnormal Negative [facility] Comment on above: Performed By: #### U CI ####[address] [address] UA Blood Moderate Abnormal Negative [facility] Comment on above: Performed By: #### U CI ####[address] [address] UA Clarity Clear Normal [facility] Comment on above: Performed By: #### U CI ####[address] [address] UA Leukocyte Esterase Negative Normal Negative [facility] Comment on above: Performed By: #### U CI ####[address] [address] UA Nitrite Negative Normal Negative [facility] Comment on above: Performed By: #### U CI ####[address] [address] UA pH 5.0 Normal 4.5 - 7.8 [facility] Comment on above: Performed By: #### U CI ####[address] [address] UA Protein Negative Normal Negative [facility] Comment on above: Performed By: #### U CI ####[address] [address] UA Source Clean Catch Normal [facility] Comment on above: Performed By: #### U CI ####[place] [address] UA Spec Grav >1.060 High 1.003-1.035 [facility] Comment on above: Performed By: #### U CI ####[place] [address] UA Urobilinogen 0.2 mg/dL Normal 0.2 - 1.0 [facility] Comment on above: Performed By: #### U CI ####[place] [address] Urobilinogen Qn (U) Negative Normal Negative [facility] Comment on above: Performed By: #### U CI ####[place] [address] UDS Compon 08-20-2019 Creatinine [Mass/Vol] 151.8 mg/dL Normal [facility] Comment on above: Performed By: #### C [id number] ####[place] [id number] Ur Amph Scrn Negative Normal NEG = <1000 [facility] Comment on above: Performed By: #### C [id number] ####[address] [address] Ur Mary Scrn Negative Normal NEG = <200 [facility] Comment on above: Performed By: #### C [id number] ####[address] [address] Ur Benzodia Scrn Negative Normal NEG = <200 [facility] Comment on above: Performed By: #### C [id number] ####[address] [address] Ur Cannab Scrn Positive Abnormal NEG = <50 [facility] Comment on above: Result Comment: This unconfirmed positive screening result is to be used for medical treatment purposes only. Unconfirmed screening results must not be used for non-medical purposes. (e.g. employment testing, legal testing). Performed By: #### C [id number] ####[place] [address] Ur Cocaine Scrn Negative Normal NEG = <300 [facility] Comment on above: Performed By: #### C [id number] ####[place] [address] Ur Methadone Scn Negative Normal NEG = <300 [facility] Comment on above: Performed By: #### C [id number] ####[place] [address] Ur Opiate Scrn Negative Normal NEG = <300 [facility] Comment on above: Performed By: #### C [id number] ####[place] [address] Ur Oxy Screen Negative Normal NEG = <100 [facility] Comment on above: Performed By: #### C [id number] ####[place] [address] Ur Oxy Scrn Qnt 4 ng/mL Normal <=99 [facility] Comment on above: Performed By: #### C [id number] ####[place] [address] Ur PCP Scrn Negative Normal NEG = <25 [facility] Comment on above: Performed By: #### C [id number] ####[place] [address] UA pH 5.0 Normal 4.5 - 7.8 [facility] Comment on above: Performed By: #### C [id number] ####[place] [address] UA Spec Grav >1.060 High 1.003-1.035 [facility] Comment on above: Performed By: #### C [id number] ####[facility] [place] [address] XR Chest 1 Viewon 08-20-2019 XR Chest [...] Electronically Signed in Other Vendor System) Normal [facility] XR Chest 1 View Procedure: Portable [...] Electronically Signed in Other Vendor System) Normal [facility] XR Chest 1 View Chest radiograph [...] Electronically Signed in Other Vendor System) Normal [facility] Vital Signs Date Time Vital Sign Value Performing Clinician Facility 05-30-2023 17:20-0400 Body height 187.96 cm Jodi Garcia Other [facility] Other 05-30-2023 17:20-0400 Body mass index (BMI) [Ratio] 25.68 kg/m2 Jodi Herediamond Other [facility] Other 05-30-2023 17:20-0400 Body temperature 96.8 [degF] Jodi Herediamond Other [facility] Other 05-30-2023 17:20-0400 Body weight 90.72 kg Jodi Herediamond Other [facility] Other 05-30-2023 17:20-0400 Diastolic blood pressure 97 mm[Hg] Jodi Herediamond Other [facility] Other 05-30-2023 17:20-0400 Respiratory rate 18 /min Jodi Herediamond Other [facility] Other 05-30-2023 17:20-0400 SaO2% (BldA) [Mass fraction] 95 % Jodi Herediamond Other [facility] Other 05-30-2023 17:20-0400 Systolic blood pressure 125 mm[Hg] Jodi Herediamond Other [facility] Other 10-28-2022 11:30-0500 Body height 187.96 cm Imad Asaad Other [facility] Other 10-28-2022 11:30-0500 Body mass index (BMI) [Ratio] 24.39 kg/m2 Imad Asaad Other [facility] Other 10-28-2022 11:30-0500 Body weight 86.18 kg Imad Asaad Other [facility] Other 10-28-2022 11:30-0500 Diastolic blood pressure 91 mm[Hg] Imad Asaad Other [facility] Other 10-28-2022 11:30-0500 Systolic blood pressure 132 mm[Hg] Imad Asaad Other [facility] Other Encounters Encounter Date Encounter Type Care Provider Facility Start: 05-01-2024 End: 05-01-2024 ambulatory KARISSA CARLIN Not Available Start: 04-10-2024 End: 04-10-2024 ambulatory KARISSA TESFAYE Not Available Start: 03-19-2024 End: 03-19-2024 ambulatory JOSY YU Not Available Start: 03-05-2024 End: 03-05-2024 ambulatory TELOL CURRY Not Available Start: 03-01-2024 End: 03-02-2024 [facility]: 03-01-2024 End: 03-01-2024 Emergency department patient visit [facility] Start: 02-02-2024 End: 02-02-2024 ambulatory MANUELA HODGE Not Available Start: 01-30-2024 End: 01-30-2024 ambulatory KARISSA CARLIN Not Available Start: 01-25-2024 End: 01-25-2024 ambulatory MANUELA HODGE Not Available Start: 01-19-2024 End: 01-19-2024 ambulatory KARISSA CARLIN Not Available Start: 05-30-2023 End: 05-30-2023 [facility] Start: 05-30-2023 Office outpatient visit 15 minutes Jodi Garcia [facility] Start: 04-26-2023 End: 05-25-2023 ambulatory [facility] Start: 12-30-2022 ambulatory DEVANTE BAUM Facility:[facility] Start: 11-23-2022 End: 11-24-2022 ambulatory MAL[facility]HA [facility] Facility:[facility] Start: 10-28-2022 End: 10-28-2022 ambulatory Imad Asaad Other [facility] Other Start: 10-28-2022 Office consultation new/estab patient 60 min Imad Asaad [facility] Start: 08-20-2019 End: 08-21-2019 Emergency department patient visit AMRIK CUEVA Facility:[facility] Payers Date Payer Category Payer Unknown 1970 Unknown [id number] 2.16.8 [id number] 1970 Unknown [id number] 2.16.84 [id number] 1970 Unknown [id number] 2.16.84 0.1.922810.3.579.2.593 1970 Unknown [id number] 2.16. 840.1.386675.3.579.2.732 1970 Unknown [id number] 2.16.8 40.1.809234.3.579.2.1286 1970 Unknown [id number] 2.16.8 40.1.564960.3.579.2.6 1969 Unknown [id number] 2.16.84 0.1.891350.3.579.2.1258 1969 Unknown [id number] 2.16.84 0.1.839830.3.579.2.1258 1969 Unknown [id number] 2.16.84 0.1.752661.3.579.2.1258 1969 Unknown [id number] 2.16.84 0.1.432309.3.579.2.1258 1970 Unknown [id number] 2.16.84 0.1.471535.3.579.2.1258 1969 Unknown [id number] 2.16.84 0.1.357522.3.579.2.1258 1969 Unknown [id number] 2.16.84 0.1.627886.3.579.2.1258 1970 Unknown [id number] 2.16.84 0.1.065270.3.579.2.1259 1960 Medicaid [id number] 2. [id number] Social History Date Type Detail Facility Sex Assigned At [facility] Other Progress note 05-30-2023 Note Date & Type Note Facility 05-30-2023 Note Occupational Therapy This patient was evaluated in a multidisciplinary wheelchair seating clinic. Please see attached letter of medical necessity for further supporting documentation. [facility] Progress note 05-30-2023 Note Date & Type Note Facility 05-30-2023 Note [facility] Department of Physical Medicine [...] concur with above documentation. Robinson Betancourt MD [facility] Evaluation note 05-30-2023 Note [...] to 3 days. Stop biting your nails. [facility] Other Evaluation note 10-28-2022 Note Date & Type Note Facility 10-28-2022 Evaluation note Encounter Date Diagnosis Assessment Notes Oct, LUQ abdominal pain (ICD-10 - R10.12) Arrange for abdominal ultrasound and chest xray Use Ibuprofen 400mg up to twice a day for a week for pain Start Omeprazole 40mg daily for 12 weeks Follow up in 12 weeks if pain persists. [facility] Other History general Narrative - Reported 08-19-2019 Note Date & Type Note Facility 08-19-2019 History general N arrative - Reported Type Medical History stroke 08/2019 Medical History alcohol abuse Medical History epilepsy Surgical History removed piece of sku ll to reduce brain swelling Surgical History appendectomy Surgical History KNEE SURGERY Surgical History KIDNEY STONE Hospitalization History stroke Hospitalization History NONE 2021 [facility] Other Summary Purpose Family History No Family [...] section and content) DATE CREATED AUTHOR 09/06/2019 [facility] DATE CREATED AUTHOR AUTHOR'S ORGANIZ ATION 01/05/2023 [facility] DATE CREATED AUTHOR AUTHOR'S ORGANIZ ATION 05/27/2023 [facility] DATE CREATED AUTHOR AUTHOR'S ORGANIZ ATION 06/04/2023 [facility] DATE CREATED AUTHOR AUTHOR'S ORGANIZ ATION 03/03/2024 [facility] DATE CREATED AUTHOR AUTHOR'S ORGANIZ ATION 05/03/2024 [facility] EPIC REASON FOR VISIT (unrecogniz [...] BE BASED ON THE PRIMARY CLINICAL RECORDS. [facility]. provides no warranty or guarantee of the accuracy or completeness of information in this document.
[2024-05-30 16:10] LABS: Lamotrigine (Lamictal), Serum 6.2 ug/mL (2.0-20.0)
== END 2024-05-28 14:29 | disposition home or self-care (01) ==
LOC: LAB 14:29
PROVIDERS: PCP Nurse Practitioner; Visit Provider Nurse Practitioner Family
DX: Z51.81 Encounter for therapeutic drug level monitoring (principal)
CPT/HCPCS: 36415; 80175

== ENCOUNTER 2024-09-19 09:20 | Outpatient (RCR) | payer MEDICAID, SELFPAY | END 2025-01-30 09:33 | disposition home or self-care (01) | LOC: PT 09:20 | PROVIDERS: PCP Nurse Practitioner; Visit Provider Nurse Practitioner | DX: M25.512 Pain in left shoulder (principal); M62.838 Other muscle spasm | CPT/HCPCS: 97110; 97140 ==

== ENCOUNTER 2024-11-06 14:29 | Outpatient (OUT) | payer MEDICAID, SELFPAY ==
--- NOTE | 2024-11-06 14:34 | MR_ITS ---
The [address] [address] Patient Name: JONI GRIFFIN MRN: [id number] date: 1970 Sex: M Assigned Patient Location: MRI Current Patient Location: Accession/Order Number: [id number] Exam Date: 11/07/2024 14:39 Report Date: 11/07/2024 14:49 At the request of: KARISSA CARLIN NP Procedure: MR head/brain wo/w con MR head/brain wo/w con 11/06/2024 3:56 PM SIGN AND SYMPTOMS: Vision changes, right middle cerebral artery CVA PROTOCOL: Multiplanar multisequence MR images of the brain were obtained with and without IV contrast CONTRAST: 20 mL of intravenous Dotarem COMPARISON: None. FINDINGS: Extra axial spaces: Age appropriate. Hemorrhage: None. Ventricular system: There is mild ex vacuo dilatation of the right lateral ventricle. Basal cisterns: Within normal limits and not effaced. Cerebral parenchyma: Extensive gliosis and encephalomalacia is noted in the right MCA territory consistent with a remote infarct. This affects the entirety of the right MCA territory. Periventricular white matter T2 and FLAIR hyperintense signal is noted bilaterally consistent with chronic microvascular ischemic change. Midline shift: None.. Cerebellum: Within normal limits. Brainstem: Within normal limits. OTHER: Calvarium: Normal marrow signal. Vascular system: Satisfactory flow voids within the anterior and posterior circulation. Visualized Paranasal sinuses: Within normal limits. Visualized Orbits: Within normal limits. Visualized upper cervical spine: Within normal limits. Sella and skull base: Within normal limits. MR/MR head/brain wo/w con IMPRESSION: No acute intracranial pathology or abnormal postcontrast enhancement. Analysis of encephalomalacia is noted throughout the right MCA territory consistent with a right MCA territory infarct. Chronic age-related neuro degenerative changes are also noted as above. Impression dictated by: Abdoul Quispe M.D.11/07/2024 2:49 PM Dictation Location: [place] [address] Electronically authenticated by: [id number] Y Date: 11/07/2024 14:49
--- OUTSIDE RECORDS SUMMARY | 2024-11-06 14:40 | XMS_ITS | CCD ---
Author Organization [facility] Care Team Providers Care Bed Machine Operator Name Role Phone AMRIK CUEVA Attending Unavailable Asaad, Imad Unavailable TAVOKARSTEN FLAHERTYOE Admitting Unavailable MALIHA VO Attending Unavailable KAT, DR MATHEW Primary Care Unavailable [facility] [place] [place] Consulting Unavailable DEVANTE MURPHY Admitting Unavailable DEVANTE MURPHY Attending Unavailable KAT, DR MATHEW Primary Care Unavailable PROVIDER, UNKNOWN Admitting Unavailable PROVIDER, UNKNOWN Attending Unavailable Jodi Garcia Unavailable CASPER DEY Attending Unavailable TERRY BETANCOURT Attending Unavailable Mike CAMERA PROTOTYPING ENGINEER, Leonor Unavailable Mike CAMERA PROTOTYPING ENGINEER, Leonor Unavailable Manuela Hodge DO Unavailable Anjana CAMERA PROTOTYPING ENGINEER, Meghan Unavailable Sly POP, Zhao Gonzalez Primary Care Provider Services, [facility] Primary Care Provider MARYCRUZ GASTON I Referring Unavailable SERVICES, [facility] Primary Care Unava ilable MARYCRUZ GASTON I Attending Unavailable LEONOR OMER Referring Unavailable SERVICES, [facility] Primary Care Unava ilable SERVICES, [facility] Primary Care Unava ilable FELIPE CASTAÑEDA Attending Unavailable FELIPE CASTAÑEDA Attending Unavailable FELIPE CASTAÑEDA Referring Unavailable SERVICES, [facility] Primary Care Unava ilable MARYCRUZ GASTON I Referring Unavailable SERVICES, [facility] Primary Care Unava ilable KARISSA CARLIN Attending Unavailable KARISSA CARLIN Attending Unavailable MANUELA HODGE Attending Unavailable KARISSA CARLIN Referring Unavailable MANUELA HODGE Attending Unavailable TELLO CAMPA Attending Unavailable JOSY YU Attending Unavailable KARISSA CARLIN Attending Unavailable LEONOR OMER Referring Unavailable TELLO CAMPA Attending Unavailable MEGHAN YEUNG Attending Unavailable DOMINGA MCCARTHY Attending Unavailable MANUELA HODGE Attending Unavailable Devante Murphy PA-C Primary Care Provider [phone] Allergies Allergy Classification Reported Allergen(s) Allergy Type Date of Onset Reaction(s) Facility (20 sources) Cortisone; Translations: [CORTISONE] Drug Allergy 0 Nausea Only, Nausea [facility] Repository (2 sources) Triamcinolone Drug Allergy Unknown [facility] Other (1 source) lamoTRIgine; Translations: [LAMOTRIGINE] Drug Allergy 1 [facility] Repository Medications Current Medications Medication Drug Class(es) Dates Sig (Normalized) Sig (Original) amitriptyline hydrochloride 50 mg oral tablet (16 sources) Tricyclic Antidepressant Start: 01-19-2024 take 1 tablet by mouth at bedtime amitriptyline (Elavil) 50 MG tablet Take 50 mg by mouth at bedtime 01/19/2024 Active aspirin 81 mg delayed release oral tablet (20 sources) Platelet Aggregation Inhibitor, Nonsteroidal Anti-inflammatory Drug Start: 03-28-2023 take 1 tablet by mouth in the morning aspirin 81 mg Take 1 tablet (81 mg total) by mouth in the morning. 30 tablet 2 03/28/2023 Active Aspirin 81 MG as directed Orally Not-Taking atorvastatin 40 mg oral tablet (20 sources) HMG-CoA Reductase Inhibitor Start: 04-01-2020 take 1 tablet by mouth once daily atorvastatin (LIPITOR) 40 mg tablet Take 1 tablet (40 mg total) by mouth nightly. 04/01/2020 Active baclofen 20 mg oral tablet (19 sources) gamma-Aminobutyr ic Acid-ergic Agonist Start: 04-14-2020 take 0.5 tablet by mouth in the morning, then take 0.5 tablet by mouth at bedtime baclofen (LIORESAL) 20 mg tablet Take 0.5 tablets (10 mg total) by mouth in the morning and 0.5 tablets (10 mg total) before bedtime. 04/14/2020 Active End: 07-17-2024 baclofen (Lioresal) 20 MG ta blet 07/17/2024 Discontinued (Therapy completed) take 5 mL by mouth e very eight hours at mealtime Baclofen 5 MG/5ML 5 ml with food or milk Orally every 8 hrs Not-Taking Baclofen 10 MG/2 0ML as directed Intrathecal Not-Taking onabotulinumtoxina 200 unt injection (2 sources) Acetylcholine Release Inhibitor Start: 09-26-2024 End: 09-26-2024 onabotulinumtoxinA (Botox) injection 200 Units Start: 09-26-2024 End: 09-26-2024 inject 200 [IU] by intramuscular injection once 200 Units, Intramuscular, Once, On Tue09/26/24 at 1345, For 1 dose, Charging context for this clinic-administered medication: Medically Necessary/Insurance cephalexin 500 mg oral capsule (1 source) Cephalosporin Antibacterial Start: 05-30-2023 take 1 capsule by mouth every eight hours Cephalexin 500 MG 1 capsule Orally tid for 7 days May, Active cyclobenzaprine hydrochloride 10 mg oral tablet (11 sources) Muscle Relaxant Start: 05-14-2024 take 1 tablet by mouth twice daily as needed cyclobenzaprine (Flexeril) 10 MG tablet Take 10 mg by mouth 2 (two) times a day as needed 05/14/2024 Active DULoxetine 60 mg delayed release oral capsule (15 sources) Serotonin and Norepinephrine Reuptake Inhibitor Start: 12-22-2022 End: 07-17-2024 take 1 capsule by mouth in the morning DULoxetine (CYMBALTA) 60 mg capsule Take 1 capsule (60 mg total) by mouth in the morning. 12/22/2022 Active ergocalciferol 1.25 mg oral capsule (19 sources) Provitamin D2 Compound Start: 11-23-2022 take 1 capsule by mouth every week ergocalciferol (Vitamin D2) 1.25 MG (33573 UT) capsule Take 1 capsule by mouth 1 (one) time per week 12/21/2023 Active famotidine 20 mg oral tablet (16 sources) Histamine-2 Receptor Antagonist Start: 04-12-2024 Pepcid 20 MG tablet every 12 (twelve) hours 04/12/2024 Active fluticasone propionate 0.05 mg/actuat metered dose nasal spray (18 sources) Corticosteroid Start: 04-12-2024 take 1 spray(s) nasal route once daily fluticasone (Flonase) 50 MCG/ACT nasal spray INSTILL 1 SPRAY IN EACH NOSTRIL ONCE DAILY FOR 14 DAYS 04/12/2024 Active take 2 spray(s) nasal route once daily Fluticasone Propionate 50 MCG/ACT instill 2 sprays into each nostril once daily Nasal for 30 Not-Taking gabapentin 400 mg oral capsule (15 sources) Anti-epileptic Agent Start: 06-13-2020 End: 07-17-2024 take 1 capsule by mouth in the morning gabapentin (NEURONTIN) 400 mg capsule Take 1 capsule (400 mg total) by mouth in the morning and 1 capsule (400 mg total) before bedtime. Patient takes 400 mg in the morning and 800 mg at night. 06/13/2020 Active hydrocortisone 25 mg/ml topical cream (11 sources) Corticosteroid Start: 06-19-2024 hydrocortisone 2.5 % cream APPLY ONE APPLICATION VIA EXTERNAL ROUTE NEEDED FOR 10 DAYS 06/19/2024 Active hydrOXYzine pamoate 25 mg oral capsule (17 sources) Antihistamine Start: 01-19-2024 take 1 capsule by mouth in the morning hydrOXYzine pamoate (Vistaril) 25 MG capsule Take 25 mg by mouth in the morning and 25 mg before bedtime. 01/19/2024 Active ibuprofen 600 mg oral tablet (16 sources) Nonsteroidal Anti-inflammatory Drug Start: 06-28-2024 take 1 tablet by mouth three times daily at mealtime ibuprofen 600 MG tablet TAKE ONE TABLET BY MOUTH THREE TIMES A DAY WITH FOOD OR WITH MILK 06/28/2024 Active Start: 10-28-2022 take 1 tablet by tyshawn th twice daily at mealtime as needed Ibuprofen 400 MG 1 tablet with food or milk as needed Orally twice a day as needed for 7 days Oct, Not-Taking take 1 tablet by tyshawn th every six hours as needed for pain ibuprofen (MOTRIN) 600 mg tablet Take 1 tablet (600 mg total) by mouth every 6 (six) hours as needed for pain. Active take 1 tablet by tyshawn th three times daily at mealtime as needed Ibuprofen 600 MG 1 tablet with food or milk as needed Orally Three times a day Active lamoTRIgine 100 mg oral tablet (20 sources) Mood Stabilizer, Anti-epileptic Agent Start: 11-23-2022 End: 12-19-2024 take 1 tablet by mouth in the morning lamoTRIgine (LaMICtal) 100 MG tablet Indications: Partial symptomatic epilepsy with complex partial seizures, intractable, without status epilepticus (CMS/HCC) TAKE 1 TABLET (100 MG) BY MOUTH IN THE MORNING AND 1 TABLET (100 MG) BEFORE BEDTIME. 56 tablet 2 09/20/2024 12/19/2024 Active melatonin 5 mg oral tablet (20 sources) Start: 12-21-2023 take 1 tablet by mouth at bedtime melatonin 5 MG tablet Take 5 mg by mouth at bedtime 12/21/2023 Active Start: 11-23-2022 take 1 tablet by tyshawn th 30 minutes before bedtime as needed melatonin 5 mg tablet, IR & ER, biphasic TAKE 1 TABLET BY MOUTH 30 MINUTES before bedtime NEEDED 11/23/2022 Active take 1 tablet by tyshawn th once daily in the evening Melatonin 5 MG 1 tablet in the evening Orally Once a day Active Multiple Vitamin (Multivitamin) tablet (16 sources) Start: 01-19-2024 take 1 tablet by mouth once daily Multiple Vitamin (Multivitamin) tablet Take 1 tablet by mouth Daily 01/19/2024 Active Multivitamin preparation (2 sources) Multivitamin - a s directed Orally Active omeprazole 40 mg delayed release oral capsule (2 sources) Proton Pump Inhibitor Start: 10-28-2022 take 1 capsule by mouth once daily Omeprazole 40 MG 1 capsule 30 minutes before morning meal Orally Once a day for 90 days Oct, Active tamsulosin hydrochloride 0.4 mg oral capsule (11 sources) alpha-Adrenergi c Marly Start: 06-18-2024 take 1 capsule by mouth once daily tamsulosin (Flomax) 0.4 MG 24 hr capsule Take 0.4 mg by mouth Daily 06/18/2024 Active traMADol hydrochloride 50 mg oral tablet (2 sources) Opioid Agonist take 1 tablet by mouth every twenty-four hours traMADol HCl 50 MG 1 tablet as needed Orally Once a day Active traZODone hydrochloride 150 mg oral tablet (5 sources) Serotonin Reuptake Inhibitor take 1 tablet by mouth once daily traZODone (DESYREL) 150 mg tablet Take 150 mg by mouth nightly. Active take 1 tablet by tyshawn th every twenty-four hours traZODone HCl 50 MG 1 tablet at bedtime as needed Orally Once a day Active Tylenol PM Extra Strength (2 sources) Tylenol PM Extra Strength Active Vitamin D (2 sources) Vitamin D Active Completed/Discontinued Medications Medication Drug Class(es) Dates Sig (Normalized) Sig (Original) buPROPion hydrochloride 75 mg oral tablet (2 sources) Aminoketone take 1 tablet by mouth once daily in the morning buPROPion HCl 75 MG take 1 tablet by mouth every morning Oral for 30 Not-Taking escitalopram 10 mg oral tablet (10 sources) Serotonin Reuptake Inhibitor Start: 01-19-2024 End: 07-17-2024 take 1 tablet by mouth once daily escitalopram (Lexapro) 10 MG tablet Take 10 mg by mouth Daily 01/19/2024 07/17/2024 Discontinued (Therapy completed) levETIRAcetam 1000 mg oral tablet (2 sources) take 0.5 tablet by mouth once daily in the morning levETIRAcetam 1000 MG 1/2 TAB Orally QAM Not-Taking Triamcinolone (2 sources) Corticosteroid Start: 11-15-2019 Kenalog -40 mg Oct, 40 mg Problems Active Problems Problem Classification Problem Date Documented Date Episodic/Chronic Abdominal pain (2 sources) Left upper quadrant pain; Translations: [Left upper quadrant pain] Episodic Acute cerebrovascular disease (20 sources) Cerebral infarction due to unspecified occlusion or stenosis of right middle cerebral artery; Translations: [Cerebrovascular accident due to occlusion of right middle cerebral artery] Onset: 08-30-2019 Chronic Anxiety disorders (14 sources) Mixed anxiety and depressive disorder; Translations: [Anxiety disorder, unspecified] Onset: 07-05-2024 07-05-2024 Chronic Blindness and vision defects (3 sources) Visual impairment; Translations: [Unspecified visual loss] Onset: 01-03-2023 01-03-2023 Chronic Blindness and vision defects (4 sources) Eye / vision finding; Translations: [Unspecified visual disturbance] 10-24-2024 Episodic Calculus of urinary tract (10 sources) Kidney stone; Translations: [Calculus of kidney] Onset: 11-10-2020 10-01-2024 Episodic Disorders of lipid metabolism (3 sources) Hyperlipidemia; Translations: [Hyperlipidemia, unspecified] Onset: 01-03-2023 01-03-2023 Chronic Epilepsy; convulsions (20 sources) Partial epilepsy with impairment of consciousness; Translations: [Localization-related (focal) (partial) symptomatic epilepsy and epileptic syndromes with complex partial seizures, intractable, without status epilepticus] Onset: 09-23-2020 06-24-2024 Chronic Essential hypertension (3 sources) Hypertensive disorder; Translations: [Essential (primary) hypertension] Onset: 01-03-2023 01-03-2023 Chronic Late effects of cerebrovascular disease (7 sources) Hemiplegia and hemiparesis following cerebral infarction affecting left non-dominant side; Translations: [Other sequelae of cerebral infarction] Onset: 12-23-2020 Chronic Malaise and fatigue (4 sources) Weakness; Translations: [WEAKNESS] Onset: 12-30-2022 Episodic Miscellaneous mental health disorders (2 sources) Primary insomnia; Translations: [Primary insomnia] 07-10-2024 Chronic Mood disorders (7 sources) Moderate recurrent major depression; Translations: [Major depressive disorder, recurrent, moderate] Onset: 09-23-2020 07-12-2024 Chronic Other and ill-defined cerebrovascular disease (15 sources) Cerebrovascular disease; Translations: [Cerebrovascular disease, unspecified] Onset: 09-23-2020 07-05-2024 Chronic Other connective tissue disease (2 sources) Cramp and spasm; Translations: [Cramp and spasm] Onset: 03-24-2023 Episodic Other nervous system disorders (2 sources) Chronic pain; Translations: [Other chronic pain] Chronic Other nervous system disorders (16 sources) Central pain syndrome; 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] Onset: 01-19-2024 06-24-2024 Chronic Other nervous system disorders (12 sources) Cerebral edema; Translations: [Cerebral edema] Onset: 08-20-2019 07-05-2024 Chronic Other nervous system disorders (12 sources) Cognitive deficit in communication skills; Translations: [Cognitive communication deficit] Onset: 08-31-2019 07-05-2024 Chronic Other nervous system disorders (2 sources) Impaired cognition; Translations: [Other symptoms and signs involving cognitive functions and awareness] 07-10-2024 Episodic Other upper respiratory disease (2 sources) Vocal fatigue; Translations: [Other voice and resonance disorders] 07-17-2024 Episodic Paralysis (20 sources) Spastic hemiplegia; Translations: [Spastic hemiplegia affecting left nondominant side] Onset: 01-19-2024 01-19-2024 Chronic Residual codes; unclassified (4 sources) Obstructive sleep apnea (adult) (pediatric); Translations: [OBSTRUCTIVE SLEEP APNEA] Onset: 11-23-2022 Chronic Residual codes; unclassified (1 source) Primary central sleep apnea; Translations: [PRIMARY CENTRAL SLEEP APNEA] Onset: 11-25-2022 Chronic Residual codes; unclassified (16 sources) Daytime somnolence; Translations: [Other hypersomnia] Onset: 01-19-2024 06-24-2024 Chronic Residual codes; unclassified (16 sources) Central sleep apnea syndrome; Translations: [Primary central sleep apnea] Onset: 01-19-2024 06-24-2024 Chronic Residual codes; unclassified (20 sources) Obstructive sleep apnea syndrome; Translations: [Obstructive sleep apnea (adult) (pediatric)] Onset: 01-19-2024 01-19-2024 Chronic Skin and subcutaneous tissue infections (1 source) Cellulitis of right finger Episodic Spondylosis; intervertebral disc disorders; other back problems (4 sources) Prolapsed cervical intervertebral disc; Translations: [Other cervical disc displacement, unspecified cervical region] Chronic Unclassified (1 source) Chest Pain; Back Pain Onset: 03-01-2024 Past or Other Problems Problem Classification Problem Date Documented Da te Episodic/Chronic Cardiac dysrhythmias (12 sources) Bradycardia; Translations: [Bradycardia, unspecified] Onset: 08-30-2019 07-05-2024 Episodic Deficiency and other anemia (12 sources) Anemia; Translations: [Anemia, unspecified] Onset: 08-27-2019 07-05-2024 Episodic Epilepsy; convulsions (3 sources) Seizure; Translations: [Unspecified convulsions] Onset: 01-03-2023 03-28-2023 Episodic Mood disorders (3 sources) Mood disorders Onset: 11-07-2020 11-07-2020 Nonspecific chest pain (2 sources) Chest pain, unspecified; Translations: [Chest pain] Onset: 03-01-2024 Episodic Other acquired deformities (12 sources) Acquired defect of skull; Translations: [Other acquired deformity of head] Onset: 10-22-2019 07-05-2024 Episodic Other circulatory disease (5 sources) History of cerebrovascular accident; Translations: [Personal history of transient ischemic attack (TIA), and cerebral infarction without residual deficits] Onset: 03-28-2023 07-17-2024 Episodic Other connective tissue disease (3 sources) Decreased muscle tone; Translations: [Other symptoms and signs involving the musculoskeletal system] Onset: 12-23-2020 12-23-2020 Episodic Other gastrointestinal disorders (14 sources) Dysphagia; Translations: [Dysphagia, unspecified] Onset: 07-05-2024 07-05-2024 Episodic Other nervous system disorders (3 sources) Spastic gait; Translations: [Paralytic gait] Onset: 12-23-2020 12-23-2020 Episodic Other nutritional; endocrine; and metabolic disorders (3 sources) Unintentional weight loss; Translations: [Abnormal weight loss] Onset: 12-23-2020 12-23-2020 Episodic Pancreatic disorders (not diabetes) (1 source) Acute pancreatitis without necrosis or infection, unspecified; Translations: [Acute pancreatitis without necrosis or infection, unspecified] Onset: 03-01-2024 Episodic Residual codes; unclassified (15 sources) Altered mental status; Translations: [Altered mental status, unspecified] Onset: 03-27-2023 07-05-2024 Episodic Unclassified (3 sources) Onset: 11-08-2020 11-08-2020 Results Test Name Value Interpretation Reference Range Facility CT ABDOMEN AND PELVIS WO CON Ton 10-31-2024 CT ABDOMEN AND PELVIS WO CONT CT ABDOMEN AND PELVIS WO CONT STUDY: UNENHANCED CT OF THE ABDOMEN AND PELVIS CLINICAL INFORMATION: Age/Gender: 54 years / Male History: Kidney stones PROCEDURE: CT examination of the abdomen and pelvis was performed without intravenous contrast. Enteric contrast was not administered. All CT scans at this facility use dose modulation, iterative reconstruction, and/or weight based dosing when appropriate to reduce radiation dose to as low as reasonably achievable. COMPARISON: CT abdomen pelvis 03/01/2024. FINDINGS: The lack of intravenous contrast limits evaluation of the viscera. LOWER THORAX: Unremarkable LIVER: Normal in size and configuration. No suspicious mass within the limits of an unenhanced exam. BILE DUCTS: No intrahepatic or extrahepatic bile duct dilation. GALLBLADDER: No calcified stones. Normal wall thickness. PANCREAS: Unremarkable. No main pancreatic duct dilation. SPLEEN: Unremarkable. ADRENAL GLANDS: Unremarkable. KIDNEYS/URETERS: No hydroureteronephrosis . Punctate calcifications seen in the left interpolar and lower poles. BLADDER: Decompressed limiting evaluation. REPRODUCTIVE ORGANS: Normal size prostate. Symmetric seminal vesicles. BOWEL: No disproportionate dilation of the small or large bowel. The appendix was not visualized, however there is no acute inflammatory process in the right lower quadrant. PERITONEUM/RETROPERIT ONEUM: No fluid collection, ascites, or pneumoperitoneum. LYMPH NODES: No abdominal or pelvic lymphadenopathy. VESSELS: No abdominal aortic aneurysm. Mild atherosclerotic aortic calcification ABDOMINAL/PELVIC WALL: Unremarkable. BONES: No suspicious osseous lesions. Bilateral L5 pars defects. No spondylolisthesis. Moderate degenerative changes of the lumbosacral region. IMPRESSION: Left punctate nonobstructive nephrolithiasis. No hydronephrosis Finalized by Jadon Buck MD on 10/31/2024 9:10 AM Normal [facility] KIDNEY STONE ANALYSISon 09-19 SOURCE: Passed Stone Normal [facility] Comment on above: Result Comment: Jeremy ected on 10/05 AT 1325: Previously reported as PASSED STONE Stone Interpretation Silica. Normal [facility] Comment on above: Result Comment: NOTE ADDITIONAL INFORMATION This test was developed and its performance characteristics determined by [facility] in a manner consistent with CLIA requirements. This test has not been cleared or approved by the U.S. Food and Drug Administration. Test Performed by: [facility] [address] [id number] General Production Worker: Yaneli Reynoso Ph.D.; CLIA# [id number] [facility] LAMOTRIGINEon 05-30-2024 LAMOTRIGINE (LAMICTAL), SERUM 6.2 ug/mL 2.0 - 20.0 ug/mL [facility] Comment on above: Detection Limit = 1. 0 Performed at: [address] [id number] General Production Worker: Santana Lubin MD, Phone: [phone] [facility] CBC AND AUTO DIFFon 03-01-20 ABSOLUTE BASOPHIL 0.1 X10E9/L Normal 0.0-0.2 [facility] Comment on above: Performed By: #### C BCA, CMP, 3040-3, 58617-2, 09828-6 #### [facility] ([id number]) [address] [place] [address] ABSOLUTE NEUTROPHIL 3.7 X10E9/L Normal 1.5-6.6 [facility] Comment on above: Performed By: #### C AKANKSHA, CMP, 0-3, , 57060-9 #### [facility] ([id number]) [address] [place] [address] Basophils/100 WBC (Bld) 0.9 % Normal [facility] Comment on above: Performed By: #### C AKANKSHA, CMP, 03, , 88089-5 #### [facility] ([id number]) [address] [place] [address] Eosinophils (Bld) [#/Vol] 0.1 10*3/uL Normal 0.0-0.4 [facility] Comment on above: Performed By: #### C AKANKSHA, CMP, 3, , 60280-1 #### [facility] ([id number]) [address] [place] [address] Eosinophils/100 WBC (Bld) 2.2 % Normal [facility] Comment on above: Performed By: #### C AKANKSHA, CMP, 3, , 28998-5 #### [facility] ([id number]) [address] [place] [address] Erythrocyte distribution width (RBC) [Ratio] 14.9 % Normal 11.5-15.0 [facility] Comment on above: Performed By: #### C AKANKSHA, CMP, 0-3, , 83696-8 #### [facility] ([id number]) [address] [place] [address] Hematocrit (Bld) [Volume fraction] 37.9 % Low 39-49 [facility] Comment on above: Performed By: #### C BCA, CMP, 0-3, , 09116-8 #### [facility] ([id number]) [address] [place] [address] 74733 Hemoglobin (Bld) [Mass/Vol] 13.0 g/dL Normal 13.0-17.0 [facility] Comment on above: Performed By: #### C MAHOGANY VALE, 3, , 73788-2 #### [facility] ([id number]) [address] [place] [address] Lymphocytes (Bld) [#/Vol] 2.1 10*3/uL Normal 1.0-3.5 [facility] Comment on above: Performed By: #### C MAHOGANY VALE, 3, , 29745-3 #### [facility] ([id number]) [address] [place] [address] 6[address] Lymphocytes/100 WBC (Bld) 30.5 % Normal [facility] Comment on above: Performed By: #### C AKANKSHA, MAHOGANY, 3, , 88168-2 #### [facility] ([id number]) [address] [place] [address]653 MCH (RBC) [Entitic mass] 27.7 pg Normal 27-34 [facility] Comment on above: Performed By: #### C AKANKSHA, CMP, 3, , 72769-5 #### [facility] ([id number]) [address] [place] [address] 30030 MCHC (RBC) [Mass/Vol] 34.2 g/dL Normal 32-[address] [facility] Comment on above: Performed By: #### C AKANKSHA, CMP, 3039-3, , 40740-7 #### [facility] ([id number]) [address] [place] [address] 36138 MCV (RBC) [Entitic vol] 81 fL Normal 80-100 [facility] Comment on above: Performed By: #### C AKANKSHA, CMP, 3040-3, 96257-8, 06191-0 #### [facility] ([id number]) [address] [place] [address] 96773 Monocytes (Bld) [#/Vol] 0.7 10*3/uL Normal 0-0.9 [facility] Comment on above: Performed By: #### C BCA, CMP, 3040-3, , 81591-6 #### [facility] ([id number]) [address] [place] [address] 15820 Monocytes/100 WBC (Bld) 11.1 % Normal [facility] [facility] Comment on above: Performed By: #### Júnior VALE, CMP, 3040-3, , 05654-7 #### [facility] ([id number]) [address] [place] [address]69 Neutrophils/100 WBC (Bld) 55.3 % Normal [facility] Comment on above: Performed By: #### Júnior BCA, CMP, 3040-3, , 85795-9 #### [facility] ([id number]) [address] [place] [address] 33160 Platelet mean volume (Bld) [Entitic vol] 8.6 fL Normal 7-12 [facility] Comment on above: Performed By: #### Júnior BCA, CMP, 3040-3, , 92257-2 #### [facility] ([id number]) [address] [place] [address] 02978 Platelets (Bld) [#/Vol] 283 10*3/uL Normal 150-450 [facility] Comment on above: Performed By: #### Júnior BCA, CMP, 3040-3, , 52075-4 #### [facility] ([id number]) [address] [place] [address] 00380 RBC COUNT 4.67 X10E12/L Normal 4.10-5.70 [facility] Comment on above: Performed By: #### C BCA, CMP, 3040-3, 46219-7, 30210-9 #### [facility] ([id number]) [address] [place] [address] 72340 WBC (Bld) [#/Vol] 6.7 10*3/uL Normal 4.0-11.0 [facility] Comment on above: Performed By: #### C BCA, CMP, 3040-3, , 42766-2 #### [facility] ([id number]) [address] [place] [address] COMPREHENSIVE METABOLIC PANE [facility] 03-01-2024 Albumin [Mass/Vol] 4.0 g/dL Normal 3.2-5.3 [facility] Comment on above: Performed By: #### C BCA, CMP, 3040-3, 58548-6, 64374-5 #### [facility] ([id number]) [address] [place] [address]506 ALP [Catalytic activity/Vol] 87 U/L Normal 39-130 [facility] Comment on above: Performed By: #### C BCA, CMP, 3040-3, 93679-2, 62821-3 #### [facility] ([id number]) [address] [place] [address] 54800 ALT [Catalytic activity/Vol] 33 U/L Normal 0-40 [facility] Comment on above: Performed By: #### C BCA, CMP, 3040-3, 41465-4, 72338-9 #### [facility] ([id number]) [address] [place] [address] 63828 Anion gap [Moles/Vol] 6 mmol/L Normal 5-15 [facility] Comment on above: Performed By: #### C BCA, CMP, 3040-3, 36855-7, 82279-4 #### [facility] ([id number]) [address] [place] [address] 17515 AST [Catalytic activity/Vol] 23 U/L Normal 0-41 [facility] Comment on above: Performed By: #### C BCA, CMP, 3040-3, 62443-0, 51735-8 #### [facility] ([id number]) [address] [place] [address] 21176 Bilirubin [Mass/Vol] 0.9 mg/dL Normal 0.3-1.2 [facility] Comment on above: Performed By: #### C BCA, CMP, 3040-3, 19596-7, 64500-1 #### [facility] ([id number]) [address] [place] [address] 16842 Calcium [Mass/Vol] 9.3 mg/dL Normal 8.5-10.5 [facility] Comment on above: Performed By: #### C BCA, CMP, 3040-3, 37601-1, 76222-8 #### [facility] ([id number]) [address] [place] [address] 68771 Chloride [Moles/Vol] 104 mmol/L Normal 98-109 [facility] Comment on above: Performed By: #### C BCA, CMP, 3040-3, 20779-0, 44325-0 #### [facility] ([id number]) [address] [place] [address] 17825 CO2 [Moles/Vol] 27 mmol/L Normal 22-32 [facility] Comment on above: Performed By: #### C BCA, CMP, 3040-3, 68041-8, 51443-9 #### [facility] ([id number]) [address] [place] [address] 52091 Creatinine [Mass/Vol] 1.08 mg/dL Normal 0.70-1.[address] [facility] Comment on above: Result Comment: METH OD TRACEABLE TO IDMS STANDARD Performed By: #### C MAHOGANY VALE, 3040-3, 39509-8, 23539-6 #### [facility] ([id number]) [address] [place] [address] 62970 GFR/1.73 sq M.predicted among non-blacks MDRD (S/P/Bld) [Vol rate/Area] 82 mL/min/{1.73_m2} Normal >59 [facility] Comment on above: Result Comment: Reported eGFR is based on the CKD-EPI 2020 equation that does not use a race coefficient. Performed By: #### C MAHOGANY VALE, 3040-3, 86426-6, 63964-9 #### [facility] ([id number]) [address] [place] [address] 13760 Glucose [Mass/Vol] 99 mg/dL Normal 65-99 [facility] Comment on above: Performed By: #### C AKANKSHA CMP, 3040-3, , 06737-1 #### [facility] ([id number]) [address] [place] [address] 04711 Potassium [Moles/Vol] 4.1 mmol/L Normal 3.5-5.[address] [facility] Comment on above: Performed By: #### C AKANKSHA, CMP, 3040-3, 53571-1, 65282-1 #### [facility] ([id number]) [address] [place] [address] 40025 Protein [Mass/Vol] 7.5 g/dL Normal 6.0-8.0 [facility] Comment on above: Performed By: #### C AKANKSHA, CMP, 3040-3, 97332-0, 63202-0 #### [facility] ([id number]) [address] [facility], [place] [address] Sodium [Moles/Vol] 137 mmol/L Normal 134-146 [facility] Comment on above: Performed By: #### C BCA, CMP, 3040-3, 82319-3, 85135-6 #### [facility] ([id number]) [address] [place] [address] Urea nitrogen [Mass/Vol] 17 mg/dL Normal 5-23 [facility] Comment on above: Performed By: #### C BCA, CMP, 3040-3, 64102-0, 67837-7 #### [facility] ([id number]) [address] [place] [address] CT CTA ABD AND PELVISon 02-17 CT [...] lesions. IMPRESSION: No acute findings. Finalized by Terry Saenz MD on 03/01/2024 6:11 PM Normal [facility] CT CTA CHESTon 03-01-2024 CT CTA CHEST [...] lesions. IMPRESSION: No significant findings. Finalized by Terry Saenz MD on 03/01/2024 6:08 PM Normal [facility] LIPASEon 03-01-2024 Lipase [Catalytic activity/Vol] 98 U/L High 17-40 [facility] Comment on above: Performed By: #### C AKANKSHA CMP, 3040-3, 30034-7, 61646-1 #### [facility] ([id number]) [address] [place] [address] 50861 MAGNESIUMon 03-01-2024 Magnesium [Mass/Vol] 2.1 mg/dL Normal 1.8-2.6 [facility] Comment on above: Performed By: #### C AKANKSHA CMP, 3040-3, 01997-7, 91471-8 #### [facility] ([id number]) [address] [place] [address] 84221 Troponin I.cardiac High sens itivity method [Mass/Vol]on 03-01-2024 1 HOUR TROP I, HIGH SENSITIVITY 3 ng/L Normal <21 [facility] Comment on above: Performed By: #### 8 9579-7 #### [facility] ([id number]) [address] [place] [address] 32135 TROPONIN I, HIGH SENSITIVITY 3 ng/L Normal <21 [facility] Comment on above: Performed By: #### C AKANKSHA, CMP, 3040-3, 03291-3, 36200-3 #### [facility] ([id number]) [address] [place] [address] 06211 Clinical Supporton 09-11-202 3 Clinical Support [id number] Addison Najera 1970 M Date Provider Department Center 05/30/2023 CASPER SERNA MP OT Medical Pavi No family history on file Normal [facility] Office Visiton 05-30-2023 Follow-up visit [id number] Addison Najera 1970 M Date Provider Department [place] 05/30/2023 TERRY HUMMEL MP PHYS MED Medical Pavi No family history on file Level of Service:50793 [place] OFFICE/OUTPATIENT [facility] MDM 45-59 MINUTES (GC) Reason for Visit and Comments: [facility] [Other] Normal [facility] ED Clinical Summaryon 2018 ED Clinical Summary [address] [id number] ED Clinical Summary Person Information Name: Addison Najera Xochitl/[facility] Age: 49 Years : 1970 Sex: Male PCP: Marital Status: Unknown Race: White Ethnicity: Not or Language: Argentine Visit Reason: Potential stroke; Bradycardia; Seizure - Recurrent; Stroke Acuity: 2 Enc Type: Emergency Med Service: Emergency Medicine Arrival: 08/20/2019 15:59:03 Discharge: 08/21/2019 00:26:00 LOS: 000 08:27 Checkin: 08/20/2019 15:59:03 Checkout: 08/21/2019 00:26:00 Dispo Type: Transfer to [facility] Hospital Address: [address] [place] [address] Provider Notes: History of Present Illness ? [...] range between ( 27.2 and 40.8 ) [place] Auto: 6.5 % -- Normal range between [...] range between ( 41.0 and 53.0 ) [place] Absolute: 0.9 x10 MCH: 29.5 pg -- [...] of Care, Recurrent seizures Patient Education Information: [facility] Poison Help line: . [facility] Hotline: [place] Tobacco Quit Line: [place], [place]) [address]: [phone] [place], [place]) [address]: [phone] [facility] [address] [place], [place]: [phone] [facility] ED Note-Nursingon 08-21-2019 ED Note-Nursing Disposition [facility] unable to be completed due to pt being intubated and sedated Electronically signed by Jared Joyce 08/21/19 00:01 EST [facility] ED Note-Nursing PT to be transported by [facility] ems ETA 1 hour Electronically signed by Jared Joyce 08/20/19 22:41 EST [facility] ED Note-Nursing 08.20.2019 21:40Writer spoke with Aster Mcwilliams to discuss transfer options for patient. At this time [facility] and [facility] not able to send an EMS to come get the patient due to not having an EMS available. [facility] not flying due to weather. 2149:Continuous Improvement Analyst called [facility] and spoke with Mauri and asked if the patient could go by [facility] if a nurse was able to go along and titrate the propofol drip. Mauri reports that they would be able to do that with a nurse from the ED and their crew. 2209: Continuous Improvement Analyst spoke with She CARRILLO [facility] and she reports she has enough staffing to send Jared CARRILLO who has agreed to ride along. 2214: Continuous Improvement Analyst spoke with Farm Demonstrator Elaine about calling admin pensionholder information clerk to confirm that this is able to happen sending ED RN with EMS. 2231: Elaine informed administrative underwriter that Admin pensionholder information clerk said to send ED RN with [employer] crew because it is whats best for the patient. 2234- Continuous Improvement Analyst informed Mauri from [facility] that [facility] ED RN Jared will ride along with patient to [facility]. Mauri reports that a squad can be at the hospital around 2335. Continuous Improvement Analyst informed Aster Sec this and she is calling [facility] to inform them of this. Electronically signed by Sara Hawkins 08/20/19 22:43 EST Normal [facility] ED Note-Nursing At this time still arranging for transfer of pt to [facility] Electronically signed by Jared Joyce 08/20/19 22:01 EST Normal [facility] ED Note-Physicianon 08-21-20 ED Note-Physician Chief Complaint pt called for weakness to home for ongong seizure. Pt hx of epilepsy with seizure starting at 1230 pm. Pt reports weakness to left side. Pt also noted with heart rate of 32. Atropin 0.5 IVP x 2 doses administered per [employer] [facility]. Pt not moving left side History [...] SAS Score Of 4, Dispense From Location: [place]-Pharmacy Problem List/Past Medical History Ongoing No qualifying [...] High Lymph Auto 08/20/19 16:32 11.8 Low [place] Auto 08/20/19 16:32 6.5 Eos Auto 08/20/19 16:32 0.7 Basophil Auto 08/20/19 16:32 0.6 Neutro Absolute 08/20/19 16:32 11.5 High Lymph Absolute 08/20/19 16:32 1.7 [place] Absolute 08/20/19 16:32 0.9 Eos Absolute 08/20/19 [...] Mauri Mata MD 08/21/19 00:04 EST Normal [facility] . Microscp 08-20-2019 RBC (U) [#/Vol] 1-4 Normal 0 - 5 [facility] Comment on above: Performed By: #### C [id number] ####[address] [address] UA WBC Qual Absent Normal 0 - 5 [facility] Comment on above: Performed By: #### C D:[id number] ####[address] [address] .eGFRon 08-20-2019 eGFR Non-AA >60 Normal >=60 [facility] Comment on above: Result Comment: Resu [...] dosing. Performed By: #### E GFR ####[address] [address] eGFR AA >60 Normal >=60 [facility] Comment on above: Result Comment: Resu lt = 0-14.9 mL/min/1.73 m2 Kidney failure or Dialysis Result = 15-29 mL/min/1.73 m2 Severe decrease in GFR Result = 30-59 mL/min/1.73 m2 Moderate decrease in GFR Result >= 60 mL/min/1.73 m2 Normal or increased GFR Performed By: #### E GFR ####[address] [address] Basic Metabolic Profileon Anion gap [Moles/Vol] 10 mmol/L Normal 7-17 [facility] Comment on above: Performed By: #### C D:[id number] ####[address] [address] Calcium [Mass/Vol] 8.9 mg/dL Normal 8.5-10.3 [facility] Comment on above: Performed By: #### C [id number] ####[address] [address] Chloride [Moles/Vol] 106 mmol/L Normal 98-110 [facility] Comment on above: Performed By: #### C D:[id number] ####[address] [address] CO2 [Moles/Vol] 24 mmol/L Normal 22-32 [facility] Comment on above: Performed By: #### C D:[id number] ####[address] [address] Creatinine [Mass/Vol] 1.02 mg/dL Normal 0.61-1.24 [facility] Comment on above: Performed By: #### C D:[id number] ####[address] [address] Glucose [Mass/Vol] 120 mg/dL High 74-118 [facility] Comment on above: Performed By: #### C D:[id number] ####[address] [address] Potassium [Moles/Vol] 3.8 mmol/L Normal 3.4-4.8 [facility] Comment on above: Performed By: #### C D:[id number] ####[address] [address] Sodium [Moles/Vol] 136 mmol/L Normal 133-142 [facility] Comment on above: Performed By: #### C D:[id number] ####[address] [address] Urea nitrogen [Mass/Vol] 21 mg/dL Normal 8-26 [facility] Comment on above: Performed By: #### C D:[id number] ####[address] [address] Urea nitrogen/Creatinine [Mass ratio] 20.6 mg/mg High 10.0-20.0 [facility] Comment on above: Performed By: #### C D:[id number] ####[address] [address] Blood Gas Arterialon 019 Base Excess Art -1.9 mEq/L Normal -2.0-2.0 [facility] Comment on above: Performed By: #### A BG ####[address] [address] BG Roger Test Satisfactory Normal [facility] Comment on above: Performed By: #### A BG ####[address] [address] BG Collection Site Lt Rad Normal [facility] Comment on above: Performed By: #### A BG ####[address] [address] BG Mode Assist Control Normal [facility] Comment on above: Performed By: #### A BG ####[place] 1898940 Carboxyhemoglobin Arterial 1.0 % total Normal 0.0-2.0 [facility] Comment on above: Performed By: #### A BG ####[address] [address] FiO2 Art 65 Normal [facility] Comment on above: Performed By: #### A BG ####[address] [address] Hb Totl Arterial 13.7 g% Normal 12.0-18.0 [facility] Comment on above: Performed By: #### A BG ####[address] [address] HbO2 Art 98 % total Normal 94-100 [facility] Comment on above: Performed By: #### A BG ####[address] [address] HCO3 Art 24 mEq/L Normal 21-27 [facility] Comment on above: Performed By: #### A BG ####[address] [address] Met Hb Arterial 0.8 % total Normal 0.0-2.0 [facility] Comment on above: Performed By: #### A BG ####[address] [address] O2 Meth O2 Normal [facility] Comment on above: Performed By: #### A BG ####[place] 1898940 pCO2 Art 45 mmHg Normal 35-45 [facility] Comment on above: Performed By: #### A BG ####[place] [address] PEEP 5.0 cmH20 Normal [facility] Comment on above: Performed By: #### A BG ####[place] [address] pH Art 7.34 Low 7.35-7.45 [facility] Comment on above: Performed By: #### A BG ####[place] 1898940 pO2 Art 361 mmHg High 80-100 [facility] Comment on above: Performed By: #### A BG ####[place] 1898940 Set Resp Rate 16 minutes Normal [facility] Comment on above: Performed By: #### A BG ####[place] [address] Set Tidal Vol 550 mL Normal [facility] Comment on above: Performed By: #### A BG ####[place] 1898940 Tot Resp Rate 16 minutes Normal [facility] Comment on above: Performed By: #### A BG ####[place] 1898940 CBC w/ Diffon 08-20-2019 Erythrocyte distribution width (RBC) [Ratio] 15.0 % High 11.6-14.8 [facility] Comment on above: Performed By: #### C BC #### [address] [address] Hematocrit (Bld) [Volume fraction] 40.5 % Low 41.0-53.0 [facility] Comment on above: Performed By: #### C BC #### [address] [address] Hemoglobin (Bld) [Mass/Vol] 13.3 g/dL Low 13.5-17.5 [facility] Comment on above: Performed By: #### C BC #### [address] [address] MCH (RBC) [Entitic mass] 29.5 pg Normal 27.0-35.0 [facility] Comment on above: Performed By: #### C BC #### [address] [address] MCHC (RBC) [Mass/Vol] 32.9 % Normal 31.0-37.0 [facility] Comment on above: Performed By: #### C BC #### [address] [address] MCV (RBC) [Entitic vol] 89.8 fL Normal 80.0-100.0 [facility] Comment on above: Performed By: #### C BC #### [address] [address] Platelet mean volume (Bld) [Entitic vol] 8.8 fL Normal 6.7-10.6 [facility] Comment on above: Performed By: #### C BC #### [address] [address] Platelets (Bld) [#/Vol] 287 x10*3/mcL Normal 150-350 [facility] Comment on above: Performed By: #### C BC #### [address] [address] RBC (Bld) [#/Vol] 4.50 x10*6/mcL Normal 4.30-5.80 [facility] Comment on above: Performed By: #### C BC #### [place] [address] [place] [address] WBC (Bld) [#/Vol] 14.3 x10*3/mcL High 4.5-11.0 [facility] Comment on above: Performed By: #### C BC #### [facility] [address] [place] [address] CT Angio Head Neck w/ Contra ston [...] sizable aneurysm, AVM, stenosis or occlusion. VARIANTS: [place] is normally developed. No other [...] with ER provider at approximately 5:50 PM [facility]. Radiation Dose Estimate: CTDI(mGy):0.009175 / / / kVp:120.558111 / mAs:0.883081 / / / DLP(mGy-cm):12.855498 Body Part: Head CTDI(mGy):0.657037 / / / kVp:120.223002 / mAs:0.173115 / / / DLP(mGy-cm):13.738048 Body Part: Head CTDI(mGy):5.139560 / / / kVp:120.283949 / mAs:39.567121 / / / DLP(mGy-cm):5.783360R sung Part: Head CTDI(mGy):75.848322 / / / kVp:120.846580 / mAs:39.360965 / / / DLP(mGy-cm):75.777092 Body Part: Head CTDI(mGy):45.452523 / / / kVp:140.469910 / mAs:262.228285 / / / DLP(mGy-cm):1751.7800 29Body Part: Head CTDI(mGy):0.369015 / / / kVp:120.513904 / mAs:0.003129 / / / DLP(mGy-cm):3.929715D sung Part: Head Final Dictated by: Thony Pedraza MD Dictated DT/TM: 08.20.2019 8:32 pm Signed by: Thony Pedraza MD Signed (Electronic Signature): 08.20.2019 8:51 pm (If Report Is Signed, Electronically Signed in Other Vendor System) Normal [facility] CT Brain w/o Contraston 12-0 CT [...] Cueva of the ED Radiation Dose Estimate: CTDI(mGy):0.566617 / / / kVp:120.653898 / mAs:0.755496 / / / DLP(mGy-cm):7.027808I sung Part: Head CTDI(mGy):47.420831 / / / kVp:120.448177 / mAs:190.458789 / / / DLP(mGy-cm):865.48844 7Body Part: Head Final Dictated by: Thony Almaraz MD Dictated DT/TM: 08.20.2019 4:27 pm Signed by: Thony Almaraz MD Signed (Electronic Signature): 08.20.2019 4:39 pm (If Report Is Signed, Electronically Signed in Other Vendor System) Normal [facility] Diff Autoon 08-20-2019 Baso Absolute 0.1 x10*3/mcL Normal 0.0-0.2 [facility] Comment on above: Performed By: #### . Automated Diff #### [address] [address] Basophils/100 WBC (Bld) 0.6 % Normal 0.0-1.2 [facility] Comment on above: Performed By: #### . Automated Diff #### [address] [address] Eos Absolute 0.1 x10*3/mcL Normal 0.0-0.4 [facility] Comment on above: Performed By: #### . Automated Diff #### [address] [address] Eosinophils/100 WBC (Bld) 0.7 % Normal 0.0-6.1 [facility] Comment on above: Performed By: #### . Automated Diff #### [address] [address] Lymphocytes (Bld) [#/Vol] 1.7 x10*3/mcL Normal 1.0-4.8 [facility] Comment on above: Performed By: #### . Automated Diff #### [address] [address] Lymphocytes/100 WBC (Bld) 11.8 % Low 27.2-40.8 [facility] Comment on above: Performed By: #### . Automated Diff #### [address] [address] [place] Absolute 0.9 x10*3/mcL Normal 0.3-1.1 [facility] Comment on above: Performed By: #### . Automated Diff #### [address] [address] Monocytes/100 WBC (Bld) 6.5 % Normal 4.7-13.9 [facility] Comment on above: Performed By: #### . Automated Diff #### [address] [address] Neutro Absolute 11.5 x10*3/mcL High 1.8-7.7 [facility] Comment on above: Performed By: #### . Automated Diff #### [address] [address] Neutro Auto 80.4 % High 47.2-70.8 [facility] Comment on above: Performed By: #### . Automated Diff #### [address] [address] ED Note-Nursingon 08-20-2019 ED Note-Nursing At this time, waitin g to transfer pt to [facility]. Electronically signed by Jared Joyce 08/20/19 21:07 EST Normal [facility] ED Note-Nursing OG tube advanced to 66cm at lip Electronically signed by Jared Joyce 08/20/19 20:45 EST Normal [facility] ED Note-Nursing pt sedated and prepared for CTA Electronically [facility] 08/20/19 20:05 EST [facility] ED Note-Nursing 5 mg versed ordered due to patient movement and thrashing in bed. 100 mcg Rocuronium ordered IVP per Dr. Cueva. Electronically signed by [facility] 08/20/19 20:05 EST [facility] ED Note-Nursing 5 mg versed ordered per IVP per Dr. Cueva due to patient movement and not remaining sedated after intubation Electronically signed by [facility] 08/20/19 20:04 EST [facility] ED Note-Nursing Pt intubated successfully. Pt is not sedated at this time after RSI medications administered. 4 point wrist restraints and propofol started at 40 mcg per [place] Electronically signed by [facility] 08/20/19 19:59 EST [facility] ED Note-Nursing pts behavior increasing with thrashing and moving with head and right side. Pt making incomprehensible sounds. No affect of sedation after ativan administration and haldol. Dr. Cueva in room. Prepare for intubation per verbal order Dr. Jimenez Electronically signed by Hungmickie Jennifer R 08/20/19 19:58 EST [facility] ED Note-Nursing Ativan 2 mg and [...] administered. Dr. Cueva notified Electronically signed by [facility] Jennifer R 08/20/19 18:35 EST [facility] ED Note-Nursing no further orders pe r Dr. Cueva Electronically signed by [facility]ha[facility]ima[facility] Jennifer R 08/20/19 17:26 EST [facility] ED Note-Nursing Primary nurse concerned for stroke due to NIH assesment. note for possible CTA or MRI orders requested. Sara CARRILLO notified Electronically signed by [facility]efanieibrahimaasc[facility] Jennifer R 08/20/19 17:24 EST [facility] ED Note-Nursing Continuous Improvement Analyst called into room per primary RN Agata for concerns of stroke and NIHSS of 17 with no CTA order. Continuous Improvement Analyst noted significant facial droop, slurred speech partial gaze to the left, left arm flaccid with minimal movement of left leg. Continuous Improvement Analyst tested sensation with the tip of an 18 gauge needle and patient was not aware of what leg was touched. When administrative underwriter would poke left leg patient states my right leg, Continuous Improvement Analyst than goes back out into the nurses station to inform Dr. Cueva of this consistent finding.since arrival via e-contratosmd. Continuous Improvement Analyst requested that Dr. Cueva go back to the room to assess the patient again. Continuous Improvement Analyst suggested a CTA at this time for the stroke like symptoms. Dr. Cueva agrees to this and enters patient room. Electronically signed by Sara Hawkins 08/20/19 21:35 EST Normal [facility] ED Note-Nursing pt noted to be becoming more pale and diaphoretic. Dr. Cueva in room to assess pt. Repeat EKG Electronically signed by Micheletgloriaradhaibrahimahuy Jennifer Gonzalez 08/20/19 17:15 EST Normal [facility] ED Note-Nursing Delay in patient getting to CT due to possible ST elevation on transport via e-contratosmd to [facility]. EKG obtained prior to CT per Dr. Cueva. Continuous Improvement Analyst verbalized to Dr. Cueva the stroke like symptoms. Continuous Improvement Analyst asked him if we should call [facility] for consult and Dr. Cueva shook his head no when consulting Dr. Light in regards to the EKG. Electronically signed by Sara Hawkins 08/20/19 21:42 EST Normal [facility] ED Note-Physicianon 08-20-20 ED Note-Physician Chief Complaint pt called for weakness to home for ongong seizure. Pt hx of epilepsy with seizure starting at 1230 pm. Pt reports weakness to left side. Pt also noted with heart rate of 32. Atropin 0.5 IVP x 2 doses administered per [facility] Ems. Pt not moving left side [...] evidence of acute STEMI was noted. The AK interval was found to be 169, QRS [...] occlusion of the right internal carotid artery. [facility] was contacted and recommended transfer to [...] 08/20/19 19:26 361 High HCO3 Art 08/20/19 19: 24 [...] High Lymph Auto 08/20/19 16:32 11.8 Low [place] Auto 08/20/19 16:32 6.5 Eos Auto 08/20/19 16:32 0.7 Basophil Auto 08/20/19 16:32 0.6 Neutro Absolute 08/20/19 16:32 11.5 High Lymph Absolute 08/20/19 16:32 1.7 [place] Absolute 08/20/19 16:32 0.9 Eos Absolute 08/20/19 [...] Amrik Cueva MD 08/22/19 07:39 EST Normal [facility] Ethanolon 08-20-2019 Ethanol [Mass/Vol] mg/dL Normal <=9 [facility] Comment on above: Result Comment: To c onvert mg/dL to g/dL, divide result by 1,000. Legal limit of intoxication is 80 mg/dL (0.08 g/dL). Performed By: #### A ####[place] [address] Hep Func Panelon 08-20-2019 Albumin [Mass/Vol] 3.9 g/dL Normal 3.2-4.9 [facility] Comment on above: Result Comment: [facility] Laboratory updated the methodology used for albumin testing on 04/26/18. Albumin measurement was performed using a bromcresol purple dye-binding assay. Performed By: #### L IVER #### [address] [address] Alk Phos 43 IU/L Normal 32-91 [facility] Comment on above: Performed By: #### L IVER #### [address] [address] ALT [Catalytic activity/Vol] 19 U/L Normal 17-63 [facility] Comment on above: Performed By: #### L IVER #### [address] [address] AST [Catalytic activity/Vol] 28 U/L Normal 15-41 [facility] Comment on above: Performed By: #### L IVER #### [address] [address] Bili Direct 0.3 mg/dL Normal 0.1-0.5 [facility] Comment on above: Performed By: #### L IVER #### [address] [address] Bili Indirect 0.9 mg/dL Normal 0.0-1.0 [facility] Comment on above: Performed By: #### L IVER #### [address] [address] Bili Total 1.2 mg/dL Normal 0.3-1.2 [facility] Comment on above: Performed By: #### L IVER #### [address] [address] Protein [Mass/Vol] 6.8 g/dL Normal 6.5-8.1 [facility] Comment on above: Performed By: #### L IVER #### [address] [address] Lactic Acid, Randomon 2018 Lactic Acid Lvl 1.2 mmol/L Normal 0.5-2.0 [facility] Comment on above: Performed By: #### L A ####[address] [address] Magnesiumon 08-20-2019 Magnesium [Mass/Vol] 1.9 mg/dL Normal 1.7-2.4 [facility] Comment on above: Performed By: #### M G #### [address] [address] POC Glucose Randomon 019 Glucose [Mass/Vol] 128 mg/dL High 78-110 [facility] Comment on above: Performed By: #### C [id number] ####[address] [address] Troponin-Ion 08-20-2019 Troponin I.cardiac [Mass/Vol] ng/mL Normal 0.00-0.03 [facility] Comment on above: Result Comment: An i ncreased Troponin-I value, in the absence of myocardial ischemia, may indicate other etiologies of cardiac damage. Performed By: #### T ROP ####[address] [address] UA w Culture if Indon 2018 Color (U) Yellow Normal [facility] Comment on above: Performed By: #### U CI ####[address] [address] Glucose (U) [Mass/Vol] Negative Normal Negative [facility] Comment on above: Performed By: #### U CI ####[address] [address] Ketones Ql (U) 20 mg/dL Abnormal Negative [facility] Comment on above: Performed By: #### U CI ####[address] [address] UA Blood Moderate Abnormal Negative [facility] Comment on above: Performed By: #### U CI ####[address] [place] [address] UA Clarity Clear Normal [facility] Comment on above: Performed By: #### U CI ####[address] [place] [address] UA Leukocyte Esterase Negative Normal Negative [facility] Comment on above: Performed By: #### U CI ####[address] [address] UA Nitrite Negative Normal Negative [facility] Comment on above: Performed By: #### U CI ####[address] [address] UA pH 5.0 Normal 4.5 - 7.8 [facility] Comment on above: Performed By: #### U CI ####[address] [address] UA Protein Negative Normal Negative [facility] Comment on above: Performed By: #### U CI ####[address] [address] UA Source Clean Catch Normal [facility] Comment on above: Performed By: #### U CI ####[address] [address] UA Spec Grav >1.060 High 1.003-1.035 [facility] Comment on above: Performed By: #### U CI ####[address] [address] UA Urobilinogen 0.2 mg/dL Normal 0.2 - 1.0 [facility] Comment on above: Performed By: #### U CI ####[address] [address] Urobilinogen Qn (U) Negative Normal Negative [facility] Comment on above: Performed By: #### U CI ####[address] [address] UDS Compon 08-20-2019 Creatinine [Mass/Vol] 151.8 mg/dL Normal [facility] Comment on above: Performed By: #### C [id number] ####[address] [address] Ur Amph Scrn Negative Normal NEG = <1000 [facility] Comment on above: Performed By: #### C [id number] ####[address] [address] Ur Mary Scrn Negative Normal NEG = <200 [facility] Comment on above: Performed By: #### C [id number] ####[address] [address] Ur Benzodia Scrn Negative Normal NEG = <200 [facility] Comment on above: Performed By: #### C [id number] ####[address] [address] Ur Cannab Scrn Positive Abnormal NEG = <50 [facility] Comment on above: Result Comment: This unconfirmed positive screening result is to be used for medical treatment purposes only. Unconfirmed screening results must not be used for non-medical purposes. (e.g. employment testing, legal testing). Performed By: #### C [id number] ####[address] [address] Ur Cocaine Scrn Negative Normal NEG = <300 [facility] Comment on above: Performed By: #### C [id number] ####[address] [address] Ur Methadone Scn Negative Normal NEG = <300 [facility] Comment on above: Performed By: #### C [id number] ####[address] [address] Ur Opiate Scrn Negative Normal NEG = <300 [facility] Comment on above: Performed By: #### C [id number] ####[address] [address] Ur Oxy Screen Negative Normal NEG = <100 [facility] Comment on above: Performed By: #### C [id number] ####[address] [address] Ur Oxy Scrn Qnt 4 ng/mL Normal <=99 [facility] Comment on above: Performed By: #### C [id number] ####[address] [address] Ur PCP Scrn Negative Normal NEG = <25 [facility] Comment on above: Performed By: #### C [id number] ####[address] [address] UA pH 5.0 Normal 4.5 - 7.8 [facility] Comment on above: Performed By: #### C [id number] ####[address] [address] UA Spec Grav >1.060 High 1.003-1.035 [facility] Comment on above: Performed By: #### C [id number] ####[address] [address] XR Chest 1 Viewon 08-20-2019 XR Chest [...] Electronically Signed in Other Vendor System) Normal [facility] XR Chest 1 View Procedure: Portable [...] Electronically Signed in Other Vendor System) Normal [facility] XR Chest 1 View Chest radiograph [...] Electronically Signed in Other Vendor System) Normal [facility] Vital Signs Date Time Vital Sign Value Performing Clinician Giselle black 10-24-2024 14:59-0500 Diastolic blood pressure 74 mm[Hg] Karissa Carlin NP Work Phone: [facility] 10-24-2024 14:59-0500 Heart rate 72 /min Karissa Carlin NP Work Phone: [facility] 10-24-2024 14:59-0500 Systolic blood pressure 131 mm[Hg] Karissa Carlin [employer]ER[employer] PROTOTYPING ENGINEER Work Phone: [facility] 10-17-2024 14:09-0500 Body height 188 cm Marycruz MOTA Work Phone: [facility] 10-17-2024 14:09-0500 Body mass index (BMI) [Ratio] 26.06 kg/m2 Marycruz MOTA Work Phone: [facility] 10-17-2024 14:09-0500 Body weight 92.08 kg Marycruz MOTA Work Phone: [facility] 10-17-2024 14:09-0500 Diastolic blood pressure 83 mm[Hg] Marycruz MOTA Work Phone: [facility] 10-17-2024 14:09-0500 Heart rate 86 /min Marycruz MOTA Work Phone: [facility] 10-17-2024 14:09-0500 Systolic blood pressure 125 mm[Hg] Marycruz MOTA Work Phone: [facility] 09-26-2024 13:18-0500 Diastolic blood pressure 72 mm[Hg] Manuela Nicole DO Work Phone: [facility] 09-26-2024 13:18-0500 Heart rate 82 /min Manuela Nicole DO Work Phone: [facility] 09-26-2024 13:18-0500 SaO2% (BldA) [Mass fraction] 95 % Manuela Nicole DO Work Phone: [facility] 09-26-2024 13:18-0500 Systolic blood pressure 100 mm[Hg] Manuela Nicole DO Work Phone: [facility] 07-17-2024 14:15-0400 Body height 188 cm Dominga Mccarthy MD Work Phone: [facility] 07-17-2024 14:15-0400 Body mass index (BMI) [Ratio] 26.32 kg/m2 Dominga Mccarthy MD Work Phone: [facility] 07-17-2024 14:15-0400 Body weight 92.99 kg Dominga Mccarthy MD Work Phone: [facility] 07-17-2024 14:15-0400 Diastolic blood pressure 80 mm[Hg] Dominga Mccarthy MD Work Phone: [facility] 07-17-2024 14:15-0400 Systolic blood pressure 144 mm[Hg] Dominga Mccarthy MD Work Phone: [facility] 07-10-2024 15:42-0400 Body height 188 cm Meghan Gillmor CAMERA PROTOTYPING ENGINEER Work Phone: [facility] 07-10-2024 15:42-0400 Body mass index (BMI) [Ratio] 26.83 kg/m2 Meghan Gillmor CAMERA PROTOTYPING ENGINEER Work Phone: [facility] 07-10-2024 15:42-0400 Body weight 94.8 kg Meghan Gillmor CAMERA PROTOTYPING ENGINEER Work Phone: [facility] 07-10-2024 15:42-0400 Diastolic blood pressure 78 mm[Hg] Meghan Gillmor CAMERA PROTOTYPING ENGINEER Work Phone: [facility] 07-10-2024 15:42-0400 Heart rate 80 /min Meghan Gillmor CAMERA PROTOTYPING ENGINEER Work Phone: [facility] 07-10-2024 15:42-0400 SaO2% (BldA) [Mass fraction] 92 % Meghan Gillmor CAMERA PROTOTYPING ENGINEER Work Phone: [facility] 07-10-2024 15:42-0400 Systolic blood pressure 122 mm[Hg] Meghan Gillmor CAMERA PROTOTYPING ENGINEER Work Phone: [facility] 07-04-2024 15:11-0400 Diastolic blood pressure 89 mm[Hg] Rajesher Katheryn DO Work Phone: [facility] 07-04-2024 15:11-0400 Heart rate 88 /min Christopher Katheryn DO Work Phone: [facility] [employer] 07-04-2024 15:11-0400 SaO2% (BldA) [Mass fraction] 95 % Tello Campa DO Work Phone: [facility] 07-04-2024 15:11-0400 Systolic blood pressure 134 mm[Hg] Tello Campa DO Work Phone: [facility] 05-30-2023 17:20-0400 Body height 187.96 cm Jodi Herediamond Other [employer] Other 05-30-2023 17:20-0400 Body mass index (BMI) [Ratio] 25.68 kg/m2 Jodi Herediamond Other [employer] Other 05-30-2023 17:20-0400 Body temperature 96.8 [degF] Jodi Herediamond Other [employer] Other 05-30-2023 17:20-0400 Body weight 90.72 kg Jodi Herediamond Other [employer] Other 05-30-2023 17:20-0400 Diastolic blood pressure 97 mm[Hg] Jodi Herediamond Other [employer] Other 05-30-2023 17:20-0400 Respiratory rate 18 /min Jodi Herediamond Other [employer] Other 05-30-2023 17:20-0400 SaO2% (BldA) [Mass fraction] 95 % Jodi Herediamond Other [employer] Other 05-30-2023 17:20-0400 Systolic blood pressure 125 mm[Hg] Jodi Radha Other [employer] Other 10-28-2022 11:30-0500 Body height 187.96 cm Imad Asaad Other [employer] Other 10-28-2022 11:30-0500 Body mass index (BMI) [Ratio] 24.39 kg/m2 Imad Asaad Other [employer] Other 10-28-2022 11:30-0500 Body weight 86.18 kg Imad Asaad Other [employer] Other 10-28-2022 11:30-0500 Diastolic blood pressure 91 mm[Hg] Imad Asaad Other [employer] Other 10-28-2022 11:30-0500 Systolic blood pressure 132 mm[Hg] Imad Asaad Other [employer] Other Encounters Encounter Date Encounter Type Care Provider Facility Start: 11-01-2024 End: 11-01-2024 Martin Yeung CAMERA PROTOTYPING ENGINEER Work Phone: [facility] Start: 11-01-2024 End: 11-01-2024 Martin Yeung CAMERA PROTOTYPING ENGINEER Work Phone: [facility] Start: 10-30-2024 End: 10-30-2024 ambulatory MARYCRUZ GASTON [facility] Start: 10-24-2024 End: 10-24-2024 ambulatory KARISSA CARLIN Not Available Start: 10-24-2024 End: 10-24-2024 Office outpatient visit 25 minutes Karissa Carlin [employer]ER[employer] PROTOTYPING ENGINEER Work Phone: [facility] Comment on above: Cerebrovascular acci dent (CVA) due to occlusion of right middle cerebral artery (CMS/HCC) (Primary Dx); Left spastic hemiplegia (CMS/HCC); Partial symptomatic epilepsy with complex partial seizures, intractable, without status epilepticus (CMS/HCC); Vision changes Start: 10-24-2024 End: 10-24-2024 Bamboo flowsheet Karissa Carlin CAMERA PROTOTYPING ENGINEER Work Phone: [facility] Start: 10-24-2024 End: 10-24-2024 Bamboo flowsheet Karissa Carlin CAMERA PROTOTYPING ENGINEER Work Phone: [facility] Start: 10-17-2024 End: 10-17-2024 ambulatory MARYCRUZ GASTON [facility] Start: 10-17-2024 End: 10-17-2024 Office outpatient visit 15 minutes Marycruz Gaston PA Work Phone: [facility] Comment on above: Nephrolithiasis (Jenn shon Dx); Recurrent kidney stones Start: 10-01-2024 End: 10-01-2024 Orders Only Sirisha Thornton LPN [facility] Comment on above: Nephrolithiasis (Jenn shon Dx) Start: 09-26-2024 End: 09-26-2024 Bamboo flowsheet Manuela Nicole DO Work Phone: [facility] Start: 09-26-2024 End: 09-26-2024 Bamboo flowsheet Manuela Nicole DO Work Phone: [facility] Start: 09-26-2024 End: 09-26-2024 Patient encounter procedure Manuela Nicole DO Work Phone: [facility] Comment on above: Cerebrovascular acci dent (CVA) due to occlusion of right middle cerebral artery (CMS/HCC) (Primary Dx); Left spastic hemiplegia (CMS/HCC) Start: 09-26-2024 End: 09-26-2024 ambulatory MANUELA NICOLE Not Available Start: 07-17-2024 End: 07-17-2024 Office outpatient new 45 minutes Dominga Mccarthy MD Work Phone: [facility] Comment on above: History of stroke (P rimary Dx); Pharyngoesophageal dysphagia; Weakness of voice Start: 07-17-2024 End: 07-17-2024 ambulatory DOMINGA MCCARTHY Not Available Start: 07-17-2024 End: 07-17-2024 Bamboo flowsheet Dominga Mccarthy MD Work Phone: [facility] Start: 07-17-2024 End: 07-17-2024 Bamboo flowsheet Dominga Mccarthy MD Work Phone: [facility] Start: 07-10-2024 End: 07-10-2024 Office outpatient visit 25 minutes Meghan Yeung CAMERA PROTOTYPING ENGINEER Work Phone: [facility] Comment on above: MATTEO (obstructive sle ep apnea) (Primary Dx); Cerebrovascular accident (CVA) due to occlusion of right middle cerebral artery (CMS/HCC); Primary insomnia; Moderate recurrent major depression (CMS/HCC); Generalized anxiety disorder (CMS/HCC); Left spastic hemiplegia (CMS/HCC); Cognitive impairment Start: 07-10-2024 End: 07-10-2024 ambulatory MEGHAN YEUNG Not Available Start: 07-10-2024 End: 07-10-2024 Bamboo flowsheet Meghan Yeung CAMERA PROTOTYPING ENGINEER Work Phone: [facility] Start: 07-10-2024 End: 07-10-2024 Bamboo flowsheet Meghan Yeung CAMERA PROTOTYPING ENGINEER Work Phone: [facility] [place] [facility] Start: 07-04-2024 End: 07-04-2024 ambulatory TELLO CAMPA Not Available Start: 07-04-2024 End: 07-04-2024 Office outpatient visit 25 minutes Tello Campa DO Work Phone: [facility] Comment on above: Partial symptomatic epilepsy with complex partial seizures, intractable, without status epilepticus (CMS/HCC) (Primary Dx); Cerebrovascular accident (CVA) due to occlusion of right middle cerebral artery (CMS/HCC); Left spastic hemiplegia (CMS/HCC); MATTEO (obstructive sleep apnea) Start: 07-04-2024 End: 07-04-2024 Bamboo flowsheet Tello Campa DO [facility] Start: 07-04-2024 End: 07-04-2024 Bamboo flowsheet Jeremiherrera Katheryn DO Work Phone: [facility] [place] [facility] Start: 05-28-2024 End: 05-30-2024 Clinisync Result Encounter Karissa Carlin CAMERA PROTOTYPING ENGINEER Work Phone: [facility] Unsolicited Start: 05-28-2024 End: 05-30-2024 Clinisync Result Encounter Karissa Carlin CAMERA PROTOTYPING ENGINEER Work Phone: [facility] Unsolicited Start: 05-01-2024 End: 05-01-2024 ambulatory KARISSAEstefany CARLIN Not Available Start: 04-10-2024 End: 04-10-2024 ambulatory KARISSAEstefany CARLIN Not Available Start: 03-19-2024 End: 03-19-2024 ambulatory JOSY YU Not Available Start: 03-05-2024 End: 03-05-2024 ambulatory TELLO CAMPA Not Available Start: 03-01-2024 End: 03-02-2024 Emergency department patient visit [facility] Start: 03-01-2024 End: 03-01-2024 Emergency department patient visit [facility] Start: 02-02-2024 End: 02-02-2024 ambulatory MANUELA HODGE Not Available Start: 01-30-2024 End: 01-30-2024 ambulatory KARISSAEstefany CARLIN Not Available Start: 01-25-2024 End: 01-25-2024 ambulatory MANUELA HODGE Not Available Start: 01-19-2024 End: 01-19-2024 ambulatory KARISSA CARLIN Not Available Start: 12-27-2023 End: 12-27-2023 Telephone encounter Ewa Mobley TOOL DESIGN DRAFTER [facility] Start: 05-30-2023 End: 05-30-2023 ambulatory [facility] [employer] Other Start: 05-30-2023 Office outpatient vi sit 15 minutes [facility] Start: 04-26-2023 End: 05-25-2023 ambulatory UNKNOWN PROVIDER Facility:[facility] Start: 12-30-2022 ambulatory [facility] Facility: 1 Start: 11-23-2022 End: 11-24-2022 ambulatory MALIHA TAVO Facility:[facility] Start: 10-28-2022 End: 10-28-2022 ambulatory Imad Asaad Other [employer] Other Start: 10-28-2022 Office consultation new/estab patient 60 min Imad Asaad [facility] Start: 08-20-2019 End: 08-21-2019 Emergency department patient visit AMRIK MICHAELFIDENCIO Facility:[facility] Procedures Date Procedure Procedure Detail Performing Clinician Start: 10-17-2024 Follow-up visit Follow-up LUCINDA GASTON Start: 05-28-2024 [facility] Karissa Carlin NP Work Phone: Plan of Treatment Date Care Activity Detail Author Start: 10-17-2025 Adult BMI Screening Adult BMI Screen ing [facility] Start: 03-01-2025 Adult BMI Screening Adult BMI Screen ing [facility] Start: 12-27-2024 End: 12-27-2024 Patient encounter procedure 12/27/2024 1:15 PM EDT Procedure Visit [facility] [address] [place] [phone] Manuela Hodge DO [address] [place] [address] [facility] Start: 12-13-2024 End: 12-13-2024 Patient encounter procedure 12/13/2024 1:20 PM EDT Office Visit [facility] [address] [place] [address] Erika Brian NP [address] [place] [phone] [facility] Start: 11-12-2024 End: 11-12-2024 Patient encounter procedure 11/12/2024 11:30 AM EST Office Visit [facility] [address] [place] [address] [place] [address] Thony Palomo MD [address] [place] [address] [facility] Start: 11-01-2024 End: 11-01-2024 Patient encounter procedure 11/01/2024 4:00 PM EST Office Visit [facility] [address] [place] [phone] Meghan Yeung NP [address] [place] Arrived [facility] Comment on above: Arrived Start: 10-31-2024 End: 10-31-2024 Patient encounter procedure 10/31/2024 3:30 PM EST Office Visit [facility] [address] [place] [phone] Manuela Hodge DO [address] [place] [address] [facility] Start: 10-30-2024 End: 10-30-2024 Patient encounter procedure 10/30/2024 3:00 PM EST Appointment [facility] [address] [place] [id number] [facility] Start: 10-24-2024 End: 10-24-2024 Patient encounter procedure [facility] [address] Start: 10-17-2024 End: 10-17-2025 CT Abdomen and Pelvis WO contrast CT abdomen and pelvis without contrast Imaging Routine Nephrolithiasis Expected: 10/17/2024, Expires: 10/17/2025 [facility] Work Phone: Comment on above: Expected: 10/17/2024 , Expires: 10/17/2025 Start: 10-17-2024 End: 10-17-2024 Patient encounter procedure 10/17/2024 2:00 PM EST Office Visit [facility] [address] [place] [address] [place] [address] Marycruz Gaston PA [address] [place] [address] [facility] Start: 10-02-2024 End: 10-02-2024 Patient encounter procedure [facility] [address] Start: 10-01-2024 End: 10-01-2025 Kidney Stone Analysis (with Gross Description) [facility] Kidney Stone Analysis (with Gross Description) [facility] Lab Routine Nephrolithiasis Expected: 10/01/2024 (Approximate), Expires: 10/01/2025 [facility] Work Phone: Comment on above: Expected: 10/01/2024 (Approximate), Expires: 10/01/2025 Start: 09-26-2024 End: 09-26-2024 Patient encounter procedure 09/26/2024 1:15 PM EST Procedure Visit [facility] [address] [place] [phone] Manuela Hodge DO [address] [place] [address] Arrived [facility] Comment on above: Arrived Start: 07-19-2024 End: 07-19-2024 Patient encounter procedure 07/19/2024 2:00 PM EDT Procedure Visit [facility] [place] [address] [place] [phone] Manuela Hodge DO [address] [place] [address] [facility] [address] Start: 07-17-2024 End: 07-17-2024 Patient encounter procedure [facility] Comment on above: Arrived Start: 07-10-2024 End: 07-10-2024 Patient encounter procedure 07/10/2024 3:40 PM EDT Office Visit [facility] [address] [place] [phone] Meghan Yeung, CAMERA PROTOTYPING ENGINEER [address] [place] Arrived [facility] Comment on above: Arrived Start: 07-04-2024 End: 07-04-2024 Patient encounter procedure 07/04/2024 3:00 PM EDT [facility] [address] [place] [phone] Katheryn JeremiherreraDO [address] [place] [address] [facility] [place] [facility] Start: 05-20-2024 Influenza vaccination Influenza Vacc ine [facility] Start: 03-29-2024 Adult BMI Screening Adult BMI Screen ing [facility] Start: 03-29-2024 Tobacco Screening Tobacco Screening [facility] Start: 2019 Administration of varicella zoster vaccine Zoster (Shingles) Vaccine (1 of 2) [facility] Start: 1988 DTaP,Tdap and Td Vaccines (1 - Tdap) DTaP,Tdap and Td Vaccines (1 - Tdap) [facility] Start: 1987 Adult BMI Follow Up Plan Adult BMI F ollow Up Plan [facility] Start: 1981 Depression Screening Depression Scre [facility] MR Brain WO and W contrast IV MR brain w and wo contrast routine Imaging Routine Cerebrovascular accident (CVA) due to occlusion of right middle cerebral artery (CMS/HCC) Vision changes Ordered: 10/24/2024 [facility] Work Phone: Comment on above: Ordered: 10/24/2024 Immunizations Immunization Date Immunization Notes Care Provider Fa vishal 07-22-2023 Influenza, Seasonal, Quadrivalent, Adjuvanted Meghan Yeung [employer] Work Phone: [facility] 07-22-2023 influenza virus vaccine, unspecified formulation Sirisha Thornton LPN [facility] 06-22-2022 influenza, injectabl e, quadrivalent, preservative free Meghan Yeung [employer] Work Phone: [facility] 06-22-2022 influenza virus vaccine, unspecified formulation Ewa OLMOSA [facility] Payers Date Payer Category Payer Medicaid [id number] 2019 Unknown 1970 Unknown [id number] 2.16.8 40.1.205414.3.579.2.196 1970 Unknown [id number] 2.16.84 0.1.309626.3.579.2.593 1970 Unknown [id number] 2.16.84 0.1.634381.3.579.2.593 1970 Unknown [id number] 2.16. 840.1.181277.3.579.2.732 1970 Unknown [id number] 2.16. 840.1.091759.3.579.2.1286 1970 Unknown [id number] 2.16. 840.1.305303.3.579.2.1286 1969 Unknown [id number] 2.16. 840.1.225456.3.579.2.1286 1970 Unknown [id number] 2.16.8 40.1.052482.3.579.2.1286 1970 Unknown [id number] 2.16.8 40.1.697749.3.579.2.1286 1970 Unknown [id number] 2.16.84 0.1.503408.3.579.2.1259 1970 Unknown [id number] 2.16.84 0.1.498710.3.579.2.1259 1969 Unknown [id number] 2.16.84 0.1.047780.3.579.2.1259 1970 Unknown [id number] 2.16.84 0.1.083760.3.579.2.1259 1969 Unknown [id number] 2.16.84 0.1.563644.3.579.2.1259 1969 Unknown [id number] 2.16.84 0.1.879658.3.579.2.1258 1969 Unknown [id number] 2.16.84 0.1.937901.3.579.2.1258 1969 Unknown [id number] 2.16.84 0.1.440903.3.579.2.1258 1969 Unknown [id number] 2.16.84 0.1.223712.3.579.2.1258 1969 Unknown [id number] 2.16.84 0.1.411873.3.579.2.1258 1969 Unknown [id number] 2.16.84 0.1.035659.3.579.2.1258 1969 Unknown [id number] 2.16.84 0.1.796531.3.579.2.1258 1970 Unknown [id number] 2.16.84 0.1.707340.3.579.2.1259 1960 Medicaid [id number] 2. [id number] Social History Date Type Detail Facility Start: 03-27-2023 End: 05-01-2024 Sex Assigned At [facility] Start: 01-19-2024 Tobacco smoking stat [facility] Never smoked tobacco [facility] Start: 01-12-2023 End: 01-19-2024 Tobacco use and exposure Smokeless tobacco non-user [facility] Start: 05-01-2024 End: 10-24-2024 Alcoholic beverage intake Ex-drinker (finding) [facility] Start: 03-27-2023 End: 05-01-2024 History of Social function [facility] Start: 1970 Sex assigned at Not on file P [facility] Start: 01-12-2023 Tobacco smoking stat [facility] Ex-smoker [facility] Start: 09-19-1998 End: 09-19-2018 History of tobacco use Current smoker [facility] Start: 09-19-1998 End: 09-19-2018 History of tobacco use Cigarette Smoker [facility] Start: 03-29-2023 End: 10-17-2024 Alcoholic beverage intake Current drinker of alcohol (finding) [facility] Adolescent depressio n screening assessment 24 [facility] Start: 12-26-2020 Alcohol [facility] Start: 04-24-2015 Sex Male (finding) [facility] Medical Equipment Procedure Code Equipment Code Equipment Origin al Text Equipment Identifier Dates Stnt Uret 6fr 22 cm Pgtl Crv Rpl [id number] - Sna - [id number] Start: 12-26-2020 Goals Date Patient Goal Desired Activity /State Personal health goal Comment on above: Formatting of this n ote might be different from the original. Evaluation of progress towards goal: Safe dc transition home with support from director of career services and family. Clinical Notes 08-19-2019 to 10-24-2024 Karissa Carlin NP - 10/24/2024 2:40 PM ESTAssessment & Plan Note - SVETLANA Salomon - 10/17/2024 2:41 PM ESTAssessment & Plan Note - SVETLANA Salomon - 10/17/2024 2:41 PM EST Note Date & Type Note Facility 10-24-2024 History of Present illness Narrative Images from the original note were not included. Chief Complaint Patient presents with Seizures Cerebrovascular Accident Sleep Apnea Subjective Kevil Fugitt, 54 y.o., male Patient presents today for a follow up for history of CVA and seizures. He is accompanied today by a family member. He was last seen for an office visit on 07/04/24. He continues on aspirin and statin therapy for secondary stroke prevention. He denies any new seizure like activity since last visit. He continues on lamotrigine and denies any missed doses. He denies any symptoms to suggest nocturnal seizure. He also follows with Dr. Hodge's team for management of sleep and spacticity. He was last seen 09-24 for Botox for left sided spacticity and 07-10-24 with AG 07-10 for sleep. He reports that he has been having nightmares. He then reports that this is not a scary or vivid dream, but a repetitive dream for 4 years. Does not usually cause waking. He reports that he wakes with a headache daily. States it feels like there is a band around his head. He states that for the past several months he has been having vision changes described a seeing color swirls. He is unsure if these are headache related because he states he has a headache every day. He denies further concern today. Review of Systems Constitutional: Positive for fatigue. Negative for appetite change and fever. Eyes: Positive for visual disturbance (described as color swirls ). Negative for pain. Respiratory: Negative for cough, shortness of breath and wheezing. Cardiovascular: Negative for chest pain, palpitations and leg swelling. Gastrointestinal: Negative for abdominal pain, constipation, diarrhea and nausea. Musculoskeletal: Positive for gait problem. Negative for arthralgias and myalgias. Neurological: Positive for seizures, weakness and headaches. Negative for dizziness, tremors and numbness. Patient endorses brain fog and difficulty sleeping Past Medical History: Diagnosis Date Epilepsy [facility]) Kidney stones Stroke ([facility]) Past Surgical History: Procedure Laterality Date APPENDECTOMY 10/04/2019 CT ABDOMEN/PELVIS WO CONTRAST FOR KIDNEY STONES [address]888 CT ANGIOGRAM ABDOMEN PELVIS 03/01/2024 CT ANGIOGRAM ABDOMEN PELVIS 03/01/2024 CT ANGIOGRAM HEART CORONARY 03/01/2024 CT ANGIOGRAM TAVR 03/01/2024 CT GUIDED TRANSVAGINAL TRANSRECTAL FLUID DRAIN 03/27/2023 CT GUIDED TRANSVAGINAL TRANSRECTAL FLUID DRAIN 03/27/2023 KNEE SURGERY Left Family History Problem Relation Name Age of Onset No Known Problems Mother Kidney disease Father Social History Tobacco Use Smoking status: Never Smokeless tobacco: Never Substance Use Topics Alcohol use: Not Currently Alcohol/week: 1.0 - 2.0 standard drink of alcohol Types: 1 - 2 Standard drinks or equivalent per week Allergies: Cortisone Vitals: 10/24/24 1459 BP: 131/74 Pulse: 72 There is no height or weight on file to calculate BMI. Neurologic exam: Mental status: Well nourished, well developed. Restless. Skull defect in the right head region. Grossly oriented to person, place and time. Recent and remote memory are intact. Language is fluent without aphasia. Attention and concentration are normal. Fund of knowledge is appropriate for level of education. Cranial nerves: CN II: Left visual neglect. Visual dumont full to confrontation. CN III, IV, : pupils equal round and reactive to light. Extraocular movements intact. No ptosis present. CN V: Facial sensation is normal. CN VII: Full and symmetric facial movement. CN VIII: Hearing is intact. CN IX and X: Palate elevates symmetrically. CN XI: Shoulder shrug is normal bilaterally. CN XII: Tongue is midline without atrophy or fasciculation. Motor: RUE Strength deltoid, , biceps , triceps , wrist extensors , wrist flexor , fisher mussel strength 5/5. LUE Strength deltoid , biceps , triceps , wrist extensors , wrist flexor , fisher mussel strength 1-2/5 spastic. RLE Strength illopsoas, quadriceps, tibialis anterior, and gastrocnemius strength 5/5. LLE Strength illopsoas, quadriceps and gastrocnemius strength 3-/5 with foot drop. Spastic proximally. Sensory: Sensation is intact to light touch throughout distal extremities. Allodynia on the left side of the body. Reflexes: RUE biceps reflex 2+ , brachioradialis reflex 2+. LUE biceps reflex 4+ , brachioradialis reflex 4+. RLE knee reflex 2+ LLE knee reflex 4+ Coordination: Fkljiu-sp-jiau testing normal on the right, unable to perform testing on the left. Gait: Wheel chair Review and summary of old records: Lamotrigine level on 05/28/2024: 6.2 which is normal Neuropsych evaluation on 04/10/2024: Evaluation demonstrates persisting left visual field neglect and left hemiparesis, as well as poor visual-spatial skills, impulsivity, and struggles with problem-solving/cognitive flexibility. Memory performance fluctuated with attention. Overall performance is consistent with residual cognitive sequela history 2019 right MCA CVA. Unfortunately given the time since the stroke persisting cognitive limitations are expected to be permanent. Underlying untreated MATTEO likely exacerbating underlying cognitive struggles. Routine EEG at [facility] on 01/30/2024: Normal Per [facility] ED note on 12/21/2023: The patient was evaluated for visual disturbance which resolved upon his arrival. The patient described an aura, reportedly saw colors on the side of his vision which previously has led to seizure. He did not have a seizure while at the hospital. Labs unremarkable. Head CT with no evidence of intracranial hemorrhage or appreciable acute abnormality. Encephalomalacia changes from remote infarction involving the majority of the right frontal and parietal lobes. CH on 05/04/23: Patient states he had admission at [facility] and did have an MRI completed which was unremarkable. He was not on any antiplatelet or anticoagulant medication prior to admission and he was placed on aspirin 81 mg by mouth daily. Lamotrigine level on 04/18/23: 5.7 which is within normal limits Ambulatory EEG at [facility] on 07/05/22: Abnormal 47 hour ambulatory EEG due to continuous slow activity in the right hemisphere with superimposed right temporal occipital sharp transients occurring frequently during the recording consistent with right hemisphere dysfunction and possible epileptiform focus the right temporal occipital region. Assessment/Plan Diagnoses and all orders for this visit: Cerebrovascular accident (CVA) due to occlusion of right middle cerebral artery (CMS/HCC) The patient has a history of a right MCA territory infarct. Patient had edema and needed a craniotomy. Skull flap was removed and then replaced. He does have residual left sided weakness and spasticity. Patient had an episode in April 2023 which he states he was told was a transient ischemic attack. He states MRI at [place] was unremarkable. At the time he was not taking any antiplatelet therapy and he was placed on aspirin at that admission. Due to cognitive concerns we did complete neuropsych evaluation on 04/10/24 which was consistent with residual cognitive sequelae associated with his 2019 right MCA. PLAN - Previously Referred to for cognition to help with compensation techniques - Continue aspirin 81 mg po daily - Follow-up with neurosurgery at [facility] as indicated - Signs and symptoms of stroke were discussed in detail and the patient was advised to seek emergent evaluation in the ED should any such signs and symptoms develop. The patient verbalized understanding. Vision changes The patient presents today with primary concerns of new onset visual changes described as color swirls occurring over the course of the last few months. He is unable to definitively state whether this is unilateral or the frequency of when this occurs. I have given consideration to possible migraine aura but the patient is also unable to definitively state whether this correlates with headaches as he states he wakes with a headache every day. Given the patient's complex history we will need to update imaging to rule out an intracranial process which may better explain his symptoms. PLAN: - I will order an MRI of the brain to evaluate for intracranial changes such as a tumor, mass, or lesion that would contribute to his symptoms. - I have also recommended the patient schedule a follow up with optho for further evaluation. - I recommended close follow up with sleep medicine, Dr. Hodge regarding his waking with daily headaches as sleep apnea is likely playing a role. 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 Previously on fentanyl, then on gabapentin and duloxetine. He is no longer on either. I think a lot of his pain comes from some of the spasticity he has in his left arm and leg; has gotten Botox ND and has had some relief of the spasticity in his left hand though still modest; biggest complaint is the elbow stiffness. We did restart him on Baclofen though it does not seem he has been taking this recently. PLAN: - Following with Dr. Hodge for Botox for spasticity (left elbow, wrist, hip) - He is interested in a brace for his left upper extremity to support the limb. Will send a referral to OT to see if this in an option for him. Partial symptomatic epilepsy with complex partial seizures, intractable, without status epilepticus (CMS/HCC) The patient has a long-standing history of epilepsy. He has extensive risk factors including right MCA stroke and subsequent right temporal craniotomy. Ambulatory EEG 07/05/22 with abnormalities in the right temporal area consistent with right hemisphere dysfunction and possible epileptiform focus in the right temporal occipital region which would correlate with his prior craniotomy. Off Keppra due to mood issues. On lamictal and doing well but did go to the ED in December 2023 for concerns with aura symptoms (per ED no seizure). Lamotrigine level in May of 2024 was normal. There have been no concerns for breakthrough seizure since his last visit. PLAN: - Check labs annually - No longer on Keppra (mood issues) - Continue lamotrigine 100 mg PO BID - Medication compliance was discussed - Seizure precautions discussed in detail. MATTEO (obstructive sleep apnea) Patient has a long standing history of sleep issues. Given his history of stroke, I wonder if there is a central sleep apnea component. Had a PSG done and it showed some MATTEO. Reportedly did not tolerate CPAP and would like to discuss possible alternative options. He was evaluated by our sleep Medicine team and determined not to be a candidate for surgical intervention for MATTEO. PLAN - Follow up with sleep medicine, Dr Hodge Follow up in 1 month following MRI or sooner if symptoms worsen, fail to improve, or should a new neurological concern arise. Pt has been fully educated on their diagnosis, treatment options, follow up plan, and return instructions documented in this encounter [facility] 10-17-2024 Evaluation + Plan note Associated Problem(s): Nephrolithiasis I will call him if any acute findings on his CT, otherwise we will have him meet with Dr. Palomo to review the results. He will determine further management from there. We discussed that silica is not a typical type of stone [facility] 10-17-2024 Miscellaneous Notes Associated Problem(s): Nephrolithiasis I will call him if any acute findings on his CT, otherwise we will have him meet with Dr. Palomo to review the results. He will determine further management from there. We discussed that silica is not a typical type of stone documented in this encounter [facility] 10-17-2024 History of Present illness Narrative Images from the original note were not included. [address] [place] [id number] Patient: Addison Najera Date of : 1970 Encounter Date: 10/17/2024 History of Present Illness: Chief Complaint: Kidney stones The patient is a 54 y.o. male, an established patient, and is here for follow up to kidney stones. He has a history of kidney stones and was last seen by Dr. Palomo 06/28/2022. I don't have his records, but he reports that he went to [facility] with flank pain. He was told he had a stone. He passed 5-6 stones since then. He dropped off a stone 10/01/2024. This came back showing silica. Recently he has been taking a lot of TUMS. He has had intermittent left sided back pain since then. He has had hematuria but saw a stone pass after that. Urinalysis today: No results for input(s): EXTPOCURCO , EXTPOCURCH , EXTPOCAPP , EXTPOCURBS , EXTPOCURBIL , EXTPOCUKET , EXTPOCUSPG , EXTPOCUHGB , EXTPOCUPRO , EXTPOCUURO , EXTPOCULEU , EXTPOCUNIT , EXTPOCUWBC , EXTPOCUBLD , EXTPOCURBC , EXTPOCUCRY , EXTPOCUBAC , EXTPOCUTREP , EXTPOCUPH , EXTPOCULEE in the last 72 hours. Last BUN and creatinine: Lab Results Component Value Date BUN 17 03/01/2024 Lab Results Component Value Date CREATININE 1.08 03/01/2024 Past Medical, Family, and Social History Update: The following portions of the patient's history were reviewed and updated as appropriate: allergies, current medications, past family history, past medical history, past social history, past surgical history and problem list. Past Medical History: Diagnosis Date CVA (cerebral vascular accident) ([facility]) 08/2019 HLD (hyperlipidemia) Hypertension Nephrolithiasis 11/10/2020 Seizures ([facility]) Visual impairment glasses Past Surgical History: Procedure Laterality Date APPENDECTOMY CRANIOPLASTY CRANIOTOMY Remaval 08/21/2019, replaced 10/31/2019 HERNIA REPAIR KNEE ARTHROSCOPY Left LASER HOLMIUM URETEROSCOPY Left 12/26/2020 Performed by Erika Cuellar MD at [facility] Family History Problem Relation Age of Onset Kidney failure Father Current Outpatient Medications Medication Sig Dispense Refill aspirin 81 mg Take 1 tablet (81 mg total) by mouth in the morning. 30 tablet 2 hydrOXYzine (VISTARIL) 25 mg capsule Take 1 capsule (25 mg total) by mouth 3 (three) times a day as needed for itching. ibuprofen (MOTRIN) 600 mg tablet Take 1 tablet (600 mg total) by mouth every 6 (six) hours as needed for pain. lamoTRIgine (LaMICtal) 100 mg tablet Take 1 tablet (100 mg total) by mouth in the morning and 1 tablet (100 mg total) before bedtime. melatonin 5 mg tablet, IR & ER, biphasic TAKE 1 TABLET BY MOUTH 30 MINUTES before bedtime NEEDED atorvastatin (LIPITOR) 40 mg tablet Take 1 tablet (40 mg total) by mouth nightly. (Patient not taking: Reported on 10/17/2024) baclofen (LIORESAL) 20 mg tablet Take 0.5 tablets (10 mg total) by mouth in the morning and 0.5 tablets (10 mg total) before bedtime. (Patient not taking: Reported on 10/17/2024) DULoxetine (CYMBALTA) 60 mg capsule Take 1 capsule (60 mg total) by mouth in the morning. (Patient not taking: Reported on 10/17/2024) ergocalciferol (DRISDOL) 1,250 mcg (50,000 unit) capsule Take 1 capsule (50,000 Units total) by mouth once a week. (Patient not taking: Reported on 10/17/2024) gabapentin (NEURONTIN) 400 mg capsule Take 1 capsule (400 mg total) by mouth in the morning and 1 capsule (400 mg total) before bedtime. Patient takes 400 mg in the morning and 800 mg at night. (Patient not taking: Reported on 10/17/2024) traZODone (DESYREL) 150 mg tablet Take 150 mg by mouth nightly. (Patient not taking: Reported on 10/17/2024) No current facility-administered medications for this visit. (All medications reviewed and updated by provider since last office visit or hospitalization) Allergies: Cortisone Tobacco History: Social History Tobacco Use Smoking Status Former Current packs/day: 0.00 Average packs/day: 1 pack/day for 20.0 years (20.0 ttl pk-yrs) Types: Cigarettes Start date: 1998 Quit date: 2019 Years since quittin.0 Smokeless Tobacco Never (If patient a smoker, smoking cessation counseling offered) Social History: Social History Substance and Sexual Activity Alcohol Use Yes Comment: occassional Review of Systems: General: Negative for chills and fever. Cardiovascular: Negative for chest pain and shortness of breath. Gastrointestinal: Negative for constipation, diarrhea, nausea, and vomitting. -per HPI Physical Exam: BP 125/83 Pulse 86 Ht 188 cm (6' 2 ) Wt 92.1 kg (203 lb) BMI 26.06 kg/m Constitutional: He appears well-developed. No distress. Pulmonary/Chest: Effort normal. No respiratory distress. Neurological: He is alert and oriented for age. Gait: wheelchair Nursing note and vitals reviewed. Assessment and Plan: Addison was seen today for follow-up. Diagnoses and all orders for this visit: Nephrolithiasis - CT abdomen and pelvis without contrast; Future Recurrent kidney stones - [facility] Problem List Genitourinary Nephrolithiasis - Primary Overview He is on aspirin for history of stroke. ====10/17/24====Recently passed 5-6 stones. Analysis came back showing silica. Intermittent left sided back pain. Will check updated CT ==== 06/28/2022 ==== still continues have some discomfort. CT scan report reviewed as well no evidence of any obstruction hydronephrosis or stone. ==== 06/16/2022 ==== status post ureteroscopy with laser lithotripsy stone basketing in December 2020. Since that time patient has had some intermittent left-sided discomfort. [place]. Past the small fragment. This is sent off for analysis. Plan: Pain appears to be non urologic. At this point will obtain CT scan stone protocol in order to assess. Return clinic thereafter. ==== 12/08/2020 ==== he has had some progression of the stone. Now roughly an intramural ureter. Has some intermittent discomfort---enough to require pain medication. Plan: Continue on with medical expulsion therapy. Oral pain medications as needed. Refilled his tamsulosin. Will make arrangements however to treat the stone given the time frame since last CT. Patient continues strain urine contact us should he passed stone. Stone is difficult to visualize on KUB portion of CT scan. ==== 11/10/2020 ==== had a stone about 11 years ago. Currently has a stone in the distal ureter about 3 mm or so. On retrospect this may been the stone present on the September 18. Has certainly progressed nicely. He has a decent chance of passing the stone on his own. There straining his urine. He is nontoxic per nursing staff. Plan: Refilled tamsulosin. Also give him a short course of pain medications. Strain the urine. Repeat CT scan 3-4 weeks. Return clinic Current Assessment & Plan I will call him if any acute findings on his CT, otherwise we will have him meet with Dr. Palomo to review the results. He will determine further management from there. We discussed that silica is not a typical type of stone Relevant Orders CT abdomen and pelvis without contrast Follow-up: Print AVS. CT and appointment with Dr. Palomo for the results. SVETLANA SALOMON This note was created with the assistance of a speech recognition program. While intending to generate a timely document that accurately reflects the content of the visit, no guarantee can be provided that every grammatical or spelling mistake has been or will be identified or corrected. Thank you for your understanding. SVETLANA Salomon 10/17/24 1443 documented in this encounter [facility] 10-01-2024 History of Present illness Narrative Pt. Brought in his stones for analysis. No order for analysis, one was placed at this time. documented in this encounter [facility] 09-26-2024 History of Present illness Narrative Images from the original note were not included. 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 He was previously getting Botox injections but he has fallen off of cycle. He has not got numb since January of 2024 and before that August 2023. He would do much better if he would stay on cycle. The injections have worn off and he needs repeat injection today to help with the spasticity pain and prevent contracture. Patient has a cock-up wrist splint however that he needs an arm board brace to help extend the fingers and the wrist. We will go ahead and write for this. He will need this for a lifetime. This is to help prevent contractures spasticity and pain and help with extension of the fingers and the wrist. The patient was counseled on the physiology of botulinum toxin and the risks and benefits of the injections. This was reviewed with the patient and included but not limited to bleeding, infection, dysphagia or weakness of the muscles. All questions were answered and they agreed to proceed with Botox injections. Consent The procedure was explained to the patient. Informed consent for the procedure was obtained and risk associated with Botox treatments. Any further questions were answered during this visit. EMG was used to be sure that the toxin was injected directly into the muscle and not along side which could cause adverse effects Site Prep The areas to be injected were sterilized with 70% isopropanol. Lot # [id number] Expiration: 11/2026 Sodium Chloride Lot # Expiration: Dilution Per 100 units diluted with 1mL of 0.9% Sodium Chloride Procedure Left biceps 30+ 30 units Left brachioradialis 20 units Left flexor digitorum sublimis 20+ 20 units Flexor carpi radialis 20+ 20 units Flexor carpi ulnaris 20+ 20 units TOTAL UNITS INJECTED 100 WASTED 0 Disposition The patient tolerated the procedure well. Post-op care was discussed. The patient is aware that duration of action is 3 months, and that delay in reinjection often results in recurrence of symptoms. Patient Care Instructions Do not rub massage or touch injection sites for 24 hours. Do not lay down for 4 hours after treatment. Avoid hot showers, exercise, and spicy foods for 24 hours to avoid bruising and minimize redness. Discussed signs and symptoms of anaphylaxis and when to seek emergent treatment. Procedure Codes 14407 Chemodenervation of extremity 1-4 muscles 22779 Each additional extremity 1-4 muscles 00661 Chemodenervation of extremity 5+ muscles 56685 Each additional extremity 5+ muscles J0585 Botulinum toxin a per unit, Units: Follow Up 3 months Botox documented in this encounter [facility] 07-17-2024 History of Present illness Narrative Images from the original note were not included. Subjective Patient ID: Addison Najera is a 53 y.o. male who presents for Dysphagia Pt referred for pre-tx eval before starting e-stim therapy for voice and pharyngeal weakness after a CVA 08/20/19. Review of Systems All other systems reviewed and are negative. 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/22/2019 Anemia 08/27/2019 Bradycardia, unspecified 08/30/2019 Cerebral edema ([facility]/HCC) 08/20/2019 Cerebrovascular disease 09/23/2020 Cerebral infarction due to occlusion of right middle cerebral artery ([facility]) 08/30/2019 Cognitive communication deficit 08/31/2019 Anxiety and depression ([facility]/HCC) 07/05/2024 Difficulty swallowing 07/05/2024 Resolved Ambulatory Problems Diagnosis Date Noted No Resolved Ambulatory Problems Past Medical History: Diagnosis Date Epilepsy ([facility]) Kidney stones Stroke ([facility]) Past Surgical History: Procedure Laterality Date APPENDECTOMY 10/04/2019 CT ABDOMEN/PELVIS WO CONTRAST FOR KIDNEY STONES [address]92 CT ANGIOGRAM ABDOMEN PELVIS 03/01/2024 CT ANGIOGRAM ABDOMEN PELVIS 03/01/2024 CT ANGIOGRAM HEART CORONARY 03/01/2024 CT ANGIOGRAM TAVR 03/01/2024 CT GUIDED TRANSVAGINAL TRANSRECTAL FLUID DRAIN 03/27/2023 CT GUIDED TRANSVAGINAL TRANSRECTAL FLUID DRAIN 03/27/2023 KNEE SURGERY Left Allergies Allergen Reactions Cortisone Nausea Only Injections, patient states cortisone cream is okay Current Outpatient Medications on File Prior to Visit Medication Sig Dispense Refill amitriptyline (Elavil) 50 MG tablet Take 50 mg by mouth at bedtime Aspirin Low Dose 81 MG EC tablet Take 81 mg by mouth Daily atorvastatin (Lipitor) 40 MG tablet Take 40 mg by mouth Daily cyclobenzaprine (Flexeril) 10 MG tablet Take 10 mg by mouth 2 (two) times a day as needed (Patient not taking: Reported on 07/10/2024) ergocalciferol (Vitamin D2) 1.25 MG (09278 UT) capsule Take 1 capsule by mouth 1 (one) time per week fluticasone (Flonase) 50 MCG/ACT nasal spray INSTILL 1 SPRAY IN EACH NOSTRIL ONCE DAILY FOR 14 DAYS hydrocortisone 2.5 % cream APPLY ONE APPLICATION VIA EXTERNAL ROUTE NEEDED FOR 10 DAYS hydrOXYzine pamoate (Vistaril) 25 MG capsule Take 25 mg by mouth in the morning and 25 mg before bedtime. ibuprofen 600 MG tablet TAKE ONE TABLET BY MOUTH THREE TIMES A DAY WITH FOOD OR WITH MILK lamoTRIgine (LaMICtal) 100 MG tablet Take 1 tablet (100 mg) by mouth in the morning and 1 tablet (100 mg) before bedtime. 60 tablet 2 melatonin 5 MG tablet Take 5 mg by mouth at bedtime Multiple Vitamin (Multivitamin) tablet Take 1 tablet by mouth Daily Pepcid 20 MG tablet every 12 (twelve) hours tamsulosin (Flomax) 0.4 MG 24 hr capsule Take 0.4 mg by mouth Daily [DISCONTINUED] baclofen (Lioresal) 20 MG tablet [DISCONTINUED] DULoxetine (Cymbalta) [address] capsule 1 capsule 1 (one) time each day at the same time [DISCONTINUED] escitalopram (Lexapro) 10 MG tablet Take 10 mg by mouth Daily [DISCONTINUED] gabapentin (Neurontin) 400 MG capsule Take 400 mg by mouth in the morning and 400 mg in the evening and 400 mg before bedtime. No current facility-administered medications on file prior to visit. Objective Last Recorded Vitals Vitals: 07/17/24 1415 BP: 144/80 ENT Physical Exam Constitutional Appearance: patient appears well-developed and well-nourished, Head and Face Appearance: head appears normal and face appears atraumatic; Ear Ear comments: Dequan ears normal Nose External Nose: nares patent bilaterally; external nose normal; Internal Nose: nasal mucosa normal; Oral Cavity/Oropharynx Lips: normal; Teeth: normal; Gums: gingiva normal; Tongue: normal; Oral mucosa: normal; Hard palate: normal; Neck Neck: neck normal; neck palpation normal; Thyroid: thyroid normal; Respiratory Inspection: breathing unlabored; normal breathing rate; Auscultation: breath sounds are clear; Cardiovascular Inspection: extremities are warm and well perfused; no peripheral edema present; Auscultation: regular rate and rhythm; Patient ID: Addison Najera is a 53 y.o. male. Procedures A diagnostic flexible fiberoptic laryngoscopy was performed. The flexible fiberoptic laryngoscope was placed into the nose and advanced to the level of the tip of the epiglottis. Examination of the larynx including both surfaces of the epiglottis false and true vocal folds, arytenoids and surrounding mucosal surfaces show no evidence of lesion, ulceration or mass. Normal bilateral true vocal fold motion is present. Bilateral piriform sinuses and base of tongue appear without lesion Assessment/Plan Diagnoses and all orders for this visit: History of stroke Pharyngoesophageal dysphagia Weakness of voice Pt has a normal laryngopharyngeal exam. documented in this encounter [facility] 07-04-2024 History of Present illness Narrative Images from the original note were not included. Chief complaint: Seizures and history of stroke Subjective Addison Fugitt, 53 y.o., male Patient presents today for a follow up for CVA and seizures. He is here with his mother. He started speech therapy which he believes is helpful in some areas. Patient complains of increased cramping on the left side of his body with the left hand being the worst. He is walking some but mainly uses his wheelchair. He reports some blurred vision and confusion at times. He reports mild headaches which he believes are from his vision being blurry. He also reports some dizziness. He denies any new seizures or seizure like activity since last visit. He denies any new concerns at this time. Seizures Pertinent negatives include no chest pain, no cough, no nausea and no diarrhea. Cerebrovascular Accident Associated symptoms include fatigue and weakness. Pertinent negatives include no abdominal pain, arthralgias, chest pain, coughing, fever, myalgias, nausea or numbness. Review of Systems Constitutional: Positive for fatigue. Negative for appetite change and fever. Respiratory: Negative for cough, shortness of breath and wheezing. Cardiovascular: Negative for chest pain, palpitations and leg swelling. Gastrointestinal: Negative for abdominal pain, constipation, diarrhea and nausea. Musculoskeletal: Positive for gait problem. Negative for arthralgias and myalgias. Neurological: Positive for seizures and weakness. Negative for dizziness, tremors and numbness. Patient endorses brain fog and difficulty sleeping Past Medical History: Diagnosis Date Epilepsy (CMS/HCC) Kidney stones Stroke (CMS/HCC) Past Surgical History: Procedure Laterality Date APPENDECTOMY 10/04/2019 CT ABDOMEN/PELVIS WO CONTRAST FOR KIDNEY STONES [address] CT ANGIOGRAM ABDOMEN PELVIS 03/01/2024 CT ANGIOGRAM ABDOMEN PELVIS 03/01/2024 CT ANGIOGRAM HEART CORONARY 03/01/2024 CT ANGIOGRAM TAVR 03/01/2024 CT GUIDED TRANSVAGINAL TRANSRECTAL FLUID DRAIN 03/27/2023 CT GUIDED TRANSVAGINAL TRANSRECTAL FLUID DRAIN 03/27/2023 KNEE SURGERY Left Family History Family history unknown: Yes Social History Tobacco Use Smoking status: Never Smokeless tobacco: Never Substance Use Topics Alcohol use: Not Currently Alcohol/week: 1.0 - 2.0 standard drink of alcohol Types: 1 - 2 Standard drinks or equivalent per week Allergies: Cortisone Vitals: 07/04/24 1511 BP: 134/89 Pulse: 88 SpO2: 95% There is no height or weight on file to calculate BMI. Neurologic exam: Mental status: Well nourished, well developed and in no acute distress. Grossly oriented to person, place and time. Skull defect in the right head region. Recent and remote memory are intact. Language is fluent without aphasia. Attention and concentration are normal. Fund of knowledge is appropriate for level of education. Restless. Cranial nerves: CN II: Left visual neglect. Visual dumont full to confrontation. CN III, IV, : pupils equal round and reactive to light. Extraocular movements intact. No ptosis present. CN V: Facial sensation is normal. CN VII: Full and symmetric facial movement. CN VIII: Hearing is intact. CN IX and X: Palate elevates symmetrically. CN XI: Shoulder shrug is normal bilaterally. CN XII: Tongue is midline without atrophy or fasciculation. Motor: RUE Strength deltoid, , biceps , triceps , wrist extensors , wrist flexor , fisher mussel strength 5/5. LUE Strength deltoid , biceps , triceps , wrist extensors , wrist flexor , fisher mussel strength 1-2/5 spastic. RLE Strength illopsoas, quadriceps, tibialis anterior, and gastrocnemius strength 5/5. LLE Strength illopsoas, quadriceps and gastrocnemius strength 3-/5 with foot drop. Spastic proximally. Sensory: Sensation is intact to light touch throughout distal extremities. Allodynia on the left side of the body. Reflexes: RUE biceps reflex 2+ , brachioradialis reflex 2+. LUE biceps reflex 4+ , brachioradialis reflex 4+. RLE knee reflex 2+ LLE knee reflex 4+ Coordination: Okbznb-ad-pict testing normal on the right, unable to perform testing on the left. Gait: Wheel chair Review and summary of old records: Lamotrigine level on 05/28/2024: 6.2 which is normal Neuropsych evaluation on 04/10/2024: Evaluation demonstrates persisting left visual field neglect and left hemiparesis, as well as poor visual-spatial skills, impulsivity, and struggles with problem-solving/cognitive flexibility. Memory performance fluctuated with attention. Overall performance is consistent with residual cognitive sequela history 2019 right MCA CVA. Unfortunately given the time since the stroke persisting cognitive limitations are expected to be permanent. Underlying untreated MATTEO likely exacerbating underlying cognitive struggles. Routine EEG at [facility] on 01/30/2024: Normal Per [facility] ED note on 12/21/2023: The patient was evaluated for visual disturbance which resolved upon his arrival. The patient described an aura, reportedly saw colors on the side of his vision which previously has led to seizure. He did not have a seizure while at the hospital. Labs unremarkable. Head CT with no evidence of intracranial hemorrhage or appreciable acute abnormality. Encephalomalacia changes from remote infarction involving the majority of the right frontal and parietal lobes. on 05/04/23: Patient states he had admission at [facility] and did have an MRI completed which was unremarkable. He was not on any antiplatelet or anticoagulant medication prior to admission and he was placed on aspirin 81 mg by mouth daily. Lamotrigine level on 04/18/23: 5.7 which is within normal limits Ambulatory EEG at [facility] on 07/05/22: Abnormal 47 hour ambulatory EEG due to continuous slow activity in the right hemisphere with superimposed right temporal occipital sharp transients occurring frequently during the recording consistent with right hemisphere dysfunction and possible epileptiform focus the right temporal occipital region. Assessment/Plan Diagnoses and all orders for this visit: Cerebrovascular accident (CVA) due to occlusion of right middle cerebral artery (CMS/HCC) The patient suffered a right MCA territory infarct. Patient had edema and needed a craniotomy. Skull flap was removed and then replaced. He does have residual left sided weakness and spasticity. Patient had an episode in April 2023 which he states he was told was a transient ischemic attack. He states MRI at [place] was unremarkable. He was placed on aspirin at that admission. Due to cognitive concerns we did complete neuropsych evaluation on 04/10/24 which was consistent with residual cognitive sequelae associated with his 2019 right MCA. 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 Previously on fentanyl, then on gabapentin and duloxetine. He is no longer on either. I think a lot of his pain comes from some of the spasticity he has in his left arm and leg; has gotten Botox ND and has had some relief of the spasticity in his left hand though still modest; biggest complaint is the elbow stiffness. We did restart him on Baclofen. PLAN: - Following with Dr. Hodge for Botox for spasticity (left elbow, wrist, hip) - Continue Baclofen Partial symptomatic epilepsy with complex partial seizures, intractable, without status epilepticus (CMS/HCC) The patient has a long-standing history of epilepsy. He has extensive risk factors including right MCA stroke and subsequent right temporal craniotomy. Ambulatory EEG 07/05/22 with abnormalities in the right temporal area consistent with right hemisphere dysfunction and possible epileptiform focus in the right temporal occipital region which would correlate with his prior craniotomy. Off Keppra due to mood issues. On lamictal and doing well but did go to the ED in December 2023 for concerns with aura symptoms (per ED no seizure). He is somewhat unclear as to whether there has been breakthrough activity since last seen. (Reportedly had a seizure a few months ago that lased 45 minutes per patient report?) His mother was accompanying him at the time this was reported and denied concerns for seizure, though the patient does live alone. Lamotrigine level in May of 2024 was normal PLAN: - check labs by biannually - No longer on Keppra (mood issues) - Continue lamotrigine 100 mg PO BID - Medication compliance was discussed - Seizure precautions discussed in detail. MATTEO (obstructive sleep apnea) Patient has a long standing history of sleep issues. Given his history of stroke, I wonder if there is a central sleep apnea component. Had a PSG done and it showed some MATTEO. Reportedly did not tolerate CPAP and would like to discuss possible alternative options. He was evaluated by our sleep Medicine team and determined not to be a candidate for surgical intervention for MATTEO. PLAN - Follow up with sleep medicine, Dr Hodge Follow up in 3 months Pt has been fully educated on their diagnosis, treatment options, follow up plan, and return instructions documented in this encounter [facility] 12-27-2023 Miscellaneous Notes Patient was called to schedule new patient appt, but patient states he will call our office back. Patient may want to schedule in [place] R76.8 Positive GAY documented in this encounter [facility] 12-27-2023 Telephone encounter Note Patient was called to schedule new patient appt, but patient states he will call our office back. Patient may want to schedule in [place] R76.8 Positive GAY [facility] 05-30-2023 Note Occupational Therapy This patient was evaluated in a multidisciplinary wheelchair seating clinic. Please see attached letter of medical necessity for further supporting documentation. [facility] 05-30-2023 Note [facility] Department of Physical Medicine [...] Morgan today. I concur with above documentation. Terry Betancourt MD [facility] 05-30-2023 Evaluation note Encounter Date Diagnosis Assessment [...] to 3 days. Stop biting your nails. [facility] 02-09-2023 Evaluation note* Encounter Date Diagnosis Assessment Notes Treatment Notes Treatment Clinical Notes Oct, LUQ abdominal pain (ICD-10 - R10.12) Arrange for abdominal ultrasound and chest xray Use Ibuprofen 400mg up to twice a day for a week for pain Start Omeprazole 40mg daily for 12 weeks Follow up in 12 weeks if pain persists. [facility] Other 12-01-2019 History general Narrative - Reported* Type Description Date Medical History stroke 08/2019 Medical History alcohol abuse Medical History epilepsy Surgical History removed piece of skull to reduc e brain swelling Surgical History appendectomy Surgical History KNEE SURGERY Surgical History KIDNEY STONE Hospitalization History stroke Hospitalization History NONE 2021 [facility] Other Evaluation note* Diagnosis Partial symptomatic epilepsy with complex partial seizures, intractable, without status epilepticus (CMS/HCC)- Primary Cerebrovascular accident (CVA) due to occlusion of right middle cerebral artery (CMS/HCC) Left spastic hemiplegia (CMS/HCC) Spastic hemiplegia affecting unspecified side MATTEO (obstructive sleep apnea) Obstructive sleep apnea (adult) (pediatric) documented in [facility] encounter [facility] Diagnosis MATTEO (obstructive sleep apnea)- Primary Obstructive sleep apnea (adult) (pediatric) Cerebrovascular accident (CVA) due to occlusion of right middle cerebral artery (CMS/HCC) Primary insomnia Persistent disorder of initiating or maintaining sleep Moderate recurrent major depression (CMS/HCC) Major depressive disorder, recurrent episode, moderate Generalized anxiety disorder (CMS/HCC) Generalized anxiety disorder Left spastic hemiplegia (CMS/HCC) Spastic hemiplegia affecting unspecified side Cognitive impairment Unspecified persistent mental disorders due to conditions classified elsewhere documented in this encounter [facility]* Diagnosis History of stroke- Primary Transient ischemic attack (TIA), and cerebral infarction without residual deficits Pharyngoesophageal dysphagia Dysphagia, pharyngoesophageal phase Weakness of voice Other voice and resonance disorders documented in this encounter [facility]* Diagnosis Cerebrovascular accident (CVA) due to occlusion of right middle cerebral artery (CMS/HCC)- Primary Left spastic hemiplegia (CMS/HCC) Spastic hemiplegia affecting unspecified side documented in this encounter [facility]* Diagnosis Calculus of ureter- Primary Hydronephrosis with urinary obstruction due to ureteral calculus Nephrolithiasis Calculus of kidney Nephrolithiasis- Primary Calculus of kidney Nephrolithiasis- Primary Calculus of kidney Nephrolithiasis- Primary Calculus of kidney [facility] Diagnosis Calculus of ureter- Primary Hydronephrosis with urinary obstruction due to ureteral calculus Nephrolithiasis Calculus of kidney Nephrolithiasis- Primary Calculus of kidney Nephrolithiasis- Primary Calculus of kidney Nephrolithiasis- Primary Calculus of kidney Recurrent kidney stones documented in [facility] encounter [facility]* Diagnosis Cerebrovascular accident (CVA) due to occlusion of right middle cerebral artery (CMS/HCC)- Primary Left spastic hemiplegia (CMS/HCC) Spastic hemiplegia affecting unspecified side Partial symptomatic epilepsy with complex partial seizures, intractable, without status epilepticus (CMS/HCC) Vision changes documented in this encounter [facility] HealthcareInstructionsNot on filedocumented in this [facility] System[facility]* Attachments The following attachments cannot be sent through Care Everywhere. * Kidney stone diet ([place]) documented in this [facility] SystemInstructionsNot on file [facility] Summary Purpose Family History No Family History Records FoundNo Family History Records FoundNo Family History Records FoundNo Family History Records FoundNo Family History Records FoundNo Family History Records FoundNo Family History Records FoundNo Family History Records Found Advance Directives Documents on File Type Date Recorded Patient Garden Worker Expl anation DNR Physician Order 05/10/2023 10:51 AM Date Activated Date Inactivated Comments 03/27/2023 5:24 PM 03/28/2023 3:59 PM Documents on File Type Date Recorded Patient Garden Worker Expl anation DNR Physician Order 05/10/2023 10:51 AM Date Activated Date Inactivated Comments 03/27/2023 5:24 PM 03/28/2023 3:59 PM Additional Source Comments (unrecognized sect ion and content) No Status Records FoundNo Status Records FoundNo Status Records FoundNo Status Records FoundNo Status Records FoundNo Status Records FoundNo Status Records FoundNo Status Records Found INFORMATION SOURCE (unrecogn ized section and content) DATE CREATED AUTHOR 09/06/2019 [facility] DATE CREATED AUTHOR AUTHOR'S ORGANIZ ATION 01/05/2023 [facility] DATE CREATED AUTHOR AUTHOR'S ORGANIZ ATION 05/27/2023 [facility] DATE CREATED AUTHOR AUTHOR'S ORGANIZ ATION 06/04/2023 [facility] DATE CREATED AUTHOR AUTHOR'S ORGANIZ ATION 10/08/[address] [facility] DATE CREATED AUTHOR AUTHOR'S ORGANIZ ATION 10/19/2024 [facility] DATE CREATED AUTHOR AUTHOR'S ORGANIZ ATION 11/01/2024 [facility] DATE CREATED AUTHOR AUTHOR'S ORGANIZ ATION 11/04/2024 [facility] EPIC REASON FOR VISIT (unrecogniz ed section and content) Reason Comments Sleep Apnea Reason Comments Dysphagia Reason Comments Botulinum Toxin Injection Reason Comments Follow-up Specialty Diagnoses / Procedures Referred By Contgarth t Referred To Contact Urology Diagnoses Recurrent kidney stones Leonor Omer, TINT LAYER-HIDE INSPECTOR [address] [place] [address] Phone: tel: fax: [facility] [address] [facility] [place] [address] [address] [place] [address] Phone: tel: fax: Referral ID Status Reason Start Date Expiration Date Visits Requested Visits Authorized [id number] Pending Review Specialty Services Required 07/26/2024 07/26/2025 1 1 Reason Comments Seizures Cerebrovascular Accident Sleep Apnea Care Teams (unrecognized sec tion and content) Bed Machine Operator Relationship Specialty Start Date End Date Leonor Omer NP [address] [place] [address] Referring Physician Family Medicine 01/19/24 Leonor Omer NP [address] [place] [address] Referring Physician Family Medicine 06/29/24 Bed Machine Operator Relationship Specialty Start Date End Date Leonor Omer NP [address] [place] [address] Referring Physician Family Medicine 01/19/24 Leonor Omer NP [address] [place] [address] Referring Physician Family Medicine 06/29/24 Bed Machine Operator Relationship Specialty Start Date End Date Leonor Omer NP [address] [place] [address] Referring Physician Family Medicine 01/19/24 Leonor Omer NP [address] [place] [address] Referring Physician Family Medicine 06/29/24 Bed Machine Operator Relationship Specialty Start Date End Date Leonor Omer NP [address] [place] [address] Referring Physician Family Medicine 01/19/24 Leonor Omer NP [address] [place] [address] Referring Physician Family Medicine 06/29/24 Bed Machine Operator Relationship Specialty Start Date End Date Leonor Omer NP [address] [facility] [address] Referring Physician Family Medicine 01/19/24 Leonor Omer NP [address] [facility] [address] Referring Physician Family Medicine 06/29/24 Bed Machine Operator Relationship Specialty Start Date End Date Leonor Omer NP [address] [place] [address] Referring Physician Family Medicine 06/29/24 Bed Machine Operator Relationship Specialty Start Date End Date Leonor Omer NP [address] [place] [address] Referring Physician Family Medicine 01/19/24 Bed Machine Operator Relationship Specialty Start Date End Date Zhao Heart MD [address] [place], [place] [id number] PCP - General Family Medicine 08/21/24 Leonor Omer NP [address] [facility] [address] Referring Physician Family Medicine 06/29/24 Manuela Hodge DO [address] [place] [address] Referring Physician Neurology 08/21/24 Meghan Yeung NP [address] [facility] [address] [place], [place] Nurse Practitioner Neurology 08/21/24 Bed Machine Operator Relationship Specialty Start Date End Date Zhao Heart MD [address] [place] [address] PCP - General Family Medicine 08/21/24 Leonor Omer NP [address] [place] [address] Referring Physician Family Medicine 06/29/24 Manuela Hodge DO [address] [place] [address] Referring Physician Neurology 08/21/24 Meghan Yeung NP [address] [place] [address] Nurse Practitioner Neurology 08/21/24 Bed Machine Operator Relationship Specialty Start Date End Date [facility] [address] [place], [place] PCP - General Family Medicine 03/01/24 Bed Machine Operator Relationship Specialty Start Date End Date [facility] [address] [place], [place] PCP - General Family Medicine 03/01/24 Bed Machine Operator Relationship Specialty Start Date End Date Zhao Heart MD [address] [place] [address] PCP - General Family Medicine 08/21/24 Leonor Omer NP [address] [place] [id number] Referring Physician Family Medicine 06/29/24 Manuela Hodge DO [address] [place] [address] Referring Physician Neurology 08/21/24 Meghan Yeung NP [address] Nurse Practitioner Neurology 08/21/24 Bed Machine Operator Relationship Specialty Start Date End Date Zhao Heart MD [address] [place] [address] PCP - General Family Medicine 08/21/24 Leonor Omer NP [address] [place] [address] Referring Physician Family Medicine 06/29/24 Manuela Hodge DO [address] [place] [address] Referring Physician Neurology 08/21/24 Meghan Yeung NP [address] Nurse Practitioner Neurology 08/21/24 Bed Machine Operator Relationship Specialty Start Date End Date Devante Murphy PA-C [address] [place] [address] PCP - General Physician Culled Fruit Packer 02/06/20 FOR RECORDS PERTAINING TO PATIENTS WHO ARE [...] BE BASED ON THE PRIMARY CLINICAL RECORDS. [employer] provides no warranty or guarantee of the accuracy or completeness of information in this document.
== END 2024-11-06 14:30 | disposition home or self-care (01) ==
LOC: MRI 14:29
PROVIDERS: PCP Nurse Practitioner; Visit Provider Nurse Practitioner Family
DX: I63.511 Cerebral infarction due to unspecified occlusion or stenosis of right middle cerebral artery (principal); H53.9 Unspecified visual disturbance
CPT/HCPCS: 70553; A9575

== ENCOUNTER 2025-01-21 20:07 | Outpatient (OUT) | payer MEDICAID, SELFPAY | END 2025-01-21 20:08 | disposition home or self-care (01) | LOC: SLEEP 20:08 | PROVIDERS: PCP Nurse Practitioner Family; Visit Provider Nurse Practitioner Family | DX: G47.33 Obstructive sleep apnea (adult) (pediatric) (principal) | CPT/HCPCS: 95811 ==

== ENCOUNTER 2025-08-01 13:08 | Outpatient (OUT) | payer MEDICAID, SELFPAY ==
--- OUTSIDE RECORDS SUMMARY | 2024-10-17 09:00 | XMS_ITS ---
Author Organization [facility] vices Address [address] [place] [place] [id number] Care Team Providers Care Xm1 Tank Driver Name Role Phone Avelino Brook Primary Care Provider [phone] Nolberto Monique [phone] REASON FOR VISIT wellness Social History Sex Assigned At : Social History Observation Description Sex Assigned At Male Encounters Encounter Location Date Provider Diagnosis Main [address] [place] [id number] 10/17/2024 Nolberto Jimenez Plan Of Treatment Next Appt Details Provider Name:Brook You , 08/28/2025 03:30:00 PM, [address] [place], [id number], Progress Notes * Addison NAJERADOB:[birth year] (54 yo M)Acc No.[id number]:10/17/2024 Patient:?Addison NAJERA :?Nolberto WallsdDOB:1970???Age:54 Y???Sex:Male Date:10/17/2024Phone:[phone]:[address] [place] [id number]:Brook You Subjective: * Chief Complaints: * 1 . Wellness. * Medical History: Objective: * Vitals: Assessment: Plan: * Treatment: * Billing Information: * Visit Code: * Procedure Codes: * Electronic signature of SVETLANA Koch on 08/01/2025 at 01:12 PM ESTSign off status: Pending * Provider: Magdiel Jimenez Date: 0 10/17/2024 Generated for Printing/Faxing/eTransmitting on:?08/01/2025 01:12 PM EST
--- OUTSIDE RECORDS SUMMARY | 2024-10-29 12:15 | XMS_ITS ---
Author Organization [facility] vices Address [address] [place] [id number] Care Team Providers Care Volleyball Coach Name Role Phone Brook You Primary Care Provider [phone] Darrick, Thuy Unavailable [phone] REASON FOR VISIT pain in hands/wrists-discuss need for splints Social History Sex Assigned At : Social History Observation Description Sex Assigned At Male Encounters Encounter Location Date Provider Diagnosis Main [address] [place] [id number] 10/29/2024 Thuy Hollingsworth Plan Of Treatment Next Appt Details Provider Name:Brook Avelino , 08/28/2025 03:30:00 PM, [address] [place], [id number], Progress Notes * Addison NAJERADOB:[birth year] (54 yo M)Acc No.[id number]:10/29/2024 Patient:?Addison NAJERA :?Thuy Stevensoneel, MDDOB:1970???Age:54 Y???Sex: MaleDate:10/29/2024Phone:[phone]:[address] [id number]:Brook Avelino Subjective: * Chief Complaints: * 1 . Pain in hands/wrists-discuss need for splints. * Medical History: Objective: * Vitals: Assessment: Plan: * Treatment: * Billing Information: * Visit Code: * Procedure Codes: * Electronic signature of Thuy Hollingsworth MD on 08/01/2025 at 01:13 PM ESTSign off status: Pending * Provider: Lisa Hollingsworth MD Date: 0 10/29/2024 Generated for Printing/Faxing/eTransmitting on:?08/01/2025 01:13 PM EST
--- OUTSIDE RECORDS SUMMARY | 2025-07-31 08:49 | XMS_ITS | Continuity of Care Document ---
Author Organization [facility] Address [address] [place] [address] Phone Care Team Providers Care Fuel Quality Tech Name Role Phone Meghan Yeung APRN Attending Provider [phone] Saumya Mckeon APRN Primary Care Provider Erika Brian-C Attending Provider + Brigette Rivera DO Attending Provider [phone] Care Teams Patient Care Team Team Status: Active Member Role/Relationship Status Dates Saumya Mckeon APRN Primary Care Provider Active Visit Care Team Team Status: Inactive Member Role/Relationship Status Dates Meghan Yeung APRN Attending Provider Active Start: June 17, 2025 End: June 17, 2025Юлия Marie Care ProviderActiveStart: June 17, 2025 End: June 17, 2025 Visit Care Team Team Status: Inactive Member Role/Relationship Status Dates Saumya Mckeon APRN Primary Care Provider Active Start: July 15, 2025 End: July 15, 2025Erika Brian APRN-FNP-CAttending ProviderActive Start: July 15, 2025 End: July 15, 2025 Patient Care Team Team Status: Inactive Member Role/Relationship Status Dates Saumya Mckeon APRN Primary Care Provider Active Start: July 31, 2025 End: July 31, 2025Nicyaya Rivera DOAttending ProviderActiveStart: July 31, 2025 End: July 31, 2025 Chief Complaint and Reason for Visit Chief Complaint Admit Date 2 month Follow up June 17, 2025 2:40pm F/U July 15, 2025 2 :08pm BOTOX-- NPCR; Traditional Medicaid Novem 2024 12:54pm Reason for Visit Admit Date Nightmares June 17, 2025 2:40pm Primary insomnia June 17, 2025 2:40pm Obstructive sleep apnea June 17, 2025 2:40pm Encounter for medication monitoring Octo 2024 2:08pm Anxiety and depression July 15 2:08pm Obstructive sleep apnea July 15 2:08pm Partial symptomatic epilepsy with complex partial seizures, not intractable July 15, 2025 2:08pm Spasticity July 15, 2025 2 :08pm Stroke July 15, 2025 2 :08pm Visual disturbance July 15, 2025 2 :08pm Allergies, Adverse Reactions, Alerts Allergen Type Severity Reaction Last Updated Verified Status Comments cortisone Allergy Unknown Nausea, stomach upset July 31, 2025 1:27pm Yes Active CORTISONE INJECTIONS ONLY triamcinolone Allergy Unknown Unknown Reaction July 31, 2025 1:27pm Yes Active KENELOG INJECTIONS ONLY Social History Smoking Status Status Start Date End Date Date of Observa tion Ex-smoker (finding) October 31, 1995 August 20, 2019 July 15, 2025 3:07pm Observation Status Observation Response Date of Response Legal Sex [facility] (finding) [facility] Family History Relationship Condition Age at Onset Recorded Date/T leora Not Specified No pertinent family history Unknown fatherDeceasedUnknown Problems Active Problems Problem Diagnosis/Recorded Date Onset Date Stat us Pressure injury, stage 1 November 07, 2019 10:44am U nknown Active Primary insomnia June 17, 2025 3:59pm Unknown Active Obstructive sleep apnea April 03, 2025 3:36pm Unknown Active Spastic hemiplegia affecting left nondominant side July 31, 2025 8:44am Unknown Active Impaired mobility and activi ties of daily living November 04, 2019 8:52am Unknown Active Sleep-wake cycle disorder November 04, 2019 10:06am Unknown Active Encounter for medication monitoring July 15, 2025 2:03pm Unknown Active Partial symptomatic epilepsy with complex partial seizures, not intractable, without status epilepticus October 26th, 2025 2:13pm Unknown Active Hyperlipidemia November 04, 2019 8:54am Unknown Active Nightmares June 17, 2025 4:00pm Unknown Active Seizure disorder November 04, 2019 8:52am Unknown Active Visual disturbance July 14, 2025 2:12pm Unknown Active Chronic right arterial ische lacey stroke, MCA (middle cerebral artery) November 04, 2019 8:51am Unknown Acti ve HTN, goal below 140/80 November 04, 2019 8:54am Unkn own Active DVT prophylaxis November 04, 2019 8:52am Unknown Active Cognitive communication disorder November 04, 2019 8 :52am Unknown Active Spasticity November 04, 2019 8:54am Unknown A ctive Anxiety and depression November 04, 2019 8:57am Unkn own Active Left shoulder pain November 04, 2019 8:52am Unknown Active Left hemiplegia November 04, 2019 8:52am Unknown Active Neuropathic pain November 04, 2019 8:54am Unknown Active Stroke January 04, 2024 5:25pm Unknown Acti ve Medications Medication Status Dose Units Route Directions Qty Days Refills S tart Date Stop Date End Date Reason(s) Instructions Adherence Lamotrigine 100 mg tablet Discontinued 100 MG PO Twice daily 60 30 2 March 03, 2025 11:00pm March 04, 2025 3:15pmLamotrigine 100 mg ulklbyJaderlzzchtg617NWHNNngyk daily60 302June 2024 3:15pmJune 2024 11:13amLamotrigine 100 mg tablet Xdpzwgkdvgsf185FFGVDpqhm alitf88364Hcsn 2024 11:12amSeptember 2024 2:31pmLamotrigine 100 mg engivjKrnoqt339UFMJBtwba mokuf72938Kwmnxtbyn 2024 2:30pmUnknownLidocaine (Aspercreme (Lidocaine)) 4 % Adhesive Patch,Medicated Aawlmuyxabdx4EPGMEUTEAYJIGefwb49594Ebkmbevt 2019 12:00amJuly 2024 3:40pmTrazodone 50 mg SctnbjQomscdxeykgp88NMVYPzhjg at bedtime as needed for Bdnyzkjs65724Zxhqbbmt 2019 12:00amJuly 2024 3:42pmLisinopril 10 mg TfzbuxEszffbckdnwm24XFOOJfgfg88265Zcvtkpcu 2019 12:00amJuly 2024 3:40pmSaccharomyces Boulardii (Florastor) 250 mg GrgakhqWncirqxzhzha821CAHIKlpol stqpr82041Moeewgzp 2019 12:00amJuly 2024 3:41pmMelatonin 5 mg Tablet Bscpmd1HFFGGsonb at jrfknxv19677Kclprpkz 2019 12:00amUnknownMultivitamin With Folic Acid (Thera) 400 mcg PujlauRvrrrq5RUHRTOiwim69730Ncnhykym 2019 12:00amUnknownMethyl Salicylate-Menthol (Thera-Gesic) 15-1 % CreamDiscontinued1 APPLICTOPICALThree times daily as needed for Ghxc57461Kffiqbfv 2019 12:00July 2024 3:40pmAtorvastatin 40 mg UwpzdwVpzllm38CEUHJljam at ikgymjn43479Fedgannn 2019 12:00amUnknownGabapentin 400 mg Capsule Qgjxycqghenr136AEDGEjyfc times tvrkj58453Cqsomcca 2019 12:00July 2024 3:40pmBaclofen 10 mg NceszePdiwhjaajtab07QWLEAwivw at znsujzd22833Urblgwro 2019 12:00July 2024 3:39pmAspirin 81 mg Tablet,FvrjhdqfGahkgy07FC TMHneys09680Abutcwhm 2019 12:00amUnknownHydroxyzine Pamoate 25 mg Capsule Wqlgmp31YCMALarpm times daily as needed for Ncafol84211Kfcvxsli 2019 12:00amUnknownDuloxetine 60 mg Capsule,Delayed Release(Dr/Ec)Vauhomyayfgg27RCCZ Upzoa47004Keylpqmk 2019 12:00amJuly 2024 3:40pmLevetiracetam 1,000 mg jlbeptDnlpoelpxuki5183QFMCTrjmv usuzr37053Jbwpldiv 2019 12:00amOctbaptist health [facility] 2024 1:19pmHydrocodone-Acetaminophen 5-325 mg VnnzqfQpoonvyuqqcz7IAYDGK8Y as needed for Pain Scale 7 - 071819Vmztivpx 2019July 2024 3:40pm Chronic pain of multiple sites Pain, unspecifiedPrednisone 20 mg rpmwbhOkjqtdaysftx79WNFNOdrxk yvijj8570Ynebv 2023 11:00pmJuly 2024 3:41pmQuetiapine (Seroquel) 25 mg tabletActive 0PODaily at uqnuuwv325Zpqwjwsbm 2024 11:00pmTake 1/2-1 tab before bedtime orally daily at bedtime;XccvxxwZho-Ywzi-Nsrfi-Xdsd-Wfx-Hfw-In (Digestive Enzymes(Mal,Lac,Inv)) 220 mg capsuleActiveCAPPOJuly 2024 11:00pmUnknown Tizanidine 4 mg jvopfoXthkdq0NOIQBduae dailyJuly 2024 11:00pmUnknown Famotidine 20 mg nzwfesRusdxx07GQGPQdxdd dailyJuly 2024 11:00pmUnknown Trazodone 150 mg irqvtuIxiabj278XIGTOshkp at bedtimeJuly 2024 11:00pm UnknownHydrocortisone 2.5 % fvfdvHdyrwb7ZXSNCFTQEPZZYGxsws daily as neededJuly 2024 11:00pmUnknownErgocalciferol (Vitamin D2) 1,250 mcg (50,000 unit) nmzfatyGgfpdg4632VCRCFvsorw weekJuly 2024 11:00pmUnknownIbuprofen (Ibu) 600 mg kjwciqGdirzv622CZVOJusqq 8 hoursJuly 2024 11:00pmUnknownFluticasone Propionate 50 mcg/actuation spray,lzbwozhjcaXiwyqf7PPWQXDJXIZCMTYKKunn 2024 11:00pmUnknownEscitalopram Oxalate 10 mg aagxwiKhczrlkobjpt81WOXFZegspQlte 2024 11:00pmOctober 2024 1:18pm Vital Signs Vital Reading Result Reference Range Collection Date/Time Heart Rate 71 /min 60-100 June 17, 2025 1:56pm BP Systolic 147 mm[Hg] 100-140 June 17, 2025 1:56pm BP Diastolic 86 mm[Hg] 60-100 June 17, 2025 1:56pm Height 74 [in_i] July 15, 2025 1:57mmGcspdc945.24 kgStra[facility] 2024 1:12pmHeart Rate86 /nyg65-833Zwhvsvr 2024 1:12pmRespiratory rate16 /yjn30-76Gsgshlw 2024 1:12pmOxygen saturation by Pulse mvoganxp40 %95-100[facility] 2024 1:12pmBP Aizwnzyz900 mm[Hg]100-140Octb[facility] 2024 1:12pmBP Wnbebqsmu04 mm[Hg] 60-100[facility] 2024 1:12pmBMI (Body Mass Index)28.3 kg/r8Nvuywbh 2024 1:12pm Advance Directives Advance Directive Response Recorded Date/ Time Advance Directives No July 15, 2025 2:07pm Insurance Providers Guarantor Addison H Reinaldo Address [address] [place] [address]Rgzysgw Info.Home Phone: Coverage Status Update:2025 Payer Group Member ID Coverage Type Subscriber Relationship to Subscriber Effective Date Expiration Date Medicaid [id number] H Fugitt Id: [id number] [address] [place] [address] Home Phone: Email: [email or web address] [employer] [id number] H Fugitt Id: [id number] [address] [place] [address] Home Phone: Email: [email or web address] Encounters Encounter Location(s) Arrival/Admit Date Discharge/Departure Date Discharge/Departure Disposition Provider(s) Departed Physician/ Provider Office Visit -[facility] [place] June 17, 2025 2:40pm June 17, 2025 3:35pm Discharged to home care or self care (routine discharge) Maxx Hyatt APRN Departed Physician/ Provider Office Visit -[facility] July 15, 2025 2:08pm July 15, 2025 3:09pm Discharged to home care or self care (routine discharge) Erika Brian APRN-[facility] Departed Physician/ Provider Office Visit -[facility] [place] July 31, 2025 12:54pm July 31, 2025 1:48pm Discharged to home care or self care (routine discharge) Brigette Rivrea , Recent Diagnosis Onset Date Admit Date Nightmares Unknown June 17, 2025 2:40pm Primary insomnia Unknown June 17, 2025 2:40pm Obstructive sleep apnea Unknown Mayembe r 2024 2:40pm Encounter for medication monitoring Unknown July 15, 2025 2:08pm Anxiety and depression Unknown June 202024 2:08pm Obstructive sleep apnea Unknown July 15, 2025 2:08pm Partial symptomatic epilepsy with complex partial seizures, not intractable Unknown July 15, 2025 2 :08pm Spasticity Unknown July 15 2:08pm Stroke Unknown July 15 2:08pm Visual disturbance Unknown July 15, 2025 2:08pm Assessments Diagnosis Onset Date Resolution Status Admit Date Nightmares acuteSept2024 2:40pmPrimary insomniaacuteSeptember 2024 2:40pm Obstructive sleep apneachronicSept2024 2:40pmEncounter for medication monitoringacuteOctober 2024 2:08pmAnxiety and depressionchronic July 15, 2025 2:08pmObstructive sleep apneachronicOctober 2024 2:08pm Partial symptomatic epilepsy with complex partial seizures, not intractable chronicOctober 2024 2:08pmSpasticitychronicOctober 2024 2:08pmStroke chronicOctober 2024 2:08pmVisual disturbancechronicOctober 2024 2:08pm Plan of Treatment Author Meghan Yeung [facility] HospitalAuthoredSept2024 4:11pmReview and summary of old records: PSG AHI of 8 with supine AHI 17 O2 35% suspect artifact Patient does have an underlying mild obstructive sleep apnea with a few central apnea events but primarily and obstructive sleep apnea with an AHI of 8. Patient however has more events when in the supine position with an AHI of 17. On the right side he has an AHI of 6 and on the left side he has an AHI of 4. A bigger concern is that there was an oxygen desaturation down to 35 percent which may be artifact as I am not convinced his oxygen went down that far. Nocturnal pulse ox completed and he did not qualify for oxygen at home. BiPAP titration 10/6 cmH20 Nocturnal Pox he did not qualify . . 54-year-old male with a history of a right hemispheric cerebral infarct causing left hemiparesis. Patient is being seen by us for his sleep as he follows with the Dr. Campa team for his other neurological medical issues. At one point in time the patient was titrated onto BiPAP at 10/6 cm of water for MATTEO. He states he could not tolerate the BiPAP machine however he never got a BiPAP machine. He just did not like it the night he went in for the sleep study. That is not technically a BiPAP failure. He did then have a split night study 01/2025 and now is set up on his machine. He does have a moderate MATTEO with AHI 21 with the 4% hypopnea desaturations, minimum oxygen desaturation of 85% during non-REM sleep. He was on bipap. Limb movements on bipap had an index of 9/hr with 6 events per hour causing arousals. He has now had his machine taken away for noncompliance. He was to speak to [facility] for a different mask and hose and did not. On download ending 05/07/2025 he put the mask on day, he wore the mask > 4 hours 23% of the days, average nightly usage 2 hours 52 minutes, residual AHI 4.9. He stated at one point he did sleep better when it was on. He had issues with the hose being too short. He is a side-sleeper and the mask will pull off. It is also difficult to put on as he does not have use of his left arm and hand. His has a significant other/caregiver that accompanies him to visits at times, has mask also and will be a good resource for him with this. Sometimes his mother comes, he is alone today. . I suspect some the patient's hypersomnia is due to inadequate sleep hygiene. Patient complains of some insomnia however he spending approximately 10-12 hours in bed and then wonders why he can not fall asleep or go back to sleep in the middle of the night. At this time the patient needs sleep restriction and to minimize his sleep hours in bed to 8 hours with a set sleep time such as midnight to 8:00 a.m. He needs to turn the TV off at night. He needs to not have caffeine within 3-6 hours of bedtime. He also would benefit from avoiding marijuana usage right before bedtime. We are going to trial some Seroquel for nightmares that he has been having. . In discussion with him I do feel he has depression. He states he has never spoke with anyone about all he has been through. He turned 49 and 2 weeks later had this debilitating tragedy that has altered his life. He can not work or drive, lives alone. This is likely contributing to all this time in bed. He is agreeable to a psych referral and this has been sent. . . . Plan Start seroquel 25 mg 1/2-1 tab at bedtime for nightmares, if he has benefit and we increase, I will order EKG first to make sure QT interval is normal He will schedule visit with team to discuss his auras, he has been having for 2 years Reviewed compliance download Go to DME in [place] discuss hose and possible something to aid in getting the mask on easier for him or someone will have to help him with it everynight and discuss masks, he did not do this after last visit Call and see why this visit is to be scheduled as it is unclear and he cannot have two sleep providers. He believes it was to try different masks. I did state DME will help him with that. Compliance download at next visit Assess for PLMD May need sleep aid Patient should have sleep restriction and set sleep times and only allow for about 8 hours of sleep Turn the TV off while sleeping No electronics for 30-45 minutes before sleep time No caffeine 3-6 hours before bedtime Recommend no marijuana 3-6 hours before bedtime Increase cardiovascular exercise to help consolidate sleep Be as active as possible during the day The patient was counseled on proper sleep hygiene and adequate hours of sleep. The diagnosis was all discussed with the patient. All questions were answered and they agreed with the treatment plan. Patient will call if there are any new issues or questions. Pt has been fully educated on their diagnosis, treatment options, follow up plan, and return instructions Author Erika Brian White HospitalAuthoredOctober 2024 6:33pmMr. Najera is a 54-year-old male with a history of cerebral infarction due to right MCA occlusion in 2018. He is status post hemicraniectomy in August 2019 at [facility] due to cerebral edema and brain compression. He later underwent cranioplasty to repair acquired skull defect in October 2019 at [facility]. He has residual left visual neglect, left-sided hemiparesis, left-sided spasticity, left hemibody numbness, and mild cognitive dysfunction. He reports completing extensive therapy for his symptoms in the past and has obtained a robotic glove for neuromuscular rehabilitation which he believes is helpful. He is able to ambulate for short distances but typically uses a wheelchair and assistive devices. Neuropsychological evaluation on 04/10/2024 was consistent with residual cognitive sequelae associated with his 2019 right MCA infarct. The patient denies any new signs or symptoms of stroke since the prior neurology appointment. Of note, the patient did have an episode in April 2023 which he states he was told was a transient ischemic attack. He states MRI at [facility] was unremarkable. He was not taking any antiplatelet therapy at the time and was placed on aspirin during that admission. PLAN: - Continue physical therapy. Fall prevention measures - Continue aspirin 81 mg by mouth daily for secondary stroke prevention - Continue statin (management per primary care provider; goal LDL < 70) - Healthy diet and regular physical activity as tolerated - Avoid tobacco use and limit alcohol intake - Follow up closely with primary care provider for management of blood pressure, cholesterol levels, and blood glucose to help reduce the risk of future stroke - I counseled the patient on signs and symptoms of stroke and advised the patient to seek immediate evaluation in the emergency department if he develops any of these in the future - Follow-up with [facility] neurosurgery per their recommendations See above. The patient has residual LUE and LLE spasticity. He also has central pain syndrome. I believe some of his pain may stem from his spasticity. He has received Botox injection via Dr. Rivera with some relief but states effects do seem to wear off prior to his next injections. Baclofen was ineffective previously. He is no longer taking fentanyl, duloxetine, or gabapentin. PLAN: - Follow up with Dr. Rivera for Botox injections for spasticity - Continue tizanidine 4 mg by mouth twice a day as needed for spasticity (may use in between Botox injections) if helpful The patient reports transient visual disturbance which he describes as brief episodes of swirly colors in his vision and photopsia. MRI of the brain on 11/06/2024 was unremarkable for cause. Could consider migraine aura, however, these do not directly correlate with the timing of his headaches, and duration is fairly short (typically less than 1 minute). Another consideration is simple partial seizures. Will update EEG. PLAN: - Routine EEG to assess for seizure or underlying epileptiform activity which could contribute to the patient's visual symptoms - I advised the patient to follow up with his caustic loader for further evaluation and management. He verbalizes understanding but states his eye doctor is already aware of this and told him, there's nothing wrong, with his eyes, and they are healthy The patient has a long-standing history of epilepsy. He has extensive risk factors including right MCA stroke and subsequent right temporal craniotomy. Ambulatory EEG in June 2022 revealed abnormalities in the right temporal area consistent with right hemisphere dysfunction and possible epileptiform focus in the right temporal occipital region which would correlate with his prior craniotomy. Keppra was discontinued due to mood issues. Now taking lamotrigine which he tolerates well. He denies any definitive seizures since the prior neurology appointment but does report transient episodes of visual disturbance which could represent focal aware seizures. He denies progression to generalized tonic-clonic seizures. PLAN: - Routine EEG as detailed above - I informed the patient that his episodes of visual disturbance could represent seizure. I recommended dose increase of lamotrigine 100 mg by mouth daily in the morning and 150 mg mouth daily in the evening for seizure prevention, but the patient politely declined this for now. He states he would like to pursue further workup prior to considering dose increase of AED - Continue lamotrigine 100 mg by mouth twice a day for now - Try to ensure medication compliance, adequate sleep, and stress management - No driving, no operating heavy machinery, no swimming, no tub bathing alone, no climbing ladders, and no working at heights. Precautions to continue until the patient is at least 3 months episode free and cleared by neurology PLAN: - Check labs (CBC, CMP, lamotrigine level, and lipid panel). Reordered today. I encouraged the patient to have these completed ?? The patient had evidence of obstructive sleep apnea on polysomnography. He states he did not tolerate CPAP/BiPAP for treatment and is following with Dr. Rivera's team. He was evaluated by our sleep medicine team previously and determined not to be a candidate for surgical intervention for MATTEO. PLAN: - Follow up with Dr. Rivera's team for management The patient reports feelings of anxiety and depression. PLAN: - He has been referred to psychiatry for management Diagnoses and treatment plan discussed. The patient and his friend verbalized understanding and are agreeable to the plan. All questions answered. Future Tests Future scheduled test information is unavailable Pending Tests Test Name Ordered Date Scheduled Date Comprehensive Metabolic Panel July 15, 2025 2:03pm Future Visits Future appointment information is unavailable Future Procedures Procedure Name Ordered Date Scheduled Date Complete Blood Count Auto Diff July 15 2:03pm Lamotrigine (Lamictal)July 15, 2025 2:03pmLipid PanelOct2024 2:03pmEEG awake & asleepOctober 2024 6:33pm Future Medications Future medication information is unavailable Patient Instructions Patient instructions are unavailable
--- OUTSIDE RECORDS SUMMARY | 2025-08-01 13:13 | XMS_ITS | Clinical Summary ---
Author Organization [facility] Address [address] [facility] [place] [address] Care Team Providers Care Lacquer Shader Name Role Phone Saumya Mckeon HIGHWAY ADMINISTRATIVE ENGINEER Unavailable Brigette Rivera DO Unavailable [phone] ADMINISTRATIVE ENGINEER Unavailable [phone] Zhao Heart MD Primary Care Provider [phone] ADMINISTRATIVE ENGINEER Unavailable [phone] Allergies Active AllergyReactionsCriticalityNoted DateCommentsCortisoneNausea OnlyMedium 06/26/2020 Injections, patient states cortisone cream is okay Medications MedicationSigDispense QuantityRefillsLast FilledStart DateEnd DateStatus atorvastatin (Lipitor) 40 MG tablet Take 40 mg by mouth DailyActive Aspirin Low Dose 81 MG EC tablet Take 81 mg by mouth DailyActive ergocalciferol (Vitamin D2) 1.25 MG (62015 UT) capsule Take 1 capsule by mouth 1 (one) time per week12/21/2023ctive melatonin 5 MG tablet Take 5 mg by mouth at yspnwwu3612/21/2023ctive hydrOXYzine pamoate (Vistaril) 25 MG capsule Take 25 mg by mouth in the morning and 25 mg before bedtime.01/19/2024ctive Multiple Vitamin (Multivitamin) tablet Take 1 tablet by mouth Daily01/19/2024ctive fluticasone (Flonase) 50 MCG/ACT nasal spray 04/12/2024ctive Pepcid 20 MG tablet every 12 (twelve) hours04/12/2024ctive hydrocortisone 2.5 % cream 10/01/2024Active ibuprofen 600 MG tablet 4Active traZODone (Desyrel) 100 MG tablet 100 mg5Active lamoTRIgine (LaMICtal) 100 MG tablet Indications:Partial symptomatic epilepsy with complex partial seizures, intractable, without status epilepticus(HCC)Take 1 tablet (100 mg) by mouth in the morning and 1 tablet (100 mg) before bedtime. 60 tablet 5Active escitalopram (Lexapro) 10 MG tablet Take 10 mg by mouth Daily5Active tiZANidine (Zanaflex) 4 MG tablet Indications:Left spastic hemiplegia (HCC)TAKE 1 TABLET (4 MG) BY MOUTH 2 (TWO) TIMES A DAY NEEDED (SPASTICITY) 60 tablet 5Active Active Problems ProblemNoted DateDiagnosed DateAnxiety and reiiiwoiph91/17/2024Difficulty brlvxvrrku06/17/2024Cerebrovascular accident (CVA) due to occlusion of right middle cerebral rvqsrp0301/19/2024 Overview (06/24/2024): The patient suffered a right MCA territory infarct. Patient had edema and needed a craniotomy. Skull flap was removed and then replaced. Patient is overall doing well in regards to this but he does have residual left sided weakness and spasticity. Patient had a recent episode which he states he wastold was a transient ischemic attack. He states MRI at [facility] was unremarkable. He was placed on aspirin at that admission. - PLAN -Obtain records from recent admission to review workup in detail. - Continue aspirin 81 mg po daily - Follow-up with neurosurgery at [facility] as indicated Central pain zvqninmf34/02/2024 Overview (06/24/2024): Patient has central pain syndrome. Previously on fentanyl, now on gabapentin and duloxetine. I think a lot of his pain come from some of the spasticity he has in his left arm and leg; has gotten Botox ND and has had some relief of the spasticity in his left hand though still modest; biggest complaint is the elbow stiffness. We did restart him on Baclofen. - PLAN - Continue gabapentin and duloxetine (PCP prescribing). apparently gabapentin is being weaned. - Following with Dr. Rivera for Botox for spasticity (left elbow, wrist, hip) - Continue Baclofen - He is getting a brace for his arm which Dr. Rivera ordered but ultimately documentation needed updated and PCP did it Partial symptomatic epilepsy with complex partial seizures, intractable, without status /02/2024 Overview (06/24/2024): The patient has a long-standing history of epilepsy. He has extensive risk factors including right MCA stroke and subsequent right temporal craniotomy. Recent ambulatory EEG with abnormalities in theright temporal area consistent with right hemisphere dysfunction and possible epileptiform focus inthe right temporal occipital region which would correlate with his prior craniotomy. Off Keppra dueto mood issues. On lamictal and doing well but did have recent breakthrough seizure. - PLAN - No longer on Keppra (mood issues) - Continue lamotrigine 100mg BID; side effects including SJS and rash were discussed - Medication compliance was discussed Left spastic pxwoykpuhx70/02/2024aytime hmeewdjzeogcfed66/02/2024 Overview (06/24/2024): Patient has a long standing history of sleep issues. Given his history of stroke, I wonder if thereis a central sleep apnea component. Had a PSG done and it showed some MATTEO. - PLAN - continue CPAP - He is on trazodone 50mg QHS per PCP - Continue melatonin 2.5mg 1-2 hrs before bed - Sleep hygiene was discussed Central sleep apnea01/19/2024 Overview (06/24/2024): See above. MATTEO (obstructive sleep apnea)4Altered mental qheqnh6003/27/2023 Cerebrovascular fbbxwwu57/05/2021Acquired skull rgoyfp1910/22/2019 Overview (07/05/2024): Added automatically from request for surgery [id number] Cognitive communication rnaqtys4808/31/2019Bradycardia, srhpjlckkux07/12/2019 Cerebral infarction due to occlusion of right middle cerebral zongly0908/30/2019 Ziibxq9208/27/2019Cerebral edema08/20/2019 Overview (07/05/2024): Added automatically from request for surgery [id number] Immunizations ImmunizationAdministration DatesNext DueInfluenza, Seasonal, Quadrivalent, Leooluhpzq18/03/2023Influenza, injectable, quadrivalent, preservative free 06/22/2022 Family History Medical HistoryRelationNameCommentsKidney diseaseFatherNo Known ProblemsMother RelationNameStatusCommentsFatherDeceasedMotherAlive Social History Tobacco UseTypesPacks/DayYears UsedDateSmoking Tobacco: NeverSmokeless Tobacco: Never Tobacco Cessation:Counseling Given: Not Answered Alcohol UseStandard Drinks/WeekCommentsNot Currently1 (1 standard drink = 0.6 oz pure alcohol)Sex and Gender InformationValueDate RecordedSex Assigned at Not on fileLegal PjqApxk4912/01/2022 10:02 PM EDTGender IdentityNot on fileSexual OrientationNot on file Last Filed Vital Signs Vital SignReadingTime TakenCommentsBlood Pqawplrk33/7204 9:20 AM EDT Wfacd61580 9:20 AM EDTTemperature--Respiratory Dzwh111403/05/2024 2:52 PM EDTOxygen Pshkuvdodg24%11/01/2024 4:03 PM ESTInhaled Oxygen Concentration-- Oagvws54.1 kg (214 lb)12/13/2024 1:07 PM LWOAhvkgx783 cm (6' 2 )01/03/2025 9:20 AM EDTBody Mass Index27.4803 1:07 PM EDT Plan of Treatment Not on file Insurance Care Teams Team MemberRelationshipSpecialtyStart DateEnd Zhao Heart MD [address] [place], [place] [id number] PCP - GeneralFamily Ozkgdaeu00/3/24 Saumya Mckeon NP [address] [place] [address] Referring Physicianmily Wcsdtpoa11/11/24 Brigette Rivera DO [address] [place] [address] Referring ZqxkwgfzqCscexkchp27/3/24 Meghan Yeung NP [address] [place] [address] Nurse XtismsstiswnSpgwypneh47/3/24 Erika Brian NP [address] [place], [place] [id number] Nurse PractitionerNeurology12/13/24
--- OUTSIDE RECORDS SUMMARY | 2025-08-01 13:13 | XMS_ITS | Clinical Summary ---
Author Organization [facility] Address [address] [place] [address] Care Team Providers Care Pipe Turner Name Role Phone Estevan Alarcon DO Primary Care Provider [phone] Allergies No known active allergies Medications MedicationSigDispense QuantityRefillsLast FilledStart DateEnd DateStatus acetaminophen 325 MG tablet Take 2 tablets by mouth every 4 hours.Active aspirin 81 MG Chew Tab chewable tablet Chew 1 tablet daily.08/31/2019Active atorvastatin 40 MG Tab tablet Take 1 tablet by mouth at bedtime.08/30/2019Active bisacodyl 10 MG Suppository suppository Insert 1 suppository rectally daily.08/31/2019Active fluoxetine 10 MG Cap capsule Take 1 capsule by mouth daily.08/31/2019Active levetiracetam 1000 MG Tab tablet Take 1 tablet by mouth every 12 hours.08/30/2019Active lisinopril 20 MG Tab Take 1 tablet by mouth daily.08/31/2019Active Additional Information Patient taking differently: 10 mgOral DAILY, Reported on 03/18/2025 melatonin 3 MG Tab tablet Take 1 tablet by mouth at bedtime as needed for Insomnia.Active Additional Information Patient taking differently: 15 mgOral DAILY AT BEDTIME NEEDED, Insomnia, Reported on 03/18/2025 petrolatum Ointment ophthalmic ointment Apply 1 Application to both eyes as needed for Dry Eyes.Active polyethylene glycol Pack packet Take 1 packet by mouth 2 times daily.08/30/2019Active senna 17.2 MG Tab Take 1 tablet by mouth daily every morning.Active lactobacillus acidophilus and bulgaricus 1 GM Pack Take by mouth 2 times daily.Active baclofen 10 MG tablet Take 1 tablet by mouth 3 times daily.Active CRANBERRY PO Take by mouth.Active DULoxetine (Cymbalta) [address] Particles capsule DR Take 1 capsule by mouth daily.Active Multiple Vitamin (multivitamin) capsule Take 1 capsule by mouth daily.Active hydrOXYzine pamoate 50 MG capsule Take 1 capsule by mouth 3 times daily as needed for Itching.Active ondansetron 4 MG tablet Take 1 tablet by mouth every 4 hours as needed for Nausea / Vomiting. 30 tablet Active oxyCODONE-acetaminophen 5-325 MG per tablet Indications:Post-operative stateTake 1 tablet by mouth every 6 hours as needed for Moderate Pain for up to 5 days. 12 tablet 11/03/2019Active gabapentin 300 MG capsule Take 1 capsule by mouth 3 times daily for 7 days. 30 capsule 11/03/2019Active diphenhydrAMINE 25 MG tablet Take 1 tablet by mouth at bedtime. 30 tablet 11/03/2019Active Active Problems ProblemNoted DateDiagnosed DatePost-operative state11/03/2019Acquired skull xhnzzz5010/22/2019 Overview (10/22/2019): Added automatically from request for surgery [id number] Malignant edema08/30/2019 Overview (08/30/2019): Post Hemicraniectomy Anemia (Low HGB)08/27/2019Electrolyte disorder (K, Cl, or Na)08/26/2019Stroke 08/21/2019Cerebral edema08/20/2019 Overview (08/21/2019): Added automatically from request for surgery [id number] Encounters DateTypeDepartmentCare MfunSpdnozqresp67/20/2025Telephone Central Scheduling [address] [place] [address] Degn Mckeon MD Order Requestfrom Last 3 Months Social History Tobacco UseTypesPacks/DayYears UsedDateSmoking Tobacco: DjqdfiVfzyndzctr96.8 10/31/1995 - 08/20/2019Smokeless Tobacco: Never Tobacco Cessation:Counseling Given: Not Answered Alcohol UseStandard Drinks/WeekCommentsNot Currently0 (1 standard drink = 0.6 oz pure alcohol)Sex and Gender InformationValueDate RecordedSex Assigned at Not on fileLegal OllVkca0410/22/2012 10:08 AM ESTGender IdentityNot on fileSexual OrientationNot on file Last Filed Vital Signs Vital SignReadingTime TakenCommentsBlood Pnuxjfqj057/8106 1:53 PM EDT Otuux2497 1:53 PM JCAPsacfajuuwv99.1 ??C (97 ??F)03/18/2025 1:53 PM EDT Respiratory Srpu2673 1:53 PM EDTOxygen Batcabkyaq54%03/18/2025 1:53 PM EDTInhaled Oxygen Concentration--Somjrw22.1 kg (214 lb)03/18/2025 1:53 PM EDT Uylzjp680 cm (6' 2 )03/18/2025 1:53 PM EDTBody Mass Index27.4806 1:53 PM EDT Plan of Treatment Health MaintenanceDue DateLast DoneCommentsHEPATITIS C VIRUS FPMXWLOJD1969 CYGPARJ73 1969HIV SCREENING PJUNIZGTLY06/16/1984HEP B VACCINE (1 of 3 - 19+ 3-dose series)1988TDAP (ADULT)1988COLORECTAL CANCER SCREENING GDFEGNIINB43/16/2014LUNG CANCER SCREENING OUIVXRRZII26/16/2019PNEUMOCOCCAL VACCINE SERIES (1 of 1 - PCV)2019ZOSTER (SHINGLES) VACCINE (1 of 2) 2019PROSTATE CANCER SCREENING FUAVCMEYYM59/16/2024LIPID SCREENING COVID-19 VACCINE (1 - season)2025INFLUENZA VACCINE (#1)511/11/2022, 06/22/2022 Medical Devices ImplantedTypeAreaManufacturerDevice IdentifierShelf Expiration DateModel / Serial / LotGraft Durgagen Plus Dural - [id number] Implanted:Qty: 1 on 08/21/2019 [facility] HkmddlkjPNMPZRH87/31/[id number] / / [id number] Matrix Plus 5x7 - [id number] Implanted:Qty: 1 on 08/21/2019 [facility]: ParietalSTRYKER ORTHOPEDICS (INACTIVE)[id number] / / [id number] Hole Contrd 17mm - [id number] Implanted:Qty: 2 on 10/31/2019 [facility]: Chago MATIAS [id number] / / Plate Neuro Dbl Yshp Lng - [id number] Implanted:Qty: 1 on 10/31/2019 by [facility] Chago MATIAS [id number] / / Plate Neuro Square .6mm - [id number] Implanted:Qty: 1 on 10/31/2019 by [facility] Chago MATIAS [id number] / / Screw Micro Mxdrv 1.5x4.0mm/Ea - [id number] Implanted:Qty: 13 on 10/31/2019 by [facility] Chago MATIAS [id number] / / Procedures Procedure NamePriorityDate/TimeAssociated DiagnosisCommentsLIPID PANEL WITH REFLEX TO MEASURED FNMTunsned47/04/2019 12:26 AM EST from Last 3 Months or Most Recently Relevant to Health Maintenance Results * LIPID PANEL WITH REFLEX TO MEASURED LDL (08/22/2019 12:26 AM EST)Component ValueRef RangeTest MethodAnalysis TimePerformed AtPathologist SignatureHDL Skcxncywiud32>=40 mg/dL08/22/2019 2:10 AM [facility]Comment: [<40 mg/dL: Low (High Risk)] [>59 mg/dL: High (Low Risk)] Calculated LDL Bpyyfucjdox720 - 99 mg/dL08/22/2019 2:10 AM [facility]Comment: [<100 mg/dL: Optimal] [100-129 mg/dL: ??Near Optimal] [130-159 mg/dL: ??Borderline High] [160-189 mg/dL: ??High] [>189 mg/dL: Very High] Total Cholesterol/HDL Ratio3.2<4. 2:10 AM [facility] LAB[facility]ORYNon HDL Ufmzowbpufm364<130 mg/dL08/22/2019 2:10 AM [facility] QIDAHXQILXDeuwoszlhljco627<150 mg/dL 08/22/2019 2:10 AM [facility] LABORATORYComment: [<150 mg/dL: Desirable] [150-199 mg/dL: Borderline] [200-499 mg/dL: High] [>500 mg/dL: Very High] Rsqyrmcrjhe176<200 mg/dL08/22/2019 2:10 AM [facility] LABORATORYComment: [<200 mg/dL: Desirable] [200-239 mg/dL: ??Borderline High] [>239 mg/dL: High] Specimen (Source)Anatomical Location / LateralityCollection Method / Volume Collection TimeReceived TimeBloodVenipuncture / Gshjojd9208/22/2019 12:26 AM EST 08/22/2019 1:21 AM EST Narrative Authorizing ProviderResult TypeResult StatusSushil Seven Soto MDCHEMISTRY ORDERABLESFinal ResultPerforming OrganizationAddressCity/State/ZIP CodePhone Number [facility] [address] [address] from Last 3 Months or Most Recently Relevant to Health Maintenance Insurance Advance Directives For more information, please contact: [phone] (7:30 AM - 6PM Xochitl/[facility], Tuesday-Tuesday) * Full Code (Latest Code Status on File) Date ActivatedDate InactivatedComments10/31/2019 5:12 PM * Full Code Date ActivatedDate OhoqouxujfxEbfqyiyz72/3/2019 3:56 AM10/31/2019 5:12 PM Care Teams Team MemberRelationshipSpecialtyStart DateEnd Date Estevan Alarcon DO PCP - GeneralFamily Medicine10/31/19
--- OUTSIDE RECORDS SUMMARY | 2025-08-01 13:13 | XMS_ITS | Patient Health Record ---
Author Organization [facility] Address [address] [place] [address] Care Team Providers Care Water Softener Servicer And Installer Name Role Phone MORRO Chinchilla Primary Care Provider Allergies Allergen (clinical drug ingredient) Drug/Non Drug Allergy documented on EMR Reaction Allergy Type Onset Date Status cortisone Cortisone Unknown Drug Allergy Active Reason For Referral No Information Medications Medication SIG (Take, Route, Frequency, Duration) Notes Start Date End Date Status levETIRAcetam 1000 MG Tablet TAKE 1 TABL ET BY MOUTH EVERY 12 HOURS; Duration: 10 day(s) PATIENT NEEDS APPOINTMENT ActiveSingulair 5 MG Tablet Chewableas directed Orally every 12 hoursActive Benadryl 25 MG Tablet1 tablet as needed at bedtime Orally once a day; Duration: 30 daysActiveBaclofen 20 MG TabletTAKE 1 TABLET BY MOUTH THREE TIMES A DAY NEEDED; Duration: 10 day(s)PATIENT NEEDS APPOINTMENTActiveFish Oil 1000 MG Capsule4 capsule Orally Once a day; Duration: 30 days10/29/2021ctiveFLUoxetine HCl 20 MG CapsuleTAKE 1 CAPSULE BY MOUTH EVERY DAY FOR 30 DAYS; Duration: 30 ActivetraZODone HCl 150 MG TabletTAKE 1 TABLET BY MOUTH EVERY DAY AT BEDTIME; Duration: 5 day(s)PATIENT NEEDS APPOINTMENTActiveAtorvastatin Calcium 40 MG TabletTAKE 1 TABLET BY MOUTH EVERY DAY; Duration: 5 day(s)PATIENT NEEDS APPOINTMENTActiveZanaflex 4 MG Tablet1 tablet as needed Orally once a day; Duration: 30 days10/29/2021ctiveDULoxetine HCl 60 MG Capsule Delayed Release ParticlesTAKE 1 CAPSULE BY MOUTH EVERY DAY; Duration: 10 day(s)PATIENT NEEDS APPOINTMNETActiveGabapentin 400 MG Capsule1 capsule Orally Once a day; Duration: 30 day(s)takes at nightActiveTamsulosin HCl 0.4 MG CapsuleTAKE 1 CAPSULE BY MOUTH EVERY DAY; Duration: 10 day(s)PATIENT NEEDS APPOINTMENTActiveGabapentin 800 MG Tablet1 tablet Orally Once a day; Duration: 30 day(s)takes at morning Active Social History Section Notes: Diet: Poor Exercise: no Smok e: Yes canabis Etoh: no Diet: Poor Exercise: no Smok e: Yes canabis Etoh: no Diet: adequate Exercise: yes Smoke: no Etoh: no Problems Problem Type SNOMED Code ICD Code Onset Dates Problem Status W/U Status Risk Notes Problem Paraplegia (61866135) Paraplegia, unspeci fied (G82.20) ActiveconfirmedProblemAnxiety (41007005)Anxiety (F41.9)ActiveconfirmedProblem Renal stone (32524211)Renal stone (N20.0)ActiveconfirmedProblemSpinal cord anomaly (Q06.9)ActiveconfirmedProblemBlindness - both eyes (disorder) (875841561)Blind in both eyes (H54.3)Activeconfirmed Plan Of Treatment No Information Insurance Providers Payer Name Payer Address Payer Phone Subscriber Number Group Number Insured Name Patient Relationship to Insured Coverage Start Date Coverage End Date [facility] () [address] [address] [place] [address] [phone] [id number] Jd Najera - patient is the insured
--- OUTSIDE RECORDS SUMMARY | 2025-08-01 13:13 | XMS_ITS | Clinical Summary ---
Author Organization [facility] Address [address] [place] [address] Care Team Providers Care Inhalation Therapy Aides Teacher Name Role Phone Kade Murphy MD Primary Care Provider [phone] Allergies Active AllergyReactionsCriticalityNoted DateCommentsCortisoneNausea OnlyMedium 06/26/2020 Injections, patient states cortisone cream is okay PzpkqsoofyhPqqqXsf22/19/2021 Medications MedicationSigDispense QuantityRefillsLast FilledStart DateEnd DateStatus atorvastatin (Lipitor) 40 mg tablet Take 40 mg by mouth in the morning.04/01/2020Active baclofen (Lioresal) 20 mg tablet Take 10 mg by mouth twice a day.04/14/2020Active DULoxetine (Cymbalta) [address] capsule Take 60 mg by mouth in the morning.12/22/2022ctive ergocalciferol (Vitamin D-2) 1.25 MG (97318 Units) capsule Take 50,000 Units by mouth every 7 (seven) days.11/23/2022ctive gabapentin (Neurontin) 400 mg capsule Take 400 mg by mouth twice a day.06/13/2020Active ibuprofen 600 mg tablet Take 600 mg by mouth if needed in the morning, at noon, and at bedtime. 05/31/2020Active lamoTRIgine (LaMICtal) 100 mg tablet Take 100 mg by mouth twice a day.11/23/2022ctive melatonin 5 mg tablet, IR and ER, biphasic TAKE 1 TABLET BY MOUTH 30 MINUTES before bedtime ETXHYO1711/23/2022ctive traMADol (Ultram) 50 mg tablet Take 50 mg by mouth if needed in the morning, at noon, and at bedtime.09/07/2022 Active traZODone (Desyrel) 150 mg tablet Take 150 mg by mouth in the morning.Active Active Problems ProblemNoted DateDiagnosed DateHLD (hyperlipidemia)Seizures /02/2023Visual ueanmckuhk16 Overview (03/24/2023): glasses Severe muscle axrapeqergfpwg33Spastic gait Spasticity as late effect of cerebrovascular accident (CVA) Unintentional weight loss7082Zuoviwdxadlvnge69/22/202107/06/2023 Overview (03/24/2023): He is on aspirin for history of stroke. ==== 06/28/2022 ==== still continues have some discomfort. CT scan report reviewed as well no evidence of any obstruction hydronephrosis or stone. ==== 06/16/2022 ==== status post ureteroscopy with laser lithotripsy stone basketing in December 2020. Since that time patient has had some intermittent left- sided discomfort. [place]. Past the small fragment. This is sent off for analysis. Plan: Pain appears to be non urologic. At this point will obtain CT scan stone protocol in order toassess. Return clinic thereafter. ==== 12/08/2020 ==== he has had some progression of the stone. Now roughly an intramural ureter. Hassome intermittent discomfort---enough to require pain medication. Plan: [...] on his own. There straining his urine. Heis nontoxic per nursing staff. Plan: Refilled tamsulosin. Also give him a short course of pain medications. Strain the urine. Repeat CT scan 3-4 weeks. Return clinic Last Assessment & Plan: Pain is non urologic. Previously brought in specimen was not a stone based on [facility] evaluation. Plan: Ultrasound 2 years return clinic sooner. Ezxistvmsx77erebrovascular ruonrta11Tonic clonic eignliji63ost-operative state Acquired skull vxytwc77 Overview (03/24/2023): Added automatically from request for surgery [id number] Cognitive communication ueqcipe98ysphagia, oropharyngeal phaseMuscle weakness (generalized)Other disorders of electrolyte and fluid balance, not elsewhere yuzelzgxdk44/13/2019 03/24/2023radycardia, rprekqrkano71erebral infarction due to occlusion of right middle cerebral hnprry62ysarthria following cerebral wjdituijdn19Encounter for surgical aftercare following surgery on the nervous lkpgqp13Expressive language gnpomwos00Hemiplegia and hemiparesis following cerebral infarction affecting left non-dominant sideMajor depressive disorder, recurrent, qsmvsnprmeh62Malignant edema Overview (03/24/2023): Post Hemicraniectomy Difqpn12erebral edema Overview (03/24/2023): Added automatically from request for surgery [id number] Social History Tobacco UseTypesPacks/DayYears UsedDateSmoking Tobacco: NeverSmokeless Tobacco: NeverAlcohol UseStandard Drinks/WeekCommentsNever0 (1 standard drink = 0.6 oz pure alcohol)Humiliation, Afraid, Rape, and Kick questionnaireAnswerDate RecordedWithin the last year, have you been afraid of your partner or ex-partner?No05/30/2023Emotionally AbusedNot on file05/30/2023hysically Abused Not on 05/30/2023Sexually AbusedNot on 05/30/2023HQ-2AnswerDate RecordedPatient Health Questionnaire-2 Scczx457UT Safety & Environment AnswerDate RecordedWithin the last year, have you been afraid of your partner or ex-partner?No05/30/2023Emotionally AbusedNot on file05/30/2023hysically Abused Not on 05/30/2023Sexually AbusedNot on file05/30/2023In the past year have you been physically or sexually abused?Unrecognized value05/30/2023Sex and Gender InformationValueDate RecordedSex Assigned at BirthNot on fileLegal Sex Male02/15/2023 2:32 PM EDTGender IdentityNot on fileSexual OrientationNot on file Last Filed Vital Signs Vital SignReadingTime TakenCommentsBlood Wodunotz346/7405/30/2023 2:56 PM EDT Aipug585605/30/2023 2:56 PM EDTTemperature--Respiratory Rate--Oxygen Saturation-- Inhaled Oxygen Concentration--Qvjbkc01.2 kg (190 lb)05/30/2023 2:56 PM EDTHeight 188 cm (6' 2 )05/30/2023 2:56 PM EDTBody Mass Index24.3909 2:56 PM EDT Plan of Treatment Health MaintenanceDue DateLast DoneCommentsCT Djqrzzudckyq1969Colonoscopy 1969Colorectal Cancer Dlztjubgh1969FIT-DNA1969FIT1969 FOBT1969 9499Pnexgmumqljxm1969Depression Rjjrmtate67/16/1981Hepatitis B Vaccines (1 of 3 - 19+ 3-dose series)1988Adult Bjaklzc0608/04/1991Zoster Vaccines (1 of 2)2019Influenza Vaccine (#1)HIB VaccinesAged OutNo longer eligible based on patient's age to complete this topic HPV VaccinesAged OutNo longer eligible based on patient's age to complete this topicIPV VaccinesAged OutNo longer eligible based on patient's age to complete this topicMeningococcal B VaccineAged OutNo longer eligible based on patient's age to complete this topicMeningococcal VaccineAged OutNo longer eligible based on patient's age to complete this topicPneumococcal Vaccine: Pediatrics (0 to 5 Years) and At-Risk Patients (6 to 64 Years)Aged OutNo longer eligible based on patient's age to complete this topicRotavirus VaccinesAged OutNo longer eligible based on patient's age to complete this topic Insurance Care Teams Team MemberRelationshipSpecialtyStart DateEnd Date Kade Murphy MD [address] [place] [address] PCP - [facility]03/17/23
--- OUTSIDE RECORDS SUMMARY | 2025-08-01 13:13 | XMS_ITS | Clinical Summary ---
Author Organization [email or web address] Address [id number] [address] [place] [address] Care Team Providers Care Ag Equipment Field Service Technician Name Role Phone Services, [facility] Primary Care Provider Allergies Active AllergyReactionsCriticalityNoted DateCommentsCortisoneNauseaMedium 06/26/2020 Injections, patient states cortisone cream is okay Medications MedicationSigDispense QuantityRefillsLast FilledStart DateEnd DateStatus atorvastatin (LIPITOR) 40 mg tablet Take 1 tablet (40 mg total) by mouth nightly.04/01/2020Active gabapentin (NEURONTIN) 400 mg capsule Take 1 capsule (400 mg total) by mouth in the morning and 1 capsule (400 mg total) before bedtime. Patient takes 400 mg in the morning and 800 mg at night. 06/13/2020Active baclofen (LIORESAL) 20 mg tablet Take 0.5 tablets (10 mg total) by mouth in the morning and 0.5 tablets (10 mg total) before bedtime.04/14/2020Active traZODone (DESYREL) 150 mg tablet Take 150 mg by mouth nightly.Active lamoTRIgine (LaMICtal) 100 mg tablet Take 1 tablet (100 mg total) by mouth in the morning and 1 tablet (100 mg total) before bedtime.11/23/2022ctive melatonin 5 mg tablet, IR & ER, biphasic TAKE 1 TABLET BY MOUTH 30 MINUTES before bedtime KHFZWA9211/23/2022ctive ergocalciferol (DRISDOL) 1,250 mcg (50,000 unit) capsule Take 1 capsule (50,000 Units total) by mouth once a week.11/23/2022ctive DULoxetine (CYMBALTA) 60 mg capsule Take 1 capsule (60 mg total) by mouth in the morning.12/22/2022ctive aspirin 81 mg Take 1 tablet (81 mg total) by mouth in the morning. 30 tablet ctive hydrOXYzine (VISTARIL) 25 mg capsule Take 1 capsule (25 mg total) by mouth 3 (three) times a day as needed for itching.Active ibuprofen (MOTRIN) 600 mg tablet Take 1 tablet (600 mg total) by mouth every 6 (six) hours as needed for pain. Active Active Problems ProblemNoted DateDiagnosed DateHistory of ifivpv6203/28/2023ltered mental status, unspecified altered mental status type03/27/20235730Sxwndtfu73/17/2023Visual toyvjzmqeu78/17/2023 Overview (01/03/2023): glasses Lzqahcdoqyct56/17/2023HLD (hyperlipidemia)01/03/2023Spasticity as late effect of cerebrovascular accident (CVA)12/23/2020pastic gait12/23/2020evere muscle qprjoaeqzvprwg03/06/2021Unintentional weight loss12/23/2020Nephrolithiasis 11/10/2020 Overview (11/12/2024): He is on aspirin for history of stroke. ==== 11/12/2024 ==== since last visit he has cut down significantly on his Tums use. It is using Pepcid. He did pass after his CT a very small stone. Almost certainly silica. I reviewed his CT scan. He will need a punctate stone on left. So that maybe gone. Plan: Observation. [facility] ultrasound 1 year return ====10/17/24====Recently passed 5-6 stones. Analysis came back [...] Repeat CT scan 3-4 weeks. Return clinic Assessment & Plan (10/17/2024 2:41 PM EST): I will call him if any acute findings on his CT, otherwise we will have him meet with Dr. Dewey davis the results. He will determine further management from there. We discussed that silica is not a typical type of stone Assessment & Plan (06/28/2022 11:46 AM EDT): Pain is non urologic. Previously brought in specimen was not a stone based on [facility] evaluation. Plan: Ultrasound 2 years return clinic sooner. Assessment & Plan (12/08/2020 4:33 PM EDT): I was very clear he does not need to stop the ASA for this procedure Assessment & Plan (11/10/2020 3:29 PM EST): I discussed with the patient the initial intent for medical expulsive therapy to try to assist in stone passage. We discussed the medication employed for this strategy as well as the need for hydration and straining urine. They understand that there is a decent chance that, with time, there could be spontaneous stone passage. They also understand that a lack of pain would not necessarily indicate successful stone passage and certainly we need to either have the patient bring in the passed stoneor confirm radiographically that the stone has passed. They understand fully that failure to do so could result in loss of kidney function/loss of kidney/severe infection. Tonic clonic nddyfons64/05/2021Intractable epilepsy without status epilepticus 09/23/2020erebrovascular dypsnut9109/23/20200439Rvuircsvct36/05/2021erebral infarction due to occlusion of right middle cerebral ixmjcq3209/23/2020 Family History Medical HistoryRelationNameCommentsKidney failureFatherRelationNameStatus CommentsFatherDeceasedMotherAlive Social History Tobacco UseTypesPacks/DayYears UsedDateSmoking Tobacco: [id number] - 2018Smokeless Tobacco: Never Tobacco Cessation:Counseling Given: Not Answered Alcohol UseStandard Drinks/WeekCommentsYes0 (1 standard drink = 0.6 oz pure alcohol)occassionalPHQ-2AnswerDate RecordedTotal Fraaj1098/19/2021Childcare AnswerDate WcqjxeojLrjzkuxprBpwwwoh23/12/2019EmploymentAnswerDate Recorded RbeosuruxkHijufcr09/12/2019Hunger ScreeningAnswerDate RecordedWithin the past 12 months we worried whether our food would run out before we got money to buy more.Never True11/12/2024Within the past 12 months the food we bought just didn't last and we didn't have money to get more.Never True11/12/2024Sex and Gender InformationValueDate RecordedSex Assigned at BirthNot on fileLegal Sex Male04/24/2015 11:27 AM EDTGender IdentityNot on fileSexual OrientationNot on file Last Filed Vital Signs Vital SignReadingTime TakenCommentsBlood Djazphkv178/7411/12/2024 11:37 AM EST Rkyxa204911/12/2024 11:37 AM WEROfvwcqtuvoq08.9 ??C (98.5 ??F)03/01/2024 4:29 PM EDTRespiratory Zqcz366903/01/2024 5:22 PM EDTOxygen Onbxzivnxq46%03/01/2024 6:07 PM EDTInhaled Oxygen Concentration--Bzazcu91.1 kg (203 lb)11/12/2024 11:37 AM OFGXrcfsc941 cm (6' 2 )11/12/2024 11:37 AM ESTBody Mass Index26.0611/12/2024 11:37 AM EST Plan of Treatment Health MaintenanceDue DateLast DoneCommentsDepression Zlnvvpmni31/16/1981Adult BMI Follow Up Plan1987DTaP,Tdap and Td Vaccines (1 - Tdap)1988Zoster (Shingles) Vaccine (1 of 2)2019Influenza Dzphvcj31/01/51465109/21/2022, 06/22/2022dult BMI Vultinbrg17Tobacco Vboxipnbr73/24/2026 11/12/2024 Goals GoalPatient Goal TypeAssociated ProblemsRecent ProgressPatient-Stated?Author home Arely Patel LSW Note: Evaluation of progress towards goal: Safe dc transition home with support from care team coordinator scheduler and family. Medical Devices ImplantedTypeAreaManufacturerDevice IdentifierShelf Expiration DateModel / Serial / LotStnt Uret 6fr 22cm Pgtl Crv Rpl [id number] - Sna - [id number] Implanted:Qty: 1 on 12/26/2020 by [facility]ard [facility]entLeft: [employer]re[employer]BO[employer] [id number]/22/2023 [id number] / NA / [id number] Insurance Advance Directives TypeDate RecordedPatient RepresentativeExplanationDNR Physician Order05/10/2023 10:51 AM * Full Code (Latest Code Status on File) Date ActivatedDate InactivatedComments03/27/2023 5:24 PM03/28/2023 3:59 PM Care Teams Team MemberRelationshipSpecialtyStart DateEnd Date Services, [facility] [address] [place], [place] PCP - GeneralFamily Medicine03/01/24
--- NOTE | 2025-08-01 13:14 | CT_ITS ---
The [address] [address] Patient Name: JONI GRIFFIN MRN: [facility]:[id number] date: 1970 Sex: M Assigned Patient Location: CT Current Patient Location: CT Accession/Order Number: [id number] Exam Date: 08/01/2025 13:18 Report Date: 08/01/2025 16:15 At the request of: NON-STAFF PHYSICIAN MD Procedure: CT head/brain wo con CT BRAIN WITHOUT CONTRAST: CLINICAL HISTORY: evaluate cranioplasty hardware, headaches COMPARISON: MRI brain 11/06/2024 TECHNIQUE: Contiguous axial unenhanced images were obtained through the brain. This CT exam was performed using one or more following dose reduction techniques: Automated exposure control, adjustment of the mA and/or kV according to patient size, or use of iterative reconstruction technique. FINDINGS: Postsurgical changes status post previous right-sided craniotomy and overlying cranioplasty.. Evidence of encephalomalacia involving the right MCA distribution with extra-axial dilatation of the right lateral ventricle. Minor rightward midline shift due to the right-sided volume loss. Otherwise no evidence acute bleed, acute midline shift or mass effect. Intracranial vascular calcifications. No calvarial fracture. Visualized sinuses demonstrate mild sinus disease. Mastoids are grossly clear. CT/CT head/brain wo con IMPRESSION: NO ACUTE INTRACRANIAL ABNORMALITY. Impression dictated by: Jose Fajardo M.D. 08/01/2025 4:15 PM Dictation Location: [place] [address] Electronically authenticated by: [id number] Y Date: 08/01/2025 16:15
--- OUTSIDE RECORDS SUMMARY | 2025-08-01 13:15 | XMS_ITS | CCD ---
Author Organization [facility] Care Team Providers Care Associate Director Career Services Name Role Phone AMRIK HAYES Attending Unavailable Asaad, Imad Unavailable TAVOKARSTENOE Admitting Unavailable KARSTEN VOOE Attending Unavailable KAT, DR MATHEW Primary Care Unavailable [facility] [place] Consulting Unavailable DEVANTE MURPHY Admitting Unavailable DEVANTE MURPHY Attending Unavailable KAT, DR MATHEW Primary Care Unavailable PROVIDER, UNKNOWN Admitting Unavailable PROVIDER, UNKNOWN Attending Unavailable Jodi Garcia Unavailable CASPER DEY Attending Unavailable TERRY BETANCOURT Attending Unavailable Mike ADMINISTRATIVE RESIDENT, Leonor Unavailable Mike ADMINISTRATIVE RESIDENT, Leonor Unavailable Manuela Rivera DO Unavailable Anjana ADMINISTRATIVE RESIDENTMehgan Unavailable [phone] Sly POP, Zhao Gonzalez Primary Care Provider MARYCRUZ TIRADO I Referring Unavailable SERVICES, [facility] Primary Care Unava ilable SERVICES, [facility] Primary Care Unava ilable FELIPE CASTAÑEDA Attending Unavailable FELIPE CASTAÑEDA Attending Unavailable FELIPE CASTAÑEDA Referring Unavailable SERVICES, [facility] Primary Care Unava ilable MARYCRUZ TIRADO I Referring Unavailable SERVICES, [facility] Primary Care Unava ilable MARYCRUZ TIRADO I Attending Unavailable LEONOR OMER Referring Unavailable SERVICES, [facility] Primary Care Unava ilable SORAYA BROWN Attending Unavailable SERVICES, [facility] Primary Care Unava ilable Roc DAI[place], [place] Unavailable KARISSA CARLIN Attending Unavailable MANUELA RIVERA Attending Unavailable KARISSA CARLIN Referring Unavailable MANUELA RIVERA Attending Unavailable TELLO CAMPA Attending Unavailable JOSY YU Attending Unavailable KARISSA CARLIN Attending Unavailable LEONOR OMER Referring Unavailable TELLO CAMPA Attending Unavailable MEGHAN YEUNG Attending Unavailable DOMINGA MCCARTHY Attending Unavailable MANUELA RIVERA Attending Unavailable KARISSA CARLIN Attending Unavailable ERIKA BRIAN Attending Unavailable MEGHAN YEUNG Attending Unavailable ERIKA BRIAN Referring Unavailable ESTEVAN BARROW Primary Care Unavailable ANNI GRIFFIN Attending Unavailable Estevan Barrow DO Primary Care Provider Devante Murphy PA-C Primary Care Provider Meghan Yeung APRN Attending Provider Devante Murphy PA-C Primary Care Provider Manuela Rivera DO Attending Provider Leonor Omer APRN Primary Care Provider [phone] Meghan Yeung APRN Attending Provider Roc BALLARD-CLINICAL DOCUMENTATION SPECIALIST-CErika Attending Provider Allergies Allergy ClassificationReported Allergen(s)Allergy TypeDate of OnsetReaction(s) Facility (20 sources)Cortisone; Translations: [CORTISONE]Drug Rtlozuh55-21-3302Syjjyq OnlyUnBarnesville Hospital RepositoryComment on above:CORTISONE INJECTIONS ONLY (5 sources)TriamcinoloneDrug [id number], Unknown ReactionMiami Valley HospitalComment on above:KENELOG INJECTIONS ONLY (1 source)lamoTRIgine; Translations: [LAMOTRIGINE]Drug [id number] [facility] Repository Medications Current Medications MedicationDrug Class(es)DatesSig (Normalized)Sig (Original)acetaminophen 325 mg oral tablet (1 source)Start: 97-96-8046vhhn 2 tablets by mouth every four hoursacetaminophen 325 MG tablet Take 2 tablets by mouth every 4 hours. 0 08/30/2019 Active acetaminophen 325 mg / oxyCODONE hydrochloride 5 mg oral tablet (1 source)Opioid AgonistStart: 89-50-5211xloq 1 tablet by mouth every six hours as needed for painoxyCODONE-acetaminophen 5-325 MG per tablet Indications: Post- operative state Take 1 tablet by mouth every 6 hours as needed for Moderate Pain for up to 5 days. 12 tablet 11/03/2019 Activeamitriptyline hydrochloride 50 mg oral tablet (20 sources)Tricyclic AntidepressantStart: 01-19-2024 End: 22-23-7952mzen 1 tablet by mouth at bedtimeamitriptyline (Elavil) 50 MG tablet Take 50 mg by mouth at bedtime 01/19/2024 01/03/2025 Discontinued (Ineffective)Twc-Ajnx-Ebojm-Yspp-Gdi-Qtj-In (Digestive Enzymes(Mal,Lac,Inv)) 220 mg capsule (3 sources)Start: 44-42-4427Anm-Dqyp-Awzgv-Misy-Prt-Lac-In (Digestive Enzymes(Mal,Lac,Inv)) 220 mg capsule Active CAP PO April 03, 2025 12:00am Complies with drug therapyaspirin 81 mg oral tablet (20 sources)Platelet Aggregation Inhibitor, Nonsteroidal Anti-inflammatory Drug Start: 53-49-7244hcyg 1 tablet by mouth once dailyAspirin 81 mg Tablet,Chewable Active 81 MG PO Daily 30 November 14, 2019 1:00am Complies with drug therapyStart: 63-19-7326axzy 1 tablet by mouth once dailyAspirin 81 mg Tablet,Chewable Active 81 MG PO Daily 30 November 14, 2019 1:00am Complies with drug therapytake 1 tablet by mouth once dailyAspirin Low Dose 81 MG EC tablet Take 81 mg by mouth Daily Activeatorvastatin 40 mg oral tablet (20 sources)HMG-CoA Reductase InhibitorStart: 28-80-2882acql 1 tablet by mouth once daily at bedtimeAtorvastatin 40 mg Tablet Active 40 MG PO Daily at bedtime 30 30 0 November 14, 2019 1:00am Complies with drug therapybisacodyl 10 mg rectal suppository (1 source)Stimulant LaxativeStart: 45-46-5249savtrfjut 10 MG Suppository suppository Insert 1 suppository rectally daily. 08/31/2019 Active onabotulinumtoxina 200 unt injection (2 sources)Acetylcholine Release InhibitorStart: 09-26-2024 End: 55-02-5540pmgolcivdhekvsmfoS (Botox) injection 200 UnitsStart: 09-26-2024 End: 02-85-7399syabga 200 [IU] by intramuscular injection [id number] Units, Intramuscular, Once, On Tue09/26/24 at 1345, For 1 dose, Charging context for this clinic-administered medication: Medically Necessary/Insurancecephalexin 500 mg oral capsule (1 source)Cephalosporin AntibacterialStart: 51-25-4800rtry 1 capsule by mouth every eight hoursCephalexin 500 MG 1 capsule Orally tid for 7 days May, ActiveCranberry preparation (1 source)Non-Standardized Food Allergenic Extract, Non-Standardized Plant Allergenic ExtractCRANBERRY PO Take by mouth. Activecyclobenzaprine hydrochloride 10 mg oral tablet (11 sources)Muscle RelaxantStart: 40-24-4381fbec 1 tablet by mouth twice daily as neededcyclobenzaprine (Flexeril) 10 MG tablet Take 10 mg by mouth 2 (two) times a day as needed 05/14/2024 ActivediphenhydrAMINE hydrochloride 25 mg oral tablet (1 source)Histamine-1 Receptor AntagonistStart: 94-43-8024ckwe 1 tablet by mouth at bedtimediphenhydrAMINE 25 MG tablet Take 1 tablet by mouth at bedtime. 30 tablet 11/03/2019 Activeergocalciferol 1.25 mg oral capsule (20 sources)Provitamin D2 CompoundStart: 90-80-2344tpjt 1 capsule by mouth every weekErgocalciferol (Vitamin D2) 1,250 mcg (50,000 unit) capsule Active 1250 MCG PO every week April 03, 2025 12:00am Complies with drug therapyStart: 02-94-4551gtzo 1 capsule by mouth every weekergocalciferol (Vitamin D2) 1.25 MG (61553 UT) capsule Take 1 capsule by mouth 1 (one) time per week 12/21/2023 Activefamotidine 20 mg oral tablet (20 sources)Histamine-2 Receptor AntagonistStart: 50-09-8331itwe 1 tablet by mouth twice dailyFamotidine 20 mg tablet Active 20 MG PO Twice daily April 03, 2025 12:00am Complies with drug therapyStart: 74-68-0339Tdnhvx 20 MG tablet every 12 (twelve) hours 04/12/2024 ActiveFLUoxetine 10 mg oral capsule (1 source)Serotonin Reuptake InhibitorStart: 76-79-8386sxcb 1 capsule by mouth once dailyfluoxetine 10 MG Cap capsule Take 1 capsule by mouth daily. 08/31/2019 Activefluticasone propionate 0.05 mg/actuat metered dose nasal spray (20 sources)CorticosteroidStart: 71-75-0753Kwzdtbcgiia Propionate 50 mcg/actuation spray,suspension Active 1 SPRAY INTRANASAL April 03, 2025 12:00am Complies with drug therapyStart: 64-77-9705gpmnvkrhgqk (Flonase) 50 MCG/ACT nasal spray 04/12/2024 ActiveStart: 10-87-5546nfnm 1 spray(s) nasal route once dailyfluticasone (Flonase) 50 MCG/ACT nasal spray INSTILL 1 SPRAY IN EACH NOSTRIL ONCE DAILY FOR 14 DAYS04/12/2024 Activetake 2 spray(s) nasal route once dailyFluticasone Propionate 50 MCG/ACT instill 2 sprays into each nostril once daily Nasal for 30 Not-Takinghydrocortisone 25 mg/ml topical cream (20 sources)CorticosteroidStart: 47-02-9775Xjxewpgmoydfzg 2.5 % cream Active 1 APPLIC TOPICAL Twice daily as needed April 03, 2025 12:00am Complies with drug therapyStart: 33-02-2703jrbfrqolfunmev 2.5 % cream 06/19/2024 ActivehydrOXYzine pamoate 25 mg oral capsule (20 sources)AntihistamineStart: 70-82-1810xxnx 1 capsule by mouth three times daily as needed for muscle spasmsHydroxyzine Pamoate 25 mg Capsule Active 25 MG PO Three times daily as needed for Spasms 90 30 0 November 14, 2019 1:00am Complies with drug therapytake 1 capsule by mouth three times daily as needed hydrOXYzine pamoate 50 MG capsule Take 1 capsule by mouth 3 times daily as needed for Itching. Activeibuprofen 600 mg oral tablet (20 sources)Nonsteroidal Anti-inflammatory DrugStart: 83-18-0518biwz 1 tablet by mouth every eight hoursIbuprofen (Ibu) 600 mg tablet Active 600 MG PO Every 8 hours April 03, 2025 12:00am Complies with drug therapyStart: 06-28-2024 ibuprofen 600 MG tablet 06/28/2024 ActiveStart: 00-63-0297xeyv 1 tablet by mouth twice daily at mealtime as neededIbuprofen 400 MG 1 tablet with food or milk as needed Orally twice a day as needed for 7 days Oct, Not-Takingtake 1 tablet by mouth three times daily at mealtime as neededIbuprofen 600 MG 1 tablet with food or milk as needed Orally Three times a day Activelactobacillus acidophilus and bulgaricus 1 GM Pack (1 source)lactobacillus acidophilus and bulgaricus 1 GM Pack Take by mouth 2 times daily. Activemelatonin 5 mg oral tablet (20 sources)Start: 85-48-6997upfp 1 tablet by mouth once daily at bedtime Melatonin 5 mg Tablet Active 5 MG PO Daily at bedtime November 14, 2019 1:00am Complies with drug therapyStart: 73-30-4369voga 1 tablet by mouth at bedtime as neededmelatonin 3 MG Tab tablet Take 1 tablet by mouth at bedtime as needed for Insomnia. 0 08/30/2019 Activemineral oil 0.15 mg/mg / petrolatum 0.83 mg/mg ophthalmic ointment (1 source)Start: 94-66-9018abgqdkafiv Ointment ophthalmic ointment Apply 1 Application to both eyes as needed for Dry Eyes. 0 08/30/2019 ActiveMultiple Vitamin (multivitamin) capsule (1 source)take 1 capsule by mouth once dailyMultiple Vitamin (multivitamin) capsule Take 1 capsule by mouth daily. ActiveMultiple Vitamin (Multivitamin) tablet (20 sources)Start: 73-00-5652qohb 1 tablet by mouth once dailyMultiple Vitamin (Multivitamin) tablet Take 1 tablet by mouth Daily 01/19/2024 ActiveMultivitamin preparation (2 sources)Multivitamin - as directed Orally ActiveMultivitamin With Folic Acid (Thera) 400 mcg Tablet (3 sources)Start: 73-85-5621enzl 1 tablet by mouth once dailyMultivitamin With Folic Acid (Thera) 400 mcg Tablet Active 1 TAB PO Daily November 14, 2019 1:00am Complies with drug therapyStart: 45-83-6744hjqn 1 tablet by mouth once dailyMultivitamin With Folic Acid (Thera) 400 mcg Tablet Active 1 TAB PO Daily November 14, 20191:00am Complies with drug therapyomeprazole 40 mg delayed release oral capsule (2 sources)Proton Pump InhibitorStart: 82-09-6635ikhg 1 capsule by mouth once dailyOmeprazole 40 MG 1 capsule 30 minutes before morning meal Orally Once a day for 90 days Oct, Activeondansetron 4 mg oral tablet (1 source)Serotonin-3 Receptor AntagonistStart: 19-93-0135sqwy 1 tablet by mouth every four hours as neededondansetron 4 MG tablet Take 1 tablet by mouth every 4 hours as needed for Nausea / Vomiting. 30 tablet 1 11/03/2019 Active polyethylene glycol 3350 17389 mg powder for oral solution (1 source)Osmotic LaxativeStart: 63-07-6513buro 1 dose by mouth twice daily polyethylene glycol Pack packet Take 1 packet by mouth 2 times daily. 08/30/2019 ActiveQUEtiapine 25 mg oral tablet (1 source)Atypical AntipsychoticStart: 03-01-7007nvpv 1 tablet by mouth once daily at bedtimeQuetiapine (Seroquel) 25 mg tablet Active 0 PO Daily at bedtime 30 June 17, 2025 12:00am Take 1/2-1 tab before bedtime orally daily at bedtime; Complies with drug therapysennosides, snf 17.2 mg oral tablet (1 source)Start: 61-99-5205scje 1 tablet by mouth once daily in the morningsenna 17.2 MG Tab Take 1 tablet by mouth daily every morning. 0 08/31/2019 Active tamsulosin hydrochloride 0.4 mg oral capsule (11 sources)alpha-Adrenergic BlockerStart: 97-31-6155ijva 1 capsule by mouth once dailytamsulosin (Flomax) 0.4 MG 24 hr capsule Take 0.4 mg by mouth Daily 06/18/2024 ActivetiZANidine 4 mg oral tablet (9 sources)Central alpha-2 Adrenergic AgonistStart: 41-13-2441fkjg 1 tablet by mouth twice dailyTizanidine 4 mg tablet Active 4 MG PO Twice daily April 03, 2025 12:00am Complies with drug therapyStart: 12-13-2024 End: 30-44-1842jjkx 1 tablet by mouth twice daily as neededtiZANidine (Zanaflex) 4 MG tablet Indications: Left spastic hemiplegia (CMS/HCC) Take 1 tablet (4 mg) by mouth 2 (two) times a day as needed (spasticity) 60 tablet 1 12/13/2024 02/11/2025 ActivetraMADol hydrochloride 50 mg oral tablet (2 sources)Opioid Agonisttake 1 tablet by mouth every twenty-four hourstraMADol HCl 50 MG 1 tablet as needed Orally Once a day ActivetraZODone hydrochloride 150 mg oral tablet (16 sources)Serotonin Reuptake InhibitorStart: 38-53-2090nsmc 1 tablet by mouth once daily at bedtimeTrazodone 150 mg tablet Active 150 MG PO Daily at bedtime April 03, 2025 12:00am Complies with drug therapyStart: 09-80-3948onrUBMjdy (Desyrel) 100 MG tablet 100 mg 10/25/2024 ActiveStart: 11-14-2019 End: 39-49-9690bfei 1 tablet by mouth once daily at bedtime as neededTrazodone 50 mg Tablet Discontinued 50 MG PO Daily at bedtime as needed for Insomnia 30 30 November 14, 2019 1:00am April 03, 2025 4:42pmTylenol PM Extra Strength (2 sources)Tylenol PM Extra Strength ActiveVitamin D (2 sources)Vitamin D Active Completed/Discontinued Medications MedicationDrug Class(es)DatesSig (Normalized)Sig (Original)acetaminophen 325 mg / HYDROcodone bitartrate 5 mg oral tablet (3 sources)Opioid AgonistStart: 11-14-2019 End: 83-74-8142uiuv 1 tablet by mouth every six hours as needed for pain Hydrocodone-Acetaminophen 5-325 mg Tablet Discontinued 1 TAB PO Q6H as needed for Pain Scale 7 - 1020 5 0 November 14, 2019 April 03, 2025 4:40pm Chronic pain of multiple sites Pain, unspecifiedbaclofen 10 mg oral tablet (20 sources)gamma-Aminobutyric Acid-ergic AgonistStart: 11-14-2019 End: 23-39-3751rmjo 1 tablet by mouth once daily at bedtimeBaclofen 10 mg Tablet Discontinued 10 MG PO Daily at bedtime 30 30 0 November 14, 2019 1:00am April 03, 2025 4:39pmtake 1 tablet by mouth three times dailybaclofen 10 MG tablet Take 1 tablet by mouth 3 times daily. Active End: 38-27-3853mdribvfb (Lioresal) 20 MG tablet 07/17/2024 Discontinued (Therapy completed)take 5 mL by mouth every eight hours at mealtimeBaclofen 5 MG/5ML 5 ml with food or milk Orally every 8 hrs Not-TakingBaclofen 10 MG/20ML as directed Intrathecal Not-TakingbuPROPion hydrochloride 75 mg oral tablet (2 sources)Aminoketonetake 1 tablet by mouth once daily in the morningbuPROPion HCl 75 MG take 1 tablet by mouth every morning Oral for 30 Not-TakingDULoxetine 60 mg delayed release oral capsule (16 sources)Serotonin and Norepinephrine Reuptake InhibitorStart: 11-14-2019 End: 61-83-1859djtc 1 capsule by mouth once dailyDuloxetine 60 mg Capsule,Delayed Release(Dr/Ec) Discontinued 60 MG PO Daily 30 30 0 November 14, 2019 1:00am April 03, 2025 4:40pmescitalopram 10 mg oral tablet (19 sources)Serotonin Reuptake InhibitorStart: 04-03-2025 End: 16-02-9546vdjh 1 tablet by mouth once dailyEscitalopram Oxalate 10 mg tablet Discontinued 10 MG PO Daily April 03, 2025 12:00am June 2:18pmStart: 38-21-1550fbgk 1 tablet by mouth once dailyescitalopram (Lexapro) 10 MG tablet Take 10 mg by mouth Daily 12/07/2024 ActiveStart: 01-19-2024 End: 23-35-6672puar 1 tablet by mouth once dailyescitalopram (Lexapro) 10 MG tablet Take 10 mg by mouth Daily 01/19/2024 07/17/2024 Discontinued (Therapy completed)gabapentin 400 mg oral capsule (16 sources)Anti-epileptic AgentStart: 11-14-2019 End: 58-16-6038vjen 1 capsule by mouth three times dailyGabapentin 400 mg Capsule Discontinued 400 MG PO Three times daily 90 30 0 November 14, 2019 1:00am April 03, 2025 4:40pmStart: 72-41-5512ysgs 1 capsule by mouth three times dailygabapentin 300 MG capsule Take 1 capsule by mouth 3 times daily for 7 days. 30 capsule 11/03/2019 ActivelamoTRIgine 100 mg oral tablet (20 sources)Mood Stabilizer, Anti-epileptic AgentStart: 09-20-2024 End: 36-94-0947mbsq 1 tablet by mouth twice dailyLamotrigine 100 mg tablet Discontinued 100 MG PO Twice daily 60 30 2 March 05, 2025 12:12pm May 22, 2025 3:31pmStart: 05-07-2024 End: 71-14-2535stjm 1 tablet by mouth in the morninglamoTRIgine (LaMICtal) 100 MG tablet Indications: Partial symptomatic epilepsy with complex partial seizures, intractable, without status epilepticus (CMS/HCC) Take 1 tablet (100 mg) by mouth in the morning and 1 tablet (100 mg) before bedtime. 60 tablet 2 05/07/2024 08/05/2024 ActiveLaMICtal 100 MG 1 tablet Orally Once a day, ONE AT NIGHT ActivelevETIRAcetam 1000 mg oral tablet (6 sources)Start: 11-14-2019 End: 60-47-4470muzy 1 tablet by mouth twice dailyLevetiracetam 1,000 mg tablet Discontinued 1000 MG PO Twice daily 60 30 0 November 14, 2019 1:00am July 15, 2025 2:19pmStart: 13-78-8885uful 1 tablet by mouth every twelve hours levetiracetam 1000 MG Tab tablet Take 1 tablet by mouth every 12 hours. 08/30/2019 Activetake 0.5 tablet by mouth once daily in the morninglevETIRAcetam 1000 MG 1/2 TAB Orally QAM Not-TakingLidocaine (3 sources)Antiarrhythmic, Amide Local AnestheticStart: 11-14-2019 End: 13-65-4336sebzl 1 dose topically once dailyLidocaine (Aspercreme (Lidocaine)) 4 % Adhesive Patch,Medicated Discontinued 1 PATCH TOPICAL Daily 30 30 0 November 14, 2019 1:00am April 03, 2025 4:40pmStart: 11-14-2019 End: 90-32-1822ptoft 1 dose topically once dailyLidocaine (Aspercreme (Lidocaine)) 4 % Adhesive Patch,Medicated Discontinued 1 PATCH TOPICAL Daily 30 November 14, 2019 1:00am April 03, 2025 4:40pmlisinopril 10 mg oral tablet (4 sources)Angiotensin Converting Enzyme InhibitorStart: 11-14-2019 End: 64-54-6130icyb 1 tablet by mouth once dailyLisinopril 10 mg Tablet Discontinued 10 MG PO Daily 30 30 0 November 14, 2019 1:00am April 03, 2025 4:40pmStart: 80-74-2895isjy 1 tablet by mouth once dailylisinopril 20 MG Tab Take 1 tablet by mouth daily. 08/31/2019 Activementhol 10 mg/ml / methyl salicylate 150 mg/ml topical cream (3 sources)Start: 11-14-2019 End: 95-67-2115Qgbeaq Salicylate-Menthol (Thera-Gesic) 15-1 % Cream Discontinued 1 APPLIC TOPICAL Three times daily as needed for Pain 60 30 0 November 14, 2019 1:00am April 03, 2025 4:40pmpredniSONE 20 mg oral tablet (3 sources)Start: 01-04-2024 End: 68-63-0236lnpp 1 tablet by mouth twice dailyPrednisone 20 mg tablet Discontinued 20 MG PO Twice daily 10 5 0 January 04, 2024 12:00am April 03, 2025 4:41pmsaccharomyces boulardii 250 mg oral capsule (3 sources)Start: 11-14-2019 End: 67-01-6188hqkb 1 capsule by mouth twice dailySaccharomyces Boulardii (Florastor) 250 mg Capsule Discontinued 250 MG PO Twice daily 60 30 0 November 14, 2019 1:00am April 03, 2025 4:41pmTriamcinolone (2 sources)CorticosteroidStart: 76-34-2025Hmwavmb -40 mg Oct, 40 mg Problems Active Problems Problem ClassificationProblemDateDocumented DateEpisodic/ChronicAbdominal pain (2 sources)Left upper quadrant pain; Translations: [Left upper quadrant pain] EpisodicAcute cerebrovascular disease (20 sources)Cerebral infarction due to unspecified occlusion or stenosis of right middle cerebral artery; Translations: [Cerebrovascular accident due to occlusion of right middle cerebral artery]Onset: 45-66-0741Awtvvaa Administrative/social admission (3 sources)Other reduced mobility; Translations: [Impaired mobility and activities of daily living]30-24-0162DnxzgeodNwlssdn disorders (20 sources)Mixed anxiety and depressive disorder; Translations: [Anxiety disorder, unspecified]Onset: 055012-57-1058JtxywzbVdoltvlys and vision defects (8 sources)Eye / vision finding; Translations: [Unspecified visual disturbance] 27-65-7558NvfuhifcKxgndeeq of urinary tract (3 sources)Calculus of kidney; Translations: [Calculus of kidney]Onset: 25-77-5205LhnfaufkIyprkvb ulcer of skin (3 sources)Pressure ulcer of unspecified site, stage 1; Translations: [Pressure injury, stage 1]07-94-0139XbaotvfUnxwpcizi of lipid metabolism (3 sources)Hyperlipidemia; Translations: [Hyperlipidemia, unspecified]04-03-2025 ChronicEpilepsy; convulsions (20 sources)Partial epilepsy with impairment of consciousness; Translations: [Localization-related (focal) (partial) symptomatic epilepsy and epileptic syndromes with complex partial seizures, intractable, without status epilepticus]Onset: 263334-82-9769ShewhmlJnboxiqsl hypertension (3 sources)Hypertensive disorder; Translations: [Essential (primary) hypertension]16-00-2714OccwuouHlnx effects of cerebrovascular disease (4 sources)Hemiplegia and hemiparesis following cerebral infarction affecting left non-dominant side; Translations: [Other sequelae of cerebral infarction] Onset: 82-42-4537BraecqsXaezkqb and fatigue (4 sources)Weakness; Translations: [WEAKNESS]Onset: 44-11-1839Fcatzday Miscellaneous mental health disorders (10 sources)Primary insomnia; Translations: [Primary insomnia]15-21-3937Ppqspuc Mood disorders (4 sources)Moderate recurrent major depression; Translations: [Major depressive disorder, recurrent, moderate]29-84-4947LhympmvKytyx aftercare (6 sources)Patient encounter status; Translations: [Encounter for therapeutic drug level monitoring]81-16-5944MbcqomftEimbb and ill-defined cerebrovascular disease (20 sources)Cerebrovascular disease; Translations: [Cerebrovascular disease, unspecified]Onset: 425796-17-2064VtcwjalDpqak circulatory disease (2 sources)History of cerebrovascular accident; Translations: [Personal history of transient ischemic attack (TIA), and cerebral infarction without residual deficits]63-50-7384TvlapvlmBwyac circulatory disease (4 sources)Cerebral infarction; Translations: [Personal history of transient ischemic attack (TIA), and cerebral infarction without residual deficits] 90-26-2397FijgxhueSicak connective tissue disease (2 sources)Cramp and spasm; Translations: [Cramp and spasm]Onset: 03-24-2023 EpisodicOther connective tissue disease (4 sources)Spasticity; Translations: [Cramp and spasm]15-81-4160PlwdokjtAiwbk connective tissue disease (3 sources)Neuropathic pain; Translations: [Neuralgia and neuritis, unspecified] 88-45-6498AnkwhaxbRovvn nervous system disorders (2 sources)Chronic pain; Translations: [Other chronic pain]ChronicOther nervous system disorders (20 sources)Central pain syndrome; 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]Onset: 961486-98-1139FjymxrlKfejl nervous system disorders (20 sources)Cerebral edema; Translations: [Cerebral edema]Onset: 08-20-2019 09-40-5465JxlemfkYtcrv nervous system disorders (20 sources)Cognitive deficit in communication skills; Translations: [Cognitive communication deficit]Onset: 357702-44-2250PkhvwerBpirz nervous system disorders (3 sources)Abnormal circadian rhythm; Translations: [Circadian rhythm sleep disorder, unspecified type]29-87-1989NnvbwyeUhcew nervous system disorders (3 sources)Cognitive communication disorder; Translations: [Cognitive communication deficit]38-64-9586SpenoefVskvt nervous system disorders (2 sources)Impaired cognition; Translations: [Other symptoms and signs involving cognitive functions and awareness]72-78-8931QakuakpfMejqu non-traumatic joint disorders (3 sources)Pain in left shoulder; Translations: [Left shoulder pain]11-04-2019 EpisodicOther upper respiratory disease (2 sources)Vocal fatigue; Translations: [Other voice and resonance disorders] 96-09-7162FcuuiwmtZzyxdftpl (20 sources)Spastic hemiplegia; Translations: [Spastic hemiplegia affecting left nondominant side]Onset: 479243-50-2680KlbfjruSmfvyjqm codes; unclassified (4 sources)Obstructive sleep apnea (adult) (pediatric); Translations: [OBSTRUCTIVE SLEEP APNEA]Onset: 23-46-6190KudjeigUycewwdg codes; unclassified (1 source)Primary central sleep apnea; Translations: [PRIMARY CENTRAL SLEEP APNEA]Onset: 37-45-2189TkxlluuOglbqlxo codes; unclassified (20 sources)Daytime somnolence; Translations: [Other hypersomnia]Onset: 526990-81-2717RirsvjiVcaxakpm codes; unclassified (20 sources)Central sleep apnea syndrome; Translations: [Primary central sleep apnea]Onset: 499708-35-1626LhdhfcgEhvtxywu codes; unclassified (20 sources)Obstructive sleep apnea syndrome; Translations: [Obstructive sleep apnea (adult) (pediatric)]Onset: 227110-48-2029PbdumxkAjwtfadq codes; unclassified (1 source)Other specified postprocedural states; Translations: [Other postprocedural status]70-32-5250EechtsvoFspc and subcutaneous tissue infections (1 source)Cellulitis of right fingerEpisodicSpondylosis; intervertebral disc disorders; other back problems (4 sources)Prolapsed cervical intervertebral disc; Translations: [Other cervical disc displacement, unspecified cervical region]ChronicUnclassified (1 source)Chest Pain; Back PainOnset: 88-53-0078Sdkxdmwacply (2 sources)History of lguracuvgxfs44-65-8850 Past or Other Problems Problem ClassificationProblemDateDocumented DateEpisodic/ChronicBacterial infection; unspecified site (1 source)Gas gangrene; 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]Onset: EpisodicCardiac dysrhythmias (20 sources)Bradycardia; Translations: [Bradycardia, unspecified]Onset: 770068-19-9292JynuwsotKstyjradfe and other anemia (20 sources)Anemia; Translations: [Anemia, unspecified]Onset: 08-27-2019 76-90-2969YwdhjadyYsblc and electrolyte disorders (1 source)Disorder of electrolytes; Translations: [Other disorders of electrolyte and fluid balance, not elsewhere classified]Onset: 08-26-2019 29-21-5047DbuefqumSotlgtybabp chest pain (2 sources)Chest pain, unspecified; Translations: [Chest pain]Onset: 03-01-2024 EpisodicOther acquired deformities (20 sources)Acquired defect of skull; Translations: [Other acquired deformity of head]Onset: 528248-02-3177YpqihztoRilrl gastrointestinal disorders (20 sources)Dysphagia; Translations: [Dysphagia, unspecified]Onset: 07-05-2024 15-88-0539WtcwcewvScwdhuwcsf disorders (not diabetes) (1 source)Acute pancreatitis without necrosis or infection, unspecified; Translations: [Acute pancreatitis without necrosis or infection, unspecified] Onset: 05-53-0874CvbnjassIlnepfun codes; unclassified (20 sources)Altered mental status; Translations: [Altered mental status, unspecified]Onset: 112430-38-8600VmodqijqRfgokwbi codes; unclassified (1 source)Postoperative state; Translations: [Other specified postprocedural states]Onset: 349742-24-4031Njwrfkjs Results Test NameValueInterpretationReference RangeFacilityMRI HEAD/BRAIN WO/W CONTRon 91-41-1122[place] [address] Magnetic Resonance Report Signed Patient: ADDISON GRIFFIN MR#: [id number] : 1970 Acct:[id number] Age/Sex: 54 / M ADM Date: 11/06/24 Loc: MRI Attending Dr: Karissa Carlin NP Ordering Physician: Karissa Carlin NP Date of Service: 11/06/24 Procedure(s): MR head/brain wo/w con Accession Number(s): [id number] cc: Leonor Omer ADMINISTRATIVE RESIDENT; Karissa Carlin NP [place] [address] Patient Name: ADDISON GRIFFIN MRN: [id number] date: 1970 Sex: M Assigned Patient Location: MRI Current Patient Location: Accession/Order Number: [id number] Exam Date: 11/07/2024 14:39 Report Date: 11/07/2024 14:49 At the request of: KARISSA CARLIN NP Procedure: MR head/brain wo/w con MR head/brain wo/w con 11/06/2024 3:56 PM SIGN AND SYMPTOMS: Vision changes, right middle cerebral artery CVA PROTOCOL: Multiplanar multisequence MR images of the brain were obtained with and without IV contrast CONTRAST: 20 mL of intravenous Dotarem COMPARISON: None. FINDINGS: Extra axial spaces: Age appropriate. Hemorrhage: None. Ventricular system: There is mild ex vacuo dilatation of the right lateral ventricle. Basal cisterns: Within normal limits and not effaced. Cerebral parenchyma: Extensive gliosis and encephalomalacia is noted in the right MCA territory consistent with a remote infarct. This affects the entirety of the right MCA territory. Periventricular white matter T2 and FLAIR hyperintense signal is noted bilaterally consistent with chronic microvascular ischemic change. Midline shift: None.. Cerebellum: Within normal limits. Brainstem: Within normal limits. OTHER: Calvarium: Normal marrow signal. Vascular system: Satisfactory flow voids within the anterior and posterior circulation. Visualized Paranasal sinuses: Within normal limits. Visualized Orbits: Within normal limits. Visualized upper cervical spine: Within normal limits. Sella and skull base: Within normal limits. MR/MR head/brain wo/w con IMPRESSION: No acute intracranial pathology or abnormal postcontrast enhancement. Analysis of encephalomalacia is noted throughout the right MCA territory consistent with a right MCA territory infarct. Chronic age-related neuro degenerative changes are also noted as above. Impression dictated by: Abdoul Quispe M.D.11/07/2024 2:49 PM Dictation Location: [place] [address] Electronically authenticated by: [id number] Y Date: 11/07/2024 14:49 Dictated By: Abdoul Quispe M.D. Signed By: 11/07/24 1452 DD/ 1449 TD/TT: Speech And Hearing Clinic Director:TBHRadiology, Radiologist, - 11/07/2024 [place] [address] Magnetic Resonance Report Signed Patient: ADDISON GRIFFIN MR#: [id number] : 1970 Acct:[id number] Age/Sex: 54 / M ADM Date: 11/06/24 Loc: MRI Attending Dr: Karissa Carlin NP Ordering Physician: Karissa Carlin NP Date of Service: 11/06/24 Procedure(s): MR head/brain wo/w con Accession Number(s): [id number] cc: Leonor Omer ADMINISTRATIVE RESIDENT; Karissa Carlin NP The [place] [id number] Patient Name: ADDISON GRIFFIN MRN: [id number] date: 1970 Sex: M Assigned Patient Location: MRI Current Patient Location: Accession/Order Number: [id number] Exam Date: 11/07/2024 14:39 Report Date: 11/07/2024 14:49 At the request of: KARISSA CARLIN NP Procedure: MR head/brain wo/w con MR head/brain wo/w con 11/06/2024 3:56 PM SIGN AND SYMPTOMS: Vision changes, right middle cerebral artery CVA PROTOCOL: Multiplanar multisequence MR images of the brain were obtained with and without IV contrast CONTRAST: 20 mL of intravenous Dotarem COMPARISON: None. FINDINGS: Extra axial spaces: Age appropriate. Hemorrhage: None. Ventricular system: There is mild ex vacuo dilatation of the right lateral ventricle. Basal cisterns: Within normal limits and not effaced. Cerebral parenchyma: Extensive gliosis and encephalomalacia is noted in the right MCA territory consistent with a remote infarct. This affects the entirety of the right MCA territory. Periventricular white matter T2 and FLAIR hyperintense signal is noted bilaterally consistent with chronic microvascular ischemic change. Midline shift: None.. Cerebellum: Within normal limits. Brainstem: Within normal limits. OTHER: Calvarium: Normal marrow signal. Vascular system: Satisfactory flow voids within the anterior and posterior circulation. Visualized Paranasal sinuses: Within normal limits. Visualized Orbits: Within normal limits. Visualized upper cervical spine: Within normal limits. Sella and skull base: Within normal limits. MR/MR head/brain wo/w con IMPRESSION: No acute intracranial pathology or abnormal postcontrast enhancement. Analysis of encephalomalacia is noted throughout the right MCA territory consistent with a right MCA territory infarct. Chronic age-related neuro degenerative changes are also noted as above. Impression dictated by: Abdoul Quispe M.D.11/07/2024 2:49 PM Dictation Location: [place] [address] Electronically authenticated by: [id number] Y Date: 11/07/2024 14:49 Dictated By: Abdoul Quispe M.D. Signed By: 11/07/24 1452 DD/ 1449 TD/TT: Speech And Hearing Clinic Director: [facility]even HealthcareRadiology Study observation (narrative)[facility] HEAD/BRAIN WO/W CONTROrdered By: Radiologist Radiology on 79-64-5811MGAM [employer] Work Phone: cT ABDOMEN AND PELVIS WO CONTon 00-50-5005PF ABDOMEN AND PELVIS WO CONTCT ABDOMEN AND PELVIS WO CONT STUDY: UNENHANCED [...] SPLEEN: Unremarkable. ADRENAL GLANDS: Unremarkable. KIDNEYS/URETERS: No hydroureteronephrosis. Punctate calcifications seen in the left interpolar and lower poles. BLADDER: Decompressed limiting evaluation. REPRODUCTIVE ORGANS: Normal size prostate. Symmetric seminal vesicles. BOWEL: No disproportionate dilation of the small or large bowel. The appendix was not visualized, however there is no acute inflammatory process in the right lower quadrant. PERITONEUM/RETROPERITONEUM: No fluid collection, ascites, or pneumoperitoneum. LYMPH NODES: No abdominal or pelvic lymphadenopathy. VESSELS: No abdominal aortic aneurysm. Mild atherosclerotic aortic calcification ABDOMINAL/PELVIC WALL: Unremarkable. BONES: No suspicious osseous lesions. Bilateral L5 pars defects. No spondylolisthesis. Moderate degenerative changes of the lumbosacral region. IMPRESSION: Left punctate nonobstructive nephrolithiasis. No hydronephrosis Finalized by Jadon Buck MD on 10/31/2024 9:10 AMNormalProMedica [facility] STONE ANALYSISon 28-62-9844VYVZEQ:Passed StoneNormalProThe Surgical Hospital At Southwoodsca Wagoner HospitalComment on above:Result Comment: Corrected on 10/05 AT 1325: Previously reported as PASSED STONEStone InterpretationSilica.NormalProMedica Wagoner HospitalComment on above:Result Comment: NOTE ADDITIONAL INFORMATION This test was developed and its performance characteristics determined by [facility] in a manner consistent with CLIA requirements. This test has not been cleared or approved by the U.S. Food and Drug Administration. Test Performed by: [facility] [address] [place] [address] Supervisor Line Department: Yaneli Reynoso Ph.D.; CLIA# [id number] LAMOTRIGINEon 60-53-8046QONXTXDHFDL (LAMICTAL), SERUM6.2 ug/mL2.0 - 20.0 ug/mLNChristian Hospital Comment on above:Detection Limit = 1.0 Performed at: [facility] Lab[address] [id number] Supervisor Line Department: Santana Lubin MD, Phone: [phone] [facility] AND AUTO DIFFon 48-23-4632TUKSGDQS BASOPHIL0.1 X10E9/LNormal0.0-0.2POhioHealth Arthur G.H. Bing, MD, Cancer CenterComment on above:Performed By: #### CBCA CMP, 3040-3, 72002-2, 57030-5 #### [facility] ([id number]) [address] [place] [address] 12961OWZJLEFI NEUTROPHIL3.7 X10E9/LNormal1.5-6.6Wilson HealthComment on above:Performed By: #### CBCA CMP, 3040-3, 10347-6, 66818-7 #### [facility] ([id number]) [address] [place] [address] 08276Jzhirwfem/100 WBC (Bld)0.9 %NormalWilson Health Comment on above:Performed By: #### CBCA, CMP, 3040-3, 46403-6, 86315-9 #### [facility] ([id number]) [address] [place] [address] 16341Rqlnifxhkas (Bld) [#/Vol]0.1 10*3/uLNormal0.0-0.4Wilson HealthComment on above:Performed By: #### CBCA, CMP, 3040-3, 16360-8, 01729-7 #### [facility] ([id number]) [address] [place] [address] 09324Blqdftqhpcl/100 WBC (Bld)2.2 %NormalWilson Health Comment on above:Performed By: #### CBCYane, MAHGOANY, 0-3, , 66530-2 #### [facility] ([id number]) [address] [place] [address] 34115Ptrstieyakw distribution width (RBC) [Ratio]14.9 %Normal 11.5-15.0ProSt. Joseph Medical CenterComment on above:Performed By: #### CBCYane, MAHOGANY, 3040-3, , 08527-0 #### [facility] ([id number]) [address] [place] [address] 12983Nghlvrulsq (Bld) [Volume fraction]37.9 %Cmj01-07KsmObkksuSt. Joseph Medical CenterComment on above:Performed By: #### CBCYane, MAHOGANY, 3040-3, , 57213-8 #### [facility] ([id number]) [address] [place] [address] 54008Ifnwexuisr (Bld) [Mass/Vol]13.0 g/oOWjqnpu58.0-17.0ProSt. Joseph Medical CenterComment on above:Performed By: #### CBCA, CMP, 3040-3, , 85420-4 #### [facility] ([id number]) [address] [place] [address] 65747Crwzqmwzfzh (Bld) [#/Vol]2.1 10*3/uLNormal1.0-3.5POhioHealth Arthur G.H. Bing, MD, Cancer CenterComment on above:Performed By: #### CBCA, CMP, 3040-3, 66972-7, 94938-1 #### [facility] ([id number]) [address] [place] [address] 71482Xivthkksjdy/100 WBC (Bld)30.5 %NormalProSt. Joseph Medical Center Comment on above:Performed By: #### CBCA, CMP, 3040-3, 41611-7, 35749-1 #### [facility] ([id number]) [address] [place] [address] 37653URG (RBC) [Entitic mass]27.7 gkAyluom20-38NzpBsajqqSt. Joseph Medical CenterComment on above:Performed By: #### CBCA, CMP, 3040-3, , 22343-3 #### [facility] ([id number]) [address] [place] [address] 13598IJPJ (RBC) [Mass/Vol]34.2 g/zTUrzgfn17-17EedQwvnjmSt. Joseph Medical CenterComment on above:Performed By: #### CBCA, CMP, 3040-3, , 80600-7 #### [facility] ([id number]) [address] [place] [address] 76432JID (RBC) [Entitic vol]81 vQKqoljc49-130AqqHlzjzp Fremont HospitalComment on above:Performed By: #### CBCA, CMP, 3040-3, 15483-6, 85474-3 #### [facility] ([id number]) [address] [place] [address] 73792Kdbfdhwsd (Bld) [#/Vol]0.7 10*3/uLNormal0-0.9ProSt. Joseph Medical CenterComment on above:Performed By: #### CBCA, CMP, 3040-3, 99434-2, 74578-3 #### [facility] ([id number]) [address] [place] [address] 58990Xstoeiupy/100 WBC (Bld)11.1 %[facility] Comment on above:Performed By: #### CBCA, CMP, 3040-3, 83696-7, 87699-2 #### [facility] ([id number]) [address] [place] [address] 64146Yzaaryjggnm/100 WBC (Bld)55.3 %[facility] Comment on above:Performed By: #### CBCA, CMP, 3040-3, 99884-3, 38405-3 #### [facility] ([id number]) [address] [place] [address] 42154Lmadmysd mean volume (Bld) [Entitic vol]8.6 fLNormal7-12 Wilson HealthComment on above:Performed By: #### CBCA, CMP, 3040-3, 94393-5, 12782-0 #### [facility] ([id number]) [address] [place] [address] 83776Vravryyev (Bld) [#/Vol]283 10*3/pOWoxqiv741-550TvyXnouulWilson HealthComment on above:Performed By: #### CBCA, CMP, 3040-3, 63622-8, 75984-4 #### [facility] ([id number]) [address] [place] [address] 30201UNB COUNT4.67 X10E12/LNormal4.10-5.70[facility] Comment on above:Performed By: #### CBCA, CMP, 3040-3, 93068-1, 75982-9 #### [facility] ([id number]) [address] FLO[address] [place], [place] [address]MDT (Bld) [#/Vol]6.7 10*3/uLNormal4.0-11.0ProSt. Joseph Medical CenterComment on above:Performed By: #### LYNETTE, MAHOGANY, 3040-3, 38021-1, 83942-2 #### [facility] ([id number]) [address] [place] [address] 56659DMYHKHAFZCOLD METABOLIC PANELon 60-99-8441Afqedlp [Mass/Vol]4.0 g/dLNormal3.2-5.3ProMedica Kaiser Fremont Medical CenterComment on above:Performed By: #### MAHOGANY OJEDA, 3040-3, 46336-9, 20227-2 #### [facility] ([id number]) [address] [place] [address] 14367NKM [Catalytic activity/Vol]87 U/MOehsyd37-234QakIeslwhSt. Joseph Medical CenterComment on above:Performed By: #### LYNETTE, MAHOGANY, 3040-3, 57858-0, 14652-0 #### [facility] ([id number]) [address] [place] [address], [place] [address]CZI [Catalytic activity/Vol]33 U/LNormal0-40ProSt. Joseph Medical CenterComment on above:Performed By: #### LYNETTE, MAHOGANY, 3040-3, 60582-0, 08474-8 #### [facility] ([id number]) [address] [place] [address], [place] [address]Fpdzn gap [Moles/Vol]6 mmol/LNormal5-15ProSt. Joseph Medical CenterComment on above:Performed By: #### LYNETTE, CMP, 3040-3, 67977-8, 06557-6 #### [facility] ([id number]) [address] [place] [address], [place] [address]ZIR [Catalytic activity/Vol]23 U/LNormal0-41ProSt. Joseph Medical CenterComment on above:Performed By: #### LYNETTE, CMP, 3040-3, 04593-9, 86885-2 #### [facility] ([id number]) [address] [place] [address] 94023Ivqwcyhqg [Mass/Vol]0.9 mg/dLNormal0.3-1.2POhioHealth Arthur G.H. Bing, MD, Cancer CenterComment on above:Performed By: #### LYNETTE, CMP, 3040-3, 62943-0, 05497-3 #### [facility] ([id number]) [address] [place] [address] 93868Tczipks [Mass/Vol]9.3 mg/dLNormal8.5-10.5POhioHealth Arthur G.H. Bing, MD, Cancer CenterComment on above:Performed By: #### LYNETTE, CMP, 3040-3, 27522-8, 96313-6 #### [facility] ([id number]) [address] [place] [address] 71806Ohpycigx [Moles/Vol]104 mmol/UVcwxev29-140GzoCtgfqwSt. Joseph Medical CenterComment on above:Performed By: #### LYNETTE, CMP, 3040-3, 98673-6, 07439-2 #### [facility] ([id number]) [address] [place] [address] 45142DF4 [Moles/Vol]27 mmol/MEggdvs91-86QxpRjlphbOhioHealth Arthur G.[facility]. [facility] Cancer Center Comment on above:Performed By: #### NATALIAA, CMP, 3040-3, 95963-8, 33846-7 #### [facility] ([id number]) [address] [place] [address] 99722Tvdmhcfaom [Mass/Vol]1.08 mg/dLNormal0.70-1.20ProSt. Joseph Medical CenterComment on above:Result Comment: METHOD TRACEABLE TO IDMS STANDARD Performed By: #### LYNETTE, CMP, 3040-3, 73045-8, 87400-1 #### [facility] ([id number]) [address] [place] [address] 68358QPR/1.73 sq M.predicted among non-blacks MDRD (S/P/Bld) [Vol rate/Area]82 mL/min/{1.73_m2}Normal>59ProSt. Joseph Medical CenterComment on above:Result Comment: Reported eGFR is based on the CKD-EPI 2020 equation that does not use a race coefficient.Performed By: #### MAHOGANY OJEDA, 3040-3, 79104-6, 07088- 7 #### [facility] ([id number]) [address] [place] [address] 60062Ynnysvk [Mass/Vol]99 mg/kFBioxvx74-02HbqSjotepWilson Health Comment on above:Performed By: #### MAHOGANY OJEDA, 0-3, , 92475-8 #### [facility] ([id number]) [address] [place] [address] 99784Sgngfswmd [Moles/Vol]4.1 mmol/LNormal3.5-5.0ProSt. Joseph Medical CenterComment on above:Performed By: #### MAHOGANY OJEDA, 3040-3, , 02209-6 #### [facility] ([id number]) [address] [place] [address] 16012Mgbgzzl [Mass/Vol]7.5 g/dLNormal6.0-8.0ProSt. Joseph Medical CenterComment on above:Performed By: #### MAHOGANY OJEDA, 3040-3, , 98390-5 #### [facility] ([id number]) [address] [place] [address] 75059Jedfep [Moles/Vol]137 mmol/OSmypes311-369NseGtfmio Fremont HospitalComment on above:Performed By: #### MAHOGANY OJEDA, 3040-3, , 17784-5 #### [facility] ([id number]) [address] [place], [place] [address]Grrz nitrogen [Mass/Vol]17 mg/dLNormal5-23Wilson HealthComment on above:Performed By: #### CBCA, CMP, 3040-3, 22546-2, 76253-1 #### [facility] ([id number]) [address] [place] [address] 67350WW CTA ABD AND PELVISon 83-88-5897RP CTA ABD AND PELVISCT CTA ABD AND PELVIS History: Back pain. Exam: CTA abdomen pelvis, multiplanar reformats, thick section MIP volumes. All CT scans at this facility use dose modulation, iterative reconstruction, and/or weight based dosing when appropriate toreduce radiation dose to as low as reasonably achievable. COMPARISON: CT abdomen pelvis without contrast 03/29/2023 CTA abdomen: No abdominal aortic aneurysm, dissection or stenosis. Mild calcified plaque. Celiac artery, superior mesenteric artery, renal arteries, inferior mesenteric artery are patent. No lesions in the liver,spleen, pancreas, adrenal glands or kidneys. No free air or free fluid. No enlarged lymph nodes. Gallbladder within normal limits. Small hiatal hernia. CTA PELVIS: Minimal calcified plaque in the iliac, femoral arteries without stenosis, aneurysm or dissection. No dilated bowel loops or pericolonic fat stranding. No enlarged pelvic or inguinal lymphnodes. No urinary tract obstruction or osseous lesions. IMPRESSION: No acute findings. Finalized by Terry Saenz MD on 03/01/2024 6:11 PMNormalWilson HealthCT CTA CHESTon 78-27-0936AP CTA CHESTCT CTA CHEST History: Chest pain. EXAM: CTA [...] by Terry Saenz MD on 03/01/2024 6:08 PMNormalProSt. Joseph Medical CenterLIPASEon 72-23-0350Qityay [Catalytic activity/Vol]98 U/PQnoh39-80 ProMArroyo Grande Community HospitalComment on above:Performed By: #### MAHOGANY OJEDA, 3040-3, 46640-4, 97380-1 #### [facility] ([id number]) [address] [place] [address] 63843PQSWDMIFVzu 49-03-1201Jnfyuqpgn [Mass/Vol]2.1 mg/dLNormal 1.8-2.6ProSt. Joseph Medical CenterComment on above:Performed By: #### MAHOGANY OJEDA, 3040-3, 12193-1, 94245-1 #### [facility] ([id number]) [address] [place] [address] 86216Xahfptip I.cardiac High sensitivity method [Mass/Vol]on HOUR TROP I, HIGH SENSITIVITY3 ng/LNormal<21Wilson HealthComment on above:Performed By: #### 09280-0 #### [facility] ([id number]) [address] [place] [address] 39908FPOTDDCY I, HIGH SENSITIVITY3 ng/LNormal<21ProSt. Joseph Medical CenterComment on above:Performed By: #### MAHOGANY OJEDA, 3040-3, 36401-6, 93988-1 #### [facility] ([id number]) [address] [place] [address] 32538Aumsmnkb Supporton 67-28-7600Ihnqappa [id number] Addison Griffin 1970 M Date Provider Department Center 05/30/2023 CASPER SERNA MP Medical Pavi No family history on fileNormalUniversity of [facility] Healthcare NorthwestOffice Visiton 05-99-2723Nhnavd-up [id number] Addison Griffin 1970 M Date Provider Department Center 05/30/2023 TERRY HUMMEL MP PHYS MED Medical [facility]avi No family history on file Level of Service:03802 [place] OFFICE/OUTPATIENT [facility] 45-59 MINUTES (GC) Reason for Visit and Comments: SEATING CLINIC [Other][facility]ED Clinical Summaryon 98-25-4570EI Clinical Summary [address] [address] ED Clinical Summary Person Information Name: Addison Griffin Xochitl/[facility] Age: 49 Years : 1970 Sex: Male PCP: Marital Status: Unknown Race: White Ethnicity: Not or Language: Tamazight Visit Reason: Potential stroke; Bradycardia; Seizure - Recurrent; Stroke Acuity: 2 Enc Type: Emergency Med Service: Emergency Medicine Arrival: 08/20/2019 15:59:03 Discharge: 08/21/2019 00:26:00 LOS: 000 08:27 Checkin: 08/20/2019 15:59:03 Checkout: 08/21/2019 00:26:00 Dispo Type: Transfer to [facility] Address: [address] [facility] [address] Provider Notes: History of Present Illness ? [...] ear pain NECK:?Negative for pain and swelling CARDIOVASCULAR:?Negative for chest pain, palpitations RESPIRATORY:?Negative for shortness of breath, cough, wheezing, and pleuritic chest pain ABDOMEN/GI:?Negative for pain, nausea, vomiting BACK:?Negative for pain and injury :?Negative for dysuria and hematuria? MUSCULOSKELETAL:?Negative for muscle and joint pain SKIN:?Negative for rash and discoloration NEURO:?Negative for focal weakness, numbness, and tingling ? ? Physical Exam CONSTITUTIONAL:?no apparent respiratory distress, nontoxic appearing SKIN:?warm, dry, no rash EYES:?pupils are equally round and reactive to light, extraocular movements intact, conjunctiva noninjected HENT:?normocephalic, atraumatic, moist mucus membranes, trachea midline NECK:?Nontender, supple, full range of motion CARDIOVASCULAR:?regular rate, rhythm, normal S1 and S2. No appreciated murmurs. Strong radial pulses with intact distal perfusion PULMONARY:?clear to auscultation without wheezes, rhonchi, or rales GASTROINTESTINAL:?soft, non-tender, non-distended, no palpable masses, no rebound or guarding GENITOURINARY:?No costovertebral angle tenderness to palpation MUSCULOSKELETAL:?Extremities are nontender to palpation and have no gross deformity, no edema, redness, or swelling BACK:?No midline tenderness. No muscle spasm NEUROLOGIC:?awake, alert, and oriented x 2, decreased mentation,?normal?speech. Ataxic?left upper extremity.?Moves all extremities. No obvious [...] range between ( 27.2 and 40.8 ) [place] Auto: 6.5 % -- Normal range between [...] range between ( 41.0 and 53.0 ) [place] Absolute: 0.9 x10 MCH: 29.5 pg -- [...] Documented Care Team Members: Attending Physician: Amrik Hayes MD Consulting Physician: Referring Physician: Provider Role Assigned Unassigned Amrik Hayes MD ED Provider 08/20/2019 16:04:14 Jennifer Brooke ED Nurse 08/20/2019 16:18:25 Jared Joyce ED Nurse 08/20/2019 20:09:09 Follow up: Discharge Orders: Discharge Patient 08/21/19 0:00:00 EST, Transfer, Higher Level of Care, Recurrent seizures Patient Education Information: [facility] Poison Help line: . [place] [facility] [place] [facility] Quit Line: [place], [place]) [address]: [phone] [place], [place]) [address]: [phone] [facility] [address], [place]: [phone] [facility] CenterED Note-Nursingon [id number] Note-Nursing Disposition [facility] unable to be completed due to pt being intubated and sedated Electronically signed by Jared Joyce 08/21/19 00:01 [facility] E[facility] 1 hour Electronically signed by Jared Joyce 08/20/19 22:41 [facility]-Gaclfzz37.2.2019 21:40Writer spoke with Aster Mcwilliams to discuss transfer options for patient. At this time Mariza LuaU not able to send an EMS to come get the patient due to not having an EMS available. [facility] not flying due to weather. 2149:Land Manager called [facility] [place] and spoke with Mauri and asked if the patient could go by [facility] if a nurse was able to go along and titrate the propofol drip. Mauri reports that they would be able to do that with a nurse from the ED and their crew. 2209: Land Manager spoke with She [facility] and she reports she has enough staffing to send Jared RN who has agreed to ride along. 2214: Land Manager spoke with Electrician Outside Elaine about calling admin ammunition assembly i laborer to confirm that this is able to happen sending ED RN with EMS. 2231: Elaine informed journalists and other writers that Admin ammunition assembly i laborer said to send ED RN with [facility] crew because it is whatsbest for the patient. 2234- Land Manager informed Mauri from [facility] [place] that [facility] ED RN Jared will ride along with patient to [facility]. Maurireports that a squad can be at the hospital around 2335. Land Manager informed Aster Sec this and she is calling [facility] to inform them of this. Electronically signed by Sara Hawkins 08/20/19 22:43 [facility]-NursingAt this time still arranging for transfer of pt to [facility] Electronically signed by Jared Joyce 08/20/19 22:01 [facility]Physicianon [id number] Note-PhysicianChief Complaint pt called for weakness to home for ongong seizure. Pt hx of epilepsy with seizure starting at 1230 pm. Pt reports weakness to left side. Pt also noted with heart rate of 32. Atropin 0.5 IVP x 2 dosesadministered per [facility] [place] Ems. Pt not [...] SAS Score Of 4, Dispense From Location: [place]-Pharmacy Problem List/Past Medical History Ongoing No qualifying [...] High Lymph Auto 08/20/19 16:32 11.8 Low [place] Auto 08/20/19 16:32 6.5 Eos Auto 08/20/19 16:32 0.7 Basophil Auto 08/20/19 16:32 0.6 Neutro Absolute 08/20/19 16:32 11.5 High Lymph Absolute 08/20/19 16:32 1.7 [place] Absolute 08/20/19 16:32 0.9 Eos Absolute 08/20/19 [...] in the right lung base. Suboptimal evaluation dueto motion artifacts. Signed By: Mark Flores MD Computerized Tomagraphy CT Brain w/o Contrast 08/20/19 16:27:51 IMPRESSION: Mild chronic microvascular ischemia with no acute infarction Addendum: the report was phoned to Dr. Amrik Hayes of the ED Signed By: Soraya Almaraz MD CT Angio Head Neck w/ Contrast 08/20/19 20:32:06 IMPRESSION: Large vessel occlusion beginning within the paraclinoid/supraclinoid right ICA with extension into the carotid terminus and essentially complete occlusion of the right MCA as well as proximal portionof the right A1 segment. Associated with diminished opacification of the right cervical ICA and remaining intracranial ICA segments. This finding was discussed with ER provider at approximately 5:50 PM PST. Signed By: Soraya Pedraza MD Ultrasound No qualifying data available (Ultrasound) Magnetic Resonance Imaging No qualifying data available (MRI) Electronically signed by Mauri Mata MD Re 08/21/19 00:04 [facility] [id number] (U) [#/Vol]1-4Abqjmn9 - 5BAultman HospitalComment on above:Performed By: #### CD:[id number] ####[address] [address]HH WBC QualAbsentNormal0 - 5 [facility] Medical CenterComment on above:Performed By: #### CD:[id number] ####[address] [address].eGFRon 67-59-3963aNOY Non-AA>60Normal>=60[facility]view Medical CenterComment on above:Result Comment: Result = 0-14.9 mL/min/1.73 m2 Kidney failure or Dialysis Result = 15-29 mL/min/1.73 m2 Severe decrease in GFR Result = 30-59 mL/min/1.73 m2 Moderate decrease in GFR Result >= 60 mL/min/1.73 m2 Normal or increased GFR Chronic kidney disease is defined as either kidney damage or GFR < 60 mL/min/1.73 m2 for >= 3months. Kidney damage is defined as pathologic abnormalities or markers of damage including abnormalities in blood or urine tests or imaging studies. This GFR is NOT used for medication dosing. Performed By: #### EGFR ####[address] [address]vRVA AA>60Normal>=60Southview Medical CenterComment on above:Result Comment: Result = 0-14.9 mL/min/1.73 m2 Kidney failure or Dialysis Result = 15-29 mL/min/1.73 m2 Severe decrease in GFR Result = 30-59 mL/min/1.73 m2 Moderate decrease in GFR Result >= 60 mL/min/1.73 m2 Normal or increased GFRPerformed By: #### EGFR ####[address] [address]Gxrej Metabolic Profileon 01-06-1254Bxvro gap [Moles/Vol]10 mmol/LNormal7-17[facility] Medical CenterComment on above:Performed By: #### CD:[id number] ####[address] [address]Kcqdnol [Mass/Vol]8.9 mg/dLNormal8.5-10.3BAultman HospitalComment on above: Performed By: #### CD:[id number] ####[address] [address]Dcqnemvy [Moles/Vol]106 mmol/UZiquhs93-051OaonwlaujSouthview Medical CenterComment on above:Performed By: #### CD:[id number] ####[address] [address]SA0 [Moles/Vol]24 mmol/GEmgzlu87-09VqwlcfrypSouthview Medical CenterComment on above: Performed By: #### CD:[id number] ####[address] [address]Prngxmykoh [Mass/Vol]1.02 mg/dLNormal0.61-1.24[facility] Medical CenterComment on above:Performed By: #### CD:[id number] ####[address] [address]Eacidsp [Mass/Vol]120 mg/yWXfri75-945FajdppohrSouthview Medical CenterComment on above: Performed By: #### CD:[id number] ####[address] [address]Oilpddept [Moles/Vol]3.8 mmol/LNormal3.4-4.8BAultman HospitalComment on above:Performed By: #### CD:[id number] ####[address] [address]Nfuidv [Moles/Vol]136 mmol/LJmghpb389-633YathxbvkeSouthview Medical CenterComment on above:Performed By: #### CD:[id number] ####[address] [address]Bkxb nitrogen [Mass/Vol]21 mg/dLNormal8-26[facility] Medical CenterComment on above:Performed By: #### CD:[id number] ####[address] [address]Evmt nitrogen/Creatinine [Mass ratio]20.6 mg/wxGymj81.0-20.0[facility] Medical CenterComment on above:Performed By: #### CD:[id number] ####[address], [place] [address]Dxoot Gas Arterialon 08-20-2019 Base Excess Art-1.9 mEq/LNormal-2.0-2.0[facility] Medical CenterComment on above:Performed By: #### ABG ####[address] [place] [address]AG Roger TestSatisfactoryAvita Health SystemComment on above:Performed By: #### ABG ####[address] [address]QU Collection SiteLt RadAvita Health SystemComment on above:Performed By: #### ABG ####[address] [address]QL ModeAssist ControlNormal [facility] Medical CenterComment on above:Performed By: #### ABG ####[address] [place] [address] Carboxyhemoglobin Arterial1.0 % totalNormal0.0-2.0[facility] Comment on above:Performed By: #### ABG ####[address] [address]XhL0 Cgp81BhbgkkHzimbsykjMercy Health St. [facility] Comment on above:Performed By: #### ABG ####[address] [address]Mu Totl Mwsnvmop16.7 g%Zusggp48.0-18.0[facility] Medical CenterComment on above:Performed By: #### ABG ####[address], [place] [address]AuV8 Art98 % cbtppMrenhw37-332 [facility] CenterComment on above:Performed By: #### ABG ####[address] [address]DMX1 Art24 mEq/KPjyvdl93-70XettnntzySouthview Medical CenterComment on above:Performed By: #### ABG ####[address] [address]Frg Hb Arterial0.8 % totalNormal0.0-2.0[facility] Medical CenterComment on above:Performed By: #### ABG ####[address], [place] [address]C1 QlauI8WtjjwwGunnwtjfdSouthview Medical CenterComment on above:Performed By: #### ABG ####[address], [place] [address]sVN4 Art45 bcXaLxcavl57-30KlrrppgwaSouthview Medical Center Comment on above:Performed By: #### ABG ####[address], [place] [address]XDBD5.0 rpE54OjjssiJxirwxgopPremier Health [facility] Comment on above:Performed By: #### ABG ####[address], [place] [address]sP Art7.34Low7.35-7.45[facility] Comment on above:Performed By: #### ABG ####[address], [place] [address]gN6 Dxr908 ggZvNpqk48-427RnzsjpvrySouthview Medical CenterComment on above:Performed By: #### ABG ####[address], [place] [address]Tdz Resp Rate[address] Elizabeth Boardman HospitalComment on above:Performed By: #### ABG ####[address], [place] [address]Aae Tidal Vwk640 mLNormal [facility] Medical CenterComment on above:Performed By: #### ABG ####[address] [address]Fwc Resp Rate[address] Elizabeth Boardman HospitalComment on above:Performed By: #### ABG ####[address] [address]MPK w/ Diffon 13-04-4317Kcxijybxyse distribution width (RBC) [Ratio]15.0 %High 11.6-14.8BAultman HospitalComment on above:Performed By: #### CBC #### [address] [address]Rapmhesnyt (Bld) [Volume fraction]40.5 %Low41.0-53.0[facility] Medical CenterComment on above:Performed By: #### CBC #### [address] [address]Aprwjgcikb (Bld) [Mass/Vol]13.3 g/dLLow13.5-17.5BAultman HospitalComment on above:Performed By: #### CBC #### [address] [address]EWH (RBC) [Entitic mass]29.5 dbIvkpzy81.0-35.0[facility] Medical CenterComment on above:Performed By: #### CBC #### [address] [address]ZTMH (RBC) [Mass/Vol]32.9 %Giaszi12.0-37.0[facility] Medical CenterComment on above:Performed By: #### CBC #### [address] [address]VUY (RBC) [Entitic vol]89.8 iEQnwvbr51.0-100.0[facility] Medical CenterComment on above:Performed By: #### CBC #### [address] [address]Hmhzweax mean volume (Bld) [Entitic vol]8.8 fLNormal6.7-10.6 [facility] Medical CenterComment on above:Performed By: #### CBC #### [address] [address]Rkzzzixev (Bld) [#/Vol]287 x10*3/hxJYhdlej828-151BpvizentxSouthview Medical CenterComment on above:Performed By: #### CBC #### [address] [address]NFK (Bld) [#/Vol]4.50 x10*6/mcLNormal4.30-5.80[facility] Medical CenterComment on above:Performed By: #### CBC #### [address] [address]JCN (Bld) [#/Vol]14.3 x10*3/mcLHigh4.5-11.0[facility] Medical CenterComment on above:Performed By: #### CBC #### [address] [address]KJ Angio Head Neck w/ Contraston 14-18-3220ZM Angio Head Neck w/ ContrastCTA HEAD AND NECK TECHNIQUE: Contiguous axial CT images of the head and neck were obtained after the administration of 100 mL Omni 350 intravenous contrast. Coronal and sagittal reformatted images are provided. Multiplanar reformatted images were constructed, including 3D reformatted images created on a separate workstation. Dose reduction techniques were achieved by using automated exposure control and/or adjustment of mAand/or kV according to patient size and/or use of iterative reconstruction technique. HISTORY: Concern for stroke. COMPARISON: None available. FINDINGS: HEAD CTA: ARTERIES: Diminished opacification of the right intracranial ICA with large vessel occlusion beginning within the paraclinoid/supraclinoid right ICA with essentially complete occlusion of the right MCA as well as proximal portion of the right A1 segment. Remaining intracranial vessels without evidence of sizable aneurysm, AVM, stenosis or occlusion. VARIANTS: [place] of [place] is normally developed. No other [...] IMPRESSION: Large vessel occlusion beginning within the paraclinoid/supraclinoid right ICA with extension into the carotid terminus and essentially complete occlusion of the right MCA as well as proximal portionof the right A1 segment. Associated with diminished opacification of the right cervical ICA and remaining intracranial ICA segments. This finding was discussed with ER provider at approximately 5:50 PM [facility]. Radiation Dose Estimate: CTDI(mGy):0.287755 / / / kVp:120.048935 / mAs:0.834416 / / / DLP(mGy- cm):12.538454Mjbj Part: Head CTDI(mGy):0.560581 / / / kVp:120.185570 / mAs:0.162968 / / / DLP(mGy- cm):13.174620Ujhm Part: Head CTDI(mGy):5.934483 / / / kVp:120.429464 / mAs:39.757595 / / / DLP(mGy- cm):5.136697Tqxo Part: Head CTDI(mGy):75.104754 / / / kVp:120.241307 / mAs:39.025559 / / / DLP(mGy- cm):75.360826Ubif Part: Head CTDI(mGy):45.756371 / / / kVp:140.584753 / mAs:262.310859 / / / DLP(mGy- cm):1751.666472Ryxi Part: Head CTDI(mGy):0.306374 / / / kVp:120.030990 / mAs:0.725158 / / / DLP(mGy- cm):3.923733Ihey Part: Head Final Dictated by: Soraya Pedraza MD Dictated DT/TM: 08.20.2019 8:32 pm Signed by: Soraya Pedraza MD Signed (Electronic Signature): 08.20.2019 8:51 pm (If Report Is Signed, Electronically Signed in Other Vendor System)Normal [facility] Medical CenterCT Brain w/o Contraston 93-25-3530EE Brain w/o ContrastClinical history: Stroke alert/altered mental status TECHNIQUE: 5 [...] the report was phoned to Dr. Amrik Hayes of the ED Radiation Dose Estimate: CTDI(mGy):0.653096 / / / kVp:120.908463 / mAs:0.456852 / / / DLP(mGy- cm):7.351749Txof Part: Head CTDI(mGy):47.919526 / / / kVp:120.343686 / mAs:190.696160 / / / DLP(mGy- cm):865.155257Sezx Part: Head Final Dictated by: Soraya Almaraz MD Dictated DT/TM: 08.20.2019 4:27 pm Signed by: Soraya Almaraz MD Signed (Electronic Signature): 08.20.2019 4:39 pm (If Report Is Signed, Electronically Signed in Other Vendor System)Normal [facility] Medical CenterDiff Autoon 11-90-4662Ebwi Absolute0.1 x10*3/mcL Normal0.0-0.2BAultman HospitalComment on above:Performed By: #### .Automated Diff #### [address] [address]Zkgtbafum/100 WBC (Bld)0.6 %Normal0.0-1.2BAultman HospitalComment on above:Performed By: #### .Automated Diff #### [address] [address]Myc Absolute0.1 x10*3/mcLNormal0.0-0.4BAultman HospitalComment on above:Performed By: #### .Automated Diff #### [address] [address]Kjlrxlgkhhj/100 WBC (Bld)0.7 %Normal0.0-6.1BAultman HospitalComment on above:Performed By: #### .Automated Diff #### [address] [address]Dygynoqnzoq (Bld) [#/Vol]1.7 x10*3/mcLNormal1.0-4.8BAultman HospitalComment on above:Performed By: #### .Automated Diff #### [address] [address]Tukvzgnijto/100 WBC (Bld)11.8 %Low27.2-40.8BAultman HospitalComment on above:Performed By: #### .Automated Diff #### [address] [address]Psjp Absolute0.9 x10*3/mcLNormal0.3-1.1BEast Liverpool City Hospital SystemComment on above:Performed By: #### .Automated Diff #### [address] [address]Elgwwsfjc/100 WBC (Bld)6.5 %Normal4.7-13.9BAultman HospitalComment on above:Performed By: #### .Automated Diff #### [address] [address]Wzjcwx Ypzqvein39.5 x10*3/mcLHigh1.8-7.7BAultman HospitalComment on above:Performed By: #### .Automated Diff #### [address] [address]Ygryiz Auto80.4 %High47.2-70.8[facility] Comment on above:Performed By: #### .Automated Diff #### [address] [address]VJ Note-Nursingon 95-80-9537ZL Note-NursingAt this time, waiting to transfer pt to [facility]. Electronically signed by Jared Joyce 08/20/19 21:07 [facility]ursingOG tube advanced to 66cm at lip Electronically signed by Jared Barrera 08/20/19 20:45 [facility]-Nursingpt sedated and prepared for CTA Electronically signed by Edwardo [facility] 08/20/19 20:05 [facility]-Nursing5 mg versed ordered due to patient movement and thrashing in bed. 100 mcg Rocuronium ordered IVP per Dr. Hayes. Electronically signed by Edwardo [facility] 08/20/19 20:05 [facility]-Nursing5 mg versed ordered per IVP per Dr. Hayes due to patient movement and not remaining sedated after intubation Electronically signed by Edwardo [facility] 08/20/19 20:04 [facility]-NursingPt intubated successfully. Pt is not sedated at this time after RSI medications administered. 4 point wrist restraints and propofol started at 40 mcg per Axle Rose Electronically signed by Edwardo [facility] 08/20/19 19:59 [facility]ED [facility]-Nursingpts behavior increasing with thrashing and moving with head and right side. Pt making incomprehensible sounds. No affect of sedation after ativan administration and haldol. Dr. Hayes in room. Prepare for intubation per verbal order Dr. Jimenez Electronically signed by [facility] 08/20/19 19:58 [facility]ED Note-NursingAtivan 2 mg and haldol given in CT [...] continuous movement even after medication administered. Dr. Hayes notified Electronically signed by [facility] 08/20/19 18:35 [facility] Note-Nursingno further orders per Dr. Hayes Electronically signed by [facility] 08/20/19 17:26 [facility]ED Note-NursingPrimary nurse concerned for stroke due to NIH assesment. note for possible CTA or MRI orders requested. Sara RN notified Electronically signed by [facility] 08/20/19 17:24 [facility]ED Note-NursingWriter called into room per primary RN Agata for concerns of stroke and NIHSS of 17 with no CTA order. Land Manager noted significant facial droop, slurred speech partial gaze to the left, left arm flaccidwith minimal movement of left leg. Land Manager tested sensation with the tip of an 18 gauge needle and jason soto was not aware of what leg was touched. When journalists and other writers would poke left leg patient states my right leg, Land Manager than goes back out into the nurses station to inform Dr. Hayes of this consistent finding.since arrival via [facility] [place]. Land Manager requested that Dr. Hayes go back to the room to assess the patient again. Land Manager suggested a CTA at this time for the stroke like symptoms. Dr. Hayes agrees to this and enters patient room. Electronically signed by Sara Hawkins 08/20/19 21:35 [facility]-Nursingpt noted to be becoming more pale and diaphoretic. Dr. Hayes in room to assess pt. Repeat EKG Electronically signed by Jennifer Brooke 08/20/19 17:15 [facility]ED Note-NursingDelay in patient getting to CT due to possible ST elevation on transport via [facility] [place] to [facility]. EKG obtained prior to CT per Dr. Hayes. Land Manager verbalized to Dr. Hayes the stroke like symptoms. Land Manager asked him if we should call [facility] for consult and Dr. Hayes shook his head no when consulting Dr. Light in regards to the EKG. Electronically signed by Sara Hawkins 08/20/19 21:42 [facility]-Physicianon [id number] Note-PhysicianChief Complaint pt called for weakness to home for ongong seizure. Pt hx of epilepsy with seizure starting at 1230 pm. Pt reports weakness to left side. Pt also noted with heart rate of 32. Atropin 0.5 IVP x 2 dosesadministered per [facility] [place]. Pt not [...] for him. He was not put on anysubsequent medication. He denies any chest pain or [...] sinus rhythm with a ventricular rate of 64.No evidence of acute STEMI was noted. The [place] interval was found to be 169, QRS duration 93, and QTcinterval 422. No acute T-wave abnormalities were appreciated. [...] occlusion of the right internal carotid artery. [facility] was contacted and recommended transfer to their stroke unit. He'll be transferred via ambulance at this time Reexamination/Reevaluation Guarded Assessment/Plan 1. Recurrent seizures Ordered: 2. [...] High Lymph Auto 08/20/19 16:32 11.8 Low [place] Auto 08/20/19 16:32 6.5 Eos Auto 08/20/19 16:32 0.7 Basophil Auto 08/20/19 16:32 0.6 Neutro Absolute 08/20/19 16:32 11.5 High Lymph Absolute 08/20/19 16:32 1.7 [place] Absolute 08/20/19 16:32 0.9 Eos Absolute 08/20/19 [...] in the right lung base. Suboptimal evaluation dueto motion artifacts. Signed By: Sandra POP, Mark Computerized Tomagraphy CT Brain w/o Contrast 08/20/19 16:27:51 IMPRESSION: Mild chronic microvascular ischemia with no acute infarction Addendum: the report was phoned to Dr. Amrik Hayes of the ED Signed By: Soraya Almaraz MD CT Angio Head Neck w/ Contrast 08/20/19 20:32:06 IMPRESSION: Large vessel occlusion beginning within the paraclinoid/supraclinoid right ICA with extension into the carotid terminus and essentially complete occlusion of the right MCA as well as proximal portionof the right A1 segment. Associated with diminished opacification of the right cervical ICA and remaining intracranial ICA segments. This finding was discussed with ER provider at approximately 5:50 PM PST. Signed By: Keila POP, Soraya Duval Ultrasound No qualifying data available (Ultrasound) Magnetic Resonance Imaging No qualifying data available (MRI) Electronically signed by Amrik Hayes MD 08/20/19 21:08 EST Documented NIH stroke [...] 10: Dysarthria ?> 0 = Normal 11: Extinction/inattention ?> 0 = No abnormality Electronically signed by Amrik Hayes MD 08/22/19 07:39 ESTNormalSouthview Medical Center Ethanolon 80-21-2663Hwkygou [Mass/Vol]mg/dLNormal<=9[facility] SystemComment on above:Result Comment: To convert mg/dL to g/dL, divide result by 1,000. Legal limit of intoxication is 80mg/dL (0.08 g/dL).Performed By: #### ALC ####[address] [address]Usc [facility] Panelon 90-02-3101Ywdbrlb [Mass/Vol]3.9 g/dLNormal3.2-4.9BAultman HospitalComment on above:Result Comment: [facility] Laboratory updated the methodology used for albumin testing on 04/26/18. Albumin measurement was performed using a bromcresol purple dye-binding assay.Performed By: #### LIVER #### [address] [address]Scc Phos43 IU/EUqlcox33-91GokuyzutaSouthview Medical CenterComment on above:Performed By: #### LIVER #### [address] [address]JQC [Catalytic activity/Vol]19 U/CNentvp73-19XimppymvxSouthview Medical CenterComment on above:Performed By: #### LIVER #### [address] [address]GXT [Catalytic activity/Vol]28 U/NKnekil49-65FlkhpxxthSouthview Medical CenterComment on above:Performed By: #### LIVER #### [address] [address]Zscs Direct0.3 mg/dLNormal0.1-0.5[facility] Comment on above:Performed By: #### LIVER #### [address] [address]Hbne Indirect0.9 mg/dLNormal0.0-1.0[facility] Medical CenterComment on above:Performed By: #### LIVER #### [address] [address]Axul Total1.2 mg/dLNormal0.3-1.2[facility] Comment on above:Performed By: #### LIVER #### [address] [address]Lzyiwed [Mass/Vol]6.8 g/dLNormal6.5-8.1BAultman HospitalComment on above:Performed By: #### LIVER #### [address] [address]Ojmvea Acid, Randomon 49-55-1399Tippnr Acid Lvl1.2 mmol/LNormal 0.5-2.0[facility] Medical CenterComment on above:Performed By: #### LA ####[address] [address]Vkxxxmtijre 72-45-2375Aanrfmuoc [Mass/Vol]1.9 mg/dLNormal1.7-2.4BAultman HospitalComment on above:Performed By: #### MG #### [address] [address]LYQ Glucose Randomon 30-76-7443Pkuhorv [Mass/Vol]128 mg/dLHigh 78-110[facility] Medical CenterComment on above:Performed By: #### CD:[id number] ####[address] [address]Mfhogimc-Qyj 41-55-0706Pucofccz I.cardiac [Mass/Vol]ng/mLNormal0.00-0.03 [facility] Medical CenterComment on above:Result Comment: An increased Troponin-I value, in the absence of myocardial ischemia, may indicate other etiologies of cardiac damage.Performed By: #### TROP ####[address] [address]FC w Culture if Indon 08-20-2019 Color (U)YellowNormalSouthview Medical CenterComment on above:Performed By: #### UCI ####[address] [address]Cckzqed (U) [Mass/Vol]NegativeNormalNegativeSouthview Medical Center Comment on above:Performed By: #### UCI ####[facility] [facility], [place] [address]Ghgcals Ql (U)20 mg/dLAbnormalNegUniversity Hospitals Geneva Medical Center SystemComment on above:Performed By: #### UCI ####[address], [place] [address]TO BloodModerateAbnormalNegative [facility] Medical CenterComment on above:Performed By: #### UCI ####[facility] [address] THREE [place] [address], [place] [address]VY Clarity ClearNormKettering Health Behavioral Medical Center SystemComment on above:Performed By: #### [facility] ####[address], [place] [address]TF Leukocyte EsteraseNegativeNormalNegMercy Health – The Jewish HospitalComment on above:Performed By: #### [facility] ####[address] [address]YD NitriteNegativeNormalNegUniversity Hospitals Geneva Medical Center SystemComment on above:Performed By: #### [facility] ####[address] [address]UW pH5.4Idizkh7.5 - 7.8BlanSamaritan North Health CenterComment on above:Performed By: #### [facility]CI ####[address], [place] [address]NC ProteinNegativeNormalNegUniversity Hospitals Geneva Medical Center SystemComment on above:Performed By: #### [facility] ####[address], [place] [address]RP SourceClean CatchNormal [facility] SystemComment on above:Performed By: #### [facility] ####[address] [address]QI Spec Grav >1.675Bemb4.003-1.035[facility] Medical CenterComment on above:Performed By: #### [facility] ####[address], [place] [address]OT Urobilinogen0.2 mg/dLNormal0.2 - 1.0[facility] Comment on above:Performed By: #### [facility] ####[address] [address]Bhahpotyflqd Qn (U)NegativeNormalNegativeSouthview Medical CenterComment on above:Performed By: #### [facility]CI ####[address] [address]MCW Compon 55-99-7174Xmrwmeraya [Mass/Vol]151.8 mg/dLNormalSouthview Medical CenterComment on above: Performed By: #### CD:[id number] ####[address] [address]Bh Amph ScrnNegativeNormalNEG = <1000[facility] Medical CenterComment on above:Performed By: #### CD:[id number] ####[address] [address]Cy Mary ScrnNegativeNormal NEG = <200[facility] CenterComment on above:Performed By: #### CD:[id number] ####[address] [address]Ym Benzodia ScrnNegativeNormalNEG = <200[facility] Comment on above:Performed By: #### CD:[id number] ####[address] [address]Dl Cannab ScrnPositiveAbnormalNEG = <50[facility] Medical CenterComment on above:Result Comment: This unconfirmed positive screening result is to be used for medical treatment purpo ses only. Unconfirmed screening results must not be used for non-medical purposes. (e.g. employment testing, legal testing).Performed By: #### CD:[id number] ####[address] [address]Qu Cocaine ScrnNegative NormalNEG = <300[facility] Medical CenterComment on above:Performed By: #### CD:[id number] ####[address] [address]Fe Methadone ScnNegativeNormalNEG = <300[facility] Comment on above:Performed By: #### CD:[id number] ####[address] [address]Tf Opiate ScrnNegativeNormalNEG = <300[facility] CenterComment on above:Performed By: #### CD:[id number] ####[address] [address]Bu Oxy ScreenNegativeNormalNEG = <100[facility] CenterComment on above:Performed By: #### CD:[id number] ####[address] [address]Cp Oxy Scrn Qnt4 ng/mLNormal<=99[facility] CenterComment on above:Performed By: #### CD:[id number] ####[address] [address]Ms PCP ScrnNegativeNormal NEG = <25[facility] CenterComment on above:Performed By: #### CD:[id number] ####[address] [address]OC pH5.5Hipldc5.5 - 7.8BAultman HospitalComment on above: Performed By: #### CD:[id number] ####[address] [address]JI Spec Grav>1.572Jcpy5.003-1.035[facility] Medical CenterComment on above:Performed By: #### CD:[id number] ####[address] [address]WJ Chest 1 Viewon 52-52-4080LP Chest 1 ViewProcedure: Portable AP view of the chest on [...] Is Signed, Electronically Signed in Other Vendor System)Normal [facility] CenterXR Chest 1 ViewProcedure: Portable AP view of the chest on [...] Is Signed, Electronically Signed in Other Vendor System)Normal [facility] CenterXR Chest 1 ViewChest radiograph on 08/20/2019 Clinical History: Left-sided weakness [...] in the right lung base. Suboptimal evaluation dueto motion artifacts. Final Dictated by: Mark Flores MD Dictated DT/TM: 08/20/2019 4:51 pm Signed by: Mark Flores MD Signed (Electronic Signature): 08/20/2019 4:53 pm (If Report Is Signed, Electronically Signed in Other Vendor System)Normal [facility] Vital Signs Date TimeVital SignValuePerforming EknmoiefwMlavfupl77-83-2418 14:12-0400Body elkqpo493.96 cmFaupper valley medical center Mike [employer] Work Phone: [phone] [place], [place] [address]0110-27-2025 14:12-0400 Body mass index (BMI) [Ratio]28.3 kg/w1Dbwpx Mike [employer] Work Phone: [phone])[address] [place], [place] 7[address]0110-27-2025 14:12-0400 Body jaxqyu398.24 kgFaupper valley medical center Mike [employer] Work Phone: [phone] [place], [place] 7[address]0110-27-2025 14:12-0400 Diastolic blood yyndqecx04 mm[Hg]Leonor Mike [employer] Work Phone: [phone] [place], [place] 7[address]0110-27-2025 14:12-0400 Heart rate86 /minFahiginio HernándezNeal [employer] Work Phone: [phone] [place], [place] [address]10-27-2025 14:12-0400 Respiratory rate16 /minFahiginio HernándezNeal [employer]ER Work Phone: [phone] [place], [place] 7[address]0110-27-2025 14:12-0400 SaO2% (BldA) [Mass fraction]97 %Leonor Mike [employer] Work Phone: [phone])[address] [place], [place] [address]0110-27-2025 14:12-0400 Systolic blood qejdohqe158 mm[Hg]Lenoor Omer [employer] Work Phone: [phone])[address] [place], [place] [address]09-29-2025 14:56-0400 Diastolic blood iisytgkb60 mm[Hg]Devante Murphy PA-C Work Phone: [phone])[address]09-29-2025 14:56-0400 Heart rate71 /minThomas Murphy PA-C Work Phone: 1(869)[address]09-29-2025 14:56-0400 Systolic blood nsqulumk266 mm[Hg]Devante Murphy PA-C Work Phone: [phone])[address]08-07-2025 13:13-0400 Diastolic blood yhatdcwe52 mm[Hg]Devante Murphy PA-C Work Phone: [phone])[address]08-07-2025 13:13-0400 Heart rate72 /minThomas Murphy PA-C Work Phone: [phone])[address]08-07-2025 13:13-0400 SaO2% (BldA) [Mass fraction]96 %Devante Murphy PA-C Work Phone: [phone])[address]08-07-2025 13:13-0400 Systolic blood duqnzlzr764 mm[Hg]Devante Murphy PA-C Work Phone: [phone])[address]07-16-2025 16:18-0400 Body .96 cmThomas Murphy PA-C Work Phone: 1(744)517-[address] [place], [place] 7743607-16-2025 16:18-0400 Body mass index (BMI) [Ratio]27.4 kg/w6Jfiduw Murphy PA-C Work Phone: 1(064)939-[facility]07-16-2025 16:18-0400 Body .06 kgThubaldo Murphy PA-C Work Phone: 1(796)659-[address] [place], [place] 7743607-16-2025 16:18-0400 Diastolic blood kioqlrld17 mm[Hg]Devante Murphy PA-C Work Phone: 1(634)128-[address] [place], [place] 7743607-16-2025 16:18-0400 Heart rate79 /minThomas Murphy PA-C Work Phone: 1([phone])448-[address] [place], [place] 7743607-16-2025 16:18-0400 SaO2% (BldA) [Mass fraction]98 %Devante Murphy PA-C Work Phone: [facility]07-16-2025 16:18-0400 Systolic blood ngsyjgsi852 mm[Hg]Devante Murphy PA-C Work Phone: [facility]06-30-2025 13:53-0400 Body leceza541 cmPcliftno Griffin MD Work Phone: [phone] [place], [place] 3140906-30-2025 13:53-0400Body mass index (BMI) [Ratio]27.48 kg/f5ZgyepwqAnni Griffin MD Work Phone: [phone])[address] [place], [place] 3140906-30-2025 13:53-0400Body ilizrdliizr96 [degF]Anni Griffin MD Work Phone: 1(564)[address] [place], [place] 3140906-30-2025 13:53-0400Body ucixos93.07 kgPacharmaine Griffin MD Work Phone: [phone])[address] [place], [place] 3140906-30-2025 13:53-0400 Diastolic blood zygerrdq40 mm[Hg]Anni Griffin MD Work Phone: 1(261)[address] [place], [place] 3140906-30-2025 13:53-0400Heart rate81 /Geoff Griffin MD Work Phone: 1(570)[address] [place], [place] 3140906-30-2025 13:53-0400 Respiratory rate19 /minAnni Griffin MD Work Phone: 1(508)[address] [place], [place] 3140906-30-2025 13:53-1821MvC5% (BldA) [Mass fraction]94 %Anni Griffin MD Work Phone: 1(852)[address] [place], [place] 3140906-30-2025 13:53-0400Systolic blood mm[Hg]Anni Griffin MD Work Phone: [phone])[address] [place], [place] 3140904-17-2025 09:20-0400Body eqeflz614 cmAngela Gillmor ADMINISTRATIVE RESIDENT Work Phone: [facility] HospitalLkyzhajxbr01-25-8025 09:20-0400Diastolic blood iwjgjfpm02 mm[Hg]Meghan Brarr ADMINISTRATIVE RESIDENT Work Phone: [facility] HospitalVgmqfetyfj45-04-4368 09:20-0400Heart zadp096 /min Meghan Brarr ADMINISTRATIVE RESIDENT Work Phone: [facility] HospitalPeadvzsupe97-78-5446 09:20-0400Systolic blood umzpbzws05 mm[Hg]Meghan Yeung ADMINISTRATIVE RESIDENT Work Phone: [facility]linFmriecvhmn90-79-3725 13:07-0400Body qyccmz299 cm Erika Brian ADMINISTRATIVE RESIDENT Work Phone: [facility]linScpbslmejo89-46-5882 13:07-0400Body mass index (BMI) [Ratio]27.48 kg/q1LvpezErika Brian ADMINISTRATIVE RESIDENT Work Phone: [facility]linWunannxffz27-99-2376 13:07-0400Body .07 kgErika Brian ADMINISTRATIVE RESIDENT Work Phone: [facility]linCxdbalknbs20-20-2935 13:07-0400Diastolic blood jsujwoyu94 mm[Hg]Erika Brian ADMINISTRATIVE RESIDENT Work Phone: [facility]oplinNvjqdralvg87-84-0410 13:07-0400Systolic blood jtdteazi759 mm[Hg]Erika Brian ADMINISTRATIVE RESIDENT Work Phone: [facility]linInwhpjeydm54-50-9616 14:59-0500Diastolic blood tozideak66 mm[Hg]Karissa Carlin ADMINISTRATIVE RESIDENT Work Phone: [facility] HospitalAaxxqxbspd66-93-4900 14:59-0500Heart rate72 /min Karissa Carlin ADMINISTRATIVE RESIDENT Work Phone: [facility] HospitalSmgmaxbxrd68-70-4048 14:59-0500Systolic blood eeyxeiiu788 mm[Hg]Karissa Carlin ADMINISTRATIVE RESIDENT Work Phone: [facility] HospitalYsjkwwajnk66-33-6871 13:18-0500Diastolic blood lxahskhy86 mm[Hg]Manuela Rivera DO Work Phone: [facility]oplinUblxbcvwom85-73-7713 13:18-0500Heart rate82 /min Manuela Rivera DO Work Phone: [facility] HospitalFznmiclbdo80-76-7798 13:18-7988UeF8% (BldA) [Mass fraction]95 %Manuela Rivera DO Work Phone: [facility] HospitalNwevzutjtv48-39-9739 13:18-0500Systolic blood ljfdxids518 mm[Hg]Manuela Rivera DO Work Phone: [facility] HospitalUjxuzcyfml71-84-5169 14:15-0400Body kavddo584 cm Dominga Mccarthy MD Work Phone: [facility] HospitalXlmeqxiwxl06-64-9955 14:15-0400Body mass index (BMI) [Ratio]26.32 kg/i5OxfiqvDominga Mccarthy MD Work Phone: [facility] HospitalImoyzgxmyd44-23-1802 14:15-0400Body yvsbtw97.99 kgDominga Mccarthy MD Work Phone: [facility] HospitalTcbmjqgxbz67-13-1597 14:15-0400Diastolic blood jadpwkpn04 mm[Hg]Dominga Mccarthy MD Work Phone: [facility] HospitalQgveeiyrkr28-19-6067 14:15-0400Systolic blood cnmrifes164 mm[Hg]Dominga Mccarthy MD Work Phone: [facility] HospitalPzduilyuxm40-16-4686 15:42-0400Body ahtdrs073 cm Meghan Yeung ADMINISTRATIVE RESIDENT Work Phone: [facility]oplinZrdcamdhvv61-80-5953 15:42-0400Body mass index (BMI) [Ratio]26.83 kg/u6RsbvrtMeghan Yeung ADMINISTRATIVE RESIDENT Work Phone: [facility] HospitalOketdtevgx35-57-8113 15:42-0400Body nizlid99.8 kg Meghan Yeung ADMINISTRATIVE RESIDENT Work Phone: [facility] HospitalFfulckfuar78-06-2623 15:42-0400Diastolic blood vmnjujme53 mm[Hg]Meghan Yeung ADMINISTRATIVE RESIDENT Work Phone: [facility] HospitalTonvmaabhi95-67-1464 15:42-0400Heart rate80 /min Meghan Brarglenna ADMINISTRATIVE RESIDENT Work Phone: noReynolds [facility] HospitalEmrlokxobu98-09-9403 15:42-6628LkR1% (BldA) [Mass fraction]92 %Meghan Brarr ADMINISTRATIVE RESIDENT Work Phone: noReynolds [facility] Memorial HospitalPrcikngaoz66-90-0827 15:42-0400Systolic blood fiayreuy462 mm[Hg]Meghan Yeung ADMINISTRATIVE RESIDENT Work Phone: noReynolds [facility] Memorial HospitalIdtmuljcls71-20-6011 15:11-0400Diastolic blood vjodrrsr91 mm[Hg]Christherrera Sanchezett DO Work Phone: noKS Pqrcribjjn49-42-2817 15:11-0400Heart rate88 /min Christopher Katheryn DO Work Phone: noReynolds [facility] Memorial HospitalDnsusudrri72-41-7573 15:11-7919WvP9% (BldA) [Mass fraction]95 %Christopher Katheryn DO Work Phone: [facility]oplinXvnthymgdc48-83-0822 15:11-0400Systolic blood ouffrroj897 mm[Hg]Christyurier Katheryn DO Work Phone: noKS Wrtxnwbubj62-21-9634 17:20-0400Body natfnj221.96 Zahra Garcia Other [employer] Other 09-11-2023 17:20-0400Body mass index (BMI) [Ratio] 25.68 kg/x3YetrvdJodi Garcia Other [employer] Other 09-11-2023 17:20-0400Body jkkhhkoxhmx34.8 [degF]Jodi Radha Other [employer] Other 09-11-2023 17:20-0400Body .72 kgJodi Garcia Other [employer] Other 09-11-2023 17:20-0400Diastolic blood yhvfmfmi55 mm[Hg] Jodi Garcia Other [employer] Other 09-11-2023 17:20-0400Respiratory rate18 /minJodi Garcia Other [employer] Other 09-11-2023 17:20-8675XqI1% (BldA) [Mass fraction]95 % Jodi Garcia Other [employer] Other 09-11-2023 17:20-0400Systolic blood htvxwzso093 mm[Hg] Jodi Garcia Other [employer] Other 02-09-2023 11:30-0500Body erkxdk899.96 cmImad Asaad Other [employer] Other 02-09-2023 11:30-0500Body mass index (BMI) [Ratio] 24.39 kg/m2Imad Asaad Other [employer] Other 02-09-2023 11:30-0500Body bgkkuh86.18 kgImad Asaad Other [employer] Other 02-09-2023 11:30-0500Diastolic blood krwpfqba56 mm[Hg] Imad Asaad Other [employer] Other 02-09-2023 11:30-0500Systolic blood yzaggbes512 mm[Hg] Imad Asaad Other [employer] Other Encounters Encounter DateEncounter TypeCare ProviderFacilityStart: 07-15-2025 End: 61-10-4913ozposnghwwDurei McNeal [employer] Work Phone: [phone]-Tiivtlnoc Health NeurologyStart: 07-15-2025 End: 20-72-9636Jabxoqg encounter procedureSaung Davion McdonaldBrian YTMK-TTP-X-[facility] Work Phone: Start: 06-17-2025 End: 67-69-9769ofxzludozqMusxzg Terence Murphy PA-C Work Phone: [facility] Work Phone: Start: 06-17-2025 End: 78-43-7540Zioxbdb encounter procedureMeghan Lilly [employer]-[facility] [place] Work Phone: Start: 04-25-2025 End: 19-98-3713Pjcygst encounter procedureManuela Rivera DO-[facility] [place] Work Phone: Start: 04-03-2025 End: 27-30-8197skpymjnxezQcymoh Terence Murphy PA-C Work Phone: [facility] Work Phone: Start: 04-03-2025 End: 39-54-1137Bjcoesp encounter procedureMeghan Lilly [facility] Work Phone: Start: 52-23-4375rrftypsiasLWFVE CARROLL Facility:[facility]ENTERtart: 03-18-2025 End: 75-09-2491Vugpxb outpatient new 45 Carlo Griffin MD Work Phone: [facility] Comment on above:History of cranioplasty (Primary Dx); Chronic ischemic right middle cerebral artery (MCA) strokeStart: 01-03-2025 End: 84-15-1581Apbvqj Kaur Yeung NP Work Phone: aNA МАРИЯUEStart: 01-03-2025 End: 72-33-4968Ivvyqejaylon Yeung NP Work Phone: ANA BELLEVUEStart: 01-03-2025 End: 69-92-7429Jnfxgg outpatient visit 15 minutesMeghan Anjana ADMINISTRATIVE RESIDENT Work Phone: aNA BELLEVUEComment on above:MATTEO (obstructive sleep apnea) (Primary Dx); Cerebrovascular accident (CVA) due to occlusion of right middle cerebral artery (CMS/HCC); Primary insomniaStart: 01-03-2025 End: 89-02-8478tczxecwdzuOINMJS GILLMORNot AvailableStart: 12-16-2024 End: 35-60-3231Rrfyfixwy Thai Brian ADMINISTRATIVE RESIDENT Work Phone: aNA BELLEVUEStart: 12-13-2024 End: 12-56-7990Dotakt flowsMonikjosé miguel Brian ADMINISTRATIVE RESIDENT Work Phone: ANA BELLEVUEStart: 12-13-2024 End: 92-70-5044Vamtmf flowsCarmela Roc ADMINISTRATIVE RESIDENT Work Phone: ANA BELLEVUEStart: 12-13-2024 End: 04-90-1622Claicj outpatient visit 25 minutesdomenic Brian ADMINISTRATIVE RESIDENT Work Phone: aNA BELLEVUEComment on above:Cerebrovascular accident (CVA) due to occlusion of right middle cerebral artery (CMS/HCC) (Primary Dx); Left spastic hemiplegia (CMS/HCC); Vision changes; Partial symptomatic epilepsy with complex partial seizures, intractable, without status epilepticus(CMS/HCC) ; Encounter for medication monitoring; MATTEO (obstructive sleep apnea); Anxiety and depression (CMS/HCC)Start: 12-13-2024 End: 60-18-8985rprabnyaqiZBOSM CARROLLNot AvailableStart: 11-12-2024 End: 39-10-5414rofhkstkipPVDIDULAstria Regional Medical Center Ambulatory PPGStart: 11-07-2024 End: 80-43-7897Xsfawsuas Result EncounterKarissa Carlin ADMINISTRATIVE RESIDENT Work Phone: [facility]OM[facility] External Department UnsolicitedStart: 11-07-2024 End: 12-62-8606Uoaahgsom Result EncounterKarissa Carlin ADMINISTRATIVE RESIDENT Work Phone: [facility] External Department UnsolicitedStart: 11-01-2024 End: 05-64-9115Yihcip Kaur Yeung ADMINISTRATIVE RESIDENT Work Phone: aSTARR HEAVENTEENAUEStart: 11-01-2024 End: 73-57-9410Hpihvc Kaur Yeung ADMINISTRATIVE RESIDENT Work Phone: aSTARR HEAVENEVUEStart: 10-30-2024 End: 08-46-1335qyvyxgdwbiOLKRJPWCMarshall Medical Center South HospitalStart: 10-24-2024 End: 80-58-8171lwjuppxsteCWOJOW MORRISNot AvailableStart: 10-24-2024 End: 34-25-8247Yabrxr outpatient visit 25 minutesKarissa Carlin ADMINISTRATIVE RESIDENT Work Phone: aSTARR МАРИЯUEComment on above:Cerebrovascular accident (CVA) due to occlusion of right middle cerebral artery (CMS/HCC) (Primary Dx); Left spastic hemiplegia (CMS/HCC); Partial symptomatic epilepsy with complex partial seizures, intractable, without status epilepticus(CMS/HCC); Vision changesStart: 10-24-2024 End: 46-64-6624Lbfaba Carson Carlin ADMINISTRATIVE RESIDENT Work Phone: aSTARR МАРИЯUEStart: 10-24-2024 End: 63-69-8413Lfujnm Carson Carlin ADMINISTRATIVE RESIDENT Work Phone: aSTARR HEAVENTEENAUEStart: 10-17-2024 End: 68-01-6023kgeghaeehiVCQLXWTR [facility] PPG Start: 10-01-2024 End: 41-25-9713tuenhtermiQRYIIXIL [facility] HospitalStart: 09-26-2024 End: 47-52-0173Tvdywn flowsheetNicole Nicole DO Work Phone: aSTARR BELLEVUEStart: 09-26-2024 End: 21-92-8506Jtohvi flowsheetNicole Nicole DO Work Phone: aSTARR BELLEVUEStart: 09-26-2024 End: 40-06-6000Nhkhegs encounter procedureNicole Nicole DO Work Phone: [phone] BELLEVUEComment on above:Cerebrovascular accident (CVA) due to occlusion of right middle cerebral artery (CMS/HCC) (Primary Dx); Left spastic hemiplegia (CMS/HCC)Start: 09-26-2024 End: 70-12-0854eywccptuwhDVOSKH NICOLENot AvailableStart: 07-17-2024 End: 04-29-7540Bwqnvi outpatient new 45 Sandra Mccarthy MD Work Phone: NOSQ CI ENTComment on above:History of stroke (Primary Dx); Pharyngoesophageal dysphagia; Weakness of voiceStart: 07-17-2024 End: 56-41-7043juarsqdylnJCRZNC H TIMMISNot AvailableStart: 07-17-2024 End: 15-78-5083Lqrmxy flowsBeatriz Mccarthy MD Work Phone: noms CI ENTStart: 07-17-2024 End: 41-16-6939Cjoyix Crow Mccarthy MD Work Phone: NOUQ CI ENTStart: 07-10-2024 End: 24-38-2693Dncxld outpatient visit 25 Parviz Yeung NP Work Phone: noms [place] ROUTEComment on above:MATTEO (obstructive sleep apnea) (Primary Dx); Cerebrovascular accident (CVA) due to occlusion of right middle cerebral artery (CMS/HCC); Primary insomnia; Moderate recurrent major depression (CMS/HCC); Generalized anxiety disorder (CMS/HCC); Left spastic hemiplegia (CMS/HCC); Cognitive impairmentStart: 07-10-2024 End: 11-48-5326vwygkucggiQMQNTK GILLMORNot AvailableStart: 07-10-2024 End: 19-83-8396Gvggcp Kaur Yeung ADMINISTRATIVE RESIDENT Work Phone: NOMS [place] ROUTEStart: 07-10-2024 End: 18-54-3732Zxbigk Kaur Yeung ADMINISTRATIVE RESIDENT Work Phone: NOM[facility] [place] ROUTEStart: 07-04-2024 End: 77-64-9648qpihrwmaupSMREOWIBHHU HASSETTNot AvailableStart: 07-04-2024 End: 08-35-6224Bwcyem outpatient visit 25 minutesChristopher Katheryn DO Work Phone: noms [facility] ROUTEComment on above:Partial symptomatic epilepsy with complex partial seizures, intractable, without status epilepticus(CMS/HCC) (Primary Dx); Cerebrovascular accident (CVA) due to occlusion of right middle cerebral artery (CMS/HCC); Left spastic hemiplegia (CMS/HCC); MATTEO (obstructive sleep apnea)Start: 07-04-2024 End: 08-16-7509Nlwift flowsheetChristopher Katheryn DO Work Phone: noms [facility] ROUTEStart: 07-04-2024 End: 72-14-7738Yljwhn flowsheetChristopher Katheryn DO Work Phone: noms [facility] ROUTEStart: 05-28-2024 End: 43-69-1727Qitvykyxk Result EncounterKarissa Carlin ADMINISTRATIVE RESIDENT Work Phone: noms External Department UnsolicitedStart: 05-28-2024 End: 45-68-9500Kmalqsolj Result EncounterKarissa Carlin ADMINISTRATIVE RESIDENT Work Phone: noms External Department UnsolicitedStart: 05-01-2024 End: 66-37-7360suqopfhmwaIHOTCI TESFAYENot AvailableStart: 04-10-2024 End: 12-32-9922kzzohylmopFIRUWN TESFAYENot AvailableStart: 03-19-2024 End: 94-69-1762jtrkpoyejxSJWIGCUE DENBESTENNot AvailableStart: 03-05-2024 End: 69-02-7664ovxovahbmtPTCNUNPVZVV HASSETTNot AvailableStart: 03-01-2024 End: 17-77-6562Dtoebkgif department patient visitFELIPE Rubio [facility] Delanotart: 03-01-2024 End: 87-65-8152Gzrcmfsze department patient visitCOMADIRONDACK REGIONAL HOSPITAL ProMedicQueen of the Valley Medical Centertart: 02-02-2024 End: 18-89-9644akzshubplxHEKQUM DANNERNot AvailableStart: 01-30-2024 End: 66-63-8888ldctsfnnwhUHFQZB MORRISNot AvailableStart: 01-25-2024 End: 69-23-6058mfksavqcsaAAPPUQ DANNERNot AvailableStart: 01-19-2024 End: 38-19-2569evelbntopzWKZNIQ MORRISNot AvailableStart: 05-30-2023 End: 60-73-6226qcjyzxoqtcDJKM [facility] [employer] Other Start: 89-47-6583Ivpkev outpatient visit 15 minutes Jodi RadhaFPG Urgent Care ClydeStart: 04-26-2023 End: 51-42-8313snqilrhfooSBOBCZC PROVIDERFacility:METROHealthStart: 12-30-2022 ambulatoryTHOMAS STEINFacility:W2Fkrde: 11-23-2022 End: 88-92-2101zacbccjnoeLWZUW CALLISONFacility:V1Dxyve: 10-28-2022 End: 77-39-5874powzdlpnqqMoeh Asaad Other [place] [employer] Other Start: 23-64-8700Knfhoa consultation new/estab patient 60 minImad AsaadFPG GastroenterologyStart: 08-20-2019 End: 03-23-0111Ofmayiwez department patient visitDANI [facility] Facility:[facility] Procedures DateProcedureProcedure DetailPerforming ClinicianStart: 63-71-4611YDL HEAD/BRAIN WO/W Jun Carlin ADMINISTRATIVE RESIDENT Work Phone: Start: 72-58-3087Abrjyp-up visitFollow-upMICHELLE I MURPHYStart: 28-07-0817EXQ LAMOTRIGINHeath Carlin ADMINISTRATIVE RESIDENT Work Phone: Start: 00-25-9128Vixng 1996 panel - Serum or Plasma Anni Griffin MD Work Phone: Plan of Treatment DateCare ActivityDetailAuthorStart: 03-42-0567Vavnrlzdt vaccinationINFLUENZA VACCINE (#1)[facility] CenterStart: 03-28-2025 End: 31-71-1987Pclaqur encounter dtfybvqtm30/10/2025 1:00 PM EDT Procedure Visit [facility] [address] [place] [address] Manuela Rivera DO [address] [place] [address] GAY BELLEVUEStart: 03-25-2025 End: 71-54-8890Ybudgeh encounter mzlypzwrw61/07/2025 1:40 PM EDT Office Visit [facility] [address] [place] [address] Meghan Yeung NP [address] [place], [place] GAY BELLEVUEStart: 03-18-2025 End: 31-33-4953GV Head WO contrastCT HEAD WITHOUT CONTRAST Imaging Routine History of cranioplasty Chronic ischemic right middle cerebral artery (MCA) stroke Expected: 03/18/2025, Expires: 03/18/2026OSBethesda North HospitalComment on above:Expected: 03/18/2025, Expires: 03/18/2026Start: 03-05-2025 End: 05-34-9927Bwmbydi encounter dofojjkyt09/17/2025 4:20 PM EDT Office Visit [facility] [address] [place] [phone] Erika Brian NP [address] [place] [id number] [place]UEStart: 01-23-2025 End: 41-84-9966Dcajwsx encounter /07/2025 2:45 PM EDT Office Visit [facility] [address] [place] [phone] Manuela Rivera DO [address] [place] [address] [place] COLLADOEVUEStart: 01-03-2025 End: 26-93-7405Fvjxmio encounter ujnmkzbsz54/17/2025 9:20 AM EDT Office Visit [facility] [address] [place] [address] Meghan Yeung NP [address] [place] ArrivedANA МРАИЯRONComment on above:ArrivedStart: 12-27-2024 End: 90-28-0133Bgruado encounter qtjatmihf42/10/2025 1:15 PM EDT Procedure Visit [facility] YEN [address] [place] [address] Manuela Rivera, DO [address] [place] [address] GAY FREDERICKtart: 12-13-2024 End: 48-91-5075KUR W Auto Differential panel - BloodCBC and differential Lab Routine Encounter for medication monitoring Expected: 12/13/2024 (Approximate), Expires: 12/13/2025[facility] Work Phone: comment on above:Expected: 12/13/2024 (Approximate), Expires: 12/13/2025Start: 12-13-2024 End: 43-02-9791Joczdmsnxqgpb metabolic 2000 panel - Serum or PlasmaComprehensive metabolic panel Lab Routine Encounter for medication monitoring Expected: 12/13/2024 (Approximate), Expires: 12/13/2025[facility] HealthcareComment on above: Expected: 12/13/2024 (Approximate), Expires: 12/13/2025Start: 12-13-2024 End: 29-18-2306Fvxwpclheui levelLamotrigine level Lab Routine Encounter for medication monitoring Expected: 12/13/2024 (Approximate), Expires: 12/13/2025 [facility] HealthcareComment on above:Expected: 12/13/2024 (Approximate), Expires: 12/13/2025Start: 12-13-2024 End: 03-84-7257Hqftsje encounter procedureGAY HSIEHRONComment on above:Arrived Start: 11-01-2024 End: 23-03-7079Sprmtja encounter yjuxwpxle94/13/2025 4:00 PM EST Office Visit GAY YEN [address] [place] [phone] Meghan Yeung NP [address] [place], [place] ArrivedGAY [place]Comment on above:ArrivedStart: 10-31-2024 End: 90-06-2397Vqacayj encounter efixsvjbt43/12/2025 3:30 PM EST Office Visit GAY YEN [address] [place] [phone] Manuela Rivera DO [address] [place] [address] GAY FREDERICKtart: 10-24-2024 End: 98-11-7505Gjxeamb encounter procedureNOMS [place] STATE ROUTEStart: 10-02-2024 End: 62-61-3673Spspnve encounter procedureNOMS [place] [facility] R[facility]TEStart: 09-26-2024 End: 58-47-0435Jxsmrif encounter ljqclujbo38/08/2025 1:15 PM EST Procedure Visit GAY YEN [address] [place] [phone] Manuela Rivera DO [address] [place] [address] Toñito МАРИЯRONComment on above:ArrivedStart: 08-37-6137Buyes panel LIPID SCREENINGOSAultman Alliance Community Hospitaltart: 65-39-0569Uoelvaof specific antigen measurementPROSTATE CANCER SCREENING DISCUSSIONOSBethesda North Hospital Start: 07-19-2024 End: 89-95-5692Vcsmchb encounter ckpwpugtr90/31/2024 2:00 PM EDT Procedure Visit NILES [address] [place] [phone] Manuela Rivera DO [address] [place] [address] NOMSeven [facility] ROUTEStart: 07-17-2024 End: 23-19-0711Xpmjyob encounter procedureNOMS ENTComment on above:Arrived Start: 07-10-2024 End: 40-89-3386Cetrzxi encounter atflnvmkn36/22/2024 3:40 PM EDT Office Visit [facility] [place] [address] [place] [address] Meghan Yeung, ASHLIE [address] [place], [place] ArrivedNOMS [place] [facility] ROUTEComment on above: ArrivedStart: 07-04-2024 End: 56-13-3249Uslxmay encounter tpsplkizg63/16/2024 3:00 PM EDT Office Visit [facility] [place] [address] [place] [phone] Tello Campa, [address] [place] [address] NOM [place] [facility] ROUTEStart: 05-20-2024 COVID-19 VACCINE ( season)COVID-19 VACCINE ( season)[facility] CenterStart: 85-35-1554Ijexcckreizr vaccinationPNEUMOCOCCAL VACCINE SERIES (1 of 1 - PCV)[facility] CenterStart: 25-72-3684Hvqwdj vaccine hzv live for subcutaneous useZOSTER (SHINGLES) VACCINE (1 of 2)[facility] CenterStart: 23-52-0396Ufluuggyh for malignant neoplasm of colon COLORECTAL CANCER SCREENING DISCUSSIONOSU Regional Medical Center CenterStart: 1988 Hepatitis B vaccinationHEP B VACCINE (1 of 3 - 19+ 3-dose series)[facility] CenterStart: 58-36-6334Ypcmw diphtheria, tetanus and acellular pertussis (DTaP) vaccinationTDAP (ADULT)OS[facility] CenterStart: 80-32-4296IJO screeningHIV SCREENING DISCUSSIONOSU Toledo Hospitaltart: 1970 Hepatitis C screeningHEPATITIS C VIRUS SCREENINGOSU Toledo Hospitaltart: 45-81-5914Mzbjscu vaccinationTETANUSOSBethesda North HospitalComprehensive metabolic 2000 panel - Serum or PlasmaMiami Valley Hospital Lamotrigine measurementMiami Valley HospitalMR Brain WO and W contrast IVMR brain w and wo contrast routine Imaging Routine Cerebrovascular accident (CVA) due to occlusion of right middle cerebral artery (CMS/HCC) Vision changes Ordered: 10/24/2024[facility] Work Phone: comment on above:Ordered: 10/24/2024[facility] Immunizations Immunization DateImmunizationNotesCare AqjqoehaYoqqygid07-77-3889Jszrorgfx, Seasonal, Quadrivalent, AdjuvantedAngela Tosinr ADMINISTRATIVE RESIDENT Work Phone: [facility]oplinQrzufrnkfn68-56-5822aqrzeewpc virus vaccine, unspecified formulationPatrick Mike POP Work Phone: OSBethesda North HospitalQsdzoz74-91-2243wovprgyly, injectable, quadrivalent, preservative freeAngela Anjana ADMINISTRATIVE RESIDENT Work Phone: [facility] Payers DatePayer CategoryPayerPolicy [id number] [id number] [id number] 2..1.610618.3.57[id number] 2..1.123915.3.57[id number] 2.0.1.658408.3.57[id number] 2.0.1.497956.3.57[id number] 2..840.1.608051.3.579.[id number] 2.840.1.869342.3.57[id number] 2.840.1.004656.3.57[id number] 2.840.1.612932.3.57[id number] 2.0.1.554854.3.579.[id number] 2.840.1.631397.3.57[id number] 2.840.1.173549.3.57[id number] 2.840.1.244983.3.57[id number] 2.0.1.121542.3.57[id number] 2.840.1.373296.3.57[id number] 2.0.1.604797.3.57[id number] 2.840.1.342153.3.579.[id number] 2.840.1.071187.3.57[id number] 2.840.1.762881.3.57[id number] 2.840.1.621030.3.57[id number] 2.16.840.1.987206.3.57[id number] 2.16.840.1.073821.3.57[id number] 2..840.1.980067.3.57[id number] 2.16.840.1.751055.3.57[id number] 2..840.1.583833.3.57[id number] 2..840.1.761761.3.57[id number] 2.0.1.886105.3.579.2.594 [id number] 2..840.1.625685.19 Social History DateTypeDetailFacilityStart: 10-31-1995 End: 55-85-2154Fdd Assigned At [facility] Dibbz Other Start: 18-58-2424Iaswpcu smoking status NHISNever smoked tobaccoNOMS HealthcareStart: 01-19-2024 End: 66-82-6544Tvtvhmu use and exposureSmokeless tobacco non-userNOMS Healthcare Start: 05-01-2024 End: 22-70-4014Oasqmonbc beverage intakeEx-drinker (finding)[facility] Start: 05-01-2024 End: 18-85-7246Dnvgswf of Social functionNOMS HealthcareStart: 74-28-2047Itm assigned at birthNot on fileNOMS HealthcareStart: 03-18-2025 End: 62-52-8592Ilczvkd smoking status NHISEx-smokerMemorial Health System Start: 10-31-1995 End: 75-78-3109Dkdopfc of tobacco useCurrent smokerMemorial Health System Start: 10-31-1995 End: 31-51-6815Rpzxvep of tobacco useCigarette SmokerMemorial Health System Start: 61-10-1731CmrFnyy (finding)[facility] Hospitaltart: 50-65-9696Xzi Assigned At [facility] Medical Equipment Procedure CodeEquipment CodeEquipment Original TextEquipment IdentifierDates Graft Durgagen Plus Dural - [id number]: 97-45-6925Imdu Matrix Plus 5x7 - [id number]: 48-59-7753Mafz Hole Contrd 17mm - [id number]: 57-69-9791Dfcax Neuro Dbl Yshp Lng - [id number]: 86-22-1611Rpoyl Neuro Square .6mm - [id number]: 19-05-9790Lllau Micro Mxdrv 1.5x4.0mm/Ea - [id number]: 10-31-2019 Functional Status IwetPtmucppjstRjcaesZavqnpko26-70-2496Cvq you deaf, or do you have serious difficulty hearingNo 11/02/2019 6:00 PM Lyssa Subramanian, LOREAN [facility]02-14-2020Are you blind, or do you have serious difficulty seeing, even when wearing glassesNo 11/02/2019 6:00 PM Lyssa Subramanian, LORENA NoMemorial Health System02-14-2020Do you have serious difficulty walking or climbing stairsYes 11/02/2019 6:00 PM Lyssa Subramanian, LORENA YesMemorial Health System02-14-2020Do you have difficulty dressing or bathingYes 11/02/2019 6:00 PM Lyssa Subramanian, LORENA [facility]02-14-2020Because of a physical, mental, or emotional condition, do you have difficulty doing errands alone such as visiting a physician's office or shoppingYes 11/02/2019 6:00 PM Lyssa Subramanian, LORENA [facility] Mental Status OibkXowzitecbvMvbhyyGxinnybr05-59-9449Smwoyzf of a physical, mental, or emotional condition, do you have serious difficulty concentrating, remembering, or making decisionsYes 11/02/2019 6:00 PM Lyssa Subramanian, LORENA [facility] Clinical Notes 08-19-2019 to 06-17-2025 Note Date & CvogIbmoXzhvqwnv34-60-2324 Evaluation note* Diagnosis Onset Date Resolution Status Admit Date Nightmares acuteSeptember 2024 2:40pmObstructive sleep apneaacuteSeptember 2024 2:40pmPrimary insomniaacuteSeptember 2024 2:40pmPartial symptomatic epilepsy with complex partial seizures, not intractablechronicOctober 2024 2:08pmSpasticitychronicOctober 2024 2:08pmStrokechronicOctober 2024 2:08pmVisual disturbancechronicOctpineville community hospital 2024 2:08pm [facility] Work Phone: 1(416) 265-397507-16-2025 Evaluation note* Diagnosis Onset Date Resolution Status Admit Date Primary insomnia noneactiveJuly 2024 4:17pmOSA (obstructive sleep apnea)noneactiveJuly 2024 4:17pmCerebrovascular accident (CVA) due to occlusion of right middle cerebral arterynoneactiveJuly 2024 4:17pm [facility] Work Phone: 1(757) 505-396606-30-2025 History of Present illness Narrative* Anni Griffin MD - 03/18/2025 1:00 PM EDT Chief Complaint Chief Complaint Patient presents with New Patient History of Present Illness Addison Griffin is a 54 y.o. male who suffered a malignant RIGHT MCA ischemic infarction and required a decompressive hemicraniectomy for cerebral edema and brain compression. In follow up he was found to have significant improvement in the cerebral edema. he was determined to be appropriate for a cranioplasty to repair the acquired skull defect and on 10/31/2019. He presents today because he believes his surgical flap is loose but he has no follow-up for the last 5 years. He does complain of frequent headaches that are not well treated with lngq-dgg-ecmsidw medications. He states he has done quite well in his rehab and can now walk with a walker in his house. There is no imaging to review and he denies any other symptoms. Past Medical History Past Medical History: Diagnosis Date Seizure Stroke Past Surgical History Past Surgical History: Procedure Laterality Date CRANIOPLASTY W/ AUTOGRAFT Right 10/31/2019 Laterality: Right; Surgeon: Anni Griffin MD; Location: [facility] MA[facility] OR DECOMPRESSION CRANIECTOMY/CRANIOTOMY W/ OR W/O LOBECTOMY Right 08/21/2019 Laterality: Right; Surgeon: Anni Griffin MD; Location: [facility] MAIN OR Family History History reviewed. No pertinent family history. Social History Social History Socioeconomic History Marital status: Single Spouse name: Not on file Number of children: Not on file Years of education: Not on file Highest education level: Not on file Occupational History Not on file Tobacco Use Smoking status: Former Current packs/day: 0.00 Types: Cigarettes Start date: 10/31/1995 Quit date: 08/20/2019 Years since quittin.5 Smokeless tobacco: Never Vaping Use Vaping status: Never Used Substance and Sexual Activity Alcohol use: Not Currently Drug use: Never Sexual activity: Not on file Other Topics Concern Not on file Social History Narrative Not on file Social Drivers of Health Financial Resource Strain: Not on file Food Insecurity: No Food Insecurity (11/12/2024) [facility]ceived from [facility] Hunger Screening Within the past 12 months we worried whether our food would run out before we got money to buy more.: Never True Within the past 12 months the food we bought just didn't last and we didn't have money to get more.: Never True Transportation Needs: Not on file Physical Activity: Not on file Stress: Not on file Social Connections: Not on file Personal Safety: Unknown (05/30/2023) Received from [facility] Humiliation, Afraid, Rape, and Kick questionnaire Fear of Current or Ex-Partner: No Emotionally Abused: Not on file Physically Abused: Not on file Sexually Abused: Not on file Housing Stability: Not on file Allergies No Known Allergies Medications Current Outpatient Medications: acetaminophen 325 MG tablet, Take 2 tablets by mouth every 4 hours., Disp: , Rfl: 0 aspirin 81 MG Chew Tab chewable tablet, Chew 1 tablet daily., Disp: , Rfl: atorvastatin 40 MG Tab tablet, Take 1 tablet by mouth at bedtime., Disp: , Rfl: baclofen 10 MG tablet, Take 1 tablet by mouth 3 times daily., Disp: , Rfl: bisacodyl 10 MG Suppository suppository, Insert 1 suppository rectally daily., Disp: , Rfl: CRANBERRY PO, Take by mouth., Disp: , Rfl: diphenhydrAMINE 25 MG tablet, Take 1 tablet by mouth at bedtime., Disp: 30 tablet, Rfl: 0 DULoxetine (Cymbalta) [address] Particles capsule DR, Take 1 capsule by mouth daily., Disp: , Rfl: fluoxetine 10 MG Cap capsule, Take 1 capsule by mouth daily., Disp: , Rfl: hydrOXYzine pamoate 50 MG capsule, Take 1 capsule by mouth 3 times daily as needed for Itching., Disp: , Rfl: lactobacillus acidophilus and bulgaricus 1 GM Pack, Take by mouth 2 times daily., Disp: , Rfl: levetiracetam 1000 MG Tab tablet, Take 1 tablet by mouth every 12 hours., Disp: , Rfl: lisinopril 20 MG Tab, Take 1 tablet by mouth daily. (Patient taking differently: Take 0.5 tablets by mouth daily.), Disp: , Rfl: melatonin 3 MG Tab tablet, Take 1 tablet by mouth at bedtime as needed for Insomnia. (Patient taking differently: Take 5 tablets by mouth at bedtime as needed for Insomnia.), Disp: , Rfl: 0 Multiple Vitamin (multivitamin) capsule, Take 1 capsule by mouth daily., Disp: , Rfl: ondansetron 4 MG tablet, Take 1 tablet by mouth every 4 hours as needed for Nausea / Vomiting., Disp: 30 tablet, Rfl: 1 petrolatum Ointment ophthalmic ointment, Apply 1 Application to both eyes as needed for Dry Eyes., Disp: , Rfl: 0 polyethylene glycol Pack packet, Take 1 packet by mouth 2 times daily., Disp: , Rfl: senna 17.2 MG Tab, Take 1 tablet by mouth daily every morning., Disp: , Rfl: 0 gabapentin 300 MG capsule, Take 1 capsule by mouth 3 times daily for 7 days., Disp: 30 capsule, Rfl: 0 oxyCODONE-acetaminophen 5-325 MG per tablet, Take 1 tablet by mouth every 6 hours as needed for Moderate Pain for up to 5 days., Disp: 12 tablet, Rfl: 0 Review of Systems Data obtained from the patient and/or patient manufacturer representative Neurological: positive - Per HPI negative - except as above Physical Exam Vitals: 03/18/25 1353 BP: 137/81 Pulse: 81 Resp: 19 Temp: 97 degrees F (36.1 degrees C) TempSrc: Infrared SpO2: 94% Weight: 97.1 kg (214 lb) Height: 1.88 m (6' 2 ) General appearance - alert, well appearing, and in no distress Eyes - EOMI, visual dumont full, PERRL HENT - Normocephalic, atraumatic, hearing normal and equal bilateral, mucous membranes moist, pharynx normal without lesions Neurologic: NAD AOx3 PERRL EOMI TM L facial droop FCx4 5/5 RUE RLE LUE 0/5, in sling LLE HF 3/5, KE 3, DF/PF 0 SILT I personally reviewed the following Imaging: There is no imaging to review at the present. Assessment: This is a 54 y.o. male who comes to us in clinic today as a referral from Erika Brian APRN for follow-up after 5 years for his right-sided cranioplasty for malignant MCA stroke. Patient feels thecranioplasty flap is loose. Plan: I did not appreciate any movement of the cranioplasty flap on palpation but we will obtain a CT head to ensure fusion or determine if the flap is indeed not fuse properly. Patient will be referred to headache DrFrances for workup of his headaches. He will follow up after his CT head is performed for further recommendations. I spent 45 minutes total time providing care for the patient including reviewing images, exploring symptomatology, educating, and coordinating the plan of care. Voice recognition software was used for this note. I have edited this note but errors may occur documented in this encounterMemorial Health System04-17-2025 History of Present illness Narrative* Meghan Yeung NP - 01/03/2025 9:20 AM EDT Images from the original note were not included. Chief Complaint Patient presents with Sleep Apnea Patient is here today for follow-up of MATTEO, sleep and hypoxia. I am following the plan of care established by the physician who is present in the office today. Subjective Addison states he did start on Trazodone 100mg. This does help him sleep a little bit better. He is scheduled for the titration study through [facility]. He is unsure what day itis scheduled for. Past Medical History: Diagnosis Date Epilepsy Hyperlipidemia (CMS/HCC) Hypertension (CMS/HCC) Kidney stones Stroke (CMS/HCC) Past Surgical History: Procedure Laterality Date APPENDECTOMY 10/04/2019 CT ABDOMEN/PELVIS WO CONTRAST FOR KIDNEY STONES [address] CT ANGIOGRAM ABDOMEN PELVIS 03/01/2024 CT ANGIOGRAM [...] drinks or equivalent per week Allergies: Cortisone General: No fever or chills HEENT: No nasal congestion or runny nose Pulmonary: No shortness of breath or cough Cardiovascular: No chest pain or palpitations GI: No nausea or vomiting : No dysuria or hematuria Musculoskeletal: No new aches or pains or muscle weakness Infectious: no recurrent fevers or infections Dermatologic: No rashes or skin lesions Neurologic: No new headaches or dizziness Vitals: 01/03/25 0920 BP: 96/72 Pulse: (!) 121 Body mass index is 27.48 kg/m . weight: (unable to obtain) Neurologic exam: Mental status: Awake, alert to person, place and time. Recent and remote memory are intact. Attention and concentration are normal. Fund of knowledge is appropriate for level of education. Restless and fidgety HEENT: Skull defect right head region Cranial nerves: CN II: Left visual neglect Visual dumont full to confrontation. CN III, IV, : pupils equal round and reactive to light. Extraocular movements intact. No ptosis present. CN V: Facial sensation is normal. CN VII: Decreased on the left side of the face CN VIII: Hearing is normal to finger rub bilaterally: CN IX and X: Palate elevates symmetrically. CN XI: Decreased on the left. CN XII: Tongue is midline without atrophy or fasciculation. Speech: Clear and fluent no aphasia or dysarthria Pronator drift: Negative on the right cannot perform on the left Coordination: Intact, no signs of dysmetria Good finger to nose and rapid alternating movements on the right, unable on the left Sensory: Sensation is intact to light, temperature and vibratory touch throughout four extremities. Pin Prick is decreased left side. Motor: LUE 2/5 RUE 5/5 LLE 3/5 with foot drop RLE 5/5 Tone: Physiologic, no tremor, bradykinesia or rigidity DTR: Right Biceps, BR 2/4 Left Biceps, BR 3/4 Right Patellar 2/4, Left Patellar 3/4 Right spasticity Gait: In wheelchair Review and summary of old records: PSG AHI of 8 with supine AHI 17 O2 35% suspect artefact BiPAP titration 10/6 cmH20 Nocturnal Pox he did not qualify Assessment/Plan Diagnoses and all orders for this visit: MATTEO (obstructive sleep apnea) Cerebrovascular accident (CVA) due to occlusion of right middle cerebral artery (CMS/HCC) Primary insomnia 54-year-old male with a history of a right hemispheric cerebral infarct causing left hemiparesis. Patient is being seen by us for his sleep. Patient does have an underlying mild obstructive [...] did not qualify for oxygen at home. At one point in time the patient was titrated onto BiPAP at 10/6 cm of water. He states he could not tolerate the BiPAP machine however he never got a BiPAP machine. He just did not like it the nighthe went in for the sleep study. That is not technically a BiPAP failure. He would now like to be set up on the machine and we did send for it. They report the titration is set up for middle of January. His significant other/caregiver that accompanies him to visits has one also and will be a good resource for him with this. . I suspect some the patient's hypersomnia [...] sleep time such as midnight to 8:00 a.m.. He needs to turn the TV off at night. He needs to not have caffeine within 3-6 hours of bedtime. He also would benefit from avoiding marijuana usage right before bedtime. We can consider a sleep aid but I would like him to try nonpharmacologic techniques 1st and see if we solve the problem that way and if not then we can consider sleep medication. At this time he would not be a candidate for inspire. His AHI is 8 and it must be at least 16 therefore sleep apnea is not bad enough to warrant a surgery. In addition he has not tried and failed theBiPAP machine he simply did not like it the night he went in for the titration study. He would needto get the machine and truly fail it at home but again his AHI is not high enough so that is a moot point. . In discussion with him I do feel he has depression. He states he has never spoke with anyone about all he has been through. He turned 49 and 2 weeks later had this debilitating tradgedy that has altered his life. He can not work or drive, lives alone. This is likely contributing to all this time inbed. He is agreeable to a psych referral and this has been sent. . . . Plan He does have his titrations study scheduled at [facility] in January sometime , they will call us a week after it is completed and then we will send in the order for the machine, mask, and supplies with the pressures They are aware we will need to see them 31-90 days after they have the machine DME in [facility] tafsgvdx-Wosknhw-mmy sent 6 months ago and again [facility]. We did give him the name and number of the dr. It was sent to in hopes he will call and get this scheduled Compliance download at next visit Assess for PLMD Patient should have sleep restriction and set [...] options, follow up plan, and return instructions Return to clinic: 3 months documented in this encounterMercy Hospital [id number] Telephone encounter Note* Telephone Encounter - Giovanna Bowman - 12/17/2024 1:06 PM EDT Appt made [facility] [id number] Miscellaneous Notes* Telephone Encounter - Giovanna Bowman - 12/17/2024 1:06 PM EDT Appt made * Telephone Encounter - Erika Brian NP - 12/17/2024 10:07 AM EDT The patient should likely schedule a follow-up with Dr. Rivera's team to continue MATTEO treatment, and I would encourage him to do this. I believe this would be better addressed at an in-person visit than via telephone encounter, as there are at least a couple things that he has seemingly not followed up on or completed since they were ordered (updated sleep study and obtaining BiPAP). * Telephone Encounter - Madison Saldaña MA - 12/17/2024 10:03 AM EDT I called [place]. The patient needs an updated study per Medicaid guidelines. We did send him for a HST to [facility]. After sending the order, Joy from the sleep lab tried contacting him to set up an inpatient split night due to insurance requirements. She was never able to leave a message due to voicemail being full and he never returned the call. * Telephone Encounter - Madison Saldaña MA - 12/17/2024 9:35 AM EDT I know when he came in for the last appt and was left before being seen that I gave him the number to the DME. He was going to contact them to see what was going on. I will call [place] * Telephone Encounter - Erika Brian NP - 12/16/2024 8:44 PM EDT Per your most recent note in June 2024, you were going to set the patient up with a new BiPAP machine via [facility]. The patient states he never received this or heard anything more about it following the appointment. Are you able to look into this please? I did suggest he schedule a follow-up with you as well to discuss MATTEO management. I see there was a no show in October 2024. documented in this encounterMercy Hospital [id number] Telephone encounter Note* Telephone Encounter - Erika Brian NP - 12/17/2024 10:07 AM EDT The patient should likely schedule a follow-up with Dr. Rivera's team to continue MATTEO treatment, and I would encourage him to do this. I believe this would be better addressed at an in-person visit than via telephone encounter, as there are at least a couple things that he has seemingly not followed up on or completed since they were ordered (updated sleep study and obtaining BiPAP). [id number] Telephone encounter Note* Telephone Encounter - Madison Saldaña MA - 12/17/2024 10:03 AM EDT [place] called [place]. The patient needs an updated study per Medicaid guidelines. We did send him for a HST to [facility]. After sending the order, Joy from the sleep lab tried contacting him to set up an inpatient split night due to insurance requirements. She was never able to leave a message due to voicemail being full and he never returned the call. [facility] [id number] Telephone encounter Note* Telephone Encounter - Madison Saldaña MA - 12/17/2024 9:35 AM EDT I know when he came in for the last appt and was left before being seen that I gave him the number to the DME. He was going to contact them to see what was going on. I will call [place] [facility] [id number] Telephone encounter Note* Telephone Encounter - Erika Brian NP - 12/16/2024 8:44 PM EDT Per your most recent note in June 2024, you were going to set the patient up with a new BiPAP machine via [facility]. The patient states he never received this or heard anything more about it following the appointment. Are you able to look into this please? I did suggest he schedule a follow-up with you as well to discuss MATTEO management. I see there was a no show in October 2024. [id number] History of Present illness Narrative* Erika Brian, ADMINISTRATIVE RESIDENT - 12/13/2024 1:20 PM EDT Images from the original note were not included. Chief Complaint Patient presents with History of stroke Extremity Weakness Headache Spasticity Visual symptoms Li Griffin is a 54 y.o. male. History of Present Illness The patient presents today for follow-up. He is accompanied by his friend, Trice. He had an MRI of the brain completed for review. The patient has a history of CVA, seizure, and MATTEO. He continues on aspirin and statin therapy daily, and he denies any new signs or symptoms of stroke since the prior neurology appointment on October 24, 2024. He also denies any seizure- like activity, alteration of awareness, or loss of consciousness since that time. He takes lamotrigine 100 mg twice a day and denies missing doses. The patient reports left neglect, left-sided hemiparesis, left upper extremity and lower extremity spasticity, and left hemibody numbness since his stroke. He follows with Dr. Rivera's team for management of spacticity. Most recent Botox injections on September 26, 2024 were very helpful. However, he does state effects can tend to wear off before the next injections are due. He has obtained a robotic glove for neuromuscular rehabilitation which he purchased [id number]. He is able to ambulate for short distances but typically uses a wheelchair and assistive devices. The patient reports headaches which occur daily upon waking and often resolve within 2 hours. Theseare located in the bilateral temporal region and, behind the eyes. He states they feel like a band around his head. Severity is moderate to severe. He describes them as pressure and occasionally throbbing. They can be accompanied by nausea and light sensitivity. They are not accompanied by vomiting or sound sensitivity. He takes Tylenol and ibuprofen as needed, and these are helpful. He states he can also experience, glare headaches, which are triggered by bright sunlight. The patient is experiencing transient visual disturbance which he describes as swirly colors and flashing in his vision. Symptoms last around 1 minute and then resolve. He denies any associated features. He denies accompanying headache or vision loss. The patient sleeps approximately 7-9 hours per night but does not feel well rested upon waking. He states he is fatigued all day. He will occasionally awake from his sleep gasping and, seeing stars. He was evaluated by Ron Yeung NP on 09/26/2024 for MATTEO and was supposed to be set up with a BiPAP via DME but states he has not received this. Review of Systems Constitutional: Positive for fatigue. Negative for appetite change, chills, fever and unexpected weight change. HENT: Negative for trouble swallowing and voice change. Eyes: Positive for photophobia and visual disturbance. Negative for visual change, double vision or loss of vision Respiratory: Negative for cough, shortness of breath and wheezing. Cardiovascular: Negative for chest pain and palpitations. Gastrointestinal: Negative for abdominal pain, blood in stool and vomiting. Musculoskeletal: Positive for arthralgias and gait problem. Negative for myalgias. Neurological: Positive for weakness (left-sided), numbness (left-sided) and headaches. Negative fordizziness, tremors, seizures, syncope, facial asymmetry, speech difficulty and light-headedness. Positive for, brain fog Psychiatric/Behavioral: Positive for sleep disturbance. Negative for confusion, hallucinations, self-injury and suicidal ideas. Home Medication List amitriptyline 50 MG tablet; Commonly known as: Elavil Aspirin Low Dose 81 MG EC tablet; Generic drug: aspirin atorvastatin 40 MG tablet; Commonly known as: Lipitor ergocalciferol 1.25 MG (28214 UT) capsule; Commonly known as: Vitamin D2 escitalopram 10 MG tablet; Commonly known as: Lexapro fluticasone 50 MCG/ACT nasal spray; Commonly known as: Flonase hydrocortisone 2.5 % cream ibuprofen 600 MG tablet lamoTRIgine 100 MG tablet; Commonly known as: LaMICtal; Take 1 tablet (100 mg) by mouth in the morning and 1 tablet (100 mg) before bedtime. melatonin 5 MG tablet Multivitamin tablet Pepcid 20 MG tablet; Generic drug: famotidine traZODone 50 MG tablet; Commonly known as: Desyrel Past Medical History: Diagnosis Date Epilepsy Hyperlipidemia (CMS/HCC) Hypertension (CMS/HCC) Kidney stones Stroke (CMS/HCC) Past Surgical History: Procedure Laterality Date APPENDECTOMY 10/04/2019 CT ABDOMEN/PELVIS WO CONTRAST FOR KIDNEY STONES [address] CT ANGIOGRAM ABDOMEN PELVIS 03/01/2024 CT ANGIOGRAM [...] or equivalent per week Allergies: Cortisone Vitals: 12/13/24 1307 BP: 136/86 Body mass index is 27.48 kg/m . weight: 214 lb Neurologic exam: Mental status and general appearance: Awake and alert with unlabored respirations. Oriented to person, place, and time. Recent and remotememory are generally intact. Speech is clear and fluent without aphasia. Speech is non-dysarthric. Attention and concentration are normal. Fund of knowledge is appropriate for level of education. Pleasant. Cranial nerves: CN II: Visual acuity is normal. Visual dumont full to confrontation. Left visual neglect. CN III, IV, : Pupils are equal, round, and reactive to light. Extraocular movements intact. No ptosis present. CN V: Facial sensation is normal on the right and reduced on the left. CN VII: Full and symmetric facial movement. CN VIII: Hearing is normal to finger rub bilaterally. CN IX and X: Palate elevates symmetrically. CN XI: Shoulder shrug is normal bilaterally. CN XII: Tongue is midline without atrophy or fasciculation. Motor: RUE strength deltoid , biceps , triceps , wrist extensors , wrist flexor , and stenotype operator strength 5/5. LUE strength deltoid strength 3-/5. Biceps and triceps strength 2/5. Wrist extensors , wrist flexor, and stenotype operator strength 1/5. RLE strength iliopsoas, quadriceps, tibialis anterior, and plantar flexion strength 5/5. LLE strength iliopsoas, quadriceps, tibialis anterior, and plantar flexion strength 3-/5. Increased tone of the left upper and left lower extremities. Sensory: Sensation is intact to light touch throughout all four extremities. Sensation is intact to temperature in all extremities. Reduced sensation and allodynia on the left side of the body. Reflexes: RUE biceps reflex 2+ , brachioradialis reflex 2+. LUE biceps reflex 3+ , brachioradialis reflex 3+. RLE knee reflex 2+. LLE knee reflex 3+. Coordination: Rvmzcq-ad-gire testing normal on the right. Unable to perform on the left. Rapid alternating movements are normal on the right. Unable to perform on the left. Gait: Not assessed, as the patient presents in a wheelchair. Review and summary of old records: MRI of the brain with and without contrast at [facility] on 11/06/2024: No acute intracranial pathology or abnormal postcontrast enhancement. Gliosis and encephalomalacia is noted throughout the right MCA territory consistent with a right MCA territory infarct. Chronic age-related neurodegenerative changes. There is mild ex vacuo dilatation of the right lateral ventricle. Chronic microvascular ischemic change. Lamotrigine level on 05/28/2024: 6.2 (WNL). Neuropsychological evaluation on 04/10/2024: Evaluation demonstrates persisting left visual field neglect and left hemiparesis, as well as poor visual-spatial skills, impulsivity, and struggles with problem-solving/cognitive flexibility. Memory performance fluctuated with attention. Overall performance is consistent with residual cognitive sequela history 2019 right MCA CVA. Unfortunately given the time since the stroke persisting cognitive limitations are expected to be permanent. Underlying untreated MATTOE likely exacerbating underlying cognitive struggles. Routine EEG at [facility] on 01/30/2024: Normal. Per [facility] ED note on 12/21/2023: The patient was evaluated for visual disturbance which resolved uponhis arrival. The patient described an aura, reportedly saw colors on the side of his vision which previously has led to seizure. He did not have a seizure while at the hospital. Labs unremarkable. Head CT with no evidence of intracranial hemorrhage or appreciable acute abnormality. Encephalomalaciachanges from remote infarction involving the majority of the right frontal and parietal lobes. on 05/04/23: Patient states he had admission at [facility] and did have an MRI completed which was unremarkable. He was not on any antiplatelet or anticoagulant medication prior to admission and he was placed on aspirin 81 mg by mouth daily. Lamotrigine level on 04/18/23: 5.7 (WNL). Ambulatory EEG at [facility] on 10/17/22: Abnormal 47-hour ambulatory EEG due to continuous slow activity in the right hemisphere with superimposed right temporal occipital sharp transients occurring frequently during the recording consistent with right hemisphere dysfunction and possible epileptiform focus the right temporal occipital region. Per documentation from [facility] in 2019: Addison Griffin is a 49 y.o.male who suffered a malignant RIGHT MCA ischemic infarction and required a decompressive hemicraniectomy for cerebral edema and brain compression. In follow up he was found to have significant improvement in the cerebral edema. he was determined to be appropriate for a cranioplasty to repair the acquired skull defect and on 10/31/2019 he was taken to the OR by Dr Griffin for a successful autograftcranioplasty. he tolerated the procedure with the expected postoperative complaints. his surgical drain was removed when the output decreased. he was evaluated by PT/OT/WARD AIDE and returned to their preop erative neurologic function and he was evaluated an intensive rehab program. Assessment/Plan Diagnoses and all orders for this visit: Cerebrovascular accident (CVA) due to occlusion of right middle cerebral artery (CMS/HCC) Mr. Griffin is a 54-year-old male with a history of cerebral infarction due to right MCA occlusion in 2018. He is status post hemicraniectomy in August 2019 at [facility] due to cerebral edema and brain compression. He later underwent cranioplasty to repair acquired skull defect in October 2019 at [facility]. He has residual left visual neglect, left-sided hemiparesis, left-sided spasticity, left hemibody numbness, and mild cognitive dysfunction. He reports completing extensive therapy for his symptoms in the past and recently obtained a robotic glove for neuromuscular rehabilitation which he believes is helpful. Neuropsychological evaluation on 04/10/2024 was consistent with residual cognitive sequelae associated with his 2019 right MCA infarct. The patient did have an episode in April 2023 which he states he was told was a transient ischemicattack. He states MRI at [place] was unremarkable. At the time, he was not taking any antiplatelet therapy, and he was placed on aspirin during that admission. PLAN: - Continue aspirin 81 mg by mouth daily - Continue statin (management per primary care provider; goal LDL < 70) - Healthy diet and regular physical activity as tolerated - Avoid tobacco use and illicit drug use and limit alcohol intake - Follow up closely with primary care provider for management of blood pressure, cholesterol levels, and blood glucose - I counseled the patient on signs and symptoms of stroke and educated the patient to seek emergentcare in the emergency department if he develops any of these in the future. He verbalizes understanding - Follow-up with neurosurgery at [facility] as indicated Muscle spasticity (CMS/HCC) See above. The patient has residual LUE and LLE spasticity. He also has central pain syndrome. I believe a lot of his pain may stem from his spasticity. He has received Botox injection via Dr. Riverawith some relief but states effects do seem to wear off prior to his next injections. Baclofen was ineffective previously. He is no longer taking fentanyl, duloxetine, or gabapentin. PLAN: - Follow up with Dr. Rivera for Botox injections for spasticity (left elbow, wrist, hip) - Start tizanidine 4 mg by mouth twice a day as needed for spasticity (may use in between Botox injections). I counseled the patient on possible adverse effects. He verbalizes understanding and wishes to proceed Vision changes The patient reports transient visual disturbance which he describes as brief episodes of swirly colors in his vision and photopsia. Could consider migraine aura, however, these do not directly correlate with the timing of his headaches. MRI of the brain on 11/06/2024 was unremarkable for cause. PLAN: - I reviewed MRI results with the patient - I advised the patient to schedule a follow-up appointment with his shipping weigher for further evaluation and management of his visual symptoms Partial symptomatic epilepsy with complex partial seizures, intractable, without status epilepticus(CMS/HCC) The patient has a long-standing history of epilepsy. He has extensive risk factors including right MCA stroke and subsequent right temporal craniotomy. Ambulatory EEG in June 2022 revealed abnormalities in the right temporal area consistent with right hemisphere dysfunction and possible epileptiform focus in the right temporal occipital region which would correlate with his prior craniotomy. Keppra was discontinued due to mood issues. On lamotrigine and doing well. He denies any recurrence of seizure-like activity since the prior neurology appointment. PLAN: - Continue lamotrigine 100 mg by mouth twice a day - I emphasized the importance of medication compliance, adequate sleep, and stress management - Sudden unexpected in epilepsy discussed Encounter for medication monitoring Lamotrigine use. PLAN: - Check labs (CBC, CMP, and lamotrigine level) MATTEO (obstructive sleep apnea) The patient had evidence of obstructive sleep apnea on polysomnography. He did not tolerate CPAP for treatment and is following with Dr. Rivera's team to explore alternative treatment options. Most recently evaluated in June 2024 at which time the patient was supposed to be set up on BiPAP but states he never received this. I will ask our team to look into this. He was evaluated by our sleep medicine team previously and determined not to be a candidate for surgical intervention for MATTEO. He does report daily headaches upon waking, and I am suspicious for untreated MATTEO being contributory here. PLAN: - Follow up with Dr. Rivera's team for management Anxiety and depression (CMS/[facility]) The patient reports feelings of anxiety and depression. PLAN: - Referral to psychiatry for evaluation and treatment Diagnosis and treatment options discussed in detail. All questions answered. The patient verbalizesunderstanding and is agreeable to the plan. Discussion in layman's terms. Follow up in the office within 2 months; sooner if needed for new or worsening symptoms. Erika Brian NP [facility] documented in this [facility]03-27-2025 Instructions* Patient Instructions* Erika Brian NP - 12/13/2024 1:20 PM EDT - Check labs - Start tizanidine as directed for spasticity - Referral to psychiatry documented in this [facility]02-05-2025 History of Present illness Narrative* Karissa Carlin NP - 10/24/2024 2:40 PM EST Images from the original note were not included. Chief Complaint Patient presents with Seizures Cerebrovascular Accident Sleep Apnea Subjective [place] Fugitt, 54 y.o., male Patient presents today for a follow up for history of CVA and seizures. He is accompanied today by a family member. He was last seen for an office visit on 07/04/24. He continues on aspirin and statin therapy for secondary stroke prevention. He denies any new seizure like activity since last visit.He continues on lamotrigine and denies any missed doses. He denies any symptoms to suggest nocturnal seizure. He also follows with Dr. Rivera's team for management of sleep and spacticity. [...] sleeping Past Medical History: Diagnosis Date Epilepsy ([facility]) Kidney stones Stroke ([facility]) Past Surgical History: Procedure Laterality Date APPENDECTOMY 10/04/2019 CT ABDOMEN/PELVIS WO CONTRAST FOR KIDNEY STONES [address] CT ANGIOGRAM ABDOMEN PELVIS 03/01/2024 CT ANGIOGRAM [...] , wrist extensors , wrist flexor , stenotype operator strength 5/5. LUE Strength deltoid , biceps , triceps , wrist extensors , wrist flexor , stenotype operator strength 1-2/5 spastic. RLE Strength illopsoas, quadriceps, tibialis anterior, and gastrocnemius strength 5/5. LLE Strength illopsoas, quadriceps and gastrocnemius strength 3-/5 with foot drop. Spastic proximally. Sensory: Sensation is intact to light touch throughout distal extremities. Allodynia on the left side of thebody. Reflexes: RUE biceps reflex 2+ , brachioradialis reflex 2+. LUE biceps reflex 4+ , brachioradialis reflex 4+. RLE knee reflex 2+ LLE knee reflex 4+ Coordination: Mbmwhf-nl-uoit testing normal on the right, unable to [...] limitations are expected to be permanent. Underlying untreatedOSA likely exacerbating underlying cognitive struggles. Routine EEG at [facility] on 01/30/2024: Normal Per [facility] ED note on 12/21/2023: The patient was evaluated for visual disturbance which resolved uponhis arrival. The patient described an aura, reportedly saw colors on the side of his vision which previously has led to seizure. He did not have a seizure while at the hospital. Labs unremarkable. Head CT with no evidence of intracranial hemorrhage or appreciable acute abnormality. Encephalomalaciachanges from remote infarction involving the majority of the right frontal and parietal lobes. on 05/04/23: Patient states he had admission at [facility] and did have an MRI completed which was unremarkable. He was not on any antiplatelet or anticoagulant medication prior to admission and he was placed on aspirin 81 mg by mouth daily. Lamotrigine level on 04/18/23: 5.7 which is within normal limits Ambulatory EEG at [facility] on 07/05/22: Abnormal 47 hour ambulatory EEG [...] transient ischemic attack. He states MRI at [place] was unremarkable. At the time he was not taking any antiplatelet therapyand he was placed on aspirin at that admission. Due to cognitive concerns we did complete neuropsych evaluation on 04/10/24 which was consistent with residual cognitive sequelae associated with his 2019 right MCA. PLAN - Previously Referred to for cognition to help with compensation techniques - Continue aspirin 81 mg po daily - Follow-up with neurosurgery at [facility] as indicated - Signs and symptoms [...] to definitively state whether this correlates with headachesas he states he wakes with a headache [...] close follow up with sleep medicine, Dr. Rivera regarding his waking with daily headaches as sleep apnea is likely playing a role. 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 Previously on fentanyl, then on gabapentin and duloxetine. He isno longer on either. I think a lot of his pain comes from some of the spasticity he has in his leftarm and leg; has gotten Botox ND and has had some relief of the spasticity in his left hand though still modest; biggest complaint is the elbow stiffness. We did restart him on Baclofen though it does not seem he has been taking this recently. PLAN: - Following with Dr. Rivera for Botox for spasticity (left elbow, wrist, hip) - He is interested in a brace for his left upper extremity to support the limb. Will send a referral to OT to see if this in an option for him. Partial symptomatic epilepsy with complex partial seizures, intractable, without status epilepticus(CMS/HCC) The patient has a long-standing history of [...] May of 2024 was normal. There have beenno concerns for breakthrough seizure since his last [...] - Follow up with sleep medicine, Dr Rivera Follow up in 1 month following MRI or sooner if symptoms worsen, fail to improve, or should a new neurological concern arise. Pt has been fully educated on their diagnosis, treatment options, follow up plan, and return instructions documented in this encounterMercy Hospital [id number] History of Present illness Narrative* Manuela Rivera, - 09/26/2024 1:15 PM EST Images from the original note were not included. 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 He was previously getting Botox injections but he has fallen off of cycle. He has not got numb since January of 2024 and before that August 2023. He woulddo much better if he would stay on [...] need this for a lifetime. This is tohelp prevent contractures spasticity and pain and help [...] were sterilized with 70% isopropanol. Lot # [id number] Expiration: 11/2026 Sodium Chloride Lot # Expiration: [...] when to seek emergent treatment. Procedure Codes 34299 Chemodenervation of extremity 1-4 muscles 10880 Each additional extremity 1-4 muscles 49235 Chemodenervation of extremity 5+ muscles 68347 Each additional extremity 5+ muscles J0585 Botulinum toxin a per unit, Units: Follow Up 3 months Botox documented in this [facility]10-29-2024 History of Present illness Narrative* Dominga Mccarthy MD - 07/17/2024 2:40 PM EDT Images from the original note were not included. Subjective Patient ID: Addison Griffin is a 53 y.o. male who presents [...] to occlusion of right middle cerebral artery ([facility]/HCC) 01/19/2024 Central pain syndrome 01/19/2024 Partial symptomatic epilepsy with complex partial seizures, intractable, without status epilepticus([facility]/HCC) 01/19/2024 Left spastic hemiplegia ([facility]/HCC) 01/19/2024 Daytime hypersomnolence 01/19/2024 Central sleep apnea 01/19/2024 MATTEO (obstructive sleep apnea) 01/19/2024 Altered mental status 03/27/2023 Acquired skull defect 10/22/2019 Anemia 08/27/2019 Bradycardia, unspecified 08/30/2019 Cerebral edema ([facility]) 08/20/2019 Cerebrovascular disease 09/23/2020 Cerebral infarction due to occlusion of right middle cerebral artery ([facility]) 08/30/2019 Cognitive communication deficit 08/31/2019 Anxiety and depression ([facility]) 07/05/2024 Difficulty swallowing 07/05/2024 Resolved Ambulatory Problems Diagnosis Date Noted No Resolved Ambulatory Problems Past Medical History: Diagnosis Date Epilepsy ([facility]) Kidney stones Stroke ([facility]) Past Surgical History: Procedure Laterality Date APPENDECTOMY 10/04/2019 CT ABDOMEN/PELVIS WO CONTRAST FOR KIDNEY STONES [address] CT ANGIOGRAM ABDOMEN PELVIS 03/01/2024 CT ANGIOGRAM [...] on 07/10/2024) ergocalciferol (Vitamin D2) 1.25 MG (69158 UT) capsule Take 1 capsule by mouth [...] by mouth in the morning and 400 mgin the evening and 400 mg before bedtime. [...] regular rate and rhythm; Patient ID: Addison Griffin is a 53 y.o. male. Procedures A [...] ulceration or mass. Normal bilateral true vocal foldmotion is present. Bilateral piriform sinuses and base of tongue appear without lesion Assessment/Plan Diagnoses and all orders for this visit: History of stroke Pharyngoesophageal dysphagia Weakness of voice Pt has a normal laryngopharyngeal exam. documented in this encounterMercy Hospital [id number] History of Present illness Narrative* Jeremiherrera DO Katheryn - 07/04/2024 3:00 PM EDT Images from the original note were not included. Chief complaint: Seizures and history of stroke Subjective [place] Fugminnie, 53 y.o., male Patient presents today for a follow up for CVA and seizures. He is here with his mother. He startedspeech therapy which he believes is helpful in [...] CT ABDOMEN/PELVIS WO CONTRAST FOR KIDNEY STONES [address] CT ANGIOGRAM ABDOMEN PELVIS 03/01/2024 CT ANGIOGRAM [...] of knowledge is appropriate for level of e ducation. Restless. Cranial nerves: CN II: Left visual [...] , wrist extensors , wrist flexor , stenotype operator strength 5/5. LUE Strength deltoid , biceps , triceps , wrist extensors , wrist flexor , stenotype operator strength 1-2/5 spastic. RLE Strength illopsoas, quadriceps, tibialis anterior, and gastrocnemius strength 5/5. LLE Strength illopsoas, quadriceps and gastrocnemius strength 3-/5 with foot drop. Spastic proximally. Sensory: Sensation is intact to light touch throughout distal extremities. Allodynia on the left side of thebody. Reflexes: RUE biceps reflex 2+ , brachioradialis reflex 2+. LUE biceps reflex 4+ , brachioradialis reflex 4+. RLE knee reflex 2+ LLE knee reflex 4+ Coordination: Ivhumm-ep-zhoc testing normal on the right, unable to [...] limitations are expected to be permanent. Underlying untreatedOSA likely exacerbating underlying cognitive struggles. [facility]ine EEG at [facility] on 01/30/2024: Normal Per [facility] ED note on 12/21/2023: The patient was evaluated for visual disturbance which resolved uponhis arrival. The patient described an aura, reportedly saw colors on the side of his vision which previously has led to seizure. He did not have a seizure while at the hospital. Labs unremarkable. Head CT with no evidence of intracranial hemorrhage or appreciable acute abnormality. Encephalomalaciachanges from remote infarction involving the majority of the right frontal and parietal lobes. on 05/04/23: Patient states he had admission at [facility] and did have an MRI completed which was unremarkable. He was not on any antiplatelet or anticoagulant medication prior to admission and he was placed on aspirin 81 mg by mouth daily. Lamotrigine level on 04/18/23: 5.7 which is within normal limits Ambulatory EEG at [facility] on 07/05/22: Abnormal 47 hour ambulatory EEG [...] transient ischemic attack. He states MRI at [place] was unremarkable. He was placed on aspirin [...] po daily - Follow-up with neurosurgery at [facility] as indicated Muscle spasticity Patient has central pain syndrome. Previously on fentanyl, then on gabapentin and duloxetine. He isno longer on either. I think a lot of his pain comes from some of the spasticity he has in his leftarm and leg; has gotten Botox ND and has had some relief of the spasticity in his left hand though still modest; biggest complaint is the elbow stiffness. We did restart him on Baclofen. PLAN: - Following with Dr. Rivera for Botox for spasticity (left elbow, wrist, hip) - Continue Baclofen Partial symptomatic epilepsy with complex partial seizures, intractable, without status epilepticus(CMS/HCC) The patient has a long-standing history of [...] - Follow up with sleep medicine, Dr Rivera Follow up in 3 months Pt has been fully educated on their diagnosis, treatment options, follow up plan, and return instructions documented in this encounterMercy Hospital [id number] NoteOccupational Therapy This patient was evaluated in a multidisciplinary wheelchair seating clinic. Please see attached letter of medical necessity for further supporting documentation.[facility]09-11-2023 [facility]Un[facility] Department of Physical Medicine and Rehabilitation Seating Clinic Date: 05/30/23 Referring Provider: No referring provider defined for this encounter. Addison Griffin is a 52 y.o. year old male [...] I concur with above documentation. Terry Betancourt MDLicking [facility] Hospital09-11-2023 Evaluation note * Encounter Date Diagnosis Assessment Notes Treatment Notes Treatment Clinical Notes May, Paronychia of finger of right land nd (ICD-10 - L03.011) Paronychia material was printed Drink plenty fluids, get plenty of rest. Continue home medications as prescribed. Take the cephalexin as prescribed until gone. Soak your hand in warm soapy water 2-3 times a day. Follow-up with yourfamily physician if no improvement in 2 to 3 days. Stop biting your nails. [employer] Other 02-09-2023 Evaluation note* Encounter Date Diagnosis Assessment Notes Treatment Notes Treatment Clinical Notes Oct, LUQ abdominal pain (ICD-10 - R10 .12) Arrange for abdominal ultrasound and chest xray Use Ibuprofen 400mg up to twice a day for a week for pain Start Omeprazole 40mg daily for 12 weeks Follow up in 12 weeks if pain persists. [employer] Other 12-01-2019 History general Narrative - Reported* Type Description Date Medical History stroke 08/2019 Medical Historyalcohol abuseMedical HistoryepilepsySurgical Historyremoved piece of skull to reduce brain swellingSurgical HistoryappendectomySurgical History KNEE SURGERYSurgical HistoryKIDNEY STONEHospitalization Historystroke Hospitalization [id number] [employer] Other Evaluation note* Diagnosis Partial symptomatic epilepsy with complex partial seizures, intractable, without status epilepticus(CMS/HCC)- Primary Cerebrovascular accident (CVA) due to occlusion of right middle cerebral artery (CMS/HCC) Left spastic hemiplegia (CMS/HCC) Spastic hemiplegia affecting unspecified side MATTEO (obstructive sleep apnea) Obstructive sleep apnea (adult) (pediatric) documented in this encounter [facility] HealthcareEvaluation [facility]* Diagnosis MATTEO (obstructive sleep apnea)- [...] conditions classified elsewhere documented in this encounter [facility]* Diagnosis History of stroke- Primary Transient ischemic attack (TIA), and cerebral infarction without residual deficits Pharyngoesophageal dysphagia Dysphagia, pharyngoesophageal phase Weakness of voice Other voice and resonance disorders documented in this encounter [facility]* Diagnosis Cerebrovascular accident (CVA) due to occlusion of right middle cerebral artery (CMS/HCC)- Primary Left spastic hemiplegia (CMS/HCC) Spastic hemiplegia affecting unspecified side documented in this encounter [facility] HealthcareEvaluation note* Diagnosis Cerebrovascular accident (CVA) due to occlusion of right middle cerebral artery (CMS/HCC)- Primary Left spastic hemiplegia (CMS/HCC) Spastic hemiplegia affecting unspecified side Partial symptomatic epilepsy with complex partial seizures, intractable, without status epilepticus(CMS/HCC) Vision changes documented in this encounter [facility] HealthcareEvaluation note* Diagnosis Cerebrovascular accident (CVA) due to occlusion of right middle cerebral artery (CMS/HCC)- Primary Left spastic hemiplegia (CMS/HCC) Spastic hemiplegia affecting unspecified side Vision changes Partial symptomatic epilepsy with complex partial seizures, intractable, without status epilepticus Encounter for medication monitoring Encounter for therapeutic drug monitoring MATTEO (obstructive sleep apnea) Obstructive sleep apnea (adult) (pediatric) Anxiety and depression (CMS/HCC) documented in this encounter [facility] HealthcareEvaluation note* Diagnosis MATTEO (obstructive sleep apnea)- Primary Obstructive sleep apnea (adult) (pediatric) Cerebrovascular accident (CVA) due to occlusion of right middle cerebral artery (CMS/HCC) Primary insomnia Persistent disorder of initiating or maintaining sleep documented in this encounter [facility] HealthcareEvaluation note* Diagnosis History of cranioplasty- Primary Chronic ischemic right middle cerebral artery (MCA) stroke Transient ischemic attack (TIA), and cerebral infarction without residual deficits [facility] (narrative)No reason for referral information availableBlanchard Valley Health [facility] Work Phone: Summary Purpose Family History Relationship Condition Age at Onset Recorded Date/T leora Not Specified No pertinent family history Unknown fatherDeceasedUnknown Advance Directives Date ActivatedDate InactivatedComments10/31/2019 5:12 PMDate ActivatedDate FavwwqvxjgmVcamljtl86/3/2019 3:56 AM10/31/2019 5:12 PM Advance Directive Response Recorded Date/ Time Advance Directives No October 5:48pm Advance Directive Response Recorded Date/ Time Advance Directives No July 15, 2025 3:07pm Chief Complaint and Reason for Visit Chief Complaint Admit Date Review MRI April 03, 2025 4:17 pm Reason for Visit Admit Date Primary insomnia Kori 16th, 2025 4:17 pm MATTEO (obstructive sleep apnea) April 03, 2025 4:17pm Cerebrovascular accident (CV A) due to occlusion of right middle cerebral artery April 03, 2025 4:17pm Chief Complaint Admit Date Review MRI April 03, 2025 4:17 pm Botox April 25, 2025 1:0 1pm 2 month Follow up June 17, 2025 2:40pm Chief Complaint Admit Date Botox April 25, 2025 1:0 1pm 2 month Follow up June 17, 2025 2:40pm F/U July 15, 2025 2 :08pm Reason for Visit Admit Date Nightmares June 17, 2025 2:40pm Obstructive sleep apnea June 17, 2025 2:40pm Primary insomnia June 17, 2025 2:40pm Partial symptomatic epilepsy with complex partial seizures, not intractable July 15, 2025 2:08pm Spasticity July 15, 2025 2 :08pm Stroke July 15, 2025 2 :08pm Visual disturbance July 15, 2025 2 :08pm Additional Source Comments (unrecognized sect ion and content) No Status Records FoundNo Status Records FoundNo Status Records FoundNo Status Records FoundNo Status Records FoundNo Status Records FoundNo Status Records FoundNo Status Records FoundNo Status Records Found INFORMATION SOURCE (unrecogn ized section and content) DATE CREATED AUTHOR 09/06/2019 [facility] DATE CREATED AUTHOR AUTHOR'S ORGANIZ ATION 01/05/2023 [facility] DATE CREATED AUTHOR AUTHOR'S ORGANIZ ATION 05/27/2023 [facility] DATE CREATED AUTHOR AUTHOR'S ORGANIZ ATION 06/04/2023 [facility] DATE CREATED AUTHOR AUTHOR'S ORGANIZ ATION 10/08/2024 [facility] DATE CREATED AUTHOR AUTHOR'S ORGANIZ ATION 11/01/2024 [facility] DATE CREATED AUTHOR AUTHOR'S ORGANIZ ATION 11/13/2024 [facility] DATE CREATED AUTHOR AUTHOR'S ORGANIZ ATION 01/05/2025 [facility] DATE CREATED AUTHOR AUTHOR'S ORGANIZ ATION 03/19/2025 [facility] REASON FOR VISIT (unrecogniz ed section and content) ReasonCommentsSleep ApneaReasonCommentsDysphagiaReasonCommentsBotulinum Toxin InjectionReasonCommentsSeizuresCerebrovascular AccidentSleep ApneaReasonComments History of strokeExtremity WeaknessHeadacheSpasticityVisual symptomsReason CommentsSleep ApneaReasonCommentsNew PatientSpecialtyDiagnoses / Procedures Referred By ContactReferred To ContactNeurologic Surgery Diagnoses History of cranioplasty Chronic ischemic right middle cerebral artery (MCA) stroke Erika Brian, [employer] [address] [place] [address] Phone: tel: fax: Anni Griffin MD [address] [place] [address] Phone: tel: fax: Referral IDStatusReasonStart DateExpiration DateVisits RequestedVisits [id number] Review Care Teams (unrecognized sec tion and content) Team MemberRelationshipSpecialtyStart DateEnd Date Leonor Omer NP [address] [place] [address] Referring PhysicianPhoebe [facility]01/19/24 Leonor Omer NP [address] [place] [address] Referring PhysicianPhoebe [facility] Center06/29/24Team MemberRelationshipSpecialtyStart DateEnd Date Leonor Omer NP [address] [place] [address] Referring PhysicianPhoebe [facility] Center01/19/24 Leonor Omer NP [address] [place] [address] Referring PhysicianPhoebe [facility] Center06/29/24Team MemberRelationshipSpecialtyStart DateEnd Date Leonor Omer, ADMINISTRATIVE RESIDENT [address] [place] [address] Referring PhysicianLeonard [facility] Hospital Medicine01/19/24 Leonor Omer, ASHLIE [address] [place] [address] Referring PhysicianLeonard [facility] Hospital Oudzxtnw72/11/24Team MemberRelationshipSpecialtyStart DateEnd Date Leonor Omer, ASHLIE [address] [place] [address] Referring PhysicianPhoebe [facility] Medical Center01/19/24 Leonor Omer, ASHLIE [address] [place] [address] Referring PhysicianPhoebe [facility] Center06/29/24Team MemberRelationshipSpecialtyStart DateEnd Date Leonor Omer, ADMINISTRATIVE RESIDENT [address] [place] [address] Referring PhysicianLeonard Morse Hospital Medicine01/19/24 Leonor Omer, ASHLIE [address] [place] [address] Referring PhysicianPhoebe [facility] Center06/29/24Team MemberRelationshipSpecialtyStart DateEnd Date Leonor Omer, ADMINISTRATIVE RESIDENT [address] [place] [address] Referring PhysicianLeonard Morse Hospital Hrcmapda08/11/24Team MemberRelationshipSpecialtyStart DateEnd Date Leonor Omer, ADMINISTRATIVE RESIDENT [address] [place] [address] Referring PhysicianFamily Medicine01/19/24Team MemberRelationshipSpecialtyStart DateEnd Date Zhao Heart MD [address] [place] [address] PCP - Generalmi Lvgykosk58/3/24 Leonor Omer, ASHLIE [address] [place] [address] Referring PhysicianFamily Wwxjxxxa85/11/24 Manuela Rivera DO [address] [place] [address] Referring UihpkcvsaSyqaafuue29/3/24 Meghan Yeung NP [address] [place] [address] Nurse KjeupycpyxqlDarxmkhjl71/3/24Team MemberRelationshipSpecialtyStart DateEnd Date Zhao Heart MD [address] [place] [address] PCP - GeneralLeonard [facility] Hospital Zkrwkbvn53/3/24 Leonor Omer, ADMINISTRATIVE RESIDENT [address] [place] [address] Referring PhysicianFamily Rbbntcsz51/11/24 Manuela Rivera DO [address] [place] [address] Referring SegmzorjpSrlbyyqqm42/3/24 Meghan Yeung NP [address] [place], [place] Nurse YhfemofypswwQluhoiyzx25/3/24Team MemberRelationshipSpecialtyStart DateEnd Date Zhao Heart MD [address] [place] [address] PCP - GeneralFamily Hqlqgxzj32/3/24 Leonor Omer, ASHLIE [address] [place] [address] Referring PhysicianFamily Zbftjfmw11/11/24 Manuela Rivera DO [address] [place] [address] Referring NqhjpnrgaYhyrrkruo01/3/24 Meghan Yeung, ASHLIE [address] Nurse GccgwuubdjblJfichxppm86/3/24Team MemberRelationshipSpecialtyStart End Zhao Heart MD [address] [place] [address] PCP - GeneralFamily Llireveb82/3/24 Leonor Omer, ADMINISTRATIVE RESIDENT [address] [place] [address] Referring PhysicianFamily Bqwybxvp92/11/24 Manuela Rivera DO [address] [place] [address] Referring DlqdqsqarLyglvazdg93/3/24 Meghan Yeung NP [address] Nurse IyqnhidjokmlGlldofmif33/3/24Team MemberRelationshipSpecialtyStart DateEnd Zhao Heart MD [address] [place] [address] PCP - GeneralFamily Sqrxospo82/3/24 Leonor Omer, ASHLIE [address] [place] [address] Referring PhysicianFamily Hgxqgmoz22/11/24 Manuela Rivera DO [address] [place] [address] Referring AtilvoocqZmapyxntq20/3/24 Meghan Yeung, ASHLIE [address] [place] [address] Nurse SatlewuzncuhZwmxnxokb05/3/24Team MemberRelationshipSpecialtyStart DateEnd Zhao Heart MD [facility] [place] [address] PCP - GeneralFamily Kaxswrsd48/3/24 Leonor Omer, ASHLIE [address] [place] [address] Referring PhysicianFawesson memorial hospital Vhhqddcn07/11/24 Manuela Rivera DO [address] [place] [address] Referring KihxepgehOspevohnt95/3/24 Meghan Yeung NP [address] [place] [address] Nurse BcyfypfovvavJxqyeuvhi01/3/24 Erika Brian NP [address] [place] [phone] Nurse PractitionerNeurology12/13/24Team MemberRelationshipSpecialtyStart DateEnd Date Zhao Heart MD [address] [place] [address] PCP - GeneralFamily Ttyglbmn70/3/24 Leonor Omer, ASHLIE [address] [place] [address] Referring PhysicianFamily Ciyxvnhz37/11/24 Manuela Rivera DO [address] [place] [address] Referring SyedvyitmSnrlnbpwv51/3/24 Meghan Yeung NP [address] Nurse MolvwfrfktrxKxorcyzfc52/3/24 Erika Brian NP [address] [phone] Nurse PractitionerNeurology12/13/24Team MemberRelationshipSpecialtyStart DateEnd Zhao Heart MD [address] [place] [address] PCP - GeneralFamily Atciycln36/3/24 Leonor Omer, ASHLIE [address] [place] [address], [place] [address] Referring PhysicianFamily Fwzzpgxs78/11/24 Manuela Rivera DO [address] [place] [address] Referring VdiqnakrgNbzbuukns74/3/24 Meghan Yeung, ASHLIE [address] Nurse HemgazftxavaKtuipqjss78/3/24 Erika Brian, ASHLIE [address] [phone] Nurse PractitionerNeurology12/13/24Team MemberRelationshipSpecialtyStart DateEnd Date Zhao Heart MD [address] [place] [address] PCP - GeneralFamily Clsejhfe81/3/24 Leonor Omer, ASHLIE [address] [place] [address] Referring PhysicianFamily Ojidrspt09/11/24 Manuela Rivera DO [address] [place] [id number] Referring XemrwcfygOhtcxxznw78/3/24 Meghan Yeung NP [address] Nurse QpfibwespibaOgsljffrs36/3/24 Erika Brian NP [address] [phone] Nurse PractitionerNeurology12/13/24Team MemberRelationshipSpecialtyStart DateEnd Date Estevan Barrow DO PCP - GeneralFamily Medicine10/31/19 Team Status: Active Member Role Status Dates Devante Murphy PA-C Primary Care Provider Activ e Team Status: Inactive Member Role Status Dates Devante Murphy PA-C Primary Care Provider Activ e Start: April 03, 2025 End: April 03Maribel Richards ProviderActiveStart: April 03, 2025 End: April 03, 2025 Team Status: Active Member Role Status Dates Leonor Omer APRN Primary Care Provider Active Team Status: Inactive Member Role Status Sadiq Rivera DO Attending Provider Active Sta rt: April 25, 2025 End: April 25, 2025Faith Mike , APRNPrimary Care ProviderActiveStart: April 25, 2025 End: April 25, 2025 Team Status: Inactive Member Role Status Sadiq Yeung APRN Attending Provider Active Start: June 17, 2025 End: June 17, 2025Faith Mike , APRNPrimary Care ProviderActiveStart: June 17, 2025 End: June 17, 2025 Team Status: Active Member Role/Relationship Status Dates Leonor Omer APRN Primary Care Provider Active Team Status: Inactive Member Role/Relationship Status Dates Manuela Rivera DO Attending Provider Active Sta rt: April 25, 2025 End: April 25, 2025Faith Mike , APRNPrimary Care ProviderActiveStart: April 25, 2025 End: April 25, 2025 Team Status: Inactive Member Role/Relationship Status Sadiq Yeung APRN Attending Provider Active Start: June 17, 2025 End: June 17, 2025Faith Mike , APRNPrimary Care ProviderActiveStart: June 17, 2025 End: June 17, 2025 Team Status: Inactive Member Role/Relationship Status Sadiq Omer APRN Primary Care Provider Active Start: July 15, 2025 End: July 15, 2025Erika Brian APRN-FNP-CAttending ProviderActive Start: July 15, 2025 End: July 15, 2025 Goals (unrecognized section and content) Goals may be documented in a n alternate section FOR RECORDS PERTAINING TO PATIENTS WHO ARE [...] BE BASED ON THE PRIMARY CLINICAL RECORDS. [employer] [facility]. provides no warranty or guarantee of the accuracy or completeness of information in this document.
== END 2025-08-01 13:09 | disposition home or self-care (01) ==
LOC: CT 13:09
PROVIDERS: PCP Nurse Practitioner Family
DX: R51.9 Headache, unspecified (principal); Z86.73 Personal history of transient ischemic attack (TIA), and cerebral infarction without residual deficits; Z98.890 Other specified postprocedural states
CPT/HCPCS: 70450